=== PATIENT | male | born 1965 | race Hispanic/Latino ===

== ENCOUNTER 2016-11-01 12:59 | Inpatient (IN) | payer OTHER ==
[2016-11-01 14:46] LABS: BASO % 0.4 % (0.0-2.0); EOS % 0.7 % (0.0-4.0); HEMATOCRIT 27.7 % (35.0-51.0); LYMPH # 0.4 K/uL (1.0-4.3); LYMPH % 11.2 % (20.0-40.0); MEAN CORPUSCULAR HEMOGLOBIN 35.7 pg (27.0-31.0); MEAN CORPUSCULAR HGB CONC 34.5 g/dL (33.0-37.0); MEAN PLATELET VOLUME 6.5 fL (7.2-11.7); MONO # 0.2 K/uL (0.0-0.8); MONO % 5.2 % (0.0-10.0); NRBC % 0.1 % (0.0-2.0); RED CELL DISTRIBUTION WIDTH 14.4 % (11.5-14.5); WHITE BLOOD COUNT 3.3 K/uL (4.8-10.8)
[2016-11-01 14:47] LABS: MEAN CELL VOLUME 103.6 fL (80.0-94.0)
[2016-11-01 14:55] LABS: RBC URINE < 1 /hpf (0-3); URINE BILIRUBIN NEGATIVE (NEGATIVE); URINE BLOOD NEGATIVE (NEGATIVE); URINE COLOR Straw (YELLOW); URINE GLUCOSE (UA) 1+ mg/dL (Normal); URINE KETONE NEGATIVE (NEGATIVE); URINE LEUKOCYTE ESTERASE NEG Leu/uL (Negative); URINE UROBILINOGEN NORMAL mg/dL (0.2-1.0); WBC URINE < 1 /hpf (0-5)
[2016-11-01 14:56] LABS: URINE PROTEIN 1+ mg/dL (NEGATIVE)
[2016-11-01 14:57] LABS: CHLORIDE 93 mmol/L (98-107)
[2016-11-01 14:58] LABS: SODIUM 130 mmol/L (132-148)
[2016-11-01 15:00] LABS: AST/SGOT 74 U/L (17-59); BILIRUBIN,TOTAL 0.8 mg/dL (0.2-1.3); GFR AFRICAN-AMERICAN 12
[2016-11-01 15:01] LABS: ALB/GLOB RATIO 1.3 (1.0-2.1); ALKALINE PHOSPHATASE 93 U/L (38-126); ALT/SGPT 93 U/L (21-72); BLOOD UREA NITROGEN 61 mg/dL (9-20); CALCIUM 8.9 mg/dl (8.6-10.4); CARBON DIOXIDE 18 mmol/L (22-30); GLUCOSE,RANDOM 77 mg/dL (75-110); TOTAL PROTEIN 7.3 g/dL (6.3-8.3)
[2016-11-01] MEDS ORDERED: (Novolin R) Insulin Human Regular 100 units/ml vial IV ONE (15:23)
[2016-11-01] MEDS ORDERED: Calcium Gluconate 4.65 MEQ in Dextrose 5% In Water 100 ML IV ONE (15:23)
--- NOTE | 2016-11-01 15:23 | RAD ---
PROCEDURE: CHEST RADIOGRAPH, 1 VIEW HISTORY: Shortness of breath COMPARISON: 04/11/2016. FINDINGS: The right dialysis catheter terminates in the right atrium. LUNGS: There is mild pulmonary venous congestion. There is linear scarring in the left lower lobe. No focal consolidation. There is an azygous lobe fissure. PLEURA: Suspect small pleural effusion. No pneumothorax. CARDIOVASCULAR: There is moderate cardiomegaly. Atherosclerotic aortic arch calcifications are present. OSSEOUS STRUCTURES: No significant abnormalities. VISUALIZED UPPER ABDOMEN: Normal. OTHER FINDINGS: None. IMPRESSION: Mild pulmonary venous congestion and suspect small pleural effusions. No focal consolidation.
[2016-11-01 16:21] LABS: ALCOHOL SERUM < 10 mg/dl (0-10)
--- NOTE | 2016-11-01 16:29 | C.PDOC ---
History Of Present Illness 51 year old male presents was brought to the emergency department by seeking dialysis. As per patient's , patient missed dialysis for the last week because he is moving back with his after living with his mother for three years. Patient has a history of cocaine, heroin, and alcohol and is currently still using those substances. Patient's denies any physical complaints at this time. Time Seen by Provider: 11/01/16 13:43 Chief Complaint (Nursing): GI Problem History Per: Family () History/Exam Limitations: no limitations Associated Symptoms: denies: Fever, Chills, Chest Pain Recent travel outside of the [place]: No Past Medical History Reviewed: Historical Data, Nursing Documentation, Vital Signs Vital Signs: Last Vital Signs Temp 97.8 F 11/01/16 20:34 Pulse 84 11/01/16 20:34 Resp 18 11/01/16 20:34 BP 177/98 H 11/01/16 20:34 Pulse Ox 96 11/01/16 20:34 - Medical History PMH: HTN, Pneumonia, End Stage Renal Disease, Chronic Kidney Disease - [facility] Procedures DETOXIFICATION SERVICES FOR SUBSTANCE ABUSE TREATMENT (05/24/15) EXCISION OF DESCENDING COLON, ENDO, DIAGN (05/24/15) EXCISION OF STOMACH, ENDO, DIAGN (05/24/15) PERFORMANCE OF URINARY FILTRATION, SINGLE (04/07/16) Family History: States: Unknown Family Hx - Social History Hx Tobacco Use: Yes Hx Alcohol Use: Yes Hx Substance Use: No - Immunization History Hx Tetanus Toxoid Vaccination: No Hx Influenza Vaccination: No Hx Pneumococcal Vaccination: No Review Of Systems Constitutional: Negative for: Fever, Chills Cardiovascular: Negative for: Chest Pain, Palpitations Respiratory: Negative for: Cough, Shortness of Breath Gastrointestinal: Negative for: Nausea, Vomiting, Abdominal Pain, Diarrhea Physical Exam - Physical Exam Appears: Non-toxic, No Acute Distress, Other (patient is mildly intoxicated, is speaking on his behalf at bedside ) Skin: Warm, Dry Head: Atraumatic Eye(s): right: Other (post-surgical right eye) Oral Mucosa: Moist Neck: Supple Chest: Other (HD catheter in right anterior chest ) Cardiovascular: Rhythm Regular Respiratory: Normal Breath Sounds, No Rhonchi, No Wheezing Gastrointestinal/Abdominal: Soft, No Tenderness, No Distention, No Guarding, No Rebound Neurological/Psych: Oriented x3, Normal Speech, Normal Cognition, Normal Cranial Nerves, Normal Motor, Normal Sensation ED Course And Treatment - Laboratory Results Result Diagrams: 11/01/16 14:39 11/01/16 14:39 Lab Interpretation: Abnormal (+ hyperkalemia, tox + opiates/alcohol/cocaine) ECG: Interpreted By Me ECG Rhythm: Sinus Rhythm, Nonspecific Changes (+ peaked T^'s) ECG Interpretation: Abnormal Rate From EC O2 Sat by Pulse Oximetry: 99 (room air ) Pulse Ox Interpretation: Normal Reevaluation Time: 16:30 Reassessment Condition: Improved - Physician Consult Information Outcome Of Conversation: 1400, 1530: d/w Dr. Brandon Ly- Nephrology and Medicine Delinquency Counselor- ok to HD Medical Decision Making Medical Decision Making: polysubstance abuser, alcoholic, HD pt T/H/Sat missed HD x 1 week, now with minimal fluid overeload but + Hyperkalemia and peaked T^'s on EKG, referred for urgent HD with Medicine/Renal Delinquency Counselor, who may be his new local HD prescriber as pt formerly receiving HD in [place] Disposition Doctor Will See Patient In The: Hospital Counseled Patient/Family Regarding: Studies Performed, Diagnosis - Disposition Disposition: HOSPITALIZED Disposition Time: 16:33 Condition: GOOD - Clinical Impression Clinical Impression: Renal failure, acute on chronic, Polysubstance (including opioids) dependence with physiol dependence, Alcohol abuse - Scribe Statement The provider has reviewed the documentation as recorded by the Scribe Opal Savage All medical record entries made by the Scribe were at my direction and personally dictated by me. I have reviewed the chart and agree that the record accurately reflects my personal performance of the history, physical exam, medical decision making, and the department course for this patient. I have also personally directed, reviewed, and agree with the discharge instructions and disposition.
--- NOTE | 2016-11-01 17:13 | CP.PCM.HP ---
History of Present Illness - History of Present Illness History of Present Illness: 51 years old EtOH abuser and multiple drugs abuser male patient with past medical history of hypertension, pneumonia, CKD, end-stage renal disease on hemodialysis presented to the emergency department with his seeking dialysis. states that patient missed dialysis last week but denies any other physical complaints. No fever, nausea, vomiting No chest pain, abdominal pain, back pain No shortness of breath, palpitation, loss of consciousness Present on Admission - Present on Admission Any Indicators Present on Admission: No Past Patient History - Infectious Disease Hx of Infectious Diseases: None - Past Medical History & Family History Past Medical History?: Yes - Past Social History Smoking Status: Heavy Smoker > 10 Cigarettes Daily - CARDIAC Hx Hypertension: Yes - PULMONARY Hx Pneumonia: Yes - NEUROLOGICAL Hx Neurological Disorder: Yes Other/Comment: 'BRAIN INJURY ' - RENAL Hx Chronic Kidney Disease: Yes - ENDOCRINE/METABOLIC Hx Endocrine Disorders: Yes Hx Diabetes Mellitus Type 2: Yes - HEMATOLOGICAL/ONCOLOGICAL Hx Blood Disorders: Yes Hx Cancer: Yes (EYE CANCER) Hx Hepatitis C: Yes Other/Comment: Liver Tx - MUSCULOSKELETAL/RHEUMATOLOGICAL Hx Musculoskeletal Disorders: Yes Hx Falls: Yes - GASTROINTESTINAL Hx Gastrointestinal Disorders: Yes Hx Liver Failure: Yes - PSYCHIATRIC Hx Substance Use: No - SURGICAL HISTORY Hx Surgeries: Yes Hx Eye Surgery: Yes (LEFT EYE) Hx Liver Transplant: Yes Hx Vascular Access Device: Yes (LEFT UPPER ARM FISTULA) 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 - ANESTHESIA Hx Anesthesia: Yes Hx Anesthesia Reactions: No Meds Allergies/Adverse Reactions: Allergies Allergy/AdvReac Type Severity Reaction Status Date / Time No Known Allergies Allergy Verified 11/04/16 20:20 Physical Exam - Constitutional Appears: Well - Head Exam Head Exam: ATRAUMATIC, NORMAL INSPECTION, NORMOCEPHALIC - Eye Exam Eye Exam: EOMI, Normal appearance, PERRL Pupil Exam: NORMAL ACCOMODATION, PERRL - ENT Exam ENT Exam: Mucous Membranes Moist, Normal Exam - Neck Exam Neck exam: Positive for: Normal Inspection - Respiratory Exam Respiratory Exam: Decreased Breath Sounds - Cardiovascular Exam Cardiovascular Exam: REGULAR RHYTHM - GI/Abdominal Exam GI & Abdominal Exam: Diminished Bowel Sounds - Rectal Exam Rectal Exam: Deferred Results - Vital Signs Recent Vital Signs: Last Vital Signs Temp 98.0 F 11/01/16 16:13 Pulse 75 11/01/16 16:13 Resp 16 11/01/16 16:13 BP 176/113 H 11/01/16 16:13 Pulse Ox 99 11/01/16 16:34 - Labs Result Diagrams: 11/03/16 13:55 11/03/16 13:55 Assessment & Plan (1) AV fistula Status: Acute (2) Alcohol withdrawal seizure with complication Status: Acute (3) Drug abuse Status: Acute (4) Hepatitis C Status: Acute (5) Seizure Status: Acute (6) Status epilepticus Status: Acute (7) Alcohol abuse Status: Chronic (8) ESRD (end stage renal disease) on dialysis Status: Chronic (9) Liver transplant recipient Status: Chronic (10) Alcohol abuse Status: Acute (11) Alcohol abuse following liver transplant Status: Acute (12) Alcohol intoxication Status: Acute (13) Anemia Status: Acute (14) CHF (congestive heart failure) Status: Acute (15) CKD (chronic kidney disease) stage 5, GFR less than 15 ml/min Status: Acute (16) Encephalopathy Status: Acute (17) Gastritis Status: Acute (18) Hypotension Status: Acute (19) Hypotension Status: Acute (20) Leukopenia Status: Acute (21) Liver transplant disorder Status: Acute (22) Pancytopenia, acquired Status: Acute (23) Polysubstance (including opioids) dependence with physiol dependence Status: Acute (24) Renal failure, acute on chronic Status: Acute (25) Vomiting Status: Acute (26) ESRD (end stage renal disease) Status: Chronic - Assessment and Plan (Free Text) Plan: Labs and meds noted Continue home meds Catapres Norvasc Librium Hepatitis panel Renal diet Hemodialysis Monitor vitals Monitor electrolytes
[2016-11-02] MEDS: Sucralfate 1 gm/10 ml Oral Susp UD PO SCH ×2 (07:58→16:17)
[2016-11-02] MEDS: Pantoprazole 40 mg EC Tab PO SCH (09:34)
[2016-11-02] MEDS: Metoprolol Succinate 25 mg XL Tab PO SCH (09:35)
[2016-11-02] MEDS: NIFEdipine 90 mg ER Tab PO SCH (09:35)
[2016-11-02] MEDS: metOLazone 2.5 MG TAB PO SCH (09:36)
[2016-11-02] MEDS: Enoxaparin 40 mg Syringe SC SCH (09:36)
--- NOTE | 2016-11-02 12:28 | CP.PCM.PN ---
Subjective - Date & Time of Evaluation Date of Evaluation: 11/02/16 Time of Evaluation: 11:00 - Subjective Subjective: clinically same Objective - Vital Signs/Intake and Output Vital Signs (last 24 hours): Temp Pulse Resp BP Pulse Ox 98.0 F 64 18 143/87 96 11/02/16 07:25 11/02/16 07:25 11/02/16 07:25 11/02/16 09:35 11/02/16 07:25 - Medications Medications: Current Medications Amlodipine Besylate (Norvasc) 10 mg PO DAILY [facility] Last Admin: 11/02/16 09:34 Dose: 10 mg Chlordiazepoxide (Librium) 25 mg PO Q8 PRN PRN Reason: Anxiety Last Admin: 11/02/16 10:51 Dose: 25 mg Docusate Sodium (Colace) 100 mg PO DAILY [facility] Last Admin: 11/02/16 09:34 Dose: 100 mg Enoxaparin Sodium (Lovenox) 40 mg SC DAILY [facility] Last Admin: 11/02/16 09:36 Dose: 40 mg Ferrous Sulfate (Feosol) 325 mg PO DAILY [facility] Last Admin: 11/02/16 09:34 Dose: 325 mg Folic Acid (Folic Acid) 1 mg PO DAILY [facility] Last Admin: 11/02/16 09:35 Dose: 1 mg Furosemide (Lasix) 80 mg PO DAILY [facility] Last Admin: 11/02/16 09:35 Dose: 80 mg Metolazone (Zaroxolyn) 2.5 mg PO DAILY [facility] Last Admin: 11/02/16 09:36 Dose: 2.5 mg Metoprolol Succinate (Toprol Xl) 25 mg PO DAILY [facility] Last Admin: 11/02/16 09:35 Dose: 25 mg Nifedipine (Procardia Xl) 90 mg PO DAILY [facility] Last Admin: 11/02/16 09:35 Dose: 90 mg Pantoprazole Sodium (Protonix Ec Tab) 40 mg PO DAILY [facility] Last Admin: 11/02/16 09:34 Dose: 40 mg Pneumococcal Polyvalent Vaccine (Pneumovax 23 Vaccine) 0.5 ml IM .ONCE ONE Stop: 11/04/16 10:01 Sucralfate (Carafate Oral Susp) 1 gm PO ACBD [facility] Last Admin: 11/02/16 07:58 Dose: 1 gm Thiamine HCl (Vitamin B1 Tab) 100 mg PO DAILY [facility] Last Admin: 11/02/16 09:35 Dose: 100 mg - Labs Labs: PT 10.7 SECONDS (9.7-12.2) 11/01/16 14:39 INR 1.0 11/01/16 14:39 APTT 34 SECONDS (21-34) 11/01/16 14:39 - Constitutional Appears: Well - Head Exam Head Exam: ATRAUMATIC, NORMAL INSPECTION, NORMOCEPHALIC - Eye Exam Eye Exam: EOMI, Normal appearance, PERRL Pupil Exam: NORMAL ACCOMODATION, PERRL - ENT Exam ENT Exam: Mucous Membranes Moist, Normal Exam - Neck Exam Neck Exam: Full ROM, Normal Inspection. absent: Lymphadenopathy - Respiratory Exam Respiratory Exam: Decreased Breath Sounds - Cardiovascular Exam Cardiovascular Exam: REGULAR RHYTHM, +S1, +S2 - GI/Abdominal Exam GI & Abdominal Exam: Soft, Diminished Bowel Sounds - Rectal Exam Rectal Exam: Deferred Assessment and Plan (1) AV fistula Status: Acute (2) Alcohol withdrawal seizure with complication Status: Acute (3) Drug abuse Status: Acute (4) Hepatitis C Status: Acute (5) Seizure Status: Acute (6) Status epilepticus Status: Acute (7) Alcohol abuse Status: Chronic (8) ESRD (end stage renal disease) on dialysis Status: Chronic (9) Liver transplant recipient Status: Chronic (10) Alcohol abuse Status: Acute (11) Alcohol abuse following liver transplant Status: Acute (12) Alcohol intoxication Status: Acute (13) Anemia Status: Acute (14) CHF (congestive heart failure) Status: Acute (15) CKD (chronic kidney disease) stage 5, GFR less than 15 ml/min Status: Acute (16) Encephalopathy Status: Acute (17) Gastritis Status: Acute (18) Hypotension Status: Acute (19) Hypotension Status: Acute (20) Leukopenia Status: Acute (21) Liver transplant disorder Status: Acute (22) Pancytopenia, acquired Status: Acute (23) Polysubstance (including opioids) dependence with physiol dependence Status: Acute (24) Renal failure, acute on chronic Status: Acute (25) Vomiting Status: Acute (26) ESRD (end stage renal disease) Status: Chronic - Assessment and Plan (Free Text) Plan: Patient clinically better No acute event overnight Catapres Norvasc Librium Renal diet Hemodialysis Monitor vitals Monitor electrolytes Labs next a.m.
[2016-11-03] MEDS: Sucralfate 1 gm/10 ml Oral Susp UD PO SCH ×2 (07:50→16:49)
[2016-11-03] MEDS: metOLazone 2.5 MG TAB PO SCH (09:29)
[2016-11-03] MEDS: NIFEdipine 90 mg ER Tab PO SCH (09:29)
[2016-11-03] MEDS: Metoprolol Succinate 25 mg XL Tab PO SCH (09:30)
[2016-11-03] MEDS: Pantoprazole 40 mg EC Tab PO SCH (09:30)
[2016-11-03] MEDS: Enoxaparin 40 mg Syringe SC SCH (09:30)
[2016-11-03 14:11] LABS: BASO % 0.2 % (0.0-2.0); EOS # 0.1 K/uL (0.0-0.7); HEMATOCRIT 32.2 % (35.0-51.0); LYMPH # 0.9 K/uL (1.0-4.3); LYMPH % 23.8 % (20.0-40.0); MEAN CELL VOLUME 102.6 fL (80.0-94.0); MEAN CORPUSCULAR HEMOGLOBIN 35.8 pg (27.0-31.0); MEAN CORPUSCULAR HGB CONC 34.9 g/dL (33.0-37.0); MEAN PLATELET VOLUME 7.6 fL (7.2-11.7); MONO # 0.4 K/uL (0.0-0.8); MONO % 11.5 % (0.0-10.0); NRBC % 0.1 % (0.0-2.0); RED CELL DISTRIBUTION WIDTH 13.6 % (11.5-14.5); WHITE BLOOD COUNT 3.7 K/uL (4.8-10.8)
[2016-11-03 14:34] LABS: POTASSIUM 5.1 mmol/L (3.6-5.2)
[2016-11-03 14:36] LABS: BILIRUBIN,TOTAL 0.8 mg/dL (0.2-1.3)
[2016-11-03 14:37] LABS: ALB/GLOB RATIO 1.1 (1.0-2.1); TOTAL PROTEIN 7.6 g/dL (6.3-8.3)
--- NOTE | 2016-11-03 18:15 | CP.PCM.PN ---
Subjective - Date & Time of Evaluation Date of Evaluation: 11/03/16 Time of Evaluation: 10:00 - Subjective Subjective: clinically same Objective - Vital Signs/Intake and Output Vital Signs (last 24 hours): Temp Pulse Resp BP Pulse Ox 98.2 F 82 20 116/83 97 11/03/16 15:42 11/03/16 15:42 11/03/16 15:42 11/03/16 15:42 11/03/16 15:42 Intake and Output: 11/03/16 11/03/16 06:59 18:59 Intake Total 240 1080 Output Total 800 Balance -560 1080 - Medications Medications: Current Medications Amlodipine Besylate (Norvasc) 10 mg PO DAILY [facility] Last Admin: 11/03/16 09:30 Dose: 10 mg Chlordiazepoxide (Librium) 25 mg PO Q8 PRN PRN Reason: Anxiety Last Admin: 11/02/16 10:51 Dose: 25 mg Docusate Sodium (Colace) 100 mg PO DAILY [facility] Last Admin: 11/03/16 09:29 Dose: 100 mg Enoxaparin Sodium (Lovenox) 30 mg SC DAILY [facility] Ferrous Sulfate (Feosol) 325 mg PO DAILY [facility] Last Admin: 11/03/16 09:29 Dose: 325 mg Folic Acid (Folic Acid) 1 mg PO DAILY [facility] Last Admin: 11/03/16 09:29 Dose: 1 mg Furosemide (Lasix) 80 mg PO DAILY [facility] Last Admin: 11/03/16 09:30 Dose: 80 mg Metolazone (Zaroxolyn) 2.5 mg PO DAILY [facility] Last Admin: 11/03/16 09:29 Dose: 2.5 mg Metoprolol Succinate (Toprol Xl) 25 mg PO DAILY [facility] Last Admin: 11/03/16 09:30 Dose: 25 mg Nicotine (Nicoderm Cq) 1 patch TD DAILY [facility] Last Admin: 11/03/16 09:30 Dose: 1 patch Nifedipine (Procardia Xl) 90 mg PO DAILY [facility] Last Admin: 11/03/16 09:29 Dose: 90 mg Pantoprazole Sodium (Protonix Ec Tab) 40 mg PO DAILY [facility] Last Admin: 11/03/16 09:30 Dose: 40 mg Pneumococcal Polyvalent Vaccine (Pneumovax 23 Vaccine) 0.5 ml IM .ONCE ONE Stop: 11/04/16 10:01 Sucralfate (Carafate Oral Susp) 1 gm PO ACBD [facility] Last Admin: 11/03/16 16:49 Dose: 1 gm Thiamine HCl (Vitamin B1 Tab) 100 mg PO DAILY [facility] Last Admin: 11/03/16 09:30 Dose: 100 mg Tramadol HCl (Ultram) 50 mg PO Q8 PRN PRN Reason: Pain, severe (8-10) Last Admin: 11/03/16 12:16 Dose: 50 mg - Labs Labs: 11/03/16 13:55 11/03/16 13:55 PT 10.7 SECONDS (9.7-12.2) 11/01/16 14:39 INR 1.0 11/01/16 14:39 APTT 34 SECONDS (21-34) 11/01/16 14:39 - Constitutional Appears: Well - Head Exam Head Exam: ATRAUMATIC, NORMAL INSPECTION, NORMOCEPHALIC - Eye Exam Eye Exam: EOMI, Normal appearance, PERRL Pupil Exam: NORMAL ACCOMODATION, PERRL - ENT Exam ENT Exam: Mucous Membranes Moist, Normal Exam - Neck Exam Neck Exam: Full ROM, Normal Inspection. absent: Lymphadenopathy - Respiratory Exam Respiratory Exam: Decreased Breath Sounds - Cardiovascular Exam Cardiovascular Exam: REGULAR RHYTHM, +S1, +S2 - GI/Abdominal Exam GI & Abdominal Exam: Soft, Diminished Bowel Sounds - Rectal Exam Rectal Exam: Deferred Assessment and Plan (1) AV fistula Status: Acute (2) Alcohol withdrawal seizure with complication Status: Acute (3) Drug abuse Status: Acute (4) Hepatitis C Status: Acute (5) Seizure Status: Acute (6) Status epilepticus Status: Acute (7) Alcohol abuse Status: Chronic (8) ESRD (end stage renal disease) on dialysis Status: Chronic (9) Liver transplant recipient Status: Chronic (10) Alcohol abuse Status: Acute (11) Alcohol abuse following liver transplant Status: Acute (12) Alcohol intoxication Status: Acute (13) Anemia Status: Acute (14) CHF (congestive heart failure) Status: Acute (15) CKD (chronic kidney disease) stage 5, GFR less than 15 ml/min Status: Acute (16) Encephalopathy Status: Acute (17) Gastritis Status: Acute (18) Hypotension Status: Acute (19) Hypotension Status: Acute (20) Leukopenia Status: Acute (21) Liver transplant disorder Status: Acute (22) Pancytopenia, acquired Status: Acute (23) Polysubstance (including opioids) dependence with physiol dependence Status: Acute (24) Renal failure, acute on chronic Status: Acute (25) Vomiting Status: Acute (26) ESRD (end stage renal disease) Status: Chronic - Assessment and Plan (Free Text) Plan: Patient clinically better No acute events Catapres Norvasc Librium Renal diet Monitor vitals Monitor electrolytes DVT prophylaxis Labs next a.m.
[2016-11-04] MEDS: Sucralfate 1 gm/10 ml Oral Susp UD PO SCH ×2 (08:21→16:55)
[2016-11-04] MEDS ORDERED: Pneumococcal 23-Valent Vaccine IM ONE (10:00)
[2016-11-04] MEDS: NIFEdipine 90 mg ER Tab PO SCH ×2 (10:44→13:39)
[2016-11-04] MEDS: metOLazone 2.5 MG TAB PO SCH ×2 (10:44→13:37)
[2016-11-04] MEDS: Enoxaparin 30 mg Syringe SC SCH ×2 (10:44→13:38)
[2016-11-04] MEDS: Metoprolol Succinate 25 mg XL Tab PO SCH ×2 (10:44→13:36)
[2016-11-04] MEDS: Pantoprazole 40 mg EC Tab PO SCH ×2 (10:44→13:37)
[2016-11-04 14:01] VITALS: RESP 20
--- NOTE | 2016-11-04 16:52 | CP.PCM.PN ---
Subjective - Date & Time of Evaluation Date of Evaluation: 11/04/16 Time of Evaluation: 09:00 - Subjective Subjective: clinically same Objective - Vital Signs/Intake and Output Vital Signs (last 24 hours): Temp Pulse Resp BP Pulse Ox 97.5 F L 91 H 20 118/84 99 11/04/16 13:59 11/04/16 13:59 11/04/16 13:59 11/04/16 13:59 11/04/16 13:59 - Medications Medications: Current Medications Amlodipine Besylate (Norvasc) 10 mg PO DAILY [facility] Last Admin: 11/04/16 13:43 Dose: 10 mg Chlordiazepoxide (Librium) 25 mg PO Q8 PRN PRN Reason: Anxiety Last Admin: 11/02/16 10:51 Dose: 25 mg Docusate Sodium (Colace) 100 mg PO DAILY [facility] Last Admin: 11/04/16 13:36 Dose: 100 mg Enoxaparin Sodium (Lovenox) 30 mg SC DAILY [facility] Last Admin: 11/04/16 13:38 Dose: 30 mg Ferrous Sulfate (Feosol) 325 mg PO DAILY [facility] Last Admin: 11/04/16 13:36 Dose: 325 mg Folic Acid (Folic Acid) 1 mg PO DAILY [facility] Last Admin: 11/04/16 13:37 Dose: 1 mg Furosemide (Lasix) 80 mg PO DAILY [facility] Last Admin: 11/04/16 13:38 Dose: 80 mg Metolazone (Zaroxolyn) 2.5 mg PO DAILY [facility] Last Admin: 11/04/16 13:37 Dose: 2.5 mg Metoprolol Succinate (Toprol Xl) 25 mg PO DAILY [facility] Last Admin: 11/04/16 13:36 Dose: 25 mg Nicotine (Nicoderm Cq) 1 patch TD DAILY [facility] Last Admin: 11/04/16 13:50 Dose: 1 patch Nifedipine (Procardia Xl) 90 mg PO DAILY [facility] Last Admin: 11/04/16 13:39 Dose: 90 mg Pantoprazole Sodium (Protonix Ec Tab) 40 mg PO DAILY [facility] Last Admin: 11/04/16 13:37 Dose: 40 mg Sucralfate (Carafate Oral Susp) 1 gm PO ACBD [facility] Last Admin: 11/04/16 08:21 Dose: 1 gm Thiamine HCl (Vitamin B1 Tab) 100 mg PO DAILY [facility] Last Admin: 11/04/16 13:36 Dose: 100 mg Tramadol HCl (Ultram) 50 mg PO Q8 PRN PRN Reason: Pain, severe (8-10) Last Admin: 11/04/16 08:24 Dose: 50 mg - Labs Labs: 11/03/16 13:55 11/03/16 13:55 PT 10.7 SECONDS (9.7-12.2) 11/01/16 14:39 INR 1.0 11/01/16 14:39 APTT 34 SECONDS (21-34) 11/01/16 14:39 - Constitutional Appears: Well - Head Exam Head Exam: ATRAUMATIC, NORMAL INSPECTION, NORMOCEPHALIC - Eye Exam Eye Exam: EOMI, Normal appearance, PERRL Pupil Exam: NORMAL ACCOMODATION, PERRL - ENT Exam ENT Exam: Mucous Membranes Moist, Normal Exam - Neck Exam Neck Exam: Full ROM, Normal Inspection. absent: Lymphadenopathy - Respiratory Exam Respiratory Exam: Decreased Breath Sounds - Cardiovascular Exam Cardiovascular Exam: REGULAR RHYTHM, +S1, +S2 - GI/Abdominal Exam GI & Abdominal Exam: Soft, Diminished Bowel Sounds - Rectal Exam Rectal Exam: Deferred Assessment and Plan (1) AV fistula Status: Acute (2) Alcohol withdrawal seizure with complication Status: Acute (3) Drug abuse Status: Acute (4) Hepatitis C Status: Acute (5) Seizure Status: Acute (6) Status epilepticus Status: Acute (7) Alcohol abuse Status: Chronic (8) ESRD (end stage renal disease) on dialysis Status: Chronic (9) Liver transplant recipient Status: Chronic (10) Alcohol abuse Status: Acute (11) Alcohol abuse following liver transplant Status: Acute (12) Alcohol intoxication Status: Acute (13) Anemia Status: Acute (14) CHF (congestive heart failure) Status: Acute (15) CKD (chronic kidney disease) stage 5, GFR less than 15 ml/min Status: Acute (16) Encephalopathy Status: Acute (17) Gastritis Status: Acute (18) Hypotension Status: Acute (19) Hypotension Status: Acute (20) Leukopenia Status: Acute (21) Liver transplant disorder Status: Acute (22) Pancytopenia, acquired Status: Acute (23) Polysubstance (including opioids) dependence with physiol dependence Status: Acute (24) Renal failure, acute on chronic Status: Acute (25) Vomiting Status: Acute (26) ESRD (end stage renal disease) Status: Chronic - Assessment and Plan (Free Text) Plan: Patient for the dialysis chair placement is in process will call also Dr. Llamas for AV fistula continue same no new symptoms continue current medications
[2016-11-04 17:03] VITALS: BP 115/80; PULSE 71; TEMP 98.3; O2SAT 98
--- NOTE | 2016-11-05 21:54 | CARD ---
APPROVED REPORT EKG Measurement Heart [id number] [place] [id number] [id number] <Conclusion> Normal sinus rhythm Normal ECG
== END 2016-11-04 18:00 | disposition left against medical advice (07) | DRG 682 ==
LOC: C.ER 12:59 → C.9E 15:22 → C.5T 17:17 → C.3T 11-04 11:09
PROVIDERS: ADMIT Internal Medicine Nephrology; ATTEND Internal Medicine Nephrology
PROC: 5A1D60Z (ICD-10-PCS; principal; 2016-11-01)
DX: I12.0 Hypertensive chronic kidney disease with stage 5 chronic kidney disease or end stage renal disease (principal); N18.6 End stage renal disease; E11.22 Type 2 diabetes mellitus with diabetic chronic kidney disease; Z94.4 Liver transplant status; F11.20 Opioid dependence, uncomplicated; E87.70 Fluid overload, unspecified; E87.5 Hyperkalemia; F10.10 Alcohol abuse, uncomplicated; B18.2 Chronic viral hepatitis C; F17.210 Nicotine dependence, cigarettes, uncomplicated; Z91.15 Patient's noncompliance with renal dialysis; Z99.2 Dependence on renal dialysis; Z85.840 Personal history of malignant neoplasm of eye; Z87.01 Personal history of pneumonia (recurrent)

== ENCOUNTER 2016-11-04 19:58 | Inpatient (IN) | payer OTHER ==
[2016-11-04 20:26] LABS: BASO % 0.5 % (0.0-2.0); EOS # 0.1 K/uL (0.0-0.7); EOS % 1.9 % (0.0-4.0); HEMATOCRIT 31.3 % (35.0-51.0); LYMPH # 1.8 K/uL (1.0-4.3); LYMPH % 31.2 % (20.0-40.0); MEAN CELL VOLUME 102.2 fL (80.0-94.0); MEAN CORPUSCULAR HEMOGLOBIN 36.1 pg (27.0-31.0); MEAN CORPUSCULAR HGB CONC 35.3 g/dL (33.0-37.0); MONO # 0.7 K/uL (0.0-0.8); MONO % 12.9 % (0.0-10.0); RED CELL DISTRIBUTION WIDTH 13.4 % (11.5-14.5); WHITE BLOOD COUNT 5.7 K/uL (4.8-10.8)
[2016-11-04] MEDS ORDERED: Naloxone 0.4 mg/ml Inj (Adult) ONE (20:27)
[2016-11-04] MEDS ORDERED: Sodium Chloride 0.9% 500 ML IV ONE (20:29)
[2016-11-04 20:31] LABS: VENOUS BLOOD GAS BASE EXCESS -3.8 mmol/L (0.0-2.0); VENOUS BLOOD GAS PCO2 39 mmHg (40-60); VENOUS BLOOD PH 7.35 (7.32-7.43)
--- NOTE | 2016-11-04 20:34 | C.PDOC ---
History Of Present Illness 51 year old male with a Hx of substance abuse brought to the ER after being found on the street unconscious with a bottle of vodka. Patient recently signed out of the hospital AMA after missing dialysis for a week. Patient is lethargic and unresponsive at this time. Chief Complaint (Nursing): Medical Clearance History Per: Patient History/Exam Limitations: no limitations Onset/Duration Of Symptoms: Days Current Symptoms Are (Timing): Still Present Recent travel outside of the [place]: No Past Medical History Reviewed: Historical Data, Nursing Documentation, Vital Signs Vital Signs: Last Vital Signs Temp 98.1 F 11/04/16 20:02 Pulse 74 11/04/16 21:06 Resp 96 H 11/04/16 21:06 BP 116/77 11/04/16 21:06 Pulse Ox 98 11/04/16 23:56 - Medical History PMH: HTN, Pneumonia, End Stage Renal Disease, Chronic Kidney Disease - [facility] DETOXIFICATION SERVICES FOR SUBSTANCE ABUSE TREATMENT (05/24/15) EXCISION OF DESCENDING COLON, ENDO, DIAGN (05/24/15) EXCISION OF STOMACH, ENDO, DIAGN (05/24/15) PERFORMANCE OF URINARY FILTRATION, SINGLE (04/07/16) Family History: States: Unknown Family Hx - Social History Hx Tobacco Use: Yes Hx Alcohol Use: Yes Hx Substance Use: No - Immunization History Hx Tetanus Toxoid Vaccination: No Hx Influenza Vaccination: No Hx Pneumococcal Vaccination: No Review Of Systems Review Of Systems: ROS cannot be obtained secondary to pt's inabilty to answer questions. Physical Exam - Physical Exam Appears: Non-toxic, Other (Lethargic, Unresponsive) Skin: Normal Color, Warm, Dry Head: Atraumatic, Normacephalic Oral Mucosa: Dry Neck: Normal, Supple Cardiovascular: Rhythm Regular, No Murmur Respiratory: Normal Breath Sounds, No Rales, No Rhonchi, No Wheezing Extremity: Normal ROM (x4) Neurological/Psych: Other (No focal deficits) ED Course And Treatment - Laboratory Results Result Diagrams: 11/04/16 20:22 11/04/16 20:22 O2 Sat by Pulse Oximetry: 98 (Room air) Pulse Ox Interpretation: Normal - CT Scan/US CT Head Other Rad Studies (CT/US): Read By Radiologist, Radiology Report Reviewed CT/US Interpretation: EXAM: CT Head Without Intravenous Contrast. CLINICAL HISTORY: 51 years old, male; Signs and symptoms; Altered mental status/memory loss; Confusion or. disorientation; Additional info: Stroke alert. TECHNIQUE: Axial computed tomography images of the head/brain without intravenous contrast. This CT exam. was performed using one or more of the following dose reduction techniques: automated exposure. control, adjustment of the mA and/or kV according to patient size, and/or use of iterative. reconstruction technique. EXAM DATE/TIME: Exam ordered 11/04/2016 8:25 PM. COMPARISON: No relevant prior studies available. FINDINGS: Brain: A 1.4 cm low-density area is noted in the anterior limb of the right internal capsule extending. into the davey radiata. Abnormal low density is noted in the periventricular white matter extending. into the davey radiata and centrum semiovale bilaterally. Abnormal low density is noted in the left. temporal lobe extending superiorly to the external capsule A punctate calcification is noted within a. sulcus high over the right parietal convexity. It is a nonspecific finding. No hemorrhage. No edema. Ventricles: Unremarkable. No ventriculomegaly. Bones/ joints: Unremarkable. No acute fracture. Soft tissues: Unremarkable. Sinuses: Minimal mucosal thickening is noted within the ethmoid air cells bilaterally. Mastoid air cells: Minimal mucosal thickening is noted in the mastoid air cells bilaterally. Nasopharynx: There is leftward deviation of the nasal septum. IMPRESSION: 1. No acute findings. 2. Chronic left temporal lobe infarct. 3. 1.3 cm low-density focus in the anterior limb of the right internal capsule. The appearance suggests. subacute/chronic subcortical infarct. 4. Chronic microvascular ischemic change within the deep white matter structures. 5. Mild mastoiditis. Minimal mucosal thickening in the ethmoid air cells. Progress Note: CT head, EKG, Blood work, and Urinalysis. IV fluids administered. Disposition Discussed With : An Ly Doctor Will See Patient In The: Hospital Counseled Patient/Family Regarding: Diagnosis - Disposition Disposition: HOSPITALIZED Disposition Time: 23:23 Condition: STABLE Forms: [facility] (Dutch) - POA Present On Arrival: None - Clinical Impression Clinical Impression: ESRD (end stage renal disease), Drug abuse, Alcohol abuse, Alcohol intoxication , Hypotension - Scribe Statement The provider has reviewed the documentation as recorded by the Scribe Nirmal Hardwick All medical record entries made by the Scribe were at my direction and personally dictated by me. I have reviewed the chart and agree that the record accurately reflects my personal performance of the history, physical exam, medical decision making, and the department course for this patient. I have also personally directed, reviewed, and agree with the discharge instructions and disposition.
[2016-11-04 20:35] LABS: POTASSIUM 4.3 mmol/L (3.6-5.2)
[2016-11-04 20:37] LABS: ALB/GLOB RATIO 1.2 (1.0-2.1); BILIRUBIN,TOTAL 0.6 mg/dL (0.2-1.3); TOTAL PROTEIN 7.4 g/dL (6.3-8.3)
[2016-11-04 20:38] LABS: CALCIUM 8.7 mg/dl (8.6-10.4)
[2016-11-04] MEDS ORDERED: Naloxone 0.4 mg/ml Inj (Adult) IVP ONE (20:45)
[2016-11-04 20:49] LABS: ALCOHOL SERUM 283 mg/dl (0-10); CHOLESTEROL 141 mg/dL (0-199)
--- NOTE | 2016-11-04 20:52 | CT ---
EXAM: CT Head Without Intravenous Contrast CLINICAL HISTORY: 51 years old, male; Signs and symptoms; Altered mental status/memory loss; Confusion or disorientation; Additional info: Stroke alert TECHNIQUE: Axial computed tomography images of the head/brain without intravenous contrast. This CT exam was performed using one or more of the following dose reduction techniques: automated exposure control, adjustment of the mA and/or kV according to patient size, and/or use of iterative reconstruction technique. EXAM DATE/TIME: Exam ordered 11/04/2016 8:25 PM COMPARISON: No relevant prior studies available. FINDINGS: Brain: A 1.4 cm low-density area is noted in the anterior limb of the right internal capsule extending into the davey radiata. Abnormal low density is noted in the periventricular white matter extending into the davey radiata and centrum semiovale bilaterally. Abnormal low density is noted in the left temporal lobe extending superiorly to the external capsule A punctate calcification is noted within a sulcus high over the right parietal convexity. It is a nonspecific finding. No hemorrhage. No edema. Ventricles: Unremarkable. No ventriculomegaly. Bones/joints: Unremarkable. No acute fracture. Soft tissues: Unremarkable. Sinuses: Minimal mucosal thickening is noted within the ethmoid air cells bilaterally Mastoid air cells: Minimal mucosal thickening is noted in the mastoid air cells bilaterally. Nasopharynx: There is leftward deviation of the nasal septum. IMPRESSION: 1. No acute findings. 2. Chronic left temporal lobe infarct 3. 1.3 cm low-density focus in the anterior limb of the right internal capsule. The appearance suggests subacute/chronic subcortical infarct. 4. Chronic microvascular ischemic change within the deep white matter structures. 5. Mild mastoiditis. Minimal mucosal thickening in the ethmoid air cells.
[2016-11-04] MEDS ORDERED: DOPamine 400mg/250ml D5W 400 MG/250 ML BAG IV ONE (20:59)
[2016-11-04] MEDS ORDERED: DOPamine 400mg/250ml D5W 400 MG/250 ML BAG IV PRN (21:02)
[2016-11-04] MEDS ORDERED: Sodium Chloride 0.9% 1,000 ML IV ONE ×3 (21:23→23:29)
[2016-11-04 22:01] LABS: RBC URINE < 1 /hpf (0-3); URINE BACTERIA RARE (<OCC); URINE BILIRUBIN NEGATIVE (NEGATIVE); URINE BLOOD NEGATIVE (NEGATIVE); URINE COLOR Straw (YELLOW); URINE GLUCOSE (UA) NORMAL (Normal); URINE KETONE NEGATIVE (NEGATIVE); URINE LEUKOCYTE ESTERASE NEG Leu/uL (Negative); URINE PROTEIN 1+ mg/dL (NEGATIVE); URINE UROBILINOGEN NORMAL mg/dL (0.2-1.0); WBC URINE 1 /hpf (0-5)
[2016-11-04] MEDS ORDERED: Sodium Chloride 0.9% 2,000 ML ONE (22:08)
--- NOTE | 2016-11-04 22:28 | CP.PCM.CON ---
History of Present Illness - History of Present Illness History of Present Illness: CCM 51 yo male with hx ESRD on HD /HTN /HCV /ETOH & Substance Abuse signed out AMA today after tx for hyperkalemia and missed dialysis. Today pt BIBEMS after found unresponsive in street with bottle of vodka. In ED pt with low BP has now received 2 liters NS and is not on pressors. Had some response to narcan as per ED staff. Pt now giving some garbled verbal responses. Denied pain or sob. Not giving hx. ROS- as noted All- NKDA Social-+tob/+etoh/ +drugs Meds- reviewed FH- Unknown PE T-98.1 P-75 R-16 BP-107/77 awake,lethargic some responses,follows commands occ. Pupils reactive Neck- no jvd Lungs- bilat bs Heart-rr aBd- bernign eXt- nontender Neuro- moves all ext,? RUE weaker than left Labs ,EKG ,[id number] A&P ETOH intoxication Substance Abuse Encephalopathy s/p Hypotension ESRD HCV r/o Stroke(subacute to chronic on CT) Hx HTN Hx Eye Ca Hx Brain injury cont IV fluid f/u lactate /labs Neuro checks/Neuro eval consider MRI maintain optimal lytes check U tox 1:1 observation DVT prophylaxis may admit to Telemetry Re-consult prn Past Patient History - Infectious Disease Hx of Infectious Diseases: None - Past Medical History & Family History Past Medical History?: Yes - Past Social History Smoking Status: Heavy Smoker > 10 Cigarettes Daily - CARDIAC Hx Hypertension: Yes - PULMONARY Hx Pneumonia: Yes - NEUROLOGICAL Hx Neurological Disorder: Yes Other/Comment: 'BRAIN INJURY ' - RENAL Hx Chronic Kidney Disease: Yes - ENDOCRINE/METABOLIC Hx Endocrine Disorders: Yes Hx Diabetes Mellitus Type 2: Yes - HEMATOLOGICAL/ONCOLOGICAL Hx Blood Disorders: Yes Hx Cancer: Yes (EYE CANCER) Hx Hepatitis C: Yes Other/Comment: Liver transplant - MUSCULOSKELETAL/RHEUMATOLOGICAL Hx Musculoskeletal Disorders: Yes Hx Falls: Yes - GASTROINTESTINAL Hx Gastrointestinal Disorders: Yes Hx Liver Failure: Yes - PSYCHIATRIC Hx Substance Use: No - SURGICAL HISTORY Hx Surgeries: Yes Hx Eye Surgery: Yes (LEFT EYE) Hx Liver Transplant: Yes Hx Vascular Access Device: Yes (LEFT UPPER ARM FISTULA) 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 - ANESTHESIA Hx Anesthesia: Yes Hx Anesthesia Reactions: No Meds Allergies/Adverse Reactions: Allergies Allergy/AdvReac Type Severity Reaction Status Date / Time No Known Allergies Allergy Verified 11/04/16 20:20 - Medications Medications: Current Medications Sodium Chloride (Sodium Chloride 0.9%) 1,000 mls @ 1,000 mls/hr IV .Q1H ONE Stop: 11/04/16 22:22 Last Admin: 11/04/16 21:00 Dose: 1,000 mls/hr Sodium Chloride (Sodium Chloride 0.9%) 1,000 mls @ 1,000 mls/hr IV .Q1H ONE Stop: 11/04/16 22:29 Last Admin: 11/04/16 22:04 Dose: 1,000 mls/hr Results - Vital Signs Recent Vital Signs: Last Vital Signs Temp 98.1 F 11/04/16 20:02 Pulse 74 11/04/16 21:06 Resp 96 H 11/04/16 21:06 BP 116/77 11/04/16 21:06 Pulse Ox 10 L 11/04/16 21:06 - Labs Result Diagrams: 11/04/16 20:22 11/04/16 20:22 Labs: Laboratory Results - last 24 hr 11/04/16 11/04/16 11/04/16 20:22 20:22 20:22 WBC 5.7 D RBC 3.06 L Hgb 11.0 L Hct 31.3 L MCV 102.2 H MCH 36.1 H MCHC 35.3 RDW 13.4 Plt Count 140 MPV 7.0 L Neut % (Auto) 53.5 Lymph % (Auto) 31.2 [place] % (Auto) 12.9 H Eos % (Auto) 1.9 Baso % (Auto) 0.5 Neut # 3.1 Lymph # 1.8 [place] # 0.7 Eos # 0.1 Baso # 0.0 PT INR APTT pO2 VBG pH VBG pCO2 VBG HCO3 VBG Total CO2 VBG O2 Sat (Calc) VBG Base Excess VBG Potassium Glucose Lactate Sodium 138 Potassium 4.3 Chloride 96 L Carbon Dioxide 18 L Anion Gap 28 H BUN 40 H Creatinine 4.7 H Est GFR ( Amer) 16 Est GFR (Non-Af Amer) 13 POC Glucose (mg/dL) 74 Random Glucose 77 Hemoglobin A1c Calcium 8.7 Total Bilirubin 0.6 AST 127 H D ALT 136 H D Alkaline Phosphatase 90 Total Protein 7.4 Albumin 4.1 Globulin 3.3 Albumin/Globulin Ratio 1.2 Triglycerides Cholesterol LDL Cholesterol Direct HDL Cholesterol Venous Blood Potassium Urine Methadone Screen Ur Barbiturates Screen Ur Phencyclidine Scrn Ur Amphetamines Screen U Benzodiazepines Scrn U Cannabinoids Screen Alcohol, Quantitative 11/04/16 11/04/16 11/04/16 20:25 20:27 20:28 WBC RBC Hgb Hct MCV MCH MCHC RDW Plt Count MPV Neut % (Auto) Lymph % (Auto) [place] % (Auto) Eos % (Auto) Baso % (Auto) Neut # Lymph # [place] # Eos # Baso # PT 11.5 INR 1.0 APTT 35 H pO2 50 VBG pH 7.35 VBG pCO2 39 L VBG HCO3 21.6 VBG Total CO2 22.7 VBG O2 Sat (Calc) 87.8 H VBG Base Excess -3.8 L VBG Potassium 5.6 H Glucose 77 Lactate 2.8 H Sodium 134.0 Potassium Chloride 106.0 Carbon Dioxide Anion Gap BUN Creatinine Est GFR ( Amer) Est GFR (Non-Af Amer) POC Glucose (mg/dL) Random Glucose Hemoglobin A1c Calcium Total Bilirubin AST ALT Alkaline Phosphatase Total Protein Albumin Globulin Albumin/Globulin Ratio Triglycerides 153 H D Cholesterol 141 LDL Cholesterol Direct 36 HDL Cholesterol 79 H Venous Blood Potassium 5.6 H Urine Methadone Screen Ur Barbiturates Screen Ur Phencyclidine Scrn Ur Amphetamines Screen U Benzodiazepines Scrn U Cannabinoids Screen Alcohol, Quantitative 283 H 11/04/16 11/04/16 20:28 21:50 WBC RBC Hgb Hct MCV MCH MCHC RDW Plt Count MPV Neut % (Auto) Lymph % (Auto) [place] % (Auto) Eos % (Auto) Baso % (Auto) Neut # Lymph # [place] # Eos # Baso # PT INR APTT pO2 VBG pH VBG pCO2 VBG HCO3 VBG Total CO2 VBG O2 Sat (Calc) VBG Base Excess VBG Potassium Glucose Lactate Sodium Potassium Chloride Carbon Dioxide Anion Gap BUN Creatinine Est GFR ( Amer) Est GFR (Non-Af Amer) POC Glucose (mg/dL) Random Glucose Hemoglobin A1c 4.0 L Calcium Total Bilirubin AST ALT Alkaline Phosphatase Total Protein Albumin Globulin Albumin/Globulin Ratio Triglycerides Cholesterol LDL Cholesterol Direct HDL Cholesterol Venous Blood Potassium Urine Methadone Screen Negative Ur Barbiturates Screen Negative Ur Phencyclidine Scrn Negative Ur Amphetamines Screen Negative U Benzodiazepines Scrn Negative U Cannabinoids Screen Negative Alcohol, Quantitative Assessment & Plan (1) Alcohol intoxication Status: Acute (2) Polysubstance (including opioids) dependence with physiol dependence Status: Acute (3) Encephalopathy Status: Acute (4) ESRD (end stage renal disease) Status: Chronic (5) Hypotension Status: Acute
[2016-11-05 00:30] LABS: VENOUS BLOOD GAS BASE EXCESS -6.6 mmol/L (0.0-2.0); VENOUS BLOOD GAS PCO2 49 mmHg (40-60); VENOUS BLOOD PH 7.24 (7.32-7.43)
[2016-11-05 06:31] LABS: BASO % 0.3 % (0.0-2.0); EOS # 0.1 K/uL (0.0-0.7); EOS % 3.2 % (0.0-4.0); HEMATOCRIT 26.9 % (35.0-51.0); LYMPH % 38.8 % (20.0-40.0); MEAN CORPUSCULAR HEMOGLOBIN 35.1 pg (27.0-31.0); MEAN CORPUSCULAR HGB CONC 33.5 g/dL (33.0-37.0); MEAN PLATELET VOLUME 8.5 fL (7.2-11.7); MONO # 0.3 K/uL (0.0-0.8); MONO % 11.4 % (0.0-10.0); NRBC % 0.5 % (0.0-2.0); RED CELL DISTRIBUTION WIDTH 13.9 % (11.5-14.5); WHITE BLOOD COUNT 2.7 K/uL (4.8-10.8)
[2016-11-05 07:01] LABS: POTASSIUM 4.4 mmol/L (3.6-5.2)
[2016-11-05 07:04] LABS: TOTAL PROTEIN 5.7 g/dL (6.3-8.3)
[2016-11-05 07:05] LABS: CALCIUM 6.9 mg/dl (8.6-10.4); MAGNESIUM 1.7 mg/dL (1.6-2.3); PHOSPHOROUS 3.1 mg/dL (2.5-4.5)
[2016-11-05 07:13] VITALS: O2SAT 100
[2016-11-05] MEDS: Pantoprazole 40 mg EC Tab PO SCH (09:31)
--- NOTE | 2016-11-05 10:21 | RAD ---
HISTORY: admission COMPARISON: 11/01/2016. FINDINGS: The right-sided dialysis catheter terminates in the right atrium. LUNGS: There is linear atelectasis or scarring in the left lower lobe. The lungs are well inflated. No focal consolidation. The PLEURA: No significant pleural effusion identified, no pneumothorax apparent. CARDIOVASCULAR: There is persistent moderate cardiomegaly. Atherosclerotic aortic arch calcifications are present. OSSEOUS STRUCTURES: No significant abnormalities. VISUALIZED UPPER ABDOMEN: Normal. OTHER FINDINGS: None. IMPRESSION: No active pulmonary disease.
[2016-11-05] MEDS: NIFEdipine 90 mg ER Tab PO SCH (12:19)
--- NOTE | 2016-11-05 12:32 | CARD ---
APPROVED REPORT EKG Measurement Heart [id number] MD 166P35 [id number] <Conclusion> Normal sinus rhythm Possible Left atrial enlargement Left ventricular hypertrophy with repolarization abnormality Abnormal ECG
[2016-11-05] MEDS: Sucralfate 1 gm/10 ml Oral Susp UD PO SCH (15:34)
--- NOTE | 2016-11-05 17:30 | CP.PCM.HP ---
Past Patient History - Infectious Disease Hx of Infectious Diseases: None - Past Medical History & Family History Past Medical History?: Yes - Past Social History Smoking Status: Heavy Smoker > 10 Cigarettes Daily - CARDIAC Hx Hypertension: Yes - PULMONARY Hx Pneumonia: Yes - NEUROLOGICAL Hx Neurological Disorder: Yes Other/Comment: 'BRAIN INJURY ' - HEENT Hx HEENT Problems: No - RENAL Hx Chronic Kidney Disease: Yes Hx Dialysis: Yes Type of Dialysis Access: Right chest permacath - ENDOCRINE/METABOLIC Hx Diabetes Mellitus Type 2: Yes - HEMATOLOGICAL/ONCOLOGICAL Hx Blood Disorders: Yes Hx Cancer: Yes (EYE CANCER) Hx Hepatitis C: Yes Other/Comment: Liver transplant. 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 - ANESTHESIA Hx Anesthesia: Yes Hx Anesthesia Reactions: No Meds Allergies/Adverse Reactions: Allergies Allergy/AdvReac Type Severity Reaction Status Date / Time No Known Allergies Allergy Verified 11/04/16 20:20 Physical Exam - Constitutional Appears: Well - Head Exam Head Exam: ATRAUMATIC, NORMAL INSPECTION, NORMOCEPHALIC - Eye Exam Eye Exam: EOMI, Normal appearance, PERRL Pupil Exam: NORMAL ACCOMODATION, PERRL - ENT Exam ENT Exam: Mucous Membranes Moist, Normal Exam - Neck Exam Neck exam: Positive for: Normal Inspection - Respiratory Exam Respiratory Exam: Decreased Breath Sounds - Cardiovascular Exam Cardiovascular Exam: REGULAR RHYTHM, +S1, +S2 - GI/Abdominal Exam GI & Abdominal Exam: Diminished Bowel Sounds, Soft - Rectal Exam Rectal Exam: Deferred Results - Vital Signs Recent Vital Signs: Last Vital Signs Temp 97.6 F 11/05/16 14:00 Pulse 66 11/05/16 12:42 Resp 20 11/05/16 12:42 BP 143/90 11/05/16 12:42 Pulse Ox 100 11/05/16 12:42 - Labs Result Diagrams: 11/05/16 06:23 11/05/16 06:49 Labs: Laboratory Results - last 24 hr 11/05/16 11/05/16 06:23 06:49 WBC 2.7 L D RBC 2.56 L Hgb 9.0 L D Hct 26.9 L MCV 105.0 H D MCH 35.1 H MCHC 33.5 RDW 13.9 Plt Count 98 L D MPV 8.5 Neut % (Auto) 46.3 L Lymph % (Auto) 38.8 [place] % (Auto) 11.4 H Eos % (Auto) 3.2 Baso % (Auto) 0.3 Neut # 1.2 L Lymph # 1.0 [place] # 0.3 Eos # 0.1 Baso # 0.0 Sodium 138 Potassium 4.4 Chloride 109 H Carbon Dioxide 17 L Anion Gap 16 BUN 38 H Creatinine 3.8 H Est GFR ( Amer) 20 Est GFR (Non-Af Amer) 17 Random Glucose 64 L Calcium 6.9 L Phosphorus 3.1 Magnesium 1.7 Total Bilirubin 1.0 AST 132 H ALT 106 H D Alkaline Phosphatase 43 Total Protein 5.7 L Albumin 2.8 L D Globulin 2.9 Albumin/Globulin Ratio 1.0 Assessment & Plan - Assessment and Plan (Free Text) Plan: Is patient who signed out yesterday left the patient for the hemodialysis tomorrow patient is not compliant with the treatment Patient wants to sign out made aware Continue as ordered Patient for hemodialysis tomorrow
[2016-11-06] MEDS ORDERED: Metoprolol Succinate 25 mg XL Tab PO SCH (10:00)
[2016-11-06] MEDS: NIFEdipine 90 mg ER Tab PO SCH (10:00)
[2016-11-06] MEDS: Sucralfate 1 gm/10 ml Oral Susp UD PO SCH ×2 (10:15→17:05)
[2016-11-06] MEDS: Pantoprazole 40 mg EC Tab PO SCH (10:15)
[2016-11-06 13:45] VITALS: BP 135/92; PULSE 71; RESP 18
--- NOTE | 2016-11-06 14:42 | CP.PCM.CON ---
Past Patient History - Infectious Disease Hx of Infectious Diseases: None - Past Medical History & Family History Past Medical History?: Yes - Past Social History Smoking Status: Heavy Smoker > 10 Cigarettes Daily - CARDIAC Hx Hypertension: Yes - PULMONARY Hx Pneumonia: Yes - NEUROLOGICAL Hx Neurological Disorder: Yes Other/Comment: 'BRAIN INJURY ' - HEENT Hx HEENT Problems: No - RENAL Hx Chronic Kidney Disease: Yes Hx Dialysis: Yes Type of Dialysis Access: Right chest permacath - ENDOCRINE/METABOLIC Hx Diabetes Mellitus Type 2: Yes - HEMATOLOGICAL/ONCOLOGICAL Hx Blood Disorders: Yes Hx Cancer: Yes (EYE CANCER) Hx Hepatitis C: Yes Other/Comment: Liver transplant. 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 - ANESTHESIA Hx Anesthesia: Yes Hx Anesthesia Reactions: No Meds Allergies/Adverse Reactions: Allergies Allergy/AdvReac Type Severity Reaction Status Date / Time No Known Allergies Allergy Verified 11/04/16 20:20 - Medications Medications: Current Medications Alprazolam (Xanax) 0.5 mg PO BID PRN PRN Reason: Anxiety Last Admin: 11/06/16 11:19 Dose: 0.5 mg Ferrous Sulfate (Feosol) 325 mg PO DAILY [facility] Last Admin: 11/06/16 10:15 Dose: 325 mg Folic Acid (Folic Acid) 1 mg PO DAILY [facility] Last Admin: 11/06/16 10:15 Dose: 1 mg Furosemide (Lasix) 80 mg PO DAILY [facility] Last Admin: 11/06/16 10:15 Dose: 80 mg Ibuprofen (Motrin Tab) 400 mg PO Q8H PRN PRN Reason: Pain, moderate (4-7) Metoprolol Succinate (Toprol Xl) 25 mg PO DAILY [facility] Nifedipine (Procardia Xl) 90 mg PO DAILY [facility] Last Admin: 11/05/16 12:19 Dose: 90 mg Pantoprazole Sodium (Protonix Ec Tab) 40 mg PO DAILY [facility] Last Admin: 11/06/16 10:15 Dose: 40 mg Sucralfate (Carafate Oral Susp) 1 gm PO ACBD [facility] Last Admin: 11/06/16 10:15 Dose: 1 gm Thiamine HCl (Vitamin B1 Tab) 100 mg PO DAILY [facility] Last Admin: 11/06/16 10:15 Dose: 100 mg Results - Vital Signs Recent Vital Signs: Last Vital Signs Temp 98.4 F 11/06/16 12:30 Pulse 75 11/06/16 12:30 Resp 18 11/06/16 12:30 BP 121/86 11/06/16 12:30 Pulse Ox 100 11/05/16 12:42 - Labs Result Diagrams: 11/05/16 06:23 11/05/16 06:49 Labs: Laboratory Results - last 24 hr 11/06/16 11/06/16 11/06/16 10:39 10:39 10:39 Hepatitis A IgM Ab Negative Hep Bs Antigen Negative Hep B Core IgM Ab Negative Negative Hepatitis C Antibody Reactive H HIV 1&2 Antibody Screen Negative
--- NOTE | 2016-11-06 15:40 | CP.PCM.PN ---
Subjective - Date & Time of Evaluation Date of Evaluation: 11/06/16 Time of Evaluation: 14:00 - Subjective Subjective: clinically same Objective - Vital Signs/Intake and Output Vital Signs (last 24 hours): Temp Pulse Resp BP Pulse Ox 98.4 F 75 18 121/86 100 11/06/16 12:30 11/06/16 12:30 11/06/16 12:30 11/06/16 12:30 11/05/16 12:42 Intake and Output: 11/06/16 11/06/16 06:59 18:59 Intake Total 0 340 Output Total 550 650 Balance -550 -310 - Medications Medications: Current Medications Alprazolam (Xanax) 0.5 mg PO BID PRN PRN Reason: Anxiety Last Admin: 11/06/16 11:19 Dose: 0.5 mg Ferrous Sulfate (Feosol) 325 mg PO DAILY [facility] Last Admin: 11/06/16 10:15 Dose: 325 mg Folic Acid (Folic Acid) 1 mg PO DAILY [facility] Last Admin: 11/06/16 10:15 Dose: 1 mg Furosemide (Lasix) 80 mg PO DAILY [facility] Last Admin: 11/06/16 10:15 Dose: 80 mg Ibuprofen (Motrin Tab) 400 mg PO Q8H PRN PRN Reason: Pain, moderate (4-7) Metoprolol Succinate (Toprol Xl) 25 mg PO DAILY [facility] Nifedipine (Procardia Xl) 90 mg PO DAILY [facility] Last Admin: 11/05/16 12:19 Dose: 90 mg Pantoprazole Sodium (Protonix Ec Tab) 40 mg PO DAILY [facility] Last Admin: 11/06/16 10:15 Dose: 40 mg Sucralfate (Carafate Oral Susp) 1 gm PO ACBD ON [facility] OF [facility] Last Admin: 11/06/16 10:15 Dose: 1 gm Thiamine HCl (Vitamin B1 Tab) 100 mg PO DAILY [facility] Last Admin: 11/06/16 10:15 Dose: 100 mg - Labs Labs: 11/05/16 06:23 11/05/16 06:49 PT 11.5 SECONDS (9.7-12.2) 11/04/16 20:27 INR 1.0 11/04/16 20:27 APTT 35 SECONDS (21-34) H 11/04/16 20:27 - Constitutional Appears: Well - Head Exam Head Exam: ATRAUMATIC, NORMAL INSPECTION, NORMOCEPHALIC - Eye Exam Eye Exam: EOMI, Normal appearance, PERRL Pupil Exam: NORMAL ACCOMODATION, PERRL - ENT Exam ENT Exam: Mucous Membranes Moist, Normal Exam - Neck Exam Neck Exam: Full ROM, Normal Inspection. absent: Lymphadenopathy - Respiratory Exam Respiratory Exam: Decreased Breath Sounds - Cardiovascular Exam Cardiovascular Exam: REGULAR RHYTHM, +S1, +S2 - GI/Abdominal Exam GI & Abdominal Exam: Soft, Diminished Bowel Sounds - Rectal Exam Rectal Exam: Deferred
[2016-11-06 16:12] VITALS: TEMP 98.7
--- NOTE | 2016-11-06 16:21 | VASCLAB ---
PROCEDURE: Upper Extremity Venous Duplex Exam HISTORY: Pre op av access PRIORS: None. TECHNIQUE: Bilateral upper extremity, internal jugular, subclavian, axillary, brachial, ulnar, radial, basilic and upper cephalic veins were evaluated. Flow was assessed with color Doppler, compressibility, assessment of phasic flow and augmentation response. Report prepared by ALAYNA Nina FINDINGS: RIGHT: 1. Internal Jugular Vein: Compressibility - Fully compressible: Thrombus - None : Flow - Phasic 2. Axillary Vein: Compressibility - Fully compressible: Thrombus - None 3. Brachial Vein: Compressibility - Fully compressible: Thrombus - None 4. Ulnar Vein:Compressibility - Fully compressible: Thrombus - None 5. Radial Vein:Compressibility - Fully compressible: Thrombus - None 6. Cephalic Vein: Compressibility - Fully compressible: thrombus - None 6.1. Upper Arm: Proximal Diameter: 0.26cm. Mid Diameter: 0.23cm. Distal Diameter: 0.18cm. 6.2. Forearm: Proximal Diameter: 0.16cm. Mid Diameter:0.20cm. Distal Diameter: 0.10cm 7. Basilic Vein:Compressibility - Fully compressible: thrombus - None 7.1. Upper Arm:Proximal Diameter: 0.62cm. Mid Diameter: 0.85cm. Distal Diameter: 0.49cm. 7.2. Forearm: Proximal Diameter: 0.23cm. Mid Diameter:0.21cm. Distal Diameter: 0.25cm. LEFT: 1. Internal Jugular Vein: Compressibility - Fully compressible: Thrombus - None : Flow - Phasic 2. Subclavian Vein:Compressibility - Fully compressible: Thrombus - None : Flow - Phasic 3. Axillary Vein: Compressibility - Fully compressible: Thrombus - None 4. Brachial Vein: Compressibility - Fully compressible: Thrombus - None 5. Ulnar Vein:Compressibility - Fully compressible: Thrombus - None 6. Radial Vein:Compressibility - Fully compressible: Thrombus - None 7. Cephalic Vein: Compressibility - Fully compressible: thrombus - None 7.1. Upper Arm: Proximal Diameter: 0.22cm. Mid Diameter: 0.27cm. Distal Diameter: 0.19cm. 7.2. Forearm: Proximal Diameter: 0.15cm. Mid Diameter:0.15cm. Distal Diameter: 0.19cm 8. Basilic Vein:Compressibility - Fully compressible: thrombus - None 8.1. Upper Arm:Proximal Diameter: 0.73 cm. Mid Diameter: 0.63cm. Distal Diameter: 0.32cm. 8.2. Forearm: Proximal Diameter: 0.29cm. Mid Diameter:0.25cm. Distal Diameter: 0.22cm. OTHER FINDINGS: No evidence of venous thrombosis in bilateral upper extremities. IMPRESSION: Right: Diameter measurements of the right cephalic vein is measured between 0.10 cm and 0.26 cm and basilic vein is measured between 0.21 cm and 0.62 cm. Left: Diameter measurements of the left cephalic vein is measured between 0.15 cm and 0.27 cm and basilic vein is measured between 0.22cm and 0.73cm.
--- NOTE | 2016-11-06 17:00 | CP.PCM.PN ---
Subjective - Date & Time of Evaluation Date of Evaluation: 11/06/16 Time of Evaluation: 17:00 - Subjective Subjective: see a/p Objective - Vital Signs/Intake and Output Vital Signs (last 24 hours): Temp Pulse Resp BP Pulse Ox 98.7 F 75 18 121/86 100 11/06/16 16:00 11/06/16 12:30 11/06/16 12:30 11/06/16 12:30 11/05/16 12:42 Intake and Output: 11/06/16 11/06/16 06:59 18:59 Intake Total 0 340 Output Total 550 650 Balance -550 -310 - Medications Medications: Current Medications Alprazolam (Xanax) 0.5 mg PO BID PRN PRN Reason: Anxiety Last Admin: 11/06/16 11:19 Dose: 0.5 mg Ferrous Sulfate (Feosol) 325 mg PO DAILY [facility] Last Admin: 11/06/16 10:15 Dose: 325 mg Folic Acid (Folic Acid) 1 mg PO DAILY [facility] Last Admin: 11/06/16 10:15 Dose: 1 mg Furosemide (Lasix) 80 mg PO DAILY [facility] Last Admin: 11/06/16 10:15 Dose: 80 mg Ibuprofen (Motrin Tab) 400 mg PO Q8H PRN PRN Reason: Pain, moderate (4-7) Metoprolol Succinate (Toprol Xl) 25 mg PO DAILY [facility] Nifedipine (Procardia Xl) 90 mg PO DAILY [facility] Last Admin: 11/05/16 12:19 Dose: 90 mg Pantoprazole Sodium (Protonix Ec Tab) 40 mg PO DAILY [facility] Last Admin: 11/06/16 10:15 Dose: 40 mg Sucralfate (Carafate Oral Susp) 1 gm PO ACBD [facility] Last Admin: 11/06/16 10:15 Dose: 1 gm Thiamine HCl (Vitamin B1 Tab) 100 mg PO DAILY [facility] Last Admin: 11/06/16 10:15 Dose: 100 mg - Labs Labs: 11/05/16 06:23 11/05/16 06:49 PT 11.5 SECONDS (9.7-12.2) 11/04/16 20:27 INR 1.0 11/04/16 20:27 APTT 35 SECONDS (21-34) H 11/04/16 20:27 Assessment and Plan - Assessment and Plan (Free Text) Plan: The patient declines staying in the hospital and wishes to leave the hospital from the ICU. This action is against my medical advice. This decision was made with informed refusal. The patient was told that admission to the hospital is necessary. Explanation of the reasons why were discussed. The risks of leaving were explained to the patient and include, but are not limited to, worsening of known or currently unknown conditions, permanent disability and from undiagnosed or untreated conditions. The patient has the capacity to make this informed decision and understands my explanation of the current medical problem and risks of leaving. The patient voluntarily accepts these risks and signed an AMA form documenting our conversation. The patient was given the opportunity to ask questions and reconsider. He states that he believes there is nothing wrong with him and that he is Ok to leave. Case discussed with Dr. Ly. Informed and agrees.
--- NOTE | 2016-11-07 10:41 | CON ---
DATE: 11/06/2016 REQUESTED BY: Elisabet Ly MD HISTORY OF PRESENT ILLNESS: The patient is a 51-year-old man whom I have seen in the intensive care unit because of his need for permanent dialysis access. PAST MEDICAL HISTORY: Significant for liver transplant in 1999 and dialysis over a year, subsequently dialyzed with a catheter in the right jugular vein. He had previously also had an AV shunt on the left upper arm, which thrombosed, and he said has not been able to be used quite some time, he has a catheter for a while, but none of the specifics are very clear . PAST SURGICAL HISTORY: History of eye surgery, the abdominal intervention, etc. PHYSICAL EXAMINATION: GENERAL: Appropriate . He has an indwelling catheter on the right side. He has a thrombosed shunt in his left upper arm. EXTREMITIES: He has easily palpable pulses at the wrist veins. IMPRESSION AND PLAN: The patient has chronic renal failure and he needs permanent dialysis access. . No variety of options are open to him with regards to the patient's permanent access. No date has been set as of yet. Domo Cardenas Jr., MD
== END 2016-11-06 17:27 | disposition left against medical advice (07) | DRG 682 ==
LOC: C.ER 19:58 → C.9I 11-05 00:34
PROVIDERS: ADMIT Internal Medicine Nephrology; ATTEND Internal Medicine Nephrology
DX: N18.6 End stage renal disease (principal); G93.40 Encephalopathy, unspecified; I95.9 Hypotension, unspecified; I12.0 Hypertensive chronic kidney disease with stage 5 chronic kidney disease or end stage renal disease; E11.22 Type 2 diabetes mellitus with diabetic chronic kidney disease; Z94.4 Liver transplant status; F11.20 Opioid dependence, uncomplicated; F10.120 Alcohol abuse with intoxication, uncomplicated; E87.5 Hyperkalemia; Z99.2 Dependence on renal dialysis; F17.210 Nicotine dependence, cigarettes, uncomplicated; B19.20 Unspecified viral hepatitis C without hepatic coma; Z91.15 Patient's noncompliance with renal dialysis; Y90.8 Blood alcohol level of 240 mg/100 ml or more; Z85.840 Personal history of malignant neoplasm of eye; H70.90 Unspecified mastoiditis, unspecified ear

== ENCOUNTER 2016-11-24 16:44 | Emergency (ER) | payer OTHER ==
[2016-11-24 17:06] VITALS: BP 155/112; PULSE 90; RESP 18; TEMP 97.9; O2SAT 98
== END 2016-11-24 17:03 | disposition left against medical advice (07) ==
LOC: C.ER 16:44
DX: Z48.00 Encounter for change or removal of nonsurgical wound dressing (principal); Z02.9 Encounter for administrative examinations, unspecified

== ENCOUNTER → 2016-11-24 19:32 | Emergency (ER) | payer OTHER | END | disposition left against medical advice (07) | LOC: C.ER 19:32 | DX: R11.10 Vomiting, unspecified (principal); Z02.9 Encounter for administrative examinations, unspecified ==

== ENCOUNTER 2016-11-26 07:24 | Inpatient (IN) | payer OTHER ==
[2016-11-26] MEDS ORDERED: Fosphenytoin 1,000 MG in Sodium Chloride 0.9% 50 ML IV STA (07:35)
[2016-11-26 07:44] LABS: BASO % 0.2 % (0.0-2.0); EOS % 0.1 % (0.0-4.0); MONO # 1.1 K/uL (0.0-0.8); RED CELL DISTRIBUTION WIDTH 12.7 % (11.5-14.5)
--- NOTE | 2016-11-26 07:44 | C.PDOC ---
History Of Present Illness 51 Y/O MALE, PMHX OF DIALYSIS (T,TH,SAT) MISSED LAST DIALYSIS, HTN, ETOH/ SUBSTANCE ABUSE, & SEIZURES, BROUGHT TO ED VIA EMS FOR MULTIPLE SEIZURES LAST NIGHT. PER MEDICS, WITNESSED MULTIPLE SEIZURES AT HOME LAST NIGHT, PT FELL OFF THE BED ONTO THE FLOOR. 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 PRIOR RECORDS REVIEWED: PT ADMITTED ON 11/04/16 FOR HYPERKALEMIA AND MISSED DIALYSIS, LEFT AMA. HISTORY OF HEP C, CIRRHOSIS, & LIVER TRANSPLANT July,. ECHO IN April, SHOWS EF OF 65 Chief Complaint (Nursing): Seizure History Per: EMS History/Exam Limitations: clinical condition Recent Seizure Activity Began: Just Before Arrival Number Of Seizures: Multiple Length Of Seizures (Duration): Unknown Quality Of Seizure: Generalized Post-ictal Period: Yes Recent travel outside of the [place]: No Past Medical History Reviewed: Historical Data, Nursing Documentation, Vital Signs Vital Signs: Last Vital Signs Temp 99.8 F H 11/26/16 07:41 Pulse 112 H 11/26/16 08:38 Resp 23 11/26/16 08:38 BP 175/129 H 11/26/16 08:38 Pulse Ox 92 L 11/26/16 08:38 - Medical History PMH: HTN, Pneumonia, End Stage Renal Disease, Chronic Kidney Disease - [facility] Procedures DETOXIFICATION SERVICES FOR SUBSTANCE ABUSE TREATMENT (05/24/15) EXCISION OF DESCENDING COLON, ENDO, DIAGN (05/24/15) EXCISION OF STOMACH, ENDO, DIAGN (05/24/15) PERFORMANCE OF URINARY FILTRATION, MULTIPLE (11/01/16) PERFORMANCE OF URINARY FILTRATION, SINGLE (04/07/16) Family History: States: Unknown Family Hx - Social History Hx Tobacco Use: Yes Hx Alcohol Use: Yes Hx Substance Use: Yes - Immunization History Hx Tetanus Toxoid Vaccination: No Hx Influenza Vaccination: No Hx Pneumococcal Vaccination: No Review Of Systems Review Of Systems: ROS cannot be obtained secondary to pt's inabilty to answer questions. Physical Exam - Physical Exam Appears: Other (POST-ICTAL) Skin: Warm, Dry Head: Atraumatic Chest: Symmetrical, Other (+R CHEST PORT) Cardiovascular: Rhythm Regular Respiratory: No Rales, No Rhonchi, No Wheezing, Other (TACHYPNEIC, LUNGS CLEAR) Gastrointestinal/Abdominal: Soft, No Tenderness Extremity: No Deformity, No Swelling, Other (SEE NEURO) Extremity: Bilateral: Normal Color And Temperature Neurological/Psych: Other (HEMIPARESIS R U/L EXT, NORMAL LEFT EXTREMITY MOVEMENT ) ED Course And Treatment - Laboratory Results Result Diagrams: 11/26/16 07:41 11/26/16 07:41 ECG: Interpreted By Me Interpretation Of ECG: limited due to severe motion artifact, questionable sinus tach, some depressions in v4, v5, v6, lead II Rate From EC O2 Sat by Pulse Oximetry: 92 Critical Care Time - Critical Care Note Total Time (in mins): 120 Documented critical care: time excludes all time spent performing seperately billable procedures. Progress - Re-Evaluation Re-evaluation Note: 11/26/16 07:27 SEIZURE RESOLVED, APPEARS POST-ICTAL, FINGERSTICK OF 146 07:29 32 YAKUT NASAL TRUMPET PLACED IN R NARE W/O DIFFICULTY. 07:32 L UPPER/LOWER EXTREMITY MOVEMENT W/O DIFFICULTY, HEMIPARESIS R SIDED 07:44 IMPROVED SPONT MOVEMENT RUE/RLE. PERSIST POSTICTAL, RESP EXAM UNCH PT PREV RECENT ADMISSIONS X [address] ROMAN 11/26/16 08:27 POST ICTAL VSS D/W DR DARLING C/F DR Kary ROMAN AWARE OF ER FINDINGS WILL ADMIT PENDING ICU EVAL 11/26/16 08:32 D/W DR MILNER WILL EVAL IN ER 11/26/16 08:37 PERSIST POSTICTAL BUT IMPROVED FROM PRIOR. VSS 11/26/16 08:58 ACCEPTS FOR ICU - Data Reviewed Data Reviewed: Lab, Diagnostic imaging, EKG, Old records - Critical Care Citical Care: Excluding Proc Time Critical Care Time: 120 minutes Disposition Counseled Patient/Family Regarding: Studies Performed, Diagnosis - Disposition Disposition: HOSPITALIZED Disposition Time: 08:29 Condition: CRITICAL Forms: [facility] (Nepalese) - POA Present On Arrival: Poor Glycemic Control - Clinical Impression Clinical Impression: ESRD (end stage renal disease) on dialysis, Status epilepticus, Alcohol withdrawal seizure with complication, Hepatitis C, Liver transplant recipient, Drug abuse, Alcohol abuse Decision To Admit - Pt Status Changed To: Hospital Disposition Of: Inpatient - Admit Certification Admit to Inpatient:: After my assessment, the patient will require hospitalization for at least two midnights. This is because of the severity of symptoms shown, intensity of services needed, and/or the medical risk in this patient being treated as an outpatient. - InPatient: Physician Admission Certification: I certify that this patient requires 2 or more midnights of care for the following reason:: SEE NOTE - . Bed Request Type: ICU Admitting Physician: Maribel Darling Patient Diagnosis: ESRD (end stage renal disease) on dialysis, Status epilepticus, Alcohol withdrawal seizure with complication, Hepatitis C, Liver transplant recipient, Drug abuse, Alcohol abuse
[2016-11-26 07:50] LABS: HEMATOCRIT 32.9 % (35.0-51.0); LYMPH # 1.8 K/uL (1.0-4.3); LYMPH % 10.7 % (20.0-40.0); MEAN CORPUSCULAR HEMOGLOBIN 34.5 pg (27.0-31.0); MEAN CORPUSCULAR HGB CONC 34.6 g/dL (33.0-37.0); MEAN PLATELET VOLUME 6.9 fL (7.2-11.7); MONO % 6.7 % (0.0-10.0)
[2016-11-26 07:54] LABS: CHLORIDE 91 mmol/L (98-107); POTASSIUM 3.9 mmol/L (3.6-5.2); SODIUM 136 mmol/L (132-148)
[2016-11-26 07:56] LABS: GFR AFRICAN-AMERICAN 12
[2016-11-26 07:57] LABS: ALB/GLOB RATIO 1.2 (1.0-2.1); ALKALINE PHOSPHATASE 90 U/L (38-126); ALT/SGPT 95 U/L (21-72); AST/SGOT 83 U/L (17-59); BILIRUBIN,TOTAL 1.1 mg/dL (0.2-1.3); BLOOD UREA NITROGEN 39 mg/dL (9-20); CALCIUM 9.8 mg/dl (8.6-10.4); CARBON DIOXIDE 15 mmol/L (22-30); GLUCOSE,RANDOM 139 mg/dL (75-110); TOTAL PROTEIN 8.1 g/dL (6.3-8.3)
[2016-11-26 07:58] LABS: ALCOHOL SERUM < 10 mg/dl (0-10)
[2016-11-26 07:59] LABS: MEAN CELL VOLUME 99.6 fL (80.0-94.0); WHITE BLOOD COUNT 16.8 K/uL (4.8-10.8)
[2016-11-26 08:13] LABS: RBC URINE 1 /hpf (0-3); URINE BILIRUBIN NEGATIVE (NEGATIVE); URINE BLOOD NEGATIVE (NEGATIVE); URINE COLOR Yellow (YELLOW); URINE GLUCOSE (UA) 1+ mg/dL (Normal); URINE KETONE TRACE mg/dL (NEGATIVE); URINE LEUKOCYTE ESTERASE NEG Leu/uL (Negative); URINE PROTEIN 3+ mg/dL (NEGATIVE); URINE UROBILINOGEN NORMAL mg/dL (0.2-1.0); WBC URINE 1 /hpf (0-5)
[2016-11-26 08:16] LABS: DRAW SITE LF
[2016-11-26] MEDS: Folic Acid 1 MG, Thiamine 100 MG, Multivitamin (MVI) 10 ML in Dextrose 5% In Water 1,00... IV SCH ×2 (08:18→18:25)
--- NOTE | 2016-11-26 10:02 | RAD ---
HISTORY: seizure COMPARISON: Chest radiograph 11/04/2016 FINDINGS: LUNGS: No infiltrate or pleural effusion identified this time. Trace linear atelectasis seen at the left base versus for fibrosis. A total right central venous dialysis catheter is unchanged in position. PLEURA: No significant pleural effusion identified, no pneumothorax apparent. CARDIOVASCULAR: Prominent cardiac silhouette remains and is stable. No pulmonary vascular derangement identified. OSSEOUS STRUCTURES: No significant abnormalities. VISUALIZED UPPER ABDOMEN: Normal. OTHER FINDINGS: None. IMPRESSION: Stable likely cardiomegaly. No pulmonary vascular derangement or infiltrate identified this time. Central venous dialysis catheter unchanged in appearance.
[2016-11-26] MEDS: Dexmedetomidine Hydrochloride 200 MCG in Sodium Chloride 0.9% 48 ML IV PRN ×4 (11:40→23:25)
--- NOTE | 2016-11-26 14:25 | CP.PCM.HP ---
Past Patient History - Infectious Disease Hx of Infectious Diseases: None - Past Medical History & Family History Past Medical History?: Yes - Past Social History Smoking Status: Heavy Smoker > 10 Cigarettes Daily - CARDIAC Hx Hypertension: Yes - PULMONARY Hx Pneumonia: Yes - NEUROLOGICAL Hx Neurological Disorder: Yes Hx Seizures: Yes Other/Comment: 'BRAIN INJURY ' - HEENT Hx HEENT Problems: No - RENAL Hx Chronic Kidney Disease: Yes - ENDOCRINE/METABOLIC Hx Diabetes Mellitus Type 2: Yes - HEMATOLOGICAL/ONCOLOGICAL Hx Blood Disorders: Yes Hx Cancer: Yes (EYE CANCER) Hx Hepatitis C: Yes Other/Comment: Liver transplant. 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 - ANESTHESIA Hx Anesthesia: Yes Hx Anesthesia Reactions: No Meds Allergies/Adverse Reactions: Allergies Allergy/AdvReac Type Severity Reaction Status Date / Time No Known Allergies Allergy Verified 11/04/16 20:20 Results - Vital Signs Recent Vital Signs: Last Vital Signs Temp 99.8 F H 11/26/16 07:41 Pulse 112 H 11/26/16 09:28 Resp 22 11/26/16 09:28 BP 174/120 H 11/26/16 09:28 Pulse Ox 100 11/26/16 09:28 - Labs Result Diagrams: 11/26/16 07:41 11/26/16 07:41 Labs: Laboratory Results - last 24 hr 11/26/16 10:42 Troponin I 0.1850 H*
--- NOTE | 2016-11-26 14:43 | CT ---
PROCEDURE: CT HEAD WITHOUT CONTRAST. HISTORY: r/o stroke COMPARISON: Head CT without contrast 11/04/2016 TECHNIQUE: Axial computed tomography images were obtained through the head/brain without intravenous contrast. Radiation dose: Total exam DLP = 2548 mGy-cm. This CT exam was performed using one or more of the following dose reduction techniques: Automated exposure control, adjustment of the mA and/or kV according to patient size, and/or use of iterative reconstruction technique. FINDINGS: HEMORRHAGE: No intracranial hemorrhage. BRAIN: In the interval, there is now all apparent cytotoxic edema at the posterior left parieto-occipital lobe without associated hemorrhage suggestive of an acute or subacute lobar infarction. Local mass effect effaces the sulci in this distribution VENTRICLES: . No midline shift is appreciate nail. Note, imaging is compromised by motion artifacts this patient despite performed multiple series attended to overcome this problem. Chronic infarct at the left temporal lobe extending into the left external capsule is identified with the brainstem and posterior fossa contents appearing nonfocal on an acute or subacute basis. Chronic lacune infarcts at the bilateral basal ganglia are identified. Diffuse cerebral atrophy chronic microangiopathy are again appreciated. No interval hydrocephalus or suspicious extra-axial fluid collection. CALVARIUM: Unremarkable. PARANASAL SINUSES: Unremarkable as visualized. No significant inflammatory changes. MASTOID AIR CELLS: Unremarkable as visualized. No inflammatory changes. OTHER FINDINGS: None. IMPRESSION: Interval acute to subacute infarct is suspected at the posterior left parieto-occipital distribution without intracranial hemorrhage. Limited local mass effect is identified. Bilateral chronic lacunar infarcts are noted at the basal ganglia as discussed above as well as age related neuro degenerative changes.
--- NOTE | 2016-11-26 15:28 | CP.PCM.CON ---
History of Present Illness - History of Present Illness History of Present Illness: 51 Y/O MALE, PMHX OF DIALYSIS (T,TH,SAT) MISSED LAST DIALYSIS, HTN, ETOH/ SUBSTANCE ABUSE, & SEIZURES, BROUGHT TO ED VIA EMS FOR MULTIPLE SEIZURES LAST NIGHT. PER MEDICS, WITNESSED MULTIPLE SEIZURES AT HOME LAST NIGHT, PT FELL OFF THE BED ONTO THE FLOOR. 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 NOW POST ICTAL IN ICU. LAST SEIZURE 4 HOURS AGO. MOVING ALL EXTREMITIES, OPENS EYES. NO FAMILY AT BEDSIDE. HD UNIT REPORTS DRAINAGE LAST WEEK FROM THROMBOSED KRISTY. CULTURES NEGATIVE. PT RECEIVING VANCOMYCIN AND GENTAMYCIN. Review of Systems - Review of Systems Systems not reviewed;Unavailable: Altered Mental Status Past Patient History - Infectious Disease Hx of Infectious Diseases: None - Past Medical History & Family History Past Medical History?: Yes - Past Social History Smoking Status: Heavy Smoker > 10 Cigarettes Daily - CARDIAC Hx Hypertension: Yes - PULMONARY Hx Pneumonia: Yes - NEUROLOGICAL Hx Neurological Disorder: Yes Hx Seizures: Yes Other/Comment: 'BRAIN INJURY ' - HEENT Hx HEENT Problems: No - RENAL Hx Chronic Kidney Disease: Yes - ENDOCRINE/METABOLIC Hx Diabetes Mellitus Type 2: Yes - HEMATOLOGICAL/ONCOLOGICAL Hx Blood Disorders: Yes Hx Cancer: Yes (EYE CANCER) Hx Hepatitis C: Yes Other/Comment: Liver transplant. 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 - ANESTHESIA Hx Anesthesia: Yes Hx Anesthesia Reactions: No Meds Allergies/Adverse Reactions: Allergies Allergy/AdvReac Type Severity Reaction Status Date / Time No Known Allergies Allergy Verified 11/04/16 20:20 - Medications Medications: Current Medications Famotidine (Pepcid) 20 mg IVP DAILY [facility] Last Admin: 11/26/16 11:53 Dose: 20 mg Folic Acid 1 mg/ Thiamine HCl 100 mg/ Multivitamins/Vitamin C 10 ml/ Dextrose 1 ,011.2 mls @ 100 mls/hr IV .Q10H7M [facility] Last Admin: 11/26/16 08:18 Dose: 100 mls/hr Dexmedetomidine HCl 200 mcg/ (Sodium Chloride) 50 mls @ 4.08 mls/hr IV TITR PRN ; Protocol; 0.2 MCG/KG/HR PRN Reason: Agitation Last Admin: 11/26/16 11:40 Dose: 0.2 mcg/kg/hr, 4.08 mls/hr Levetiracetam 500 mg/ Dextrose 105 mls @ 420 mls/hr IVPB Q12H [facility] Lorazepam (Ativan) 1 mg IVP Q2H PRN PRN Reason: Agitation Last Admin: 11/26/16 10:53 Dose: 1 mg Physical Exam - Constitutional Appears: Agitated, Confused - Head Exam Head Exam: ATRAUMATIC - Eye Exam Eye Exam: EOMI - ENT Exam ENT Exam: Mucous Membranes Moist - Neck Exam Neck exam: Positive for: Full Rom. Negative for: Lymphadenopathy - Respiratory Exam Respiratory Exam: NORMAL BREATHING PATTERN. absent: Accessory Muscle Use - Cardiovascular Exam Cardiovascular Exam: REGULAR RHYTHM. absent: Rubs - GI/Abdominal Exam GI & Abdominal Exam: Distended, Soft. absent: Tenderness - Extremities Exam Extremities exam: Negative for: pedal edema - Neurological Exam Additional comments: Not alert or oriented Results - Vital Signs Recent Vital Signs: Last Vital Signs Temp 99.9 F H 11/26/16 12:00 Pulse 112 H 11/26/16 09:28 Resp 22 11/26/16 09:28 BP 174/120 H 11/26/16 09:28 Pulse Ox 100 11/26/16 09:28 - Labs Result Diagrams: 11/26/16 07:41 11/26/16 07:41 Labs: Laboratory Results - last 24 hr 11/26/16 10:42 Troponin I 0.1850 H* Assessment & Plan - Assessment and Plan (Free Text) Assessment: esrd liver transplant alcohol abuse alcohol related seizure ?drainage from kristy, reportedly no growth from dialysis center will order us of access Hd today image access empiric ab benzodiazepam as needed
--- NOTE | 2016-11-26 18:05 | CP.PCM.CON ---
<Mary Parekh. - Last Filed: 11/26/16 18:36> History of Present Illness - History of Present Illness History of Present Illness: Patient is a 51 year old male with medical history of alcohol abuse, HTN, ESRD w /dialysis, cirrhosis with liver transplant, infectious endocarditis (x2), presents to the ED for seizures. History was obtained by , Paco. woke up to sound of fall and found patient on the floor. Patient had a total of 6 witnessed seizures at home. EMS brought patient to ED. Patient is taking Keppra at home for seizures that he had during hospitalization approximately 5-6 months ago. Patient's last alcohol consumption was on Thursday. As per the , the patient "drinks until he passes out". Patient has AV fistula that is "clogged and infected". Patient was given two antibiotics. Patient has not had dialysis since Thursday. As per , approximately 6 months ago, patient was hospitalized for 5 months for infective endocarditis & cranial emboli. Patient was comatose and intubated for 3-4 months, followed by tracheostomy. Review of systems not obtained as patient is unresponsive. 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 Allergies: NKDA Medications: see EMR Review of Systems - Review of Systems Systems not reviewed;Unavailable: Altered Mental Status Past Patient History - Infectious Disease Hx of Infectious Diseases: None - Past Medical History & Family History Past Medical History?: Yes - Past Social History Smoking Status: Heavy Smoker > 10 Cigarettes Daily - CARDIAC Hx Hypertension: Yes - PULMONARY Hx Pneumonia: Yes - NEUROLOGICAL Hx Neurological Disorder: Yes Hx Seizures: Yes Other/Comment: 'BRAIN INJURY ' - HEENT Hx HEENT Problems: No - RENAL Hx Chronic Kidney Disease: Yes - ENDOCRINE/METABOLIC Hx Diabetes Mellitus Type 2: Yes - HEMATOLOGICAL/ONCOLOGICAL Hx Blood Disorders: Yes Hx Cancer: Yes (EYE CANCER) Hx Hepatitis C: Yes Other/Comment: Liver transplant. 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 - ANESTHESIA Hx Anesthesia: Yes Hx Anesthesia Reactions: No Meds Allergies/Adverse Reactions: Allergies Allergy/AdvReac Type Severity Reaction Status Date / Time No Known Allergies Allergy Verified 11/04/16 20:20 - Medications Medications: Current Medications Aspirin (Aspirin Chewable) 81 mg PO DAILY [facility] Famotidine (Pepcid) 20 mg IVP DAILY [facility] Last Admin: 11/26/16 11:53 Dose: 20 mg Folic Acid 1 mg/ Thiamine HCl 100 mg/ Multivitamins/Vitamin C 10 ml/ Dextrose 1 ,011.2 mls @ 100 mls/hr IV .Q10H7M [facility] Last Admin: 11/26/16 08:18 Dose: 100 mls/hr Dexmedetomidine HCl 200 mcg/ (Sodium Chloride) 50 mls @ 4.08 mls/hr IV TITR PRN ; Protocol; 0.2 MCG/KG/HR PRN Reason: Agitation Last Admin: 11/26/16 11:40 Dose: 0.2 mcg/kg/hr, 4.08 mls/hr Levetiracetam 500 mg/ Dextrose 105 mls @ 420 mls/hr IVPB Q12H [facility] Lorazepam (Ativan) 2 mg IVP Q2H PRN PRN Reason: Agitation Physical Exam - Head Exam Head Exam: ATRAUMATIC, NORMAL INSPECTION - Eye Exam Eye Exam: EOMI - ENT Exam ENT Exam: Mucous Membranes Moist - Respiratory Exam Respiratory Exam: Clear to Auscultation Bilateral. absent: Rales, Rhonchi, Wheezes - Cardiovascular Exam Cardiovascular Exam: Tachycardia, +S1, +S2 - GI/Abdominal Exam GI & Abdominal Exam: Normal Bowel Sounds, Soft. absent: Distended, Firm - Extremities Exam Extremities exam: Positive for: normal inspection, pedal pulses present. Negative for: pedal edema - Skin Skin Exam: Dry, Intact, Normal Color, Warm Additional comments: Left Av fistula- infected, drainage, erythema Results - Vital Signs Recent Vital Signs: Last Vital Signs Temp 100.1 F H 11/26/16 16:00 Pulse 96 H 11/26/16 17:20 Resp 27 H 11/26/16 17:20 BP 141/100 H 11/26/16 16:43 Pulse Ox 100 11/26/16 17:20 - Labs Result Diagrams: 11/26/16 07:41 11/26/16 07:41 Labs: Laboratory Results - last 24 hr 11/26/16 10:42 Troponin I 0.1850 H* Assessment & Plan (1) Seizure Assessment and Plan: Neuro: - Seizures, possibly secondary to alcohol withdrawal - Hx of Embolic IE - Neurology consulted- Dr. Pérez, help appreciated - Head CT: acute to subacute infarct suspected at posterior left parieto- occipital distribution w/o hemorrhage; limited local mass effect; B/L chronic lacunar infarct noted at basal ganglia; age-related degenerative changes. - Repeat Head CT: f/u - EEG: f/u - Continue Keppra Pulm: no acute issues - swallow eval CV: Hx of IE - Cardiology consulted- Dr. Reeder, help appreciated - Elevated troponin: 0.1850, CKMB 3.70 - Tropnin: f/u - Echo: f/u - Carotid duplex: f/u - Continue asa Endo: no acute issues GI: - Hx of cirrhosis and liver transplant - Alcohol abuse - Elevated LFTs, secondary to alcohol abuse Renal: ESRD, Dialysis (TTHS), Infected AV fistula (left) - Dialysis scheduled for today - Nephrology consulted- Dr. Araujo, help appreciated - US of AV ID: - Hx of IE (x2) - Leukocytosis, 16.8 - Possble Infected OLI - Arterial doppler: f/u - Blood Cx: f/u Alcohol Withdrawal: - Monitor for signs of withdrawal - Ativan and precedex for agitation - Alcohol quant <10 - Toxicology screen: acetaminophen <10, Phenytoin <3.0 Prophylaxis: - DVT: Heparin 5,000 Q8, SCDs - GI: pepcid Status: Acute <Marcus Newton - Last Filed: 11/26/16 19:06> Meds - Medications Medications: Current Medications Aspirin (Aspirin Chewable) 81 mg PO DAILY [facility] Last Admin: 11/26/16 18:46 Dose: Not Given Famotidine (Pepcid) 20 mg IVP DAILY [facility] Last Admin: 11/26/16 11:53 Dose: 20 mg Heparin Sodium (Porcine) (Heparin) 5,000 units SC Q8 [facility] Folic Acid 1 mg/ Thiamine HCl 100 mg/ Multivitamins/Vitamin C 10 ml/ Dextrose 1 ,011.2 mls @ 100 mls/hr IV .Q10H7M [facility] Last Admin: 11/26/16 18:25 Dose: Not Given Dexmedetomidine HCl 200 mcg/ (Sodium Chloride) 50 mls @ 4.08 mls/hr IV TITR PRN ; Protocol; 0.2 MCG/KG/HR PRN Reason: Agitation Last Titration: 11/26/16 18:00 Dose: 0.5 mcg/kg/hr, 10.2 mls/hr Levetiracetam 500 mg/ Dextrose 105 mls @ 420 mls/hr IVPB Q12H [facility] Lorazepam (Ativan) 2 mg IVP Q2H PRN PRN Reason: Agitation Results - Vital Signs Recent Vital Signs: Last Vital Signs Temp 100.1 F H 11/26/16 16:00 Pulse 96 H 11/26/16 17:20 Resp 27 H 11/26/16 17:20 BP 141/100 H 11/26/16 16:43 Pulse Ox 100 11/26/16 17:20 - Labs Result Diagrams: 11/26/16 07:41 11/26/16 07:41 Labs: Laboratory Results - last 24 hr 11/26/16 10:42 Troponin I 0.1850 H* Attending/Attestation - Attestation I have personally seen and examined this patient.: Yes I have fully participated in the care of the patient.: Yes I have reviewed all pertinent clinical information: Yes Notes (Text): 11/26/16 19:01 Patient seen and examined. 51-year-old male with cirrhosis of liver status post liver transplant, history of alcohol abuse, endocarditis admitted with witnessed seizures. CT of the head consistent with acute infarct. Patient started on Precedex drip for agitation. Neurology evaluation Started on aspirin Cardiology consult [facility] protocol for delirium tremens Patient started on heparin drip for A. fib
[2016-11-26] MEDS ORDERED: Heparin25000 units/250ml 1/2NS 25,000 UNITS/250 ML BAG IV PRN (19:04)
[2016-11-27] MEDS ORDERED: Heparin25000 units/250ml 1/2NS 25,000 UNITS/250 ML BAG IV PRN ×2 (03:45→07:15)
[2016-11-27] MEDS: Folic Acid 1 MG, Thiamine 100 MG, Multivitamin (MVI) 10 ML in Dextrose 5% In Water 1,00... IV SCH ×2 (04:00→10:06)
[2016-11-27] MEDS: Dexmedetomidine Hydrochloride 200 MCG in Sodium Chloride 0.9% 48 ML IV PRN ×4 (05:45→21:29)
[2016-11-27 06:34] LABS: BASO % 0.3 % (0.0-2.0); EOS % 0.4 % (0.0-4.0); HEMATOCRIT 29.8 % (35.0-51.0); LYMPH # 1.2 K/uL (1.0-4.3); LYMPH % 23.5 % (20.0-40.0); MEAN CELL VOLUME 98.9 fL (80.0-94.0); MEAN CORPUSCULAR HEMOGLOBIN 34.6 pg (27.0-31.0); MEAN PLATELET VOLUME 8.6 fL (7.2-11.7); MONO # 0.4 K/uL (0.0-0.8); MONO % 8.6 % (0.0-10.0); RED CELL DISTRIBUTION WIDTH 12.7 % (11.5-14.5); WHITE BLOOD COUNT 5.2 K/uL (4.8-10.8)
[2016-11-27 06:54] LABS: POTASSIUM 3.2 mmol/L (3.6-5.2)
[2016-11-27 06:55] LABS: ALB/GLOB RATIO 1.2 (1.0-2.1); BILIRUBIN,TOTAL 0.7 mg/dL (0.2-1.3); CALCIUM 8.9 mg/dl (8.6-10.4); MAGNESIUM 2.2 mg/dL (1.6-2.3); PHOSPHOROUS 4.1 mg/dL (2.5-4.5); TOTAL PROTEIN 6.8 g/dL (6.3-8.3)
[2016-11-27 07:11] LABS: TROPONIN I 0.312 ng/mL (0.00-0.120)
--- NOTE | 2016-11-27 09:14 | CP.PCM.CON ---
<MATTKAITLIN - Last Filed: 11/27/16 16:46> History of Present Illness - History of Present Illness History of Present Illness: Kaitlin Banerjee, PGY1, Consult Note for Dr. Reeder: CC: seizures 51M with PMH HTN, afib, infective endocarditis, EtOH abuse, ESRD with dialysis ( TThS), cirrhosis with liver transplant, BIBA for witnessed seizures at home. History obtained from charts (), pt currently on precedex drip. woke up to sound of fall and found pt on the floor, witnessed 6 total seizures at home. Pt previously hospitalized 6 months ago for infective endocarditis and cranial emboli, where pt was comatose and intubated x 3-4 months, followed by tracheostomy, which has now healed (pt breathing normally, no home O2). Pt wsa put on home Keppra for seizure prophylaxis at the time. Recently, pt also had an infected L AV fistula, for which he was given two antibiotics outpatient, pt missed 1 hemodilaysis session on Thursday. In ED, pt had low grade fever 100.1F, HR 144 afib with RVR, BP 17/129, leukocytosis 16.8, BUN/Cr 39/5.9, trop 0.185-> 0.3120, CKMB 3.7, elevated LFTs, received ativan 2 mg ivp x2, heparin 4000 unitsx1, [id number], and 1 dose of IV Vanco. CT Head showed acute to subacute infarct at posterior L parieto-occipital distribution without ICH, and b/l chornic lacunar infracts, CXR showed stable cardiomegaly. Echo 04/2016 showed EF 65% and dilated left atrium. Cardiology consulted for management of afib with RVR and for history of infective endocarditis. 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 Allergies: NKDA Medications: see EMR Review of Systems - Review of Systems Systems not reviewed;Unavailable: Altered Mental Status Past Patient History - Infectious Disease Hx of Infectious Diseases: None - Past Medical History & Family History Past Medical History?: Yes - Past Social History Smoking Status: Heavy Smoker > 10 Cigarettes Daily - CARDIAC Hx Hypertension: Yes - PULMONARY Hx Pneumonia: Yes - NEUROLOGICAL Hx Neurological Disorder: Yes Hx Seizures: Yes Other/Comment: 'BRAIN INJURY ' - HEENT Hx HEENT Problems: No - RENAL Hx Chronic Kidney Disease: Yes - ENDOCRINE/METABOLIC Hx Diabetes Mellitus Type 2: Yes - HEMATOLOGICAL/ONCOLOGICAL Hx Blood Disorders: Yes Hx Cancer: Yes (EYE CANCER) Hx Hepatitis C: Yes Other/Comment: Liver transplant. 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 - ANESTHESIA Hx Anesthesia: Yes Hx Anesthesia Reactions: No Meds Allergies/Adverse Reactions: Allergies Allergy/AdvReac Type Severity Reaction Status Date / Time No Known Allergies Allergy Verified 11/04/16 20:20 - Medications Medications: Current Medications Aspirin (Aspirin Chewable) 81 mg PO DAILY [facility] Last Admin: 11/26/16 20:30 Dose: 81 mg Famotidine (Pepcid) 20 mg IVP DAILY [facility] Last Admin: 11/26/16 11:53 Dose: 20 mg Heparin Sodium (Porcine) (Heparin) 5,000 units SC Q8 [facility] Dexmedetomidine HCl 200 mcg/ (Sodium Chloride) 50 mls @ 4.08 mls/hr IV TITR PRN ; Protocol; 0.2 MCG/KG/HR PRN Reason: Agitation Last Admin: 11/27/16 05:45 Dose: 0.3 mcg/kg/hr, 6.12 mls/hr Levetiracetam 500 mg/ Dextrose 105 mls @ 420 mls/hr IVPB Q12H [facility] Last Admin: 11/27/16 05:00 Dose: 420 mls/hr Folic Acid 1 mg/ Thiamine HCl 100 mg/ Multivitamins/Vitamin C 10 ml/ Dextrose 1 ,011.2 mls @ 100 mls/hr IV DAILY [facility] Lorazepam (Ativan) 2 mg IVP Q2H PRN PRN Reason: Agitation Last Admin: 11/27/16 02:15 Dose: 2 mg Physical Exam - Constitutional Appears: No Acute Distress - Head Exam Head Exam: ATRAUMATIC, NORMOCEPHALIC - Eye Exam Eye Exam: PERRL - ENT Exam ENT Exam: Mucous Membranes Moist - Respiratory Exam Respiratory Exam: Decreased Breath Sounds - Cardiovascular Exam Cardiovascular Exam: Irregular Rhythm - GI/Abdominal Exam GI & Abdominal Exam: Normal Bowel Sounds, Soft. absent: Tenderness - Extremities Exam Extremities exam: Negative for: calf tenderness, pedal edema - Neurological Exam Neurological exam: Alert, Altered Additional comments: awake, responds inappropriately to questions, not oriented to person, place and time. - Skin Skin Exam: Dry, Warm Results - Vital Signs Recent Vital Signs: Last Vital Signs Temp 98 F 11/27/16 04:00 Pulse 77 11/27/16 07:00 Resp 25 H 11/27/16 07:00 BP 150/103 H 11/27/16 07:00 Pulse Ox 100 11/27/16 07:00 - Labs Result Diagrams: 11/27/16 06:27 11/27/16 06:27 Labs: Laboratory Results - last 24 hr 11/26/16 11/27/16 11/27/16 10:42 01:58 06:27 WBC 5.2 D RBC 3.01 L Hgb 10.4 L Hct 29.8 L MCV 98.9 H MCH 34.6 H MCHC 35.0 RDW 12.7 Plt Count 100 L D MPV 8.6 Neut % (Auto) 67.2 Lymph % (Auto) 23.5 Rush % (Auto) 8.6 Eos % (Auto) 0.4 Baso % (Auto) 0.3 Neut # 3.5 Lymph # 1.2 Rush # 0.4 Eos # 0.0 Baso # 0.0 APTT 30 Sodium Potassium Chloride Carbon Dioxide Anion Gap BUN Creatinine Est GFR ( Amer) Est GFR (Non-Af Amer) Random Glucose Calcium Phosphorus Magnesium Total Bilirubin AST ALT Alkaline Phosphatase Total Creatine Kinase CK-MB (Mass) Troponin I 0.1850 H* Total Protein Albumin Globulin Albumin/Globulin Ratio 11/27/16 06:27 WBC RBC Hgb Hct MCV MCH MCHC RDW Plt Count MPV Neut % (Auto) Lymph % (Auto) Rush % (Auto) Eos % (Auto) Baso % (Auto) Neut # Lymph # Rush # Eos # Baso # APTT Sodium 134 Potassium 3.2 L Chloride 94 L Carbon Dioxide 26 Anion Gap 17 BUN 22 H Creatinine 3.6 H Est GFR ( Amer) 22 Est GFR (Non-Af Amer) 18 Random Glucose 108 Calcium 8.9 Phosphorus 4.1 Magnesium 2.2 Total Bilirubin 0.7 AST 44 ALT 69 Alkaline Phosphatase 69 Total Creatine Kinase 82 CK-MB (Mass) 2.21 Troponin I 0.3120 H* Total Protein 6.8 Albumin 3.7 Globulin 3.1 Albumin/Globulin Ratio 1.2 Assessment & Plan - Assessment and Plan (Free Text) Assessment: 51M with PMH HTN, infective endocarditis, EtOH abuse, ESRD with dialysis (TThS) , cirrhosis with liver transplant, admitted for seizures 2/2 likely sepsis vs EtOH withdrawal. Pt also found to be in afib with RVR, and trops 0.185->0.3120, ck mb 3.7. Cardiology consulted for further management. Scheduled for MARISELA tomorrow with Dr. Reeder at 11 AM, please keep NPO past midnight, nursing staff: please arrange with anesthesia (per Dr. Reeder). Plan: Afib with RVR: - Pt has a history of afib, on Metoprolol 25 mg PO daily for rate control, no anticoagulation listed in home meds. Will ask once she is here. - In ED, EKG shows HR 133, afib with RVR, LVH, prolonged QTc 580 ms. - UDS positive for cocaine and opiates. - trop elevated 0.185->0.3120, CKMB 3.7 - In ICU, pt switching to NSR, currently HR 70-80, afib. Likely paroxysmal afib. - Pt given heparin 5000 U IVx1, 4000 Ux1, in ED. started on heparin drip yesterday, but discontinued due to increased risk of brain bleed in this patient (per Dr. Pérez). Pt currently on heparin 5000 Units SQ q 8h for dvt ppx. - Will start on rate control Metoprolol 25 mg PO BID, hold for hR<60 and SBP< 100. Will hold anticoagulation due to risk for hemorrhagic conversion of CVA. Hx of Infective Endocarditis: - Treated 6 months ago for IE and cranial emboli, hosp for 5 months, comatose and intubated x5 months, with a tracheostomy. - Pt an IV drug user - Will repeat 2d echo and MARISELA. MARISELA scheduled for tomorrow 11 AM. Nursing staff: please let anesthesia know. Please keep NPO past midnight (except Meds). Hx of HTN: - BP 150/103. - At home, on amlodipine 10 mg PO daily, nifedipine 60 mg PO daily and metoprolol 25 mg PO daily and Lasix 80 mg PO daily. - Will start Metoprolol 25 mg PO BID, Hold for SBP <100 and HR <60. Seizures likely 2/2 alcohol withdrawal vs sepsis? - Pt was on home Keppra for seizure ppx as pt had cranial emboli hx. Unsure if pt compliant with med. - Pt had 6 witnessed seizures at home, + generalized witnessed seizure in ED - Received Phosphenytoin and ativan 2 mg IVx2 in ED - received banana bag. - Currently on Keppra 500 mg IV q 12h. - Neuro on board - Dr Pérez. Will f/u EEG. - Infected left AV fistula, leukocytosis on admission, lactate 3.5, removed the cath this AM. cont to monitor, f/u blood and cath tip cultures and ID recs ESRD: - BUN/Cr 39/5.9 on admission. Received HD yesterday. improved Cr. Cont to monitor. Will discuss with attending, Dr. Reeder. Kaitlin Banerjee, PGY1 - Date & Time Date: 11/27/16 Time: 10:20 <Jose Reeder - Last Filed: 11/27/16 23:17> Meds - Medications Medications: Current Medications Aspirin (Aspirin Chewable) 81 mg PO DAILY [facility] Last Admin: 11/27/16 10:05 Dose: 81 mg Famotidine (Pepcid) 20 mg IVP DAILY [facility] Last Admin: 11/27/16 10:06 Dose: 20 mg Heparin Sodium (Porcine) (Heparin) 5,000 units SC Q8 [facility] Last Admin: 11/27/16 21:33 Dose: 5,000 units Dexmedetomidine HCl 200 mcg/ (Sodium Chloride) 50 mls @ 4.08 mls/hr IV TITR PRN ; Protocol; 0.2 MCG/KG/HR PRN Reason: Agitation Last Admin: 08/24/17 21:29 Dose: 0.29 mcg/kg/hr, 6.1 mls/hr Folic Acid 1 mg/ Thiamine HCl 100 mg/ Multivitamins/Vitamin C 10 ml/ Dextrose 1 ,011.2 mls @ 100 mls/hr IV DAILY [facility] Last Admin: 11/27/16 10:06 Dose: 100 mls/hr Vancomycin HCl 1 gm/ Sodium (Chloride) 250 mls @ 166.7 mls/hr IVPB MWF [facility] Levetiracetam 750 mg/ Dextrose 107.5 mls @ 420 mls/hr IVPB Q12H [facility] Lorazepam (Ativan) 2 mg IVP Q2H PRN PRN Reason: Agitation Last Admin: 11/27/16 15:19 Dose: 2 mg Lorazepam (Ativan) 2 mg PO Q6H [facility] Last Admin: 11/27/16 18:01 Dose: 2 mg Metoprolol Tartrate (Lopressor) 25 mg PO BID [facility] Last Admin: 11/27/16 17:58 Dose: 25 mg Pneumococcal Polyvalent Vaccine (Pneumovax 23 Vaccine) 0.5 ml IM .ONCE ONE Stop: 11/28/16 10:01 Results - Vital Signs Recent Vital Signs: Last Vital Signs Temp 98.3 F 11/27/16 20:00 Pulse 82 11/27/16 22:25 Resp 44 H 11/27/16 22:25 BP 158/98 H 11/27/16 22:25 Pulse Ox 97 11/27/16 22:25 - Labs Result Diagrams: 11/27/16 06:27 11/27/16 06:27 Labs: Laboratory Results - last 24 hr 11/27/16 11/27/16 11/27/16 01:58 06:27 06:27 WBC 5.2 D RBC 3.01 L Hgb 10.4 L Hct 29.8 L MCV 98.9 H MCH 34.6 H MCHC 35.0 RDW 12.7 Plt Count 100 L D MPV 8.6 Neut % (Auto) 67.2 Lymph % (Auto) 23.5 Rush % (Auto) 8.6 Eos % (Auto) 0.4 Baso % (Auto) 0.3 Neut # 3.5 Lymph # 1.2 Rush # 0.4 Eos # 0.0 Baso # 0.0 APTT 30 Sodium 134 Potassium 3.2 L Chloride 94 L Carbon Dioxide 26 Anion Gap 17 BUN 22 H Creatinine 3.6 H Est GFR ( Amer) 22 Est GFR (Non-Af Amer) 18 Random Glucose 108 Calcium 8.9 Phosphorus 4.1 Magnesium 2.2 Total Bilirubin 0.7 AST 44 ALT 69 Alkaline Phosphatase 69 Total Creatine Kinase 82 CK-MB (Mass) 2.21 Troponin I 0.3120 H* Total Protein 6.8 Albumin 3.7 Globulin 3.1 Albumin/Globulin Ratio 1.2 Assessment & Plan - Assessment and Plan (Free Text) Plan: Patient seen and evaluated with the medical equipment repair technician Agree with the plan
--- NOTE | 2016-11-27 11:21 | CP.PCM.PN ---
Subjective - Date & Time of Evaluation Date of Evaluation: 11/27/16 Time of Evaluation: 11:18 - Subjective Subjective: seen and examined pt lethargic, not follwoing commands ct head noted, acute/subacute infarct a fib hd yesterday Objective - Vital Signs/Intake and Output Vital Signs (last 24 hours): Temp Pulse Resp BP Pulse Ox 98 F 77 25 H 150/103 H 100 11/27/16 04:00 11/27/16 07:00 11/27/16 07:00 11/27/16 07:00 11/27/16 07:00 Intake and Output: 11/27/16 11/27/16 06:59 18:59 Intake Total 754.1 22.4 Output Total 300 60 Balance 454.1 -37.6 - Medications Medications: Current Medications Aspirin (Aspirin Chewable) 81 mg PO DAILY [facility] Last Admin: 11/27/16 10:05 Dose: 81 mg Famotidine (Pepcid) 20 mg IVP DAILY [facility] Last Admin: 11/27/16 10:06 Dose: 20 mg Heparin Sodium (Porcine) (Heparin) 5,000 units SC Q8 [facility] Dexmedetomidine HCl 200 mcg/ (Sodium Chloride) 50 mls @ 4.08 mls/hr IV TITR PRN ; Protocol; 0.2 MCG/KG/HR PRN Reason: Agitation Last Admin: 11/27/16 05:45 Dose: 0.3 mcg/kg/hr, 6.12 mls/hr Levetiracetam 500 mg/ Dextrose 105 mls @ 420 mls/hr IVPB Q12H [facility] Last Admin: 11/27/16 05:00 Dose: 420 mls/hr Folic Acid 1 mg/ Thiamine HCl 100 mg/ Multivitamins/Vitamin C 10 ml/ Dextrose 1 ,011.2 mls @ 100 mls/hr IV DAILY [facility] Last Admin: 11/27/16 10:06 Dose: 100 mls/hr Lorazepam (Ativan) 2 mg IVP Q2H PRN PRN Reason: Agitation Last Admin: 11/27/16 10:06 Dose: 2 mg - Labs Labs: 11/27/16 06:27 11/27/16 06:27 PT 11.4 SECONDS (9.7-12.2) 11/26/16 07:41 INR 1.0 11/26/16 07:41 APTT 30 SECONDS (21-34) 11/27/16 01:58 - Constitutional Appears: No Acute Distress, Older Than Stated Age, Confused, Cachectic, Chronically Ill - Head Exam Head Exam: NORMAL INSPECTION - Eye Exam Eye Exam: Normal appearance - ENT Exam ENT Exam: Mucous Membranes Dry - Neck Exam Neck Exam: Normal Inspection - Respiratory Exam Respiratory Exam: Decreased Breath Sounds, NORMAL BREATHING PATTERN - Cardiovascular Exam Cardiovascular Exam: Irregular Rhythm - GI/Abdominal Exam GI & Abdominal Exam: Soft, Normal Bowel Sounds - Extremities Exam Extremities Exam: Normal Inspection Assessment and Plan (1) Alcohol abuse Status: Acute (2) Alcohol withdrawal seizure with complication Status: Acute (3) Hepatitis C Status: Acute (4) Status epilepticus Status: Acute (5) ESRD (end stage renal disease) on dialysis Status: Chronic (6) Liver transplant recipient Status: Chronic - Assessment and Plan (Free Text) Assessment: esrd liver transplant alcohol abuse alcohol related seizure ?drainage from [facility], reportedly no growth from dialysis center a fib Hd mwf follow up vascular kristy study when stable antibiotics supportive care consider neuro eval
--- NOTE | 2016-11-27 13:06 | CARD ---
APPROVED REPORT EKG Measurement Heart [id number] <Conclusion> baseline artifact.probably sinus tach. Minimal voltage criteria for LVH, may be normal variant ST & T wave abnormality, consider inferolateral ischemia Abnormal ECG please repeat
--- NOTE | 2016-11-27 17:47 | CP.PCM.CON ---
History of Present Illness - History of Present Illness History of Present Illness: 51 year old male with medical history of alcohol abuse, HTN, ESRD w/dialysis, cirrhosis with liver transplant, infectious endocarditis (x2), presents to the ED for seizures. ID consulted for IV antibiotic management with hx of infected left arm AV fistula Patient had a total of 6 witnessed seizures at home. EMS brought patient to ED. Patient is taking Keppra at home for seizures that he had during hospitalization approximately 5-6 months ago. Patient's last alcohol consumption was on Thursday. As per the , the patient "drinks until he passes out". Patient has AV fistula that is "clogged and infected". Patient was given two antibiotics. Patient has not had dialysis since Thursday. As per , approximately 6 months ago, patient was hospitalized for 5 months for infective endocarditis & cranial emboli. Patient was comatose and intubated for 3-4 months , followed by tracheostomy. Review of systems not obtained as patient is unresponsive. 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 Allergies: NKDA Medications: see EMR Review of Systems - Review of Systems Systems not reviewed;Unavailable: Altered Mental Status - Constitutional Constitutional: As Per HPI - EENT Eyes: absent: As Per HPI, Blind Spots, Blurred Vision, Change in Vision, Decreased Night Vision, Diplopia, Discharge, Dry Eye, Exophthalmos, Floaters, Irritation, Itchy Eyes, Loss of Peripheral Vision, Pain, Photophobia, Requires Corrective Lenses, Sees Flashes, Spots in Vision, Tunnel Vision, Other Visual Disturbances, Loss of Vision, Other Ears: absent: As Per HPI, Decreased Hearing, Ear Discharge, Ear Pain, Tinnitus, Abnormal Hearing, Disequilibrium, Dizziness, Other Nose/Mouth/Throat: absent: As Per HPI, Epistaxis, Nasal Congestion, Nasal Discharge, Nasal Obstruction, Nasal Trauma, Nose Pain, Post Nasal Drip, Sinus Pain, Sinus Pressure, Bleeding Gums, Change in Voice, Dental Pain, Dry Mouth, Dysphagia, Halitosis, Hoarsness, Lip Swelling, Mouth Lesions, Mouth Pain, Odynophagia, Sore Throat, Throat Swelling, Tongue Swelling, Facial Pain, Neck Pain, Neck Mass, Other - Cardiovascular Cardiovascular: As Per HPI - Respiratory Respiratory: As Per HPI - Gastrointestinal Gastrointestinal: As Per HPI - Genitourinary Genitourinary: absent: As Per HPI, Change in Urinary Stream, Difficulty Urinating, Dysuria, Flank Pain, Hematuria, Pyuria, Nocturia, Urinary Incontinence, Urinary Frequency, Urinary Hesitance, Urinary Urgency, Voiding Freq/Small Amts, Freq UTI, Hx Renal/Bladder Calculi, Hx /Renal Surgery, Bladder Distension, Other - Musculoskeletal Musculoskeletal: absent: As Per HPI, Abnormal Gait, Arthralgias, Atrophy, Back Pain, Deformity, Joint Swelling, Limited Range of Motion, Loss of Height, Muscle Cramps, Muscle Weakness, Myalgias, Neck Pain, Numbness, Radiating Pain into Limb, Stiffness, Tingling, Other - Integumentary Integumentary: As Per HPI - Neurological Neurological: As Per HPI - Psychiatric Psychiatric: absent: As Per HPI, Abnormal Sleep Pattern, Anhedonia, Anxiety, Auditory Hallucinations, Behavioral Changes, Change in Appetite, Change in Libido, Confusion, Depression, Difficulty Concentrating, Hallucinations, Homicidal Ideation, Hopelessness, Irritability, Memory Loss, Mood Swings, Panic Attacks, Paranoia, Suicidal Ideation, Visual Hallucinations, Tactile Hallucinations, Other - Endocrine Endocrine: absent: As Per HPI, Change in Body Appearance, Change in Libido, Cold Intolorance, Deepening of Voice, Excessive Sweating, Fatigue, Flushing, Heat Intolorance, Increase in Ring/Shoe/Hat Size, Palpitations, Polydipsia, Polyphagia, Polyuria, Other - Hematologic/Lymphatic Hematologic: absent: As Per HPI, Easy Bleeding, Easy Bruising, Lymphadenopathy, Other Past Patient History - Infectious Disease Hx of Infectious Diseases: None - Past Medical History & Family History Past Medical History?: Yes - Past Social History Smoking Status: Heavy Smoker > 10 Cigarettes Daily - CARDIAC Hx Hypertension: Yes - PULMONARY Hx Pneumonia: Yes - NEUROLOGICAL Hx Neurological Disorder: Yes Hx Seizures: Yes Other/Comment: 'BRAIN INJURY ' - HEENT Hx HEENT Problems: No - RENAL Hx Chronic Kidney Disease: Yes - ENDOCRINE/METABOLIC Hx Diabetes Mellitus Type 2: Yes - HEMATOLOGICAL/ONCOLOGICAL Hx Blood Disorders: Yes Hx Cancer: Yes (EYE CANCER) Hx Hepatitis C: Yes Other/Comment: Liver transplant. 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 - ANESTHESIA Hx Anesthesia: Yes Hx Anesthesia Reactions: No Meds Allergies/Adverse Reactions: Allergies Allergy/AdvReac Type Severity Reaction Status Date / Time No Known Allergies Allergy Verified 11/04/16 20:20 - Medications Medications: Current Medications Aspirin (Aspirin Chewable) 81 mg PO DAILY [facility] Last Admin: 11/27/16 10:05 Dose: 81 mg Famotidine (Pepcid) 20 mg IVP DAILY [facility] Last Admin: 11/27/16 10:06 Dose: 20 mg Heparin Sodium (Porcine) (Heparin) 5,000 units SC Q8 [facility] Last Admin: 11/27/16 15:39 Dose: 5,000 units Dexmedetomidine HCl 200 mcg/ (Sodium Chloride) 50 mls @ 4.08 mls/hr IV TITR PRN ; Protocol; 0.2 MCG/KG/HR PRN Reason: Agitation Last Admin: 11/27/16 16:54 Dose: 1 mcg/kg/hr, 20.41 mls/hr Levetiracetam 500 mg/ Dextrose 105 mls @ 420 mls/hr IVPB Q12H [facility] Last Admin: 11/27/16 05:00 Dose: 420 mls/hr Folic Acid 1 mg/ Thiamine HCl 100 mg/ Multivitamins/Vitamin C 10 ml/ Dextrose 1 ,011.2 mls @ 100 mls/hr IV DAILY [facility] Last Admin: 11/27/16 10:06 Dose: 100 mls/hr Lorazepam (Ativan) 2 mg IVP Q2H PRN PRN Reason: Agitation Last Admin: 11/27/16 15:19 Dose: 2 mg Lorazepam (Ativan) 2 mg PO Q6H [facility] Last Admin: 11/27/16 13:27 Dose: Not Given Metoprolol Tartrate (Lopressor) 25 mg PO BID [facility] Pneumococcal Polyvalent Vaccine (Pneumovax 23 Vaccine) 0.5 ml IM .ONCE ONE Stop: 11/28/16 10:01 Physical Exam - Constitutional Appears: No Acute Distress, Confused, Cachectic, Chronically Ill - Head Exam Head Exam: ATRAUMATIC, NORMAL INSPECTION, NORMOCEPHALIC - Eye Exam Eye Exam: absent: Scleral icterus Additional comments: left eye prosthesis - ENT Exam ENT Exam: Mucous Membranes Dry, Normal External Ear Exam - Neck Exam Neck exam: Negative for: Lymphadenopathy - Respiratory Exam Respiratory Exam: Decreased Breath Sounds, Rhonchi - Cardiovascular Exam Cardiovascular Exam: Tachycardia, REGULAR RHYTHM, +S1, +S2 - GI/Abdominal Exam GI & Abdominal Exam: Distended, Soft. absent: Tenderness - Rectal Exam Rectal Exam: Deferred - Exam Exam: NORMAL INSPECTION - Extremities Exam Extremities exam: Positive for: pedal pulses present. Negative for: calf tenderness, pedal edema, tenderness - Back Exam Back exam: absent: CVA tenderness (L), CVA tenderness (R) - Neurological Exam Neurological exam: Altered Additional comments: weakness bilat upper/ lower - Psychiatric Exam Psychiatric exam: Depressed - Skin Skin Exam: Dry Additional comments: left arm av fistula with open wound no pus Results - Vital Signs Recent Vital Signs: Last Vital Signs Temp 98.1 F 11/27/16 12:00 Pulse 80 11/27/16 16:01 Resp 21 11/27/16 16:01 BP 149/113 H 11/27/16 16:01 Pulse Ox 83 L 11/27/16 16:01 - Labs Result Diagrams: 11/27/16 06:27 11/27/16 06:27 Labs: Laboratory Results - last 24 hr 11/27/16 11/27/16 11/27/16 01:58 06:27 06:27 WBC 5.2 D RBC 3.01 L Hgb 10.4 L Hct 29.8 L MCV 98.9 H MCH 34.6 H MCHC 35.0 RDW 12.7 Plt Count 100 L D MPV 8.6 Neut % (Auto) 67.2 Lymph % (Auto) 23.5 [place] % (Auto) 8.6 Eos % (Auto) 0.4 Baso % (Auto) 0.3 Neut # 3.5 Lymph # 1.2 [place] # 0.4 Eos # 0.0 Baso # 0.0 APTT 30 Sodium 134 Potassium 3.2 L Chloride 94 L Carbon Dioxide 26 Anion Gap 17 BUN 22 H Creatinine 3.6 H Est GFR ( Amer) 22 Est GFR (Non-Af Amer) 18 Random Glucose 108 Calcium 8.9 Phosphorus 4.1 Magnesium 2.2 Total Bilirubin 0.7 AST 44 ALT 69 Alkaline Phosphatase 69 Total Creatine Kinase 82 CK-MB (Mass) 2.21 Troponin I 0.3120 H* Total Protein 6.8 Albumin 3.7 Globulin 3.1 Albumin/Globulin Ratio 1.2 Assessment & Plan (1) Alcohol abuse Status: Chronic (2) Alcohol withdrawal seizure with complication Status: Acute (3) Drug abuse Status: Acute (4) Hepatitis C Status: Acute (5) Seizure Status: Acute (6) Status epilepticus Status: Acute (7) ESRD (end stage renal disease) on dialysis Status: Chronic (8) Liver transplant recipient Status: Chronic (9) Encephalopathy Status: Acute (10) Hypotension Status: Acute (11) Liver transplant disorder Status: Acute (12) Polysubstance (including opioids) dependence with physiol dependence Status: Acute (13) Renal failure, acute on chronic Status: Acute (14) ESRD (end stage renal disease) Status: Chronic - Assessment and Plan (Free Text) Assessment: cont empiric iv antibiotics await cultures surgical eval left av graft
--- NOTE | 2016-11-27 17:53 | CT ---
PROCEDURE: CT HEAD WITHOUT CONTRAST. HISTORY: FOLLOW UP COMPARISON: 11/26/2016 and 11/04/2016 TECHNIQUE: Axial computed tomography images were obtained through the head/brain without intravenous contrast. Radiation dose: Total exam DLP = 1466 mGy-cm. This CT exam was performed using one or more of the following dose reduction techniques: Automated exposure control, adjustment of the mA and/or kV according to patient size, and/or use of iterative reconstruction technique. FINDINGS: HEMORRHAGE: No intracranial hemorrhage. BRAIN: No mass effect or edema. Chronic infarcts are seen in the basal ganglia and periventricular white matter. Microvascular ischemic changes are seen. There is an area of hypodensity in the left occipital and parietal white matter which is slightly larger and better defined than it was on yesterday's study. This is suspicious for an acute infarct. There is some sparing of the cortex in this area. The finding could also be secondary to an underlying metastatic lesion with vasogenic edema. A follow-up MRI of the brain with and without contrast would be helpful for further evaluation VENTRICLES: Unremarkable. No hydrocephalus. CALVARIUM: Unremarkable. PARANASAL SINUSES: Unremarkable as visualized. No significant inflammatory changes. MASTOID AIR CELLS: Unremarkable as visualized. No inflammatory changes. OTHER FINDINGS: None. IMPRESSION: There is an area of hypodensity in the left occipital and parietal white matter which is slightly larger and better defined than it was on yesterday's study. This is suspicious for an acute infarct. There is some sparing of the cortex in this area. The finding could also be secondary to an underlying metastatic lesion with vasogenic edema. A follow-up MRI of the brain with and without contrast would be helpful for further evaluation
--- NOTE | 2016-11-27 18:51 | CP.CCUPN ---
<Mary Parekh - Last Filed: 11/27/16 18:48> CCU Subjective - Physician Review Subjective (Free Text): Patient was seen and examined at bedside in the morning. Patient was not alert, sedated, and unresponsive. Unable to obtain review of systems. 11/27/16 18:48 CCU Objective - Vital Signs / Intake & Output Vital Signs (Last 4 hours): Vital Signs Temp Pulse Resp BP Pulse Ox 11/27/16 18:01 85 26 H 116/90 97 11/27/16 18:00 83 28 H 96 11/27/16 17:58 127/73 11/27/16 17:02 80 29 H 127/73 99 11/27/16 17:00 86 32 H 100 11/27/16 16:01 80 21 149/113 H 83 L 11/27/16 16:00 97.4 F L 82 37 H 83 L 11/27/16 15:00 80 26 H 161/117 H 99 Intake and Output (Last 8hrs): Intake & Output 11/27/16 11/27/16 11/27/16 06:59 14:59 22:59 Intake Total 265.0 609.0 482.2 Output Total 200 330 420 Balance 65.0 279.0 62.2 Weight 179 lb Intake: IV 120 50 50 Intake, IV Amount 145.0 559.0 432.2 Right Antecubital 71.4 48.8 32.2 Right Antecubital Y-site 73.6 510.2 400 Oral 0 0 Tube Feeding 0 Output: Urine 200 330 420 Condom 200 330 420 Stool 0 0 Urine/Stool Mix 0 Emesis 0 0 - Physical Exam Head: Positive for: Normocephalic Pupils: Positive for: Sluggish Extroacular Muscles: Negative for: EOMI Mouth: Positive for: Moist Mucous Membranes Respiratory/Chest: Positive for: Decreased Breath Sounds. Negative for: Wheezes , Rales, Rhonchi, Tachypneic Cardiovascular: Positive for: Normal S1, S2, Irregular Rhythm, Tachycardic Abdomen: Positive for: Normal Bowel Sounds. Negative for: Distention, Guarding Upper Extremity: Positive for: Other (Left AV fistula). Negative for: Edema, Swelling Lower Extremity: Negative for: Edema, Swelling Neurological: Negative for: Speech Normal Skin: Positive for: Warm, Dry, Normal Color Psychiatric: Negative for: Alert, Oriented x 3, Normal Insight, Normal Concentration - Medications Active Medications: Active Medications Generic Name Dose Route Start Last Admin Trade Name Freq PRN Reason Stop Dose Admin Aspirin 81 mg 11/26/16 19:45 11/27/16 10:05 Aspirin Chewable PO 81 mg DAILY [facility] Administration Famotidine 20 mg 11/26/16 10:00 11/27/16 10:06 Pepcid IVP 20 mg DAILY [facility] Administration Heparin Sodium (Porcine) 5,000 units 11/27/16 14:00 11/27/16 15:39 Heparin SC 5,000 units Q8 [facility] Administration Dexmedetomidine HCl 200 mcg/ 50 mls @ 4.08 mls/hr 11/26/16 10:00 11/27/16 16: 54 Sodium Chloride IV 1 mcg/kg/hr TITR PRN 20.41 mls/hr Agitation Administration Protocol 0.2 MCG/KG/HR Levetiracetam 500 mg/ Dextrose 105 mls @ 420 mls/hr 11/26/16 18:00 11/27/16 17:58 IVPB 420 mls/hr Q12H [facility] Administration Folic Acid 1 mg/ Thiamine HCl 1,011.2 mls @ 100 mls/hr 11/27/16 10:00 10:06 100 mg/ Multivitamins/Vitamin IV 100 mls/hr C 10 ml/ Dextrose DAILY [facility] Administration Vancomycin HCl 1 gm/ Sodium 250 mls @ 166.7 mls/hr 11/28/16 09:00 Chloride IVPB MWF [facility] Lorazepam 2 mg 11/26/16 15:47 11/27/16 15:19 Ativan IVP 2 mg Q2H PRN Administration Agitation Lorazepam 2 mg 11/27/16 12:15 11/27/16 18:01 Ativan PO 2 mg Q6H [facility]A Administration Metoprolol Tartrate 25 mg 11/27/16 18:00 11/27/16 17:58 Lopressor PO 25 mg BID BEA Administration Pneumococcal Polyvalent Vaccine 0.5 ml 11/28/16 10:00 Pneumovax 23 Vaccine IM 11/28/16 10:01 .ONCE ONE - Patient Studies Lab Studies: Microbiology Studies 11/27/16 08:27 Gram Stain - Final Arm - Left 11/26/16 10:18 MRSA Culture (Admit) - Final Nose MRSA NOT DETECTED Lab Studies 11/27/16 11/27/16 11/27/16 Range/Units 06:27 06:27 01:58 WBC 5.2 D (4.8-10.8) K/uL RBC 3.01 L (4.40-5.90) Mil/uL Hgb 10.4 L (12.0-18.0) g/dL Hct 29.8 L (35.0-51.0) % MCV 98.9 H (80.0-94.0) fL MCH 34.6 H (27.0-31.0) pg MCHC 35.0 (33.0-37.0) g/dL RDW 12.7 (11.5-14.5) % Plt Count 100 L D (130-400) K/uL MPV 8.6 (7.2-11.7) fL Neut % (Auto) 67.2 (50.0-75.0) % Lymph % (Auto) 23.5 (20.0-40.0) % [place] % (Auto) 8.6 (0.0-10.0) % Eos % (Auto) 0.4 (0.0-4.0) % Baso % (Auto) 0.3 (0.0-2.0) % Neut # 3.5 (1.8-7.0) K/uL Lymph # 1.2 (1.0-4.3) K/uL [place] # 0.4 (0.0-0.8) K/uL Eos # 0.0 (0.0-0.7) K/uL Baso # 0.0 (0.0-0.2) K/uL APTT 30 (21-34) SECONDS Sodium 134 (132-148) mmol/L Potassium 3.2 L (3.6-5.2) mmol/L Chloride 94 L (98-107) mmol/L Carbon Dioxide 26 (22-30) mmol/L Anion Gap 17 (10-20) BUN 22 H (9-20) mg/dL Creatinine 3.6 H (0.8-1.5) MG/DL Est GFR ( Amer) 22 Est GFR (Non-Af Amer) 18 Random Glucose 108 (75-110) mg/dL Calcium 8.9 (8.6-10.4) mg/dl Phosphorus 4.1 (2.5-4.5) mg/dL Magnesium 2.2 (1.6-2.3) mg/dL Total Bilirubin 0.7 (0.2-1.3) mg/dL AST 44 (17-59) U/L ALT 69 (21-72) U/L Alkaline Phosphatase 69 (38-126) U/L Total Creatine Kinase 82 (55-170) U/L CK-MB (Mass) 2.21 (0.0-3.38) ng/mL Troponin I 0.3120 H* (0.00-0.120) ng/mL Total Protein 6.8 (6.3-8.3) g/dL Albumin 3.7 (3.5-5.0) g/dL Globulin 3.1 (2.2-3.9) gm/dL Albumin/Globulin Ratio 1.2 (1.0-2.1) Laboratory Results - last 24 hr 11/27/16 11/27/16 11/27/16 01:58 06:27 06:27 WBC 5.2 D RBC 3.01 L Hgb 10.4 L Hct 29.8 L MCV 98.9 H MCH 34.6 H MCHC 35.0 RDW 12.7 Plt Count 100 L D MPV 8.6 Neut % (Auto) 67.2 Lymph % (Auto) 23.5 [place] % (Auto) 8.6 Eos % (Auto) 0.4 Baso % (Auto) 0.3 Neut # 3.5 Lymph # 1.2 [place] # 0.4 Eos # 0.0 Baso # 0.0 APTT 30 Sodium 134 Potassium 3.2 L Chloride 94 L Carbon Dioxide 26 Anion Gap 17 BUN 22 H Creatinine 3.6 H Est GFR ( Amer) 22 Est GFR (Non-Af Amer) 18 Random Glucose 108 Calcium 8.9 Phosphorus 4.1 Magnesium 2.2 Total Bilirubin 0.7 AST 44 ALT 69 Alkaline Phosphatase 69 Total Creatine Kinase 82 CK-MB (Mass) 2.21 Troponin I 0.3120 H* Total Protein 6.8 Albumin 3.7 Globulin 3.1 Albumin/Globulin Ratio 1.2 Fingerstick Blood Sugar Results: 146 Review of Systems - Review of Systems Systems not reviewed;Unavailable: Intubated Critical Care Progress Note - Nutrition Nutrition: Nutrition Category Date Time Status NPO Diet [DIET] Diets 11/27/16 Dinner Active Assessment/Plan (1) Seizure Assessment and plan: Neuro: - Seizures, possibly secondary to alcohol withdrawal - Continue Keppra for epilepsy - Tapering down precedex and continue ativan. - Hx of Embolic IE - Neurology consulted- Dr. Pérez, help appreciated - Head CT: acute to subacute infarct suspected at posterior left parieto- occipital distribution w/o hemorrhage; limited local mass effect; B/L chronic lacunar infarct noted at basal ganglia; age-related degenerative changes. - Repeat Head CT: area of hypodensity in left occipital and parietal white matter which is slightly larger and better defined than previous study, suspicious for acute infarct; could also be secondary to underlying metastatic lesions with vasogenic edema. - EEG: f/u Pulm: no acute issues - swallow eval CV: Hx of IE - Cardiology consulted- Dr. Reeder, help appreciated - Elevated troponin: 0.1850, CKMB 3.70 - Tropnin: 0.3120 - Echo: f/u - Carotid duplex: mild disease b/l - Continue asa - Paroxysmal Afib - As per cardiologly - was started on rate control Metoprolol 25 mg PO BID, hold for HR<60 and SBP<100. Endo: no acute issues GI: - Hx of cirrhosis and liver transplant - Alcohol abuse - Elevated LFTs, secondary to alcohol abuse Renal: ESRD, Dialysis (TTHS), Infected AV fistula (left) - Dialysis scheduled for today - Nephrology consulted- Dr. Araujo, help appreciated - Cx of AV fistula: f/u ID: - Hx of IE (x2) - Leukocytosis, 16.8, lactate 3.5 - [place] Infected OLI - Wound cx of OLI: f/u - Arterial doppler: no abnormal findings - Blood Cx: no growth x24hrs Alcohol Withdrawal: - [place] protocol for DT - Monitor for signs of withdrawal - Ativan and precedex for agitation - Alcohol quant <10 - Toxicology screen: acetaminophen <10, Phenytoin <3.0 Prophylaxis: - DVT: Heparin 5,000 Q8, SCDs - GI: pepcid Current Visit: Yes Status: Acute <Shun Tenorio P - Last Filed: 11/28/16 01:27> CCU Objective - Vital Signs / Intake & Output Vital Signs (Last 4 hours): Vital Signs Temp Pulse Resp BP Pulse Ox 11/28/16 00:00 98.2 F 11/27/16 22:25 82 44 H 158/98 H 97 Intake and Output (Last 8hrs): Intake & Output 11/27/16 11/27/16 11/28/16 14:59 22:59 06:59 Intake Total 609.0 956.6 130.2 Output Total 330 420 Balance 279.0 536.6 130.2 Weight 179 lb Intake: IV 50 100 20 Intake, IV Amount 559.0 856.6 10.2 Right Antecubital 48.8 56.6 10.2 Right Antecubital Y-site 510.2 700 Right Forearm 100 Oral 0 0 0 Tube Feeding 0 Other 100 Output: Urine 330 420 Condom 330 420 Stool 0 0 Urine/Stool Mix 0 Emesis 0 0 - Medications Active Medications: Active Medications Generic Name Dose Route Start Last Admin Trade Name Freq PRN Reason Stop Dose Admin Aspirin 81 mg 11/26/16 19:45 11/27/16 10:05 Aspirin Chewable PO 81 mg DAILY [facility]A Administration Famotidine 20 mg 11/26/16 10:00 11/27/16 10:06 Pepcid IVP 20 mg DAILY [facility]A Administration Heparin Sodium (Porcine) 5,000 units 11/27/16 14:00 11/27/16 21:33 Heparin SC 5,000 units Q8 [facility]A Administration Dexmedetomidine HCl 200 mcg/ 50 mls @ 4.08 mls/hr 11/26/16 10:00 11/28/16 00: 14 Sodium Chloride IV 0.2 mcg/kg/hr TITR PRN 4.08 mls/hr Agitation Titration Protocol 0.2 MCG/KG/HR Folic Acid 1 mg/ Thiamine HCl 1,011.2 mls @ 100 mls/hr 11/27/16 10:00 10:06 100 mg/ Multivitamins/Vitamin IV 100 mls/hr C 10 ml/ Dextrose DAILY [facility]A Administration Vancomycin HCl 1 gm/ Sodium 250 mls @ 166.7 mls/hr 11/28/16 09:00 Chloride IVPB MWF [facility] Levetiracetam 750 mg/ Dextrose 107.5 mls @ 420 mls/hr 11/28/16 10:00 IVPB Q12H [facility] Lorazepam 2 mg 11/26/16 15:47 11/28/16 00:35 Ativan IVP 2 mg Q2H PRN Administration Agitation Lorazepam 2 mg 11/27/16 12:15 11/27/16 23:44 Ativan PO 2 mg Q6H BEA Administration Metoprolol Tartrate 25 mg 11/27/16 18:00 11/27/16 17:58 Lopressor PO 25 mg BID BEA Administration Pneumococcal Polyvalent Vaccine 0.5 ml 11/28/16 10:00 Pneumovax 23 Vaccine IM 11/28/16 10:01 .ONCE ONE - Patient Studies Lab Studies: Microbiology Studies 11/27/16 08:27 Gram Stain - Final Arm - Left 11/26/16 10:18 MRSA Culture (Admit) - Final Nose MRSA NOT DETECTED Lab Studies 11/27/16 11/27/16 11/27/16 Range/Units 06:27 06:27 01:58 WBC 5.2 D (4.8-10.8) K/uL RBC 3.01 L (4.40-5.90) Mil/uL Hgb 10.4 L (12.0-18.0) g/dL Hct 29.8 L (35.0-51.0) % MCV 98.9 H (80.0-94.0) fL MCH 34.6 H (27.0-31.0) pg MCHC 35.0 (33.0-37.0) g/dL RDW 12.7 (11.5-14.5) % Plt Count 100 L D (130-400) K/uL MPV 8.6 (7.2-11.7) fL Neut % (Auto) 67.2 (50.0-75.0) % Lymph % (Auto) 23.5 (20.0-40.0) % [place] % (Auto) 8.6 (0.0-10.0) % Eos % (Auto) 0.4 (0.0-4.0) % Baso % (Auto) 0.3 (0.0-2.0) % Neut # 3.5 (1.8-7.0) K/uL Lymph # 1.2 (1.0-4.3) K/uL [place] # 0.4 (0.0-0.8) K/uL Eos # 0.0 (0.0-0.7) K/uL Baso # 0.0 (0.0-0.2) K/uL APTT 30 (21-34) SECONDS Sodium 134 (132-148) mmol/L Potassium 3.2 L (3.6-5.2) mmol/L Chloride 94 L (98-107) mmol/L Carbon Dioxide 26 (22-30) mmol/L Anion Gap 17 (10-20) BUN 22 H (9-20) mg/dL Creatinine 3.6 H (0.8-1.5) MG/DL Est GFR ( Amer) 22 Est GFR (Non-Af Amer) 18 Random Glucose 108 (75-110) mg/dL Calcium 8.9 (8.6-10.4) mg/dl Phosphorus 4.1 (2.5-4.5) mg/dL Magnesium 2.2 (1.6-2.3) mg/dL Total Bilirubin 0.7 (0.2-1.3) mg/dL AST 44 (17-59) U/L ALT 69 (21-72) U/L Alkaline Phosphatase 69 (38-126) U/L Total Creatine Kinase 82 (55-170) U/L CK-MB (Mass) 2.21 (0.0-3.38) ng/mL Troponin I 0.3120 H* (0.00-0.120) ng/mL Total Protein 6.8 (6.3-8.3) g/dL Albumin 3.7 (3.5-5.0) g/dL Globulin 3.1 (2.2-3.9) gm/dL Albumin/Globulin Ratio 1.2 (1.0-2.1) Laboratory Results - last 24 hr 11/27/16 11/27/16 11/27/16 01:58 06:27 06:27 WBC 5.2 D RBC 3.01 L Hgb 10.4 L Hct 29.8 L MCV 98.9 H MCH 34.6 H MCHC 35.0 RDW 12.7 Plt Count 100 L D MPV 8.6 Neut % (Auto) 67.2 Lymph % (Auto) 23.5 [place] % (Auto) 8.6 Eos % (Auto) 0.4 Baso % (Auto) 0.3 Neut # 3.5 Lymph # 1.2 [place] # 0.4 Eos # 0.0 Baso # 0.0 APTT 30 Sodium 134 Potassium 3.2 L Chloride 94 L Carbon Dioxide 26 Anion Gap 17 BUN 22 H Creatinine 3.6 H Est GFR ( Amer) 22 Est GFR (Non-Af Amer) 18 Random Glucose 108 Calcium 8.9 Phosphorus 4.1 Magnesium 2.2 Total Bilirubin 0.7 AST 44 ALT 69 Alkaline Phosphatase 69 Total Creatine Kinase 82 CK-MB (Mass) 2.21 Troponin I 0.3120 H* Total Protein 6.8 Albumin 3.7 Globulin 3.1 Albumin/Globulin Ratio 1.2 Critical Care Progress Note - Nutrition Nutrition: Nutrition Category Date Time Status NPO Diet [DIET] Diets 11/27/16 Dinner Active Attending/Attestation - Attestation I have personally seen and examined this patient.: Yes I have fully participated in the care of the patient.: Yes I have reviewed all pertinent clinical information: Yes Notes (Text): 11/28/16 01:25 Stable course during the day, will gradually try to wean off from precedex and transit to prn and schedule bzd. H/o seizure with presentation with seizure found to have ischemic area subacute likely embolic with h/o afib, endocarditis hence started on heparin. ESRD on HD, liver transplant, but continues to drink.
--- NOTE | 2016-11-27 19:35 | CP.PCM.PN ---
Subjective - Date & Time of Evaluation Date of Evaluation: 11/27/16 Time of Evaluation: 19:35 Objective - Vital Signs/Intake and Output Vital Signs (last 24 hours): Temp Pulse Resp BP Pulse Ox 97.4 F L 85 26 H 116/90 97 11/27/16 16:00 11/27/16 18:01 11/27/16 18:01 11/27/16 18:01 11/27/16 18:01 Intake and Output: 11/27/16 11/28/16 18:59 06:59 Intake Total 1091.2 Output Total 750 Balance 341.2 - Medications Medications: Current Medications Aspirin (Aspirin Chewable) 81 mg PO DAILY [facility] Last Admin: 11/27/16 10:05 Dose: 81 mg Famotidine (Pepcid) 20 mg IVP DAILY [facility] Last Admin: 11/27/16 10:06 Dose: 20 mg Heparin Sodium (Porcine) (Heparin) 5,000 units SC Q8 [facility] Last Admin: 11/27/16 15:39 Dose: 5,000 units Dexmedetomidine HCl 200 mcg/ (Sodium Chloride) 50 mls @ 4.08 mls/hr IV TITR PRN ; Protocol; 0.2 MCG/KG/HR PRN Reason: Agitation Last Admin: 11/27/16 16:54 Dose: 1 mcg/kg/hr, 20.41 mls/hr Levetiracetam 500 mg/ Dextrose 105 mls @ 420 mls/hr IVPB Q12H [facility] Last Admin: 11/27/16 17:58 Dose: 420 mls/hr Folic Acid 1 mg/ Thiamine HCl 100 mg/ Multivitamins/Vitamin C 10 ml/ Dextrose 1 ,011.2 mls @ 100 mls/hr IV DAILY [facility] Last Admin: 11/27/16 10:06 Dose: 100 mls/hr Vancomycin HCl 1 gm/ Sodium (Chloride) 250 mls @ 166.7 mls/hr IVPB MWF [facility] Lorazepam (Ativan) 2 mg IVP Q2H PRN PRN Reason: Agitation Last Admin: 11/27/16 15:19 Dose: 2 mg Lorazepam (Ativan) 2 mg PO Q6H [facility] Last Admin: 11/27/16 18:01 Dose: 2 mg Metoprolol Tartrate (Lopressor) 25 mg PO BID [facility] Last Admin: 11/27/16 17:58 Dose: 25 mg Pneumococcal Polyvalent Vaccine (Pneumovax 23 Vaccine) 0.5 ml IM .ONCE ONE Stop: 11/28/16 10:01 - Labs Labs: 11/27/16 06:27 11/27/16 06:27 PT 11.4 SECONDS (9.7-12.2) 11/26/16 07:41 INR 1.0 11/26/16 07:41 APTT 30 SECONDS (21-34) 11/27/16 01:58
[2016-11-27] MEDS ORDERED: levETIRAcetam 500 MG in Sodium Chloride 0.9% 100 ML IVPB STA (20:56)
--- NOTE | 2016-11-27 20:59 | CON ---
DATE: 11/27/2016 ATTENDING PHYSICIAN: Maribel Melara MD LOCATION: The patient is in room ICU, bed 15. REASON FOR THE CONSULTATION: Recurrent seizures. CHIEF COMPLAINT: The patient was brought in to [facility] with a history of witnessed recurrent seizures overnight as per his . From a neurological point of view, I was called in to evaluate him for further management. HISTORY OF PRESENT ILLNESS: The patient is a 51-year-old right-handed, end-stage renal diseased dialysis patient who gets the dialysis on Thursday, , Thursday, missing one dialysis, presenting with multiple episode of recurrent seizures which was witnessed by his overnight. The patient was obtunded at the time he was brought into the emergency room. History of seizures in the past, has been on medication. 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 Previous workup here, echocardiogram with ejection fraction of 65 in 04/2016. PERSONAL HISTORY: History of smoking as well as alcohol use, history of substance abuse as well. REVIEW OF SYSTEMS: A 12-point system being reviewed. From neuro, recurrent seizures and change in mental status with right hemiparesis. MEDICATIONS: Aspirin, lorazepam, dexmedetomidine, folic acid supplement, vitamin supplement, levetiracetam, heparin infusion. PHYSICAL EXAMINATION: VITAL SIGNS: Blood pressure 148/102, mean arterial pressure of 124, respiratory rate 24, pulse rate 80 and irregular. NECK: Supple. No carotid bruits. HEART: Sounds irregular with systolic murmur heard. EXTREMITIES: Right leg externally rotated. NEUROLOGIC: The patient is not arousable verbally on calling his name. On noxious stimuli, appropriate response is noted on his left than his right side and partially eyes opened. Left lateral gaze preponderance is seen, no nystagmus. Pupils reactive to light. Rolling conjugate gaze noted. Mouth is dry. Gag, could not able to evaluate because of the above presentation. MOTOR EXAMINATION: Spontaneous movement noted on the left side. Right side minimal movement noted, arm more than his legs. DEEP TENDON REFLEXES: Right side hyperreflexing, left side absent. Both knees are absent. Both ankles are absent. Plantars are upgoing on right side and left side as well. SENSORY EXAMINATION: Respond to pain, left side more than his right side. COORDINATION: Deferred at this time. LABORATORY DATA: CT of the head reviewed by me showed atrophy with periventricular ischemic changes in bilateral basal ganglia as well as a new wedge-shaped hypodense process noted in left parietooccipital region consistent with possible large vessel embolic stroke process. No shift noted. No mass effect. EKG shows irregularly irregular. Blood workup: WBC of 5.2, hemoglobin 10.4, hematocrit 29.8, platelet 100. Sodium 134, potassium 3.2, chloride 94, bicarbonate 26, BUN 22, creatinine 3.6, GFR 18, troponin 0.3120. Urine shows 3 plus protein, 1 plus glucose. Toxicology shows urine opiates, acetaminophen less than 10, phenytoin less than 3. Cocaine positive. CONCLUSION: About reviewing the history and neurological examination, the patient is an end-stage renal disease patient with significant history of substance abuse including alcohol and smoking, presenting with recurrent seizures with right hemiparesis with left lateral gaze preponderance consistent with left cerebral dysfunction, considering case abnormal EKG consistent with cardioembolic process. Cardiac arrhythmias probably secondary to his underlying substance abuse. 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 Uncontrolled hypertension, end-stage renal disease, polysubstance abuse. RECOMMENDATIONS: 1. Repeat CT of the head to be done today to assess the stroke process. 2. Cardiology consultation, probably he needs a transesophageal echocardiogram because he had a previous echocardiogram done in April which showed ejection fraction of more than 65. 3. Do not bring down the blood pressure, keep the mean artery pressure around 100. 4. The patient is not a candidate for anticoagulation from neurological point of view due to the large vessel embolic stroke due to potentially becoming hemorrhagic stroke process. 5. Speech and swallow evaluation and aspiration precaution. Continue IV hydration. The patient should be on multivitamins when he is medically stable. The patient should have detox program. 6. The patient should have electroencephalogram now and in the meantime, I would like to continue Brenda. 7. The patient will be followed closely with you. Pravin Pérez MD
[2016-11-28] MEDS ORDERED: Nitroglycerin 2% Ointment Foilpak UD TOP ONE (04:35)
[2016-11-28 06:16] LABS: BASO % 0.3 % (0.0-2.0); EOS % 0.6 % (0.0-4.0); HEMATOCRIT 28.5 % (35.0-51.0); LYMPH # 0.8 K/uL (1.0-4.3); LYMPH % 11.9 % (20.0-40.0); MEAN CELL VOLUME 97.9 fL (80.0-94.0); MEAN CORPUSCULAR HEMOGLOBIN 34.3 pg (27.0-31.0); MEAN PLATELET VOLUME 8.8 fL (7.2-11.7); MONO # 0.5 K/uL (0.0-0.8); MONO % 7.2 % (0.0-10.0); NRBC % 0.1 % (0.0-2.0); RED CELL DISTRIBUTION WIDTH 12.8 % (11.5-14.5)
[2016-11-28 06:31] LABS: POTASSIUM 3.3 mmol/L (3.6-5.2)
[2016-11-28 06:33] LABS: ALB/GLOB RATIO 1.1 (1.0-2.1); BILIRUBIN,TOTAL 0.9 mg/dL (0.2-1.3); PHOSPHOROUS 3.3 mg/dL (2.5-4.5)
[2016-11-28 06:34] LABS: CALCIUM 8.7 mg/dl (8.6-10.4)
[2016-11-28] MEDS ORDERED: Lidocaine 4% (Laryng-O-Jet) Kit MM ONE (08:43)
--- NOTE | 2016-11-28 09:09 | CP.PCM.PN ---
Subjective - Date & Time of Evaluation Date of Evaluation: 11/28/16 Time of Evaluation: 09:07 - Subjective Subjective: seen and examined pt getting MARISELA ct head noted, acute/subacute infarct a fib ros could not be obtained Objective - Vital Signs/Intake and Output Vital Signs (last 24 hours): Temp Pulse Resp BP Pulse Ox 98.6 F 107 H 21 143/110 H 94 L 11/28/16 04:00 11/28/16 07:01 11/28/16 07:01 11/28/16 07:01 11/28/16 07:01 Intake and Output: 11/28/16 11/28/16 06:59 18:59 Intake Total 759.2 6.1 Output Total 500 Balance 259.2 6.1 - Medications Medications: Current Medications Aspirin (Aspirin Chewable) 81 mg PO DAILY [facility] Last Admin: 11/27/16 10:05 Dose: 81 mg Famotidine (Pepcid) 20 mg IVP DAILY [facility] Last Admin: 11/27/16 10:06 Dose: 20 mg Heparin Sodium (Porcine) (Heparin) 5,000 units SC Q8 [facility] Last Admin: 11/28/16 06:00 Dose: 5,000 units Dexmedetomidine HCl 200 mcg/ (Sodium Chloride) 50 mls @ 4.08 mls/hr IV TITR PRN ; Protocol; 0.2 MCG/KG/HR PRN Reason: Agitation Last Titration: 11/28/16 05:00 Dose: 0.3 mcg/kg/hr, 6.12 mls/hr Folic Acid 1 mg/ Thiamine HCl 100 mg/ Multivitamins/Vitamin C 10 ml/ Dextrose 1 ,011.2 mls @ 100 mls/hr IV DAILY [facility] Last Admin: 11/27/16 10:06 Dose: 100 mls/hr Vancomycin HCl 1 gm/ Sodium (Chloride) 250 mls @ 166.7 mls/hr IVPB MWF [facility] Levetiracetam 750 mg/ Dextrose 107.5 mls @ 420 mls/hr IVPB Q12H [facility] Lorazepam (Ativan) 2 mg IVP Q2H PRN PRN Reason: Agitation Last Admin: 11/28/16 00:35 Dose: 2 mg Lorazepam (Ativan) 2 mg PO Q6H [facility] Last Admin: 11/28/16 06:00 Dose: 2 mg Metoprolol Tartrate (Lopressor) 25 mg PO BID [facility] Last Admin: 11/27/16 17:58 Dose: 25 mg Pneumococcal Polyvalent Vaccine (Pneumovax 23 Vaccine) 0.5 ml IM .ONCE ONE Stop: 11/28/16 10:01 - Labs Labs: 11/28/16 06:08 11/28/16 06:10 PT 11.4 SECONDS (9.7-12.2) 11/26/16 07:41 INR 1.0 11/26/16 07:41 APTT 30 SECONDS (21-34) 11/27/16 01:58 - Constitutional Appears: No Acute Distress, Older Than Stated Age, Cachectic, Chronically Ill - Head Exam Head Exam: NORMAL INSPECTION - Eye Exam Eye Exam: Normal appearance - ENT Exam ENT Exam: Mucous Membranes Dry - Neck Exam Neck Exam: Normal Inspection - Respiratory Exam Respiratory Exam: Decreased Breath Sounds, NORMAL BREATHING PATTERN - Cardiovascular Exam Cardiovascular Exam: Irregular Rhythm - GI/Abdominal Exam GI & Abdominal Exam: Soft, Normal Bowel Sounds - Extremities Exam Extremities Exam: Normal Inspection Assessment and Plan (1) Alcohol abuse Status: Chronic (2) Alcohol withdrawal seizure with complication Status: Acute (3) Hepatitis C Status: Acute (4) Status epilepticus Status: Acute (5) ESRD (end stage renal disease) on dialysis Status: Chronic (6) Liver transplant recipient Status: Chronic - Assessment and Plan (Free Text) Assessment: hd today, 4K bath etoh withdrawl management bp acceptable vesta w/ hd Immunosuppression ?. Please review home meds follow up duplex av fistula - r/o infection
[2016-11-28] MEDS ORDERED: Midazolam 2 MG/2 ML VIAL ONE (09:26)
[2016-11-28] MEDS ORDERED: Propofol 10 mg/ml Inj (20 ML) ONE (09:26)
[2016-11-28] MEDS ORDERED: ePHEDrine 50 mg/ml Inj ONE (09:27)
[2016-11-28] MEDS ORDERED: Succinylcholine Chloride 20 mg/ml Syr (5 ml) IV ONE (09:27)
[2016-11-28] MEDS ORDERED: Phenylephrine 10 mg/ml Inj ONE (09:27)
[2016-11-28] MEDS ORDERED: Etomidate 20 mg/10ml Inj IV ONE (09:28)
[2016-11-28] MEDS ORDERED: Esmolol 100 mg/10ml Inj IV ONE (09:39)
[2016-11-28] MEDS ORDERED: Pneumococcal 23-Valent Vaccine IM ONE (10:00)
[2016-11-28] MEDS: Dexmedetomidine Hydrochloride 200 MCG in Sodium Chloride 0.9% 48 ML IV PRN ×5 (10:29→21:00)
[2016-11-28] MEDS ORDERED: Metoprolol 1 mg/ml Inj IVP SCH (11:30)
[2016-11-28] MEDS: Folic Acid 1 MG, Thiamine 100 MG, Multivitamin (MVI) 10 ML in Dextrose 5% In Water 1,00... IV SCH (11:54)
[2016-11-28] MEDS: Metoprolol 1 mg/ml Inj IVP SCH ×2 (12:42→18:33)
--- NOTE | 2016-11-28 13:11 | PN ---
DATE OF EVALUATION: 11/28/2016 TIME OF EVALUATION: 07:10 a.m. NEUROLOGICAL PROBLEM: Polysubstance use, status post possible status epilepticus, dominant hemispheric left parietooccipital infarct. PHYSICAL EXAMINATION: VITAL SIGNS: Blood pressure 173/113 with mean arterial pressure of 133, respiratory rate 28, pulse rate 101 irregular. Temperature afebrile. GENERAL: The patient is more awake, alert. He knows he is in the hospital. He wants his mittens to be taken off. Since yesterday afternoon he became coherent and moving all 4 extremities. Examination is unchanged to compare with my previous exam. WORKUP: The repeat CT of the brain confirmed hyperdense ischemic process over his left parietooccipital region without any mass effect. EEG shows paroxysmal polyspike and wave activities with burst suppression noted consistent with the epileptiform seizures (nonconvulsive seizures). Cardiology input is appreciated and he is scheduled to have transesophageal echocardiogram this afternoon. The patient also scheduled to have MRI of the brain to further radiological evidence of his stroke process. His Keppra level was increased to 750 twice a day with bolus of 500, Keppra was given last night. Continue the present management and antibiotics are given as per ID. Pravin Pérez MD
--- NOTE | 2016-11-28 13:34 | CARD ---
APPROVED REPORT EXAM: Two-dimensional and M-mode echocardiogram with Doppler and color Doppler. Other Information Quality : Technically DifficultRhythm : NSR INDICATION Congenital Heart Disease ESRD/ Hepatitis C/ ETOH withdrawal 2D DIMENSIONS IVSd1.8 (0.7-1.1cm)LVDd4.5 (3.9-5.9cm) PWd1.6 (0.7-1.1cm)LVDs3.4 (2.5-4.0cm) FS (%) 24.4 %LVEF (%)55.0 (>50%) M-Mode DIMENSIONS Left Atrium (MM)4.30 (2.5-4.0cm)Aortic Root3.99 (2.2-3.7cm) Aortic Cusp Exc.3.04 (1.5-2.0cm) Mitral Valve MV E Mubkbnsu15.6cm/sMV A Rjsklgcd25.3cm/sE/A ratio0.6 TDI E/Lateral E'0.0E/Medial E'0.0 Tricuspid Valve TR Peak Paiebmbz263kw/sTR Peak Gr.26mmHg LEFT VENTRICLE The left ventricle is normal size. There is moderate concentric left ventricular hypertrophy. The left ventricular function is normal. The left ventricular ejection fraction is within the normal range. There is normal LV segmental wall motion. Tissue Doppler imaging reveals mild left ventricular diastolic dysfunction. No left ventricle thrombus noted on this study. There is no ventricular septal defect visualized. There is no left ventricular aneurysm. There is no mass noted in the left ventricle. RIGHT VENTRICLE The right ventricle is normal size. There is normal right ventricular wall thickness. The right ventricular systolic function is normal. ATRIA The left atrium is mildly dilated. The right atrium size is normal. The interatrial septum is intact with no evidence for an atrial septal defect. AORTIC VALVE The aortic valve is normal in structure. No aortic regurgitation is present. There is no aortic valvular stenosis. There is no aortic valvular vegetation. MITRAL VALVE Mitral annular calcification is mild to moderate. There is no mitral valve stenosis. Mitral regurgitation is trace. TRICUSPID VALVE The tricuspid valve is normal in structure. There is no tricuspid valve regurgitation noted. PULMONIC VALVE The pulmonary valve is normal in structure. There is mild pulmonic valvular regurgitation. GREAT VESSELS The aortic root is normal in size. The ascending aorta is normal in size. The pulmonary artery is normal. The IVC is normal in size and collapses >50% with inspiration. PERICARDIAL EFFUSION There is no pericardial effusion. <Conclusion> There is moderate concentric left ventricular hypertrophy. Tissue Doppler imaging reveals mild left ventricular diastolic dysfunction. The left atrium is mildly dilated. There is mild pulmonic valvular regurgitation.
--- NOTE | 2016-11-28 14:43 | CP.PCM.PN ---
Subjective - Date & Time of Evaluation Date of Evaluation: 11/28/16 Time of Evaluation: 14:43 Objective - Vital Signs/Intake and Output Vital Signs (last 24 hours): Temp Pulse Resp BP Pulse Ox 98.6 F 89 32 H 98/60 L 100 11/28/16 04:00 11/28/16 14:00 11/28/16 09:50 11/28/16 13:46 11/28/16 13:00 Intake and Output: 11/28/16 11/28/16 06:59 18:59 Intake Total 765.2 647.6 Output Total 500 570 Balance 265.2 77.6 - Medications Medications: Current Medications Aspirin (Aspirin Chewable) 81 mg PO DAILY [facility] Famotidine (Pepcid) 20 mg IVP DAILY [facility] Last Admin: 11/28/16 11:59 Dose: 20 mg Heparin Sodium (Porcine) (Heparin) 5,000 units SC Q8 [facility] Last Admin: 11/28/16 14:34 Dose: 5,000 units Dexmedetomidine HCl 200 mcg/ (Sodium Chloride) 50 mls @ 4.08 mls/hr IV TITR PRN ; Protocol; 0.2 MCG/KG/HR PRN Reason: Agitation Last Admin: 11/28/16 14:40 Dose: 1 mcg/kg/hr, 20.41 mls/hr Folic Acid 1 mg/ Thiamine HCl 100 mg/ Multivitamins/Vitamin C 10 ml/ Dextrose 1 ,011.2 mls @ 100 mls/hr IV DAILY [facility] Last Admin: 11/28/16 11:54 Dose: 100 mls/hr Vancomycin HCl 1 gm/ Sodium (Chloride) 250 mls @ 166.7 mls/hr IVPB MWF [facility] Last Admin: 11/28/16 11:55 Dose: 166.7 mls/hr Levetiracetam 750 mg/ Dextrose 107.5 mls @ 420 mls/hr IVPB Q12H [facility] Last Admin: 11/28/16 11:58 Dose: 420 mls/hr Potassium Chloride (Potassium Chloride 10 Meq/100 Ml) 10 meq in 100 mls @ 100 mls/hr IVPB Q2H [facility] Stop: 11/28/16 14:59 Last Admin: 11/28/16 14:30 Dose: 100 mls/hr Lorazepam (Ativan) 2 mg IVP Q2H PRN PRN Reason: Agitation Last Admin: 11/28/16 12:13 Dose: 2 mg Metoprolol Tartrate (Lopressor) 2.5 mg IVP Q6H [facility] Last Admin: 11/28/16 12:42 Dose: 2.5 mg - Labs Labs: 11/28/16 06:08 11/28/16 06:10 PT 11.4 SECONDS (9.7-12.2) 11/26/16 07:41 INR 1.0 11/26/16 07:41 APTT 30 SECONDS (21-34) 11/27/16 01:58
--- NOTE | 2016-11-28 15:47 | CP.CCUPN ---
<Michael Colmenares - Last Filed: 11/28/16 16:26> CCU Subjective - Physician Review Events Since Last Encounter (Free Text): CCM chart reviewed. pt examined. discussed with housestaff Lethargic when seen in AM post MARISELA sedation Perrl Neck- no jvd Lungs- bilat bs Heart-irreg irreg ABd- benign eXt- nontender Labs, x-rays reviewed A&P Seizures DT's r/o CVA Hx IE A-fib Increased Trop Cirrhosis ESRD Hx Liver Transplant Substance abuse Hep C cont meds and Ab Optimize lytes neuro checks Cardiology following Ativan prn /precedex prn f/u labs 11/28/16 16:26 CCU Objective - Vital Signs / Intake & Output Vital Signs (Last 4 hours): Vital Signs Pulse BP Pulse Ox 11/28/16 14:00 89 11/28/16 13:46 91 H 98/60 L 11/28/16 13:35 97 H 119/75 11/28/16 13:00 95 H 100 11/28/16 12:35 101 H 136/106 H 95 Intake and Output (Last 8hrs): Intake & Output 11/28/16 11/28/16 11/28/16 06:59 14:59 22:59 Intake Total 290.8 647.6 Output Total 500 570 Balance -209.2 77.6 Weight 179 lb Intake: IV 50 150 Intake, IV Amount 40.8 497.6 Right Antecubital 40.8 97.6 Right Antecubital Y-site 400 Oral 0 0 Other 200 Output: Urine 500 570 Condom 500 570 Stool 0 Emesis 0 - Medications Active Medications: Active Medications Generic Name Dose Route Start Last Admin Trade Name Freq PRN Reason Stop Dose Admin Aspirin 81 mg 11/29/16 10:00 Aspirin Chewable PO DAILY [facility] Famotidine 20 mg 11/26/16 10:00 11/28/16 11:59 Pepcid IVP 20 mg DAILY [facility] Administration Heparin Sodium (Porcine) 5,000 units 11/27/16 14:00 11/28/16 14:34 Heparin SC 5,000 units Q8 [facility] Administration Dexmedetomidine HCl 200 mcg/ 50 mls @ 4.08 mls/hr 11/26/16 10:00 11/28/16 14: 40 Sodium Chloride IV 1 mcg/kg/hr TITR PRN 20.41 mls/hr Agitation Administration Protocol 0.2 MCG/KG/HR Folic Acid 1 mg/ Thiamine HCl 1,011.2 mls @ 100 mls/hr 11/27/16 10:00 11:54 100 mg/ Multivitamins/Vitamin IV 100 mls/hr C 10 ml/ Dextrose DAILY [facility] Administration Vancomycin HCl 1 gm/ Sodium 250 mls @ 166.7 mls/hr 11/28/16 09:00 11/28/16 11 :55 Chloride IVPB 166.7 mls/hr MWF [facility] Administration Levetiracetam 750 mg/ Dextrose 107.5 mls @ 420 mls/hr 11/28/16 10:00 11:58 IVPB 420 mls/hr Q12H [facility] Administration Lorazepam 2 mg 11/26/16 15:47 11/28/16 12:13 Ativan IVP 2 mg Q2H PRN Administration Agitation Metoprolol Tartrate 2.5 mg 11/28/16 12:02 11/28/16 12:42 Lopressor IVP 2.5 mg Q6H [facility] Administration - Patient Studies Lab Studies: Microbiology Studies 11/27/16 08:27 Gram Stain - Final Arm - Left Wound Culture - Preliminary Gram Positive Cocci Lab Studies 11/28/16 11/28/16 11/28/16 Range/Units 13:19 06:10 06:08 WBC 7.0 (4.8-10.8) K/uL RBC 2.91 L (4.40-5.90) Mil/uL Hgb 10.0 L (12.0-18.0) g/dL Hct 28.5 L (35.0-51.0) % MCV 97.9 H (80.0-94.0) fL MCH 34.3 H (27.0-31.0) pg MCHC 35.0 (33.0-37.0) g/dL RDW 12.8 (11.5-14.5) % Plt Count 101 L (130-400) K/uL MPV 8.8 (7.2-11.7) fL Neut % (Auto) 80.0 H (50.0-75.0) % Lymph % (Auto) 11.9 L (20.0-40.0) % [place] % (Auto) 7.2 (0.0-10.0) % Eos % (Auto) 0.6 (0.0-4.0) % Baso % (Auto) 0.3 (0.0-2.0) % Neut # 5.6 (1.8-7.0) K/uL Lymph # 0.8 L (1.0-4.3) K/uL [place] # 0.5 (0.0-0.8) K/uL Eos # 0.0 (0.0-0.7) K/uL Baso # 0.0 (0.0-0.2) K/uL Differential Comment Sodium 130 L (132-148) mmol/L Potassium 3.3 L (3.6-5.2) mmol/L Chloride 95 L (98-107) mmol/L Carbon Dioxide 22 (22-30) mmol/L Anion Gap 17 (10-20) BUN 27 H (9-20) mg/dL Creatinine 4.3 H (0.8-1.5) MG/DL Est GFR ( Amer) 18 Est GFR (Non-Af Amer) 15 Random Glucose 97 (75-110) mg/dL Calcium 8.7 (8.6-10.4) mg/dl Phosphorus 3.3 (2.5-4.5) mg/dL Magnesium 2.0 (1.6-2.3) mg/dL Total Bilirubin 0.9 (0.2-1.3) mg/dL AST 38 (17-59) U/L ALT 63 (21-72) U/L Alkaline Phosphatase 66 (38-126) U/L Total Protein 7.0 (6.3-8.3) g/dL Albumin 3.6 (3.5-5.0) g/dL Globulin 3.3 (2.2-3.9) gm/dL Albumin/Globulin Ratio 1.1 (1.0-2.1) Vancomycin Trough 10.2 H (5.0-10.0) ug/mL Laboratory Results - last 24 hr 11/28/16 11/28/16 11/28/16 06:08 06:10 13:19 WBC 7.0 RBC 2.91 L Hgb 10.0 L Hct 28.5 L MCV 97.9 H MCH 34.3 H MCHC 35.0 RDW 12.8 Plt Count 101 L MPV 8.8 Neut % (Auto) 80.0 H Lymph % (Auto) 11.9 L [place] % (Auto) 7.2 Eos % (Auto) 0.6 Baso % (Auto) 0.3 Neut # 5.6 Lymph # 0.8 L [place] # 0.5 Eos # 0.0 Baso # 0.0 Differential Comment Sodium 130 L Potassium 3.3 L Chloride 95 L Carbon Dioxide 22 Anion Gap 17 BUN 27 H Creatinine 4.3 H Est GFR ( Amer) 18 Est GFR (Non-Af Amer) 15 Random Glucose 97 Calcium 8.7 Phosphorus 3.3 Magnesium 2.0 Total Bilirubin 0.9 AST 38 ALT 63 Alkaline Phosphatase 66 Total Protein 7.0 Albumin 3.6 Globulin 3.3 Albumin/Globulin Ratio 1.1 Vancomycin Trough 10.2 H Critical Care Progress Note - Nutrition Nutrition: Nutrition Category Date Time Status NPO Diet [DIET] Diets 11/27/16 Dinner Active <Mary Parekh - Last Filed: 11/28/16 17:06> CCU Subjective - Physician Review Subjective (Free Text): Patient was seen and examined at bedside in the morning. Patient was not alert, sedated, and unresponsive to questions and review of systems. 11/28/16 15:46 CCU Objective - Vital Signs / Intake & Output Vital Signs (Last 4 hours): Vital Signs Pulse BP Pulse Ox 11/28/16 14:00 89 11/28/16 13:46 91 H 98/60 L 11/28/16 13:35 97 H 119/75 11/28/16 13:00 95 H 100 11/28/16 12:35 101 H 136/106 H 95 11/28/16 12:00 102 H 96 Intake and Output (Last 8hrs): Intake & Output 11/28/16 11/28/16 11/28/16 06:59 14:59 22:59 Intake Total 290.8 647.6 Output Total 500 570 Balance -209.2 77.6 Weight 179 lb Intake: IV 50 150 Intake, IV Amount 40.8 497.6 Right Antecubital 40.8 97.6 Right Antecubital Y-site 400 Oral 0 0 Other 200 Output: Urine 500 570 Condom 500 570 Stool 0 Emesis 0 - Physical Exam Head: Positive for: Normocephalic Pupils: Positive for: Sluggish Extroacular Muscles: Negative for: EOMI Mouth: Positive for: Moist Mucous Membranes Respiratory/Chest: Positive for: Decreased Breath Sounds. Negative for: Wheezes , Rales, Rhonchi, Tachypneic Cardiovascular: Positive for: Normal S1, S2, Irregular Rhythm, Tachycardic Abdomen: Positive for: Normal Bowel Sounds. Negative for: Distention, Guarding Upper Extremity: Positive for: Other (Left AV fistula). Negative for: Edema, Swelling Lower Extremity: Negative for: Edema, Swelling Neurological: Negative for: Speech Normal Skin: Positive for: Warm, Dry, Normal Color Psychiatric: Negative for: Alert, Oriented x 3, Normal Insight, Normal Concentration - Medications Active Medications: Active Medications Generic Name Dose Route Start Last Admin Trade Name Freq PRN Reason Stop Dose Admin Aspirin 81 mg 11/29/16 10:00 Aspirin Chewable PO DAILY [facility] Famotidine 20 mg 11/26/16 10:00 11/28/16 11:59 Pepcid IVP 20 mg DAILY [facility] Administration Heparin Sodium (Porcine) 5,000 units 11/27/16 14:00 11/28/16 14:34 Heparin SC 5,000 units Q8 [facility] Administration Dexmedetomidine HCl 200 mcg/ 50 mls @ 4.08 mls/hr 11/26/16 10:00 11/28/16 14: 40 Sodium Chloride IV 1 mcg/kg/hr TITR PRN 20.41 mls/hr Agitation Administration Protocol 0.2 MCG/KG/HR Folic Acid 1 mg/ Thiamine HCl 1,011.2 mls @ 100 mls/hr 11/27/16 10:00 11:54 100 mg/ Multivitamins/Vitamin IV 100 mls/hr C 10 ml/ Dextrose DAILY [facility] Administration Vancomycin HCl 1 gm/ Sodium 250 mls @ 166.7 mls/hr 11/28/16 09:00 11/28/16 11 :55 Chloride IVPB 166.7 mls/hr MWF [facility] Administration Levetiracetam 750 mg/ Dextrose 107.5 mls @ 420 mls/hr 11/28/16 10:00 11:58 IVPB 420 mls/hr Q12H [facility] Administration Lorazepam 2 mg 11/26/16 15:47 11/28/16 12:13 Ativan IVP 2 mg Q2H PRN Administration Agitation Metoprolol Tartrate 2.5 mg 11/28/16 12:02 11/28/16 12:42 Lopressor IVP 2.5 mg Q6H [facility] Administration - Patient Studies Lab Studies: Microbiology Studies 11/27/16 08:27 Gram Stain - Final Arm - Left Wound Culture - Preliminary Gram Positive Cocci Lab Studies 11/28/16 11/28/16 11/28/16 Range/Units 13:19 06:10 06:08 WBC 7.0 (4.8-10.8) K/uL RBC 2.91 L (4.40-5.90) Mil/uL Hgb 10.0 L (12.0-18.0) g/dL Hct 28.5 L (35.0-51.0) % MCV 97.9 H (80.0-94.0) fL MCH 34.3 H (27.0-31.0) pg MCHC 35.0 (33.0-37.0) g/dL RDW 12.8 (11.5-14.5) % Plt Count 101 L (130-400) K/uL MPV 8.8 (7.2-11.7) fL Neut % (Auto) 80.0 H (50.0-75.0) % Lymph % (Auto) 11.9 L (20.0-40.0) % [place] % (Auto) 7.2 (0.0-10.0) % Eos % (Auto) 0.6 (0.0-4.0) % Baso % (Auto) 0.3 (0.0-2.0) % Neut # 5.6 (1.8-7.0) K/uL Lymph # 0.8 L (1.0-4.3) K/uL [place] # 0.5 (0.0-0.8) K/uL Eos # 0.0 (0.0-0.7) K/uL Baso # 0.0 (0.0-0.2) K/uL Differential Comment Sodium 130 L (132-148) mmol/L Potassium 3.3 L (3.6-5.2) mmol/L Chloride 95 L (98-107) mmol/L Carbon Dioxide 22 (22-30) mmol/L Anion Gap 17 (10-20) BUN 27 H (9-20) mg/dL Creatinine 4.3 H (0.8-1.5) MG/DL Est GFR ( Amer) 18 Est GFR (Non-Af Amer) 15 Random Glucose 97 (75-110) mg/dL Calcium 8.7 (8.6-10.4) mg/dl Phosphorus 3.3 (2.5-4.5) mg/dL Magnesium 2.0 (1.6-2.3) mg/dL Total Bilirubin 0.9 (0.2-1.3) mg/dL AST 38 (17-59) U/L ALT 63 (21-72) U/L Alkaline Phosphatase 66 (38-126) U/L Total Protein 7.0 (6.3-8.3) g/dL Albumin 3.6 (3.5-5.0) g/dL Globulin 3.3 (2.2-3.9) gm/dL Albumin/Globulin Ratio 1.1 (1.0-2.1) Vancomycin Trough 10.2 H (5.0-10.0) ug/mL Laboratory Results - last 24 hr 11/28/16 11/28/16 11/28/16 06:08 06:10 13:19 WBC 7.0 RBC 2.91 L Hgb 10.0 L Hct 28.5 L MCV 97.9 H MCH 34.3 H MCHC 35.0 RDW 12.8 Plt Count 101 L MPV 8.8 Neut % (Auto) 80.0 H Lymph % (Auto) 11.9 L [place] % (Auto) 7.2 Eos % (Auto) 0.6 Baso % (Auto) 0.3 Neut # 5.6 Lymph # 0.8 L [place] # 0.5 Eos # 0.0 Baso # 0.0 Differential Comment Sodium 130 L Potassium 3.3 L Chloride 95 L Carbon Dioxide 22 Anion Gap 17 BUN 27 H Creatinine 4.3 H Est GFR ( Amer) 18 Est GFR (Non-Af Amer) 15 Random Glucose 97 Calcium 8.7 Phosphorus 3.3 Magnesium 2.0 Total Bilirubin 0.9 AST 38 ALT 63 Alkaline Phosphatase 66 Total Protein 7.0 Albumin 3.6 Globulin 3.3 Albumin/Globulin Ratio 1.1 Vancomycin Trough 10.2 H Fingerstick Blood Sugar Results: 146 Review of Systems - Review of Systems Systems not reviewed;Unavailable: Altered Mental Status Critical Care Progress Note - Nutrition Nutrition: Nutrition Category Date Time Status NPO Diet [DIET] Diets 11/27/16 Dinner Active Assessment/Plan (1) Seizure Assessment and plan: Neuro: - Seizures, possibly secondary to alcohol withdrawal - Continue Keppra for epilepsy - Tapering down precedex and continue ativan. - Hx of Embolic IE - Neurology consulted- Dr. Pérez, help appreciated - Head CT: acute to subacute infarct suspected at posterior left parieto- occipital distribution w/o hemorrhage; limited local mass effect; B/L chronic lacunar infarct noted at basal ganglia; age-related degenerative changes. - Repeat Head CT: area of hypodensity in left occipital and parietal white matter which is slightly larger and better defined than previous study, suspicious for acute infarct; could also be secondary to underlying metastatic lesions with vasogenic edema. - EEG: f/u Pulm: no acute issues - swallow eval CV: Hx of IE - Cardiology consulted- Dr. Reeder, help appreciated - Elevated troponin: 0.1850, CKMB 3.70 - Tropnin: 0.3120 - Echo: f/u - Carotid duplex: mild disease b/l - Continue asa - Paroxysmal Afib - As per cardiologly - was started on rate control Metoprolol, hold for HR<60 and SBP<100. Endo: no acute issues GI: - Hx of cirrhosis and liver transplant - Alcohol abuse - Elevated LFTs, secondary to alcohol abuse Renal: ESRD, Dialysis (TTHS), Infected AV fistula (left) - Dialysis scheduled for today - Nephrology consulted- Dr. Araujo, help appreciated - Cx of AV fistula: - Hypokalemia: gave KCl ID: - Hx of IE (x2) - Leukocytosis, 16.8, lactate 3.5 - [place] Infected OLI - Wound cx of OLI: gram + cocci - Arterial doppler: no abnormal findings - Blood Cx: no growth x24hrs Alcohol Withdrawal: - [place] protocol for DT - Monitor for signs of withdrawal - Ativan and precedex for agitation - Alcohol quant <10 - Toxicology screen: acetaminophen <10, Phenytoin <3.0 Prophylaxis: - DVT: Heparin 5,000 Q8, SCDs - GI: pepcid Current Visit: Yes Status: Acute
[2016-11-28] MEDS ORDERED: HYDROmorphone 0.5 mg/0.5 ml ISec ONE (17:01)
--- NOTE | 2016-11-28 17:44 | EEG ---
DATE: This is a 16-channel electroencephalogram of lethargic adult. This study was performed at the bedside. The resting electroencephalogram consists of diffuse low-amplitude 2-3 Hz delta activities seen in bilateral cortical leads. There is intermittent low amplitude 30-40 microvolt theta activity also noted. Some movement artifact contaminated with the background rhythm. There is periodic, polyphasic, high-amplitude sharp wave activities noted over the biparietal region. This followed with the burst suppression activities noted. This is followed with polyspike and wave activities noted. This all raise the possibility of epileptiform focus. Since the patient started to have any witnessed physical activities, this is probably secondary to subclinical seizer. Please correlate the findings with the neurological and radiological studies. Pravin Pérez MD
--- NOTE | 2016-11-28 18:11 | CP.PCM.PN ---
Subjective - Date & Time of Evaluation Date of Evaluation: 11/28/16 Time of Evaluation: 08:00 - Subjective Subjective: confused s/p HD- tolerated well Objective - Vital Signs/Intake and Output Vital Signs (last 24 hours): Temp Pulse Resp BP Pulse Ox 97.9 F 75 20 84/59 L 100 11/28/16 17:04 11/28/16 17:04 11/28/16 17:04 11/28/16 17:04 11/28/16 17:00 Intake and Output: 11/28/16 11/28/16 06:59 18:59 Intake Total 765.2 647.6 Output Total 500 570 Balance 265.2 77.6 - Medications Medications: Current Medications Aspirin (Aspirin Chewable) 81 mg PO DAILY [facility] Famotidine (Pepcid) 20 mg IVP DAILY [facility] Last Admin: 11/28/16 11:59 Dose: 20 mg Heparin Sodium (Porcine) (Heparin) 5,000 units SC Q8 [facility] Last Admin: 11/28/16 14:34 Dose: 5,000 units Dexmedetomidine HCl 200 mcg/ (Sodium Chloride) 50 mls @ 4.08 mls/hr IV TITR PRN ; Protocol; 0.2 MCG/KG/HR PRN Reason: Agitation Last Admin: 11/28/16 14:40 Dose: 1 mcg/kg/hr, 20.41 mls/hr Folic Acid 1 mg/ Thiamine HCl 100 mg/ Multivitamins/Vitamin C 10 ml/ Dextrose 1 ,011.2 mls @ 100 mls/hr IV DAILY [facility] Last Admin: 11/28/16 11:54 Dose: 100 mls/hr Vancomycin HCl 1 gm/ Sodium (Chloride) 250 mls @ 166.7 mls/hr IVPB MWF [facility] Last Admin: 11/28/16 11:55 Dose: 166.7 mls/hr Levetiracetam 750 mg/ Dextrose 107.5 mls @ 420 mls/hr IVPB Q12H [facility] Last Admin: 11/28/16 11:58 Dose: 420 mls/hr Lorazepam (Ativan) 2 mg IVP Q2H PRN PRN Reason: Agitation Last Admin: 11/28/16 12:13 Dose: 2 mg Metoprolol Tartrate (Lopressor) 2.5 mg IVP Q6H [facility] Last Admin: 11/28/16 12:42 Dose: 2.5 mg - Labs Labs: 11/28/16 06:08 11/28/16 06:10 PT 11.4 SECONDS (9.7-12.2) 11/26/16 07:41 INR 1.0 11/26/16 07:41 APTT 30 SECONDS (21-34) 11/27/16 01:58 - Constitutional Appears: Cachectic, Chronically Ill - Head Exam Head Exam: NORMOCEPHALIC - Eye Exam Eye Exam: PERRL - ENT Exam ENT Exam: Mucous Membranes Dry - Respiratory Exam Respiratory Exam: Decreased Breath Sounds, Rhonchi - Cardiovascular Exam Cardiovascular Exam: REGULAR RHYTHM - GI/Abdominal Exam GI & Abdominal Exam: Distended, Soft - Rectal Exam Rectal Exam: Deferred - Exam Exam: NORMAL INSPECTION - Extremities Exam Extremities Exam: absent: Pedal Edema - Back Exam Back Exam: absent: CVA tenderness (L), CVA tenderness (R) - Neurological Exam Neurological Exam: Altered Assessment and Plan (1) Alcohol abuse Status: Chronic (2) Alcohol withdrawal seizure with complication Status: Acute (3) Drug abuse Status: Acute (4) Hepatitis C Status: Acute (5) Seizure Status: Acute (6) Status epilepticus Status: Acute (7) ESRD (end stage renal disease) on dialysis Status: Chronic (8) Liver transplant recipient Status: Chronic (9) Encephalopathy Status: Acute (10) Hypotension Status: Acute (11) Liver transplant disorder Status: Acute (12) Polysubstance (including opioids) dependence with physiol dependence Status: Acute (13) Renal failure, acute on chronic Status: Acute (14) ESRD (end stage renal disease) Status: Chronic - Assessment and Plan (Free Text) Assessment: Seizures DT's r/o CVA Hx IE A-fib Increased Trop Cirrhosis ESRD Hx Liver Transplant Substance abuse Hep C cont iv antibiotics possible av fistula removal when stable
[2016-11-29] MEDS: Dexmedetomidine Hydrochloride 200 MCG in Sodium Chloride 0.9% 48 ML IV PRN ×4 (01:00→14:19)
[2016-11-29] MEDS: Metoprolol 1 mg/ml Inj IVP SCH ×5 (02:00→23:10)
[2016-11-29 06:26] LABS: BASO % 0.3 % (0.0-2.0); EOS % 1.1 % (0.0-4.0); HEMATOCRIT 24.1 % (35.0-51.0); LYMPH # 0.5 K/uL (1.0-4.3); LYMPH % 17.4 % (20.0-40.0); MEAN CELL VOLUME 99.6 fL (80.0-94.0); MEAN CORPUSCULAR HEMOGLOBIN 34.2 pg (27.0-31.0); MEAN CORPUSCULAR HGB CONC 34.3 g/dL (33.0-37.0); MEAN PLATELET VOLUME 8.7 fL (7.2-11.7); MONO # 0.2 K/uL (0.0-0.8); MONO % 7.8 % (0.0-10.0); NRBC % 0.1 % (0.0-2.0); WHITE BLOOD COUNT 2.9 K/uL (4.8-10.8)
[2016-11-29 06:42] LABS: POTASSIUM 3.5 mmol/L (3.6-5.2)
[2016-11-29 06:44] LABS: BILIRUBIN,TOTAL 0.8 mg/dL (0.2-1.3); TOTAL PROTEIN 6.2 g/dL (6.3-8.3)
[2016-11-29 06:45] LABS: CALCIUM 8.4 mg/dl (8.6-10.4); MAGNESIUM 1.9 mg/dL (1.6-2.3); PHOSPHOROUS 2.8 mg/dL (2.5-4.5)
--- NOTE | 2016-11-29 09:21 | CP.PCM.PN ---
Subjective - Date & Time of Evaluation Date of Evaluation: 11/29/16 Time of Evaluation: 09:20 - Subjective Subjective: comfortable in bed states sob ROS no chills cough productive of yellow sputum no chest pain No abd vpain,nausea vomiting diarrhea Objective - Vital Signs/Intake and Output Vital Signs (last 24 hours): Temp Pulse Resp BP Pulse Ox 98.1 F 82 32 H 121/91 H 98 11/29/16 08:00 11/29/16 07:49 11/29/16 07:49 11/29/16 07:49 11/29/16 07:49 Intake and Output: 11/29/16 11/29/16 06:59 18:59 Intake Total 793.4 28.6 Output Total 400 0 Balance 393.4 28.6 - Medications Medications: Current Medications Aspirin (Aspirin Chewable) 81 mg PO DAILY [facility] Famotidine (Pepcid) 20 mg IVP DAILY [facility] Last Admin: 11/28/16 11:59 Dose: 20 mg Heparin Sodium (Porcine) (Heparin) 5,000 units SC Q8 [facility] Last Admin: 11/29/16 07:00 Dose: 5,000 units Dexmedetomidine HCl 200 mcg/ (Sodium Chloride) 50 mls @ 4.08 mls/hr IV TITR PRN ; Protocol; 0.2 MCG/KG/HR PRN Reason: Agitation Last Admin: 11/29/16 05:31 Dose: 0.7 mcg/kg/hr, 14.28 mls/hr Folic Acid 1 mg/ Thiamine HCl 100 mg/ Multivitamins/Vitamin C 10 ml/ Dextrose 1 ,011.2 mls @ 100 mls/hr IV DAILY [facility] Last Admin: 11/28/16 11:54 Dose: 100 mls/hr Vancomycin HCl 1 gm/ Sodium (Chloride) 250 mls @ 166.7 mls/hr IVPB MWF [facility] Last Admin: 11/28/16 11:55 Dose: 166.7 mls/hr Levetiracetam 750 mg/ Dextrose 107.5 mls @ 420 mls/hr IVPB Q12H [facility] Last Admin: 11/28/16 22:40 Dose: 420 mls/hr Lorazepam (Ativan) 2 mg IVP Q2H PRN PRN Reason: Agitation Last Admin: 11/28/16 23:26 Dose: 2 mg Metoprolol Tartrate (Lopressor) 2.5 mg IVP Q6H [facility] Last Admin: 11/29/16 05:33 Dose: 2.5 mg - Labs Labs: 11/29/16 06:20 11/29/16 06:20 PT 11.4 SECONDS (9.7-12.2) 11/26/16 07:41 INR 1.0 11/26/16 07:41 APTT 30 SECONDS (21-34) 11/27/16 01:58 - Constitutional Appears: No Acute Distress - Neck Exam Additional comments: no jvd at 60-70 degrees - Respiratory Exam Respiratory Exam: Clear to Ausculation Bilateral - Cardiovascular Exam Cardiovascular Exam: Irregular Rhythm - GI/Abdominal Exam GI & Abdominal Exam: Soft. absent: Distended, Tenderness - Extremities Exam Extremities Exam: absent: Calf Tenderness, Pedal Edema - Psychiatric Exam Psychiatric exam: Flat Affect Assessment and Plan (1) Seizure Status: Acute (2) ESRD (end stage renal disease) on dialysis Status: Chronic (3) Liver transplant recipient Status: Chronic - Assessment and Plan (Free Text) Plan: continue supportive care next dialysis 12/01
--- NOTE | 2016-11-29 10:21 | PN ---
DATE: 11/29/2016 NEUROLOGICAL PROBLEM: Status post seizures with polysubstance abuse. PHYSICAL EXAMINATION: VITAL SIGNS: Blood pressure 131/99 with mean arterial pressure of 111, respiratory rate 18, temperature afebrile with pulse rate 94. NEUROLOGIC: The patient is awake and alert. He does know where he is. Speech is somewhat better than yesterday. He follows one to two step command, mild right and left confusion; however, his mentation is not improved. Still he does not know where he is as well as he does not know the year. Because of nonconvulsive seizures, the patient's Keppra dose has been increased. The patient is clinically stable at present. MARISELA is being done, was reported as vegetation. 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 A prophylactic antibiotic is given and followed us by infectious disease. The patient is neurologically stable. Continue to present management as he has been getting. Pravin Pérez MD
[2016-11-29] MEDS: Folic Acid 1 MG, Thiamine 100 MG, Multivitamin (MVI) 10 ML in Dextrose 5% In Water 1,00... IV SCH (10:57)
[2016-11-29] MEDS ORDERED: Dexmedetomidine Hydrochloride 400 MCG in Sodium Chloride 0.9% 96 ML IV PRN (16:30)
--- NOTE | 2016-11-29 18:13 | CP.CCUPN ---
CCU Subjective - Physician Review Events Since Last Encounter (Free Text): 11/29/16 18:13 Patient is a 50-year-old male with a history of hypertension, alcoholic abuse, end-stage renal disease on dialysis, liver cirrhosis, transplant, infective endocarditis admitted with the seizures. Patient also had infected AV fistula. Patient in the past multiple times intubated, and also had a multiple hospitalization. Currently patient is on DTs watch. Patient is also receiving Precedex Awake and responding. He wanted to go home now. On examination: Vital signs stable. Chest good air entry regular heart sound nontender abdomen extremities edema negative Labs reviewed in Assessment and recommendation: 50-year-old male with multiple medical problems including liver transplant admitted with the alcoholic abuse, and the alcoholism, and a DTs. Currently doing okay. We'll discontinue Precedex. We'll continue the benzodiazepine. When necessary will follow the patient CCU Objective - Vital Signs / Intake & Output Vital Signs (Last 4 hours): Vital Signs Temp Pulse Resp BP Pulse Ox 11/29/16 16:07 81 30 H 148/106 H 98 11/29/16 16:01 76 12 11/29/16 16:00 98.3 F 11/29/16 15:00 69 21 98 Intake and Output (Last 8hrs): Intake & Output 11/29/16 11/29/16 11/29/16 06:59 14:59 22:59 Intake Total 314.4 214.4 140 Output Total 200 200 Balance 114.4 14.4 140 Weight 1800 lb Intake: IV 100 100 10 Intake, IV Amount 214.4 114.4 130 Right Antecubital 114.4 114.4 Right Antecubital Y-site 100 Right Upper arm 30 right upper arm y port 100 Output: Urine 200 200 Condom 200 200 Other: # Bowel Movements 1 - Physical Exam Head: Positive for: Normocephalic Pupils: Positive for: Sluggish Extroacular Muscles: Negative for: EOMI Mouth: Positive for: Moist Mucous Membranes Respiratory/Chest: Positive for: Decreased Breath Sounds. Negative for: Wheezes , Rales, Rhonchi, Tachypneic Cardiovascular: Positive for: Normal S1, S2, Irregular Rhythm, Tachycardic Abdomen: Positive for: Normal Bowel Sounds. Negative for: Distention, Guarding Upper Extremity: Positive for: Other (Left AV fistula). Negative for: Edema, Swelling Lower Extremity: Negative for: Edema, Swelling Neurological: Negative for: Speech Normal Skin: Positive for: Warm, Dry, Normal Color Psychiatric: Negative for: Alert, Oriented x 3, Normal Insight, Normal Concentration - Medications Active Medications: Active Medications Generic Name Dose Route Start Last Admin Trade Name Freq PRN Reason Stop Dose Admin Aspirin 81 mg 11/29/16 10:00 11/29/16 11:02 Aspirin Chewable PO 81 mg DAILY BEA Administration Chlordiazepoxide 5 mg 11/29/16 22:00 Librium PO 12/01/16 22:01 Q8 BEA Famotidine 20 mg 11/26/16 10:00 11/29/16 10:58 Pepcid IVP 20 mg DAILY BEA Administration Heparin Sodium (Porcine) 5,000 units 11/29/16 22:00 Heparin SC Q12 BEA Folic Acid 1 mg/ Thiamine HCl 1,011.2 mls @ 100 mls/hr 11/27/16 10:00 10:57 100 mg/ Multivitamins/Vitamin IV 100 mls/hr C 10 ml/ Dextrose DAILY BEA Administration Vancomycin HCl 1 gm/ Sodium 250 mls @ 166.7 mls/hr 11/28/16 09:00 11/28/16 11 :55 Chloride IVPB 166.7 mls/hr MWF BEA Administration Levetiracetam 750 mg/ Dextrose 107.5 mls @ 420 mls/hr 11/28/16 10:00 10:58 IVPB 420 mls/hr Q12H BEA Administration Lorazepam 2 mg 11/29/16 18:11 Ativan IVP Q4 PRN Anxiety Metoprolol Tartrate 2.5 mg 11/28/16 12:02 11/29/16 17:46 Lopressor IVP 2.5 mg Q6H BEA Administration - Patient Studies Lab Studies: Microbiology Studies 11/27/16 08:27 Gram Stain - Final Arm - Left Wound Culture - Final Staphylococcus Aureus Lab Studies 11/29/16 11/29/16 Range/Units 06:20 06:20 WBC 2.9 L D (4.8-10.8) K/uL RBC 2.42 L (4.40-5.90) Mil/uL Hgb 8.3 L (12.0-18.0) g/dL Hct 24.1 L (35.0-51.0) % MCV 99.6 H (80.0-94.0) fL MCH 34.2 H (27.0-31.0) pg MCHC 34.3 (33.0-37.0) g/dL RDW 13.0 (11.5-14.5) % Plt Count 71 L D (130-400) K/uL MPV 8.7 (7.2-11.7) fL Neut % (Auto) 73.4 (50.0-75.0) % Lymph % (Auto) 17.4 L (20.0-40.0) % Edgar % (Auto) 7.8 (0.0-10.0) % Eos % (Auto) 1.1 (0.0-4.0) % Baso % (Auto) 0.3 (0.0-2.0) % Neut # 2.1 (1.8-7.0) K/uL Lymph # 0.5 L (1.0-4.3) K/uL Edgar # 0.2 (0.0-0.8) K/uL Eos # 0.0 (0.0-0.7) K/uL Baso # 0.0 (0.0-0.2) K/uL Sodium 134 (132-148) mmol/L Potassium 3.5 L (3.6-5.2) mmol/L Chloride 100 (98-107) mmol/L Carbon Dioxide 24 (22-30) mmol/L Anion Gap 13 (10-20) BUN 17 (9-20) mg/dL Creatinine 3.4 H (0.8-1.5) MG/DL Est GFR ( Amer) 23 Est GFR (Non-Af Amer) 19 Random Glucose 91 (75-110) mg/dL Calcium 8.4 L (8.6-10.4) mg/dl Phosphorus 2.8 (2.5-4.5) mg/dL Magnesium 1.9 (1.6-2.3) mg/dL Total Bilirubin 0.8 (0.2-1.3) mg/dL AST 31 (17-59) U/L ALT 52 (21-72) U/L Alkaline Phosphatase 59 (38-126) U/L Total Protein 6.2 L (6.3-8.3) g/dL Albumin 3.1 L (3.5-5.0) g/dL Globulin 3.0 (2.2-3.9) gm/dL Albumin/Globulin Ratio 1.0 (1.0-2.1) Laboratory Results - last 24 hr 11/29/16 11/29/16 06:20 06:20 WBC 2.9 L D RBC 2.42 L Hgb 8.3 L Hct 24.1 L MCV 99.6 H MCH 34.2 H MCHC 34.3 RDW 13.0 Plt Count 71 L D MPV 8.7 Neut % (Auto) 73.4 Lymph % (Auto) 17.4 L Edgar % (Auto) 7.8 Eos % (Auto) 1.1 Baso % (Auto) 0.3 Neut # 2.1 Lymph # 0.5 L Edgar # 0.2 Eos # 0.0 Baso # 0.0 Sodium 134 Potassium 3.5 L Chloride 100 Carbon Dioxide 24 Anion Gap 13 BUN 17 Creatinine 3.4 H Est GFR ( Amer) 23 Est GFR (Non-Af Amer) 19 Random Glucose 91 Calcium 8.4 L Phosphorus 2.8 Magnesium 1.9 Total Bilirubin 0.8 AST 31 ALT 52 Alkaline Phosphatase 59 Total Protein 6.2 L Albumin 3.1 L Globulin 3.0 Albumin/Globulin Ratio 1.0 Fingerstick Blood Sugar Results: 146 Critical Care Progress Note - Nutrition Nutrition: Nutrition Category Date Time Status Pureed [Dysphagia/Modified Consistency Diet] [DIET] Diets 11/29/16 Dinner Active
--- NOTE | 2016-11-29 19:29 | CARD ---
APPROVED REPORT EXAM: Transesophageal echocardiogram with color flow Doppler. INDICATION Infection : Rule out subacute bacterial endocarditis Mitral Valve E/A ratio0.0 TDI E/Lateral E'0.0E/Medial E'0.0 Reason For Test : Rule out endocarditis. PROCEDURE After obtaining informed consent, patient underwent transesophageal echo in the ICU. Type of Sedation : Conscious Sedation Sedation was achieved with intravenously. The MARISELA was performed complications. Throughout the procedure, the blood pressure, pulse oximetry, cardiac rhythm, and rate were monitored. The patient tolerated the procedure without adverse effects. Recovery from conscious sedation was uneventful and vital signs were stable. LEFT VENTRICLE The left ventricular function is normal. The left ventricular ejection fraction is within the normal range. No left ventricle thrombus noted on this study. There is no ventricular septal defect visualized. RIGHT VENTRICLE The right ventricular systolic function is normal. ATRIA The left atrium size is normal. The right atrium size is normal. The interatrial septum is intact with no evidence for an atrial septal defect. AORTIC VALVE The aortic valve is normal in structure. No aortic regurgitation is present. There is no aortic valvular stenosis. There is no aortic valvular vegetation. MITRAL VALVE Mitral annular calcification noted. There is calcific mass attached to Posterior mitral leaflet (Size 1mm x 0.9mm) Difficult to defferentiate between annular Calcification or Helaed vegetation or Active vegetation Recommend clinical correlation There is no mitral valve stenosis. Mitral regurgitation is trace to mild. TRICUSPID VALVE The tricuspid valve is normal in structure. There is mild tricuspid regurgitation. There is no tricuspid valve prolapse or vegetation. There is no tricuspid valve stenosis. PULMONIC VALVE The pulmonary valve is normal in structure. There is no pulmonic valvular regurgitation. There is no pulmonic valvular stenosis. GREAT VESSELS The aortic root is normal in size. <Conclusion> The left ventricular function is normal. The left ventricular ejection fraction is within the normal range. The right ventricular systolic function is normal. Mitral annular calcification noted. There is calcific mass attached to Posterior mitral leaflet (Size 1mm x 0.9mm) Difficult to defferentiate between annular Calcification or Helaed vegetation or Active vegetation Recommend clinical correlation
--- NOTE | 2016-11-29 20:04 | CP.PCM.HP ---
Past Patient History - Infectious Disease Hx of Infectious Diseases: None - Past Medical History & Family History Past Medical History?: Yes - Past Social History Smoking Status: Heavy Smoker > 10 Cigarettes Daily - CARDIAC Hx Hypertension: Yes - PULMONARY Hx Pneumonia: Yes - NEUROLOGICAL Hx Neurological Disorder: Yes Hx Seizures: Yes Other/Comment: 'BRAIN INJURY ' - HEENT Hx HEENT Problems: No - RENAL Hx Chronic Kidney Disease: Yes - ENDOCRINE/METABOLIC Hx Diabetes Mellitus Type 2: Yes - HEMATOLOGICAL/ONCOLOGICAL Hx Blood Disorders: Yes Hx Cancer: Yes (EYE CANCER) Hx Hepatitis C: Yes Other/Comment: Liver transplant. 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 - ANESTHESIA Hx Anesthesia: Yes Hx Anesthesia Reactions: No Meds Allergies/Adverse Reactions: Allergies Allergy/AdvReac Type Severity Reaction Status Date / Time No Known Allergies Allergy Verified 11/04/16 20:20 Results - Vital Signs Recent Vital Signs: Last Vital Signs Temp 98.3 F 11/29/16 16:00 Pulse 87 11/29/16 19:00 Resp 32 H 11/29/16 19:00 BP 127/86 11/29/16 17:48 Pulse Ox 99 11/29/16 19:00 - Labs Result Diagrams: 11/29/16 06:20 11/29/16 06:20 Labs: Laboratory Results - last 24 hr 11/29/16 11/29/16 06:20 06:20 WBC 2.9 L D RBC 2.42 L Hgb 8.3 L Hct 24.1 L MCV 99.6 H MCH 34.2 H MCHC 34.3 RDW 13.0 Plt Count 71 L D MPV 8.7 Neut % (Auto) 73.4 Lymph % (Auto) 17.4 L [place] % (Auto) 7.8 Eos % (Auto) 1.1 Baso % (Auto) 0.3 Neut # 2.1 Lymph # 0.5 L [place] # 0.2 Eos # 0.0 Baso # 0.0 Sodium 134 Potassium 3.5 L Chloride 100 Carbon Dioxide 24 Anion Gap 13 BUN 17 Creatinine 3.4 H Est GFR ( Amer) 23 Est GFR (Non-Af Amer) 19 Random Glucose 91 Calcium 8.4 L Phosphorus 2.8 Magnesium 1.9 Total Bilirubin 0.8 AST 31 ALT 52 Alkaline Phosphatase 59 Total Protein 6.2 L Albumin 3.1 L Globulin 3.0 Albumin/Globulin Ratio 1.0
--- NOTE | 2016-11-29 21:20 | CP.PCM.PN ---
Subjective - Date & Time of Evaluation Date of Evaluation: 11/29/16 Time of Evaluation: 07:20 - Subjective Subjective: Patient seen and evaluated Awake. Not orientd Not in distress Physical Exam - Constitutional Appears: No Acute Distress - Head Exam Head Exam: ATRAUMATIC, NORMOCEPHALIC - Eye Exam Eye Exam: PERRL - ENT Exam ENT Exam: Mucous Membranes Moist - Respiratory Exam Respiratory Exam: Decreased Breath Sounds - Cardiovascular Exam Cardiovascular Exam: Irregular Rhythm - GI/Abdominal Exam GI & Abdominal Exam: Normal Bowel Sounds, Soft. absent: Tenderness - Extremities Exam Extremities exam: Negative for: calf tenderness, pedal edema - Neurological Exam Neurological exam: Alert, Altered Additional comments: awake, responds inappropriately to questions, not oriented to person, place and time. - Skin Skin Exam: Dry, Warm Objective - Vital Signs/Intake and Output Vital Signs (last 24 hours): Temp Pulse Resp BP Pulse Ox 98.7 F 82 31 H 127/86 98 11/29/16 20:00 11/29/16 21:00 11/29/16 21:00 11/29/16 17:48 11/29/16 21:00 Intake and Output: 11/29/16 11/30/16 18:59 06:59 Intake Total 594.4 600 Output Total 500 Balance 94.4 600 - Medications Medications: Current Medications Aspirin (Aspirin Chewable) 81 mg PO DAILY [facility] Last Admin: 11/29/16 11:02 Dose: 81 mg Chlordiazepoxide (Librium) 5 mg PO Q8 [facility] Stop: 12/01/16 22:01 Famotidine (Pepcid) 20 mg IVP DAILY [facility] Last Admin: 11/29/16 10:58 Dose: 20 mg Heparin Sodium (Porcine) (Heparin) 5,000 units SC Q12 [facility] Folic Acid 1 mg/ Thiamine HCl 100 mg/ Multivitamins/Vitamin C 10 ml/ Dextrose 1 ,011.2 mls @ 100 mls/hr IV DAILY [facility] Last Admin: 11/29/16 10:57 Dose: 100 mls/hr Vancomycin HCl 1 gm/ Sodium (Chloride) 250 mls @ 166.7 mls/hr IVPB MWF [facility] Last Admin: 11/28/16 11:55 Dose: 166.7 mls/hr Levetiracetam 750 mg/ Dextrose 107.5 mls @ 420 mls/hr IVPB Q12H [facility] Last Admin: 11/29/16 10:58 Dose: 420 mls/hr Lorazepam (Ativan) 2 mg IVP Q4 PRN PRN Reason: Anxiety Last Admin: 11/29/16 18:35 Dose: 2 mg Metoprolol Tartrate (Lopressor) 2.5 mg IVP Q6H [facility] Last Admin: 11/29/16 17:46 Dose: 2.5 mg - Labs Labs: 11/29/16 06:20 11/29/16 06:20 PT 11.4 SECONDS (9.7-12.2) 11/26/16 07:41 INR 1.0 11/26/16 07:41 APTT 30 SECONDS (21-34) 11/27/16 01:58 Assessment and Plan - Assessment and Plan (Free Text) Assessment: Patient s/p MARISELA Normal LV function Small Mass in Posterior Mitral leaflet (Mitral calcification Vs. Healed vegetation Vs. active endocarditis difficult to defferentiate) Clinical correlation recommended Assessment: 51M with PMH HTN, H/O of infective endocarditis, EtOH abuse, ESRD with dialysis (TThS), cirrhosis with liver transplant, admitted for seizures 2/2 likely sepsis vs EtOH withdrawal. Pt also found to be in afib with RVR, and trops 0.185 ->0.3120, ck mb 3.7 Plan: Afib with RVR: - Pt has a history of afib, on Metoprolol 25 mg PO daily for rate control, no anticoagulation listed in home meds. Will ask once she is here. - In ED, EKG shows HR 133, afib with RVR, LVH, prolonged QTc 580 ms. - UDS positive for cocaine and opiates. - trop elevated 0.185->0.3120, CKMB 3.7 - In ICU, pt switching to NSR, currently HR 70-80, afib. Likely paroxysmal afib. - Pt given heparin 5000 U IVx1, 4000 Ux1, in ED. started on heparin drip yesterday, but discontinued due to increased risk of brain bleed in this patient (per Dr. Pérez). Pt currently on heparin 5000 Units SQ q 8h for dvt ppx. - Will start on rate control Metoprolol 25 mg PO BID, hold for hR<60 and SBP< 100. Will hold anticoagulation due to risk for hemorrhagic conversion of CVA. Hx of HTN: - BP 150/103. - At home, on amlodipine 10 mg PO daily, nifedipine 60 mg PO daily and metoprolol 25 mg PO daily and Lasix 80 mg PO daily. - Will start Metoprolol 25 mg PO BID, Hold for SBP <100 and HR <60. Seizures likely 2/2 alcohol withdrawal vs sepsis? - Pt was on home Keppra for seizure ppx as pt had cranial emboli hx. Unsure if pt compliant with med. - Pt had 6 witnessed seizures at home, + generalized witnessed seizure in ED - Received Phosphenytoin and ativan 2 mg IVx2 in ED - received banana bag. - Currently on Keppra 500 mg IV q 12h. - Neuro on board - Dr Pérez. Will f/u EEG. - Infected left AV fistula, leukocytosis on admission, lactate 3.5, removed the cath this AM. cont to monitor, f/u blood and cath tip cultures and ID recs ESRD: - BUN/Cr 39/5.9 on admission. Received HD yesterday. improved Cr. Cont to monitor.
[2016-11-30] MEDS ORDERED: Labetalol 25mg/5ml Syringe IVP STA (02:11)
[2016-11-30] MEDS: Metoprolol 1 mg/ml Inj IVP SCH ×2 (05:53→11:18)
[2016-11-30 06:35] LABS: BASO % 0.3 % (0.0-2.0); EOS # 0.1 K/uL (0.0-0.7); EOS % 1.6 % (0.0-4.0); HEMATOCRIT 26.3 % (35.0-51.0); LYMPH % 23.8 % (20.0-40.0); MEAN CELL VOLUME 99.2 fL (80.0-94.0); MEAN CORPUSCULAR HEMOGLOBIN 34.5 pg (27.0-31.0); MEAN CORPUSCULAR HGB CONC 34.8 g/dL (33.0-37.0); MEAN PLATELET VOLUME 8.6 fL (7.2-11.7); MONO # 0.3 K/uL (0.0-0.8); MONO % 7.9 % (0.0-10.0); NRBC % 0.1 % (0.0-2.0); RED CELL DISTRIBUTION WIDTH 12.8 % (11.5-14.5); WHITE BLOOD COUNT 4.3 K/uL (4.8-10.8)
[2016-11-30 06:44] LABS: POTASSIUM 3.6 mmol/L (3.6-5.2)
[2016-11-30 06:46] LABS: ALB/GLOB RATIO 0.9 (1.0-2.1); BILIRUBIN,TOTAL 0.7 mg/dL (0.2-1.3); PHOSPHOROUS 2.8 mg/dL (2.5-4.5); TOTAL PROTEIN 6.7 g/dL (6.3-8.3)
[2016-11-30 06:47] LABS: CALCIUM 8.9 mg/dl (8.6-10.4); MAGNESIUM 1.9 mg/dL (1.6-2.3)
[2016-11-30] MEDS ORDERED: Potassium Chloride 20 mEq/15 ml LIQ UD PO ONE ×3 (08:36→12:19)
[2016-11-30] MEDS: Folic Acid 1 MG, Thiamine 100 MG, Multivitamin (MVI) 10 ML in Dextrose 5% In Water 1,00... IV SCH (10:45)
--- NOTE | 2016-11-30 15:02 | CP.PCM.PN ---
Subjective - Date & Time of Evaluation Date of Evaluation: 11/30/16 Time of Evaluation: 15:02 Objective - Vital Signs/Intake and Output Vital Signs (last 24 hours): Temp Pulse Resp BP Pulse Ox 97.8 F 88 20 141/98 H 100 11/30/16 13:13 11/30/16 13:13 11/30/16 13:13 11/30/16 13:13 11/30/16 13:13 Intake and Output: 11/30/16 11/30/16 06:59 18:59 Intake Total 820 880 Output Total 750 Balance 820 130 - Medications Medications: Current Medications Aspirin (Aspirin Chewable) 81 mg PO DAILY [facility] Last Admin: 11/30/16 10:47 Dose: 81 mg Chlordiazepoxide (Librium) 10 mg PO Q8 [facility] Stop: 12/01/16 22:01 Last Admin: 11/30/16 13:36 Dose: 10 mg Famotidine (Pepcid) 20 mg IVP DAILY [facility] Last Admin: 11/30/16 10:44 Dose: 20 mg Heparin Sodium (Porcine) (Heparin) 5,000 units SC Q12 [facility] Last Admin: 11/30/16 10:44 Dose: 5,000 units Folic Acid 1 mg/ Thiamine HCl 100 mg/ Multivitamins/Vitamin C 10 ml/ Dextrose 1 ,011.2 mls @ 100 mls/hr IV DAILY [facility] [place] Last Admin: 11/30/16 10:45 Dose: 100 mls/hr Vancomycin HCl 1 gm/ Sodium (Chloride) 250 mls @ 166.7 mls/hr IVPB MWF [facility] [place] Last Admin: 11/28/16 11:55 Dose: 166.7 mls/hr Levetiracetam 750 mg/ Dextrose 107.5 mls @ 420 mls/hr IVPB Q12H [facility] [place] Last Admin: 11/30/16 10:43 Dose: 420 mls/hr Lorazepam (Ativan) 2 mg IVP Q4 PRN PRN Reason: Anxiety Last Admin: 11/30/16 10:44 Dose: 2 mg Metoprolol Tartrate (Lopressor) 2.5 mg IVP Q6H [facility] [place] Last Admin: 11/30/16 11:18 Dose: 2.5 mg - Labs Labs: 11/30/16 06:24 11/30/16 06:19 PT 11.4 SECONDS (9.7-12.2) 11/26/16 07:41 INR 1.0 11/26/16 07:41 APTT 30 SECONDS (21-34) 11/27/16 01:58
--- NOTE | 2016-11-30 16:15 | CP.PCM.PN ---
Subjective - Date & Time of Evaluation Date of Evaluation: 11/30/16 Time of Evaluation: 12:20 - Subjective Subjective: clinically same Objective - Vital Signs/Intake and Output Vital Signs (last 24 hours): Temp Pulse Resp BP Pulse Ox 98.6 F 89 20 141/98 H 96 11/30/16 15:05 11/30/16 15:05 11/30/16 15:05 11/30/16 13:13 11/30/16 15:05 Intake and Output: 11/30/16 11/30/16 06:59 18:59 Intake Total 820 1030 Output Total 1100 Balance 820 -70 - Medications Medications: Current Medications Aspirin (Aspirin Chewable) 81 mg PO DAILY [facility] Last Admin: 11/30/16 10:47 Dose: 81 mg Chlordiazepoxide (Librium) 10 mg PO Q8 [facility] Stop: 12/01/16 22:01 Last Admin: 11/30/16 13:36 Dose: 10 mg Famotidine (Pepcid) 20 mg IVP DAILY [facility] Last Admin: 11/30/16 10:44 Dose: 20 mg Heparin Sodium (Porcine) (Heparin) 5,000 units SC Q12 [facility] Last Admin: 11/30/16 10:44 Dose: 5,000 units Folic Acid 1 mg/ Thiamine HCl 100 mg/ Multivitamins/Vitamin C 10 ml/ Dextrose 1 ,011.2 mls @ 100 mls/hr IV DAILY [facility] [place] Last Admin: 11/30/16 10:45 Dose: 100 mls/hr Vancomycin HCl 1 gm/ Sodium (Chloride) 250 mls @ 166.7 mls/hr IVPB MWF [facility] Last Admin: 11/28/16 11:55 Dose: 166.7 mls/hr Levetiracetam 750 mg/ Dextrose 107.5 mls @ 420 mls/hr IVPB Q12H [facility] Last Admin: 11/30/16 10:43 Dose: 420 mls/hr Lorazepam (Ativan) 2 mg IVP Q4 PRN PRN Reason: Anxiety Last Admin: 11/30/16 16:08 Dose: 2 mg Metoprolol Tartrate (Lopressor) 2.5 mg IVP Q6H [facility] Last Admin: 11/30/16 11:18 Dose: 2.5 mg - Labs Labs: 11/30/16 06:24 11/30/16 06:19 PT 11.4 SECONDS (9.7-12.2) 11/26/16 07:41 INR 1.0 11/26/16 07:41 APTT 30 SECONDS (21-34) 11/27/16 01:58 - Constitutional Appears: Well - Head Exam Head Exam: ATRAUMATIC, NORMAL INSPECTION, NORMOCEPHALIC - Eye Exam Eye Exam: EOMI, Normal appearance, PERRL Pupil Exam: NORMAL ACCOMODATION, PERRL - ENT Exam ENT Exam: Mucous Membranes Moist, Normal Exam - Neck Exam Neck Exam: Full ROM, Normal Inspection. absent: Lymphadenopathy - Respiratory Exam Respiratory Exam: Decreased Breath Sounds - Cardiovascular Exam Cardiovascular Exam: REGULAR RHYTHM, +S1, +S2. absent: Murmur - GI/Abdominal Exam GI & Abdominal Exam: Diminished Bowel Sounds - Rectal Exam Rectal Exam: Deferred Assessment and Plan (1) Alcohol withdrawal seizure with complication Status: Acute (2) Drug abuse Status: Acute (3) Hepatitis C Status: Acute (4) Seizure Status: Acute (5) Status epilepticus Status: Acute (6) Alcohol abuse Status: Chronic (7) ESRD (end stage renal disease) on dialysis Status: Chronic (8) Liver transplant recipient Status: Chronic (9) Alcohol abuse Status: Acute (10) Alcohol abuse following liver transplant Status: Acute (11) Alcohol intoxication Status: Acute (12) Anemia Status: Acute (13) CHF (congestive heart failure) Status: Acute (14) CKD (chronic kidney disease) stage 5, GFR less than 15 ml/min Status: Acute (15) Encephalopathy Status: Acute (16) Gastritis Status: Acute (17) Hypotension Status: Acute (18) Hypotension Status: Acute (19) Leukopenia Status: Acute (20) Liver transplant disorder Status: Acute (21) Pancytopenia, acquired Status: Acute (22) Polysubstance (including opioids) dependence with physiol dependence Status: Acute (23) Renal failure, acute on chronic Status: Acute (24) Vomiting Status: Acute (25) ESRD (end stage renal disease) Status: Chronic
--- NOTE | 2016-11-30 16:48 | CP.PCM.PN ---
Subjective - Date & Time of Evaluation Date of Evaluation: 11/30/16 Time of Evaluation: 09:00 - Subjective Subjective: more alert confused nad Objective - Vital Signs/Intake and Output Vital Signs (last 24 hours): Temp Pulse Resp BP Pulse Ox 98.6 F 89 20 141/98 H 96 11/30/16 15:05 11/30/16 15:05 11/30/16 15:05 11/30/16 13:13 11/30/16 15:05 Intake and Output: 11/30/16 11/30/16 06:59 18:59 Intake Total 820 1030 Output Total 1100 Balance 820 -70 - Medications Medications: Current Medications Aspirin (Aspirin Chewable) 81 mg PO DAILY [facility] Last Admin: 11/30/16 10:47 Dose: 81 mg Chlordiazepoxide (Librium) 10 mg PO Q8 [facility] Stop: 12/01/16 22:01 Last Admin: 11/30/16 13:36 Dose: 10 mg Famotidine (Pepcid) 20 mg IVP DAILY [facility] Last Admin: 11/30/16 10:44 Dose: 20 mg Heparin Sodium (Porcine) (Heparin) 5,000 units SC Q12 [facility] Last Admin: 11/30/16 10:44 Dose: 5,000 units Folic Acid 1 mg/ Thiamine HCl 100 mg/ Multivitamins/Vitamin C 10 ml/ Dextrose 1 ,011.2 mls @ 100 mls/hr IV DAILY [facility] Last Admin: 11/30/16 10:45 Dose: 100 mls/hr Vancomycin HCl 1 gm/ Sodium (Chloride) 250 mls @ 166.7 mls/hr IVPB MWF [facility] Last Admin: 11/28/16 11:55 Dose: 166.7 mls/hr Levetiracetam 750 mg/ Dextrose 107.5 mls @ 420 mls/hr IVPB Q12H [facility] Last Admin: 11/30/16 10:43 Dose: 420 mls/hr Lorazepam (Ativan) 2 mg IVP Q4 PRN PRN Reason: Anxiety Last Admin: 11/30/16 16:08 Dose: 2 mg Metoprolol Tartrate (Lopressor) 2.5 mg IVP Q6H [facility] Last Admin: 11/30/16 11:18 Dose: 2.5 mg - Labs Labs: 11/30/16 06:24 11/30/16 06:19 PT 11.4 SECONDS (9.7-12.2) 11/26/16 07:41 INR 1.0 11/26/16 07:41 APTT 30 SECONDS (21-34) 11/27/16 01:58 - Constitutional Appears: Cachectic, Chronically Ill - Head Exam Head Exam: NORMOCEPHALIC - Eye Exam Eye Exam: PERRL - ENT Exam ENT Exam: Mucous Membranes Dry - Neck Exam Neck Exam: absent: Lymphadenopathy - Respiratory Exam Respiratory Exam: Decreased Breath Sounds, Rhonchi - Cardiovascular Exam Cardiovascular Exam: REGULAR RHYTHM - GI/Abdominal Exam GI & Abdominal Exam: Distended, Soft - Rectal Exam Rectal Exam: Deferred - Exam Exam: NORMAL INSPECTION - Extremities Exam Extremities Exam: Full ROM - Back Exam Back Exam: absent: CVA tenderness (L), CVA tenderness (R), paraspinal tenderness - Neurological Exam Neurological Exam: Alert, Awake, Oriented x3 Assessment and Plan (1) Alcohol abuse Status: Chronic (2) Alcohol withdrawal seizure with complication Status: Acute (3) Drug abuse Status: Acute (4) Hepatitis C Status: Acute (5) Seizure Status: Acute (6) Status epilepticus Status: Acute (7) ESRD (end stage renal disease) on dialysis Status: Chronic (8) Liver transplant recipient Status: Chronic (9) Encephalopathy Status: Acute (10) Hypotension Status: Acute (11) Liver transplant disorder Status: Acute (12) Polysubstance (including opioids) dependence with physiol dependence Status: Acute (13) Renal failure, acute on chronic Status: Acute (14) ESRD (end stage renal disease) Status: Chronic - Assessment and Plan (Free Text) Assessment: cont rx for sepsis ? endocarditis infected left arm fistula 6 weeks
--- NOTE | 2016-11-30 20:42 | CP.PCM.PN ---
Subjective - Date & Time of Evaluation Date of Evaluation: 11/30/16 Time of Evaluation: 09:20 - Subjective Subjective: Paatient seen and evaluated Comfortable Denies chest pain and dyspnea Objective - Vital Signs/Intake and Output Vital Signs (last 24 hours): Temp Pulse Resp BP Pulse Ox 98.6 F 98 H 20 153/97 H 96 11/30/16 15:05 11/30/16 18:00 11/30/16 18:00 11/30/16 18:00 11/30/16 15:05 Intake and Output: 11/30/16 12/01/16 18:59 06:59 Intake Total 1030 Output Total 1100 Balance -70 - Medications Medications: Current Medications Aspirin (Aspirin Chewable) 81 mg PO DAILY [facility] Last Admin: 11/30/16 10:47 Dose: 81 mg Chlordiazepoxide (Librium) 10 mg PO Q8 [facility] Stop: 12/01/16 22:01 Last Admin: 11/30/16 13:36 Dose: 10 mg Famotidine (Pepcid) 20 mg IVP DAILY [facility] Last Admin: 11/30/16 10:44 Dose: 20 mg Heparin Sodium (Porcine) (Heparin) 5,000 units SC Q12 [facility] Last Admin: 11/30/16 10:44 Dose: 5,000 units Folic Acid 1 mg/ Thiamine HCl 100 mg/ Multivitamins/Vitamin C 10 ml/ Dextrose 1 ,011.2 mls @ 100 mls/hr IV DAILY [facility] Last Admin: 11/30/16 10:45 Dose: 100 mls/hr Vancomycin HCl 1 gm/ Sodium (Chloride) 250 mls @ 166.7 mls/hr [facility] Last Admin: 11/28/16 11:55 Dose: 166.7 mls/hr Levetiracetam 750 mg/ Dextrose 107.5 mls @ 420 mls/hr IVPB Q12H [facility] Last Admin: 11/30/16 10:43 Dose: 420 mls/hr Cefazolin Sodium/Dextrose (Ancef Iv 2 Gm Duplex) 2 gm in 100 mls @ 100 mls/hr [facility] Lorazepam (Ativan) 2 mg IVP Q4 PRN PRN Reason: Anxiety Last Admin: 11/30/16 16:08 Dose: 2 mg Metoprolol Tartrate (Lopressor) 12.5 mg PO Q12H [facility] - Labs Labs: 08/27/17 06:24 11/30/16 06:19 PT 11.4 SECONDS (9.7-12.2) 11/26/16 07:41 INR 1.0 11/26/16 07:41 APTT 30 SECONDS (21-34) 11/27/16 01:58 - Head Exam Head Exam: ATRAUMATIC, NORMAL INSPECTION - Eye Exam Eye Exam: EOMI, PERRL Pupil Exam: NORMAL ACCOMODATION - ENT Exam ENT Exam: Mucous Membranes Moist - Neck Exam Neck Exam: Full ROM, Normal Inspection - Respiratory Exam Respiratory Exam: Clear to Ausculation Bilateral, NORMAL BREATHING PATTERN - Cardiovascular Exam Cardiovascular Exam: Irregular Rhythm, +S1, +S2 - Neurological Exam Neurological Exam: Alert, Awake - Psychiatric Exam Psychiatric exam: Normal Mood - Skin Skin Exam: Warm Assessment and Plan - Assessment and Plan (Free Text) Assessment: Patient s/p MARISELA Normal LV function Small Mass in Posterior Mitral leaflet (Mitral calcification Vs. Healed vegetation Vs. active endocarditis difficult to defferentiate) Clinical correlation recommended Assessment: 51M with PMH HTN, H/O of infective endocarditis, EtOH abuse, ESRD with dialysis (TTh[facility]), cirrhosis with liver transplant Plan: Afib with RVR: - Pt has a history of afib, on Metoprolol 25 mg PO daily for rate control, no anticoagulation listed in home meds. Will ask once she is here. - In ED, EKG shows HR 133, afib with RVR, LVH, prolonged QTc 580 ms. - UDS positive for cocaine and opiates. - trop elevated 0.185->0.3120, CKMB 3.7 - In ICU, pt switching to NSR, currently HR 70-80, afib. Likely paroxysmal afib. - Pt given heparin 5000 U IVx1, 4000 Ux1, in ED. started on heparin drip yesterday, but discontinued due to increased risk of brain bleed in this patient (per Dr. Pérez). Pt currently on heparin 5000 Units SQ q 8h for dvt ppx. - Will start on rate control Metoprolol 25 mg PO BID, hold for hR<60 and SBP< 100. Will hold anticoagulation due to risk for hemorrhagic conversion of CVA. Hx of HTN: - BP 150/103. - At home, on amlodipine 10 mg PO daily, nifedipine 60 mg PO daily and metoprolol 25 mg PO daily and Lasix 80 mg PO daily. - Will start Metoprolol 25 mg PO BID, Hold for SBP <100 and HR <60. Seizures likely 2/2 alcohol withdrawal vs sepsis? - Pt was on home Keppra for seizure ppx as pt had cranial emboli hx. Unsure if pt compliant with med. - Pt had 6 witnessed seizures at home, + generalized witnessed seizure in ED - Received Phosphenytoin and ativan 2 mg IVx2 in ED - received banana bag. - Currently on Keppra 500 mg IV q 12h. - Neuro on board - Dr Pérez. Will f/u EEG. - Infected left AV fistula, leukocytosis on admission, lactate 3.5, removed the cath this AM. cont to monitor, f/u blood and cath tip cultures and ID recs ESRD: - BUN/Cr 39/5.9 on admission. Received HD yesterday. improved Cr. Cont to monitor.
--- NOTE | 2016-12-01 09:44 | VASCLAB ---
PROCEDURE: Left Upper Extremity Venous Duplex Exam HISTORY: History of infected kristy, assess for fluid collection PRIORS: None. TECHNIQUE: Left upper extremity, internal jugular, subclavian, axillary, brachial, ulnar, radial, basilic and upper cephalic veins were evaluated. Flow was assessed with color Doppler, compressibility, assessment of phasic flow and augmentation response. Report prepared by KYLIE Leonard, RVT FINDINGS: LEFT: 1. Internal Jugular: 1.1. Compressibility - Fully compressible: Thrombus - None : Flow - Phasic: Augmentation -Normal: Reflux - None. 2. Subclavian: 2.1. Compressibility - Fully compressible: Thrombus - None : Flow - Phasic: Augmentation -Normal: Reflux - None. 3. Axillary: 3.1. Compressibility - Fully compressible: Thrombus - None : Flow - Phasic: Augmentation -Normal: Reflux - None. 4. Brachial: 4.1. Compressibility - Fully compressible: Thrombus - None: Flow - Phasic: Augmentation -Normal: Reflux - None. 5. Ulnar: 5.1. Compressibility - Fully compressible: Thrombus - None: Flow - Phasic: Augmentation -Normal: Reflux - None. 6. Radial: 6.1. Compressibility - Fully compressible: Thrombus - None: Flow - Phasic: Augmentation - Normal: Reflux - None. 7. Cephalic: 7.1. Compressibility - : Thrombus - : Flow - : Augmentation -: Reflux - . 8. Basilic: 8.1. Compressibility - Fully compressible: Thrombus - None: Flow - Phasic: Augmentation -Normal: Reflux - None. OTHER FINDINGS: Left: Non functional fistula shunt noted on left upper arm. IMPRESSION: Left: No evidence of vein thrombosis of the left upper extremity with excellent venous flow. Normal valve function noted of the left side. Normal venous flow noted in the right internal jugular and right subclavian veins.
--- NOTE | 2016-12-01 09:44 | VASCLAB ---
PROCEDURE: HISTORY: Altered mental status COMPARISON: None available. TECHNIQUE: Grayscale and duplex Doppler evaluation of the cervical carotid and vertebral arteries were performed. The common carotid, carotid bifurcations and cervical Internal Carotid Artery (ICA) and proximal External Carotid Artery (ECA) were evaluated. The vertebral arteries were evaluated for gross patency and flow direction. Report prepared by Nirmal Taylor, BS, RVT FINDINGS: RIGHT CAROTID ARTERIES: 1. Common Carotid Artery: No significant focal plaque formation of the right common carotid artery. Maximum Peak Systolic velocity: 53 cm/sec: End-diastolic velocity 15 cm/sec. 2. Carotid Bifurcation: plaque formation. Maximum Peak Systolic velocity: 35 cm/sec: End-diastolic velocity 9 cm/sec. 3. Internal Carotid Artery: Plaque description: 3.1. Proximal Segment: Peak systolic velocity 37 cm/sec: End-diastolic velocity 15 cm/sec - % stenosis 0-15% 3.2. Middle Segment: Peak systolic velocity 55 cm/sec: End-diastolic velocity 23 cm/sec - % stenosis 0-15% 3.3. Distal Segment: Peak systolic velocity 55 cm/sec: End-diastolic velocity 21 cm/sec - % stenosis 0-15% 4. External Carotid Artery: No significant focal plaque formation. Peak systolic velocity 67 cm/sec 5. ICA/CCA Ratio: 1.0 LEFT CAROTID ARTERIES: 1. Common Carotid Artery: No significant focal plaque formation of the left common carotid artery. Maximum Peak Systolic velocity: 53 cm/sec: End-diastolic velocity 13 cm/sec. 2. Carotid Bifurcation: plaque formation. Maximum Peak Systolic velocity: 30 cm/sec: End-diastolic velocity 10 cm/sec. 3. Internal Carotid Artery: Plaque description: 3.1. Proximal Segment: Peak systolic velocity 41 cm/sec: End-diastolic velocity 18 cm/sec - % stenosis 0-15% 3.2. Middle Segment: Peak systolic velocity 43 cm/sec: End-diastolic velocity 18 cm/sec - % stenosis 0-15% 3.3. Distal Segment: Peak systolic velocity 36 cm/sec: End-diastolic velocity 14 cm/sec - % stenosis 0-15% 4. External Carotid Artery: No significant focal plaque formation. Peak systolic velocity 57 cm/sec 5. ICA/CCA Ratio: 0.8 VERTEBRAL ARTERIES: 1. Right Vertebral Artery: The right vertebral artery flow direction is antegrade. 2. Left Vertebral Artery: The left vertebral artery flow direction is antegrade. OTHER FINDINGS: 1. Right Brachial Blood pressure: mmHg. 2. Left Brachial Blood pressure: mmHg. IMPRESSION: RIGHT: Duplex scan does not suggest hemodynamically significant stenosis of the right extracranial carotid arteries. LEFT: Duplex scan does not suggest hemodynamically significant stenosis of the left extracranial carotid arteries.
[2016-12-01 10:47] LABS: POTASSIUM 3.6 mmol/L (3.6-5.2)
[2016-12-01 10:50] LABS: CALCIUM 8.7 mg/dl (8.6-10.4)
--- NOTE | 2016-12-01 11:23 | CP.PCM.PN ---
Subjective - Date & Time of Evaluation Date of Evaluation: 12/01/16 Time of Evaluation: 11:19 - Subjective Subjective: Seen at dialysis to UF 1700ml arousable- confused HTN remains elevated dialysis via cath not problematic Objective - Vital Signs/Intake and Output Vital Signs (last 24 hours): Temp Pulse Resp BP Pulse Ox 97.8 F 103 H 18 146/105 H 96 12/01/16 07:00 12/01/16 10:55 12/01/16 07:00 12/01/16 10:55 12/01/16 07:00 Intake and Output: 12/01/16 12/01/16 06:59 18:59 Intake Total 1740 Output Total 1250 Balance 490 - Medications Medications: Current Medications Amlodipine Besylate (Norvasc) 5 mg PO DAILY [facility] Aspirin (Aspirin Chewable) 81 mg PO DAILY [facility] Last Admin: 11/30/16 10:47 Dose: 81 mg Chlordiazepoxide (Librium) 10 mg PO Q8 [facility] Stop: 12/01/16 22:01 Last Admin: 12/01/16 05:44 Dose: 10 mg Famotidine (Pepcid) 20 mg IVP DAILY [facility] Last Admin: 11/30/16 10:44 Dose: 20 mg Heparin Sodium (Porcine) (Heparin) 5,000 units SC Q12 [facility] Last Admin: 11/30/16 22:21 Dose: 5,000 units Folic Acid 1 mg/ Thiamine HCl 100 mg/ Multivitamins/Vitamin C 10 ml/ Dextrose 1 ,011.2 mls @ 100 mls/hr IV DAILY [facility] Last Admin: 11/30/16 10:45 Dose: 100 mls/hr Vancomycin HCl 1 gm/ Sodium (Chloride) 250 mls @ 166.7 mls/hr IVPB MWF [facility] Last Admin: 12/01/16 10:41 Dose: 166.7 mls/hr Cefazolin Sodium/Dextrose (Ancef Iv 2 Gm Duplex) 2 gm in 100 mls @ 100 mls/hr IVPB MWF [facility] Levetiracetam (Keppra) 750 mg PO Q12 [facility] Lorazepam (Ativan) 2 mg IVP Q4 PRN PRN Reason: Anxiety Last Admin: 12/01/16 07:54 Dose: 2 mg Metoprolol Tartrate (Lopressor) 12.5 mg PO Q12H [facility] Last Admin: 11/30/16 22:24 Dose: 12.5 mg - Labs Labs: 11/30/16 06:24 12/01/16 10:09 PT 11.4 SECONDS (9.7-12.2) 11/26/16 07:41 INR 1.0 11/26/16 07:41 APTT 30 SECONDS (21-34) 11/27/16 01:58 - Constitutional Appears: Confused, Chronically Ill - Head Exam Head Exam: ATRAUMATIC, NORMAL INSPECTION - Eye Exam Eye Exam: EOMI, Normal appearance - Neck Exam Neck Exam: Normal Inspection. absent: Tenderness - Respiratory Exam Respiratory Exam: Clear to Ausculation Bilateral, NORMAL BREATHING PATTERN - Cardiovascular Exam Cardiovascular Exam: REGULAR RHYTHM, +S1 - GI/Abdominal Exam GI & Abdominal Exam: Soft. absent: Tenderness - Extremities Exam Extremities Exam: Normal Inspection. absent: Tenderness - Neurological Exam Neurological Exam: Altered, Motor Sensory Deficit - Skin Skin Exam: Dry, Warm Assessment and Plan (1) Alcohol withdrawal seizure with complication Status: Acute (2) Hepatitis C Status: Acute (3) Status epilepticus Status: Acute (4) Alcohol abuse Status: Chronic (5) ESRD (end stage renal disease) on dialysis Status: Chronic (6) Liver transplant recipient Status: Chronic - Assessment and Plan (Free Text) Plan: Dialysis MWF with moderate UF Add BP meds Would recommend av access evaluation Monltor mental status- will need rehab
[2016-12-01] MEDS: ceFAZolin IV 2 gm in Dextrose 2 GM/100 ML BAG IVPB SCH (12:13)
[2016-12-01] MEDS: levETIRAcetam 100 mg/ml (5ml) Oral Syringe PO SCH ×2 (13:41→22:33)
[2016-12-01] MEDS: Folic Acid 1 MG, Thiamine 100 MG, Multivitamin (MVI) 10 ML in Dextrose 5% In Water 1,00... IV SCH (13:45)
--- NOTE | 2016-12-01 14:21 | CP.PCM.PN ---
Subjective - Date & Time of Evaluation Date of Evaluation: 12/01/16 Time of Evaluation: 14:21 Objective - Vital Signs/Intake and Output Vital Signs (last 24 hours): Temp Pulse Resp BP Pulse Ox 98.2 F 100 H 20 126/85 98 12/01/16 13:38 12/01/16 14:08 12/01/16 13:38 12/01/16 14:08 12/01/16 13:38 Intake and Output: 12/01/16 12/01/16 06:59 18:59 Intake Total 1740 Output Total 1250 Balance 490 - Medications Medications: Current Medications Amlodipine Besylate (Norvasc) 5 mg PO DAILY [facility] Aspirin (Aspirin Chewable) 81 mg PO DAILY [facility] Last Admin: 12/01/16 13:40 Dose: 81 mg Chlordiazepoxide (Librium) 10 mg PO Q8 [facility] Stop: 12/01/16 22:01 Last Admin: 12/01/16 05:44 Dose: 10 mg Famotidine (Pepcid) 20 mg IVP DAILY [facility] Last Admin: 12/01/16 13:40 Dose: 20 mg Heparin Sodium (Porcine) (Heparin) 5,000 units SC Q12 [facility] Last Admin: 12/01/16 11:00 Dose: Not Given Folic Acid 1 mg/ Thiamine HCl 100 mg/ Multivitamins/Vitamin C 10 ml/ Dextrose 1 ,011.2 mls @ 100 mls/hr IV DAILY [facility] Last Admin: 12/01/16 13:45 Dose: 100 mls/hr Vancomycin HCl 1 gm/ Sodium (Chloride) 250 mls @ 166.7 mls/hr IVPB [facility] Last Admin: 12/01/16 10:41 Dose: 166.7 mls/hr Cefazolin Sodium/Dextrose (Ancef Iv 2 Gm Duplex) 2 gm in 100 mls @ 100 mls/hr IVPB [facility] Last Admin: 12/01/16 12:13 Dose: 100 mls/hr Levetiracetam (Keppra) 750 mg PO Q12 [facility] Last Admin: 12/01/16 13:41 Dose: 750 mg Lorazepam (Ativan) 2 mg IVP Q4 PRN PRN Reason: Anxiety Last Admin: 12/01/16 14:09 Dose: 2 mg Metoprolol Tartrate (Lopressor) 12.5 mg PO Q12H [facility] Last Admin: 12/01/16 12:40 Dose: 12.5 mg - Labs Labs: 11/30/16 06:24 12/01/16 10:09 PT 11.4 SECONDS (9.7-12.2) 11/26/16 07:41 INR 1.0 11/26/16 07:41 APTT 30 SECONDS (21-34) 11/27/16 01:58
[2016-12-01 14:57] LABS: HEPATITIS C VIRAL RNA QUAL Detected
--- NOTE | 2016-12-01 17:48 | MRI ---
PROCEDURE: MRI BRAIN WITHOUT CONTRAST HISTORY: Left MCA territory infarct. COMPARISON: None. TECHNIQUE: Multiplanar, multisequence MR images of the brain were obtained without intravenous contrast enhancement. FINDINGS: HEMORRHAGE: Current study reveals large elliptical shaped area of hemosiderin deposition along the medial aspect left temporal lobe extending superiorly into the left basal ganglia more so along the lateral margin consistent with old basal ganglia hemorrhage possibly related to a hypertensive hemorrhage however clinical correlation recommended there are multiple. In addition, there are the numerous hemosiderin deposits scattered throughout both cerebral and cerebellar hemispheres as well as both basal ganglia ; the largest of these located in the right posterior superior parietal cortical and subcortical white matter near the vertex measuring 6.4 cm. Clinical correlation recommended. DWI: No no evidence of acute infarct seen on diffusion weighted imaging. BRAIN PARENCHYMA: Chronic ischemic changes involving the left delivery rib that temporal and left occipital lobes. . In addition, moderate diffuse/ confluent chronic white matter ischemic changes seen extending peripherally into the deep and subcortical white matter both cerebral hemispheres. Multiple more discrete chronic appearing lacunar type infarcts scattered about the deep and subcortical white matter as well as basal ganglia and brainstem. Moderate significant generalized volume loss. VENTRICLES: No obstructive hydrocephalus CRANIUM: Calvarium appears grossly unremarkable. . ORBITS: The orbits and contents grossly unremarkable. PARANASAL SINUSES/MASTOIDS: The paranasal sinuses are clear. There appears to be partial opacification both inferior mastoid air complexes. VASCULAR SYSTEM: Visualized major vascular flow voids at skull base are patent. . OTHER FINDINGS: None. IMPRESSION: There is evidence of large somewhat area of hemosiderin deposition involving the left medial temporal lobe extending superiorly into the left basal ganglia. Multiple (too numerous to count) rounded hemosiderin deposits are seen scattered about both cerebral and cerebellar hemispheres as well as both basal nuclei consistent with sequela of old micro hemorrhages. Clinical correlation recommended. Old infarct left temporal occipital watershed zone moderate diffuse/ confluent white matter basal nuclei and brainstem ischemic changes.
--- NOTE | 2016-12-01 18:57 | CP.PCM.PN ---
Subjective - Date & Time of Evaluation Date of Evaluation: 12/01/16 Time of Evaluation: 11:40 - Subjective Subjective: clinically same Objective - Vital Signs/Intake and Output Vital Signs (last 24 hours): Temp Pulse Resp BP Pulse Ox 97.7 F 93 H 18 153/90 H 99 12/01/16 15:25 12/01/16 15:25 12/01/16 15:25 12/01/16 15:25 12/01/16 15:25 Intake and Output: 12/01/16 12/01/16 06:59 18:59 Intake Total 1740 400 Output Total 1250 Balance 490 400 - Medications Medications: Current Medications Amlodipine Besylate (Norvasc) 5 mg PO DAILY [facility] Aspirin (Aspirin Chewable) 81 mg PO DAILY [facility] Last Admin: 12/01/16 13:40 Dose: 81 mg Chlordiazepoxide (Librium) 10 mg PO Q8 [facility] Stop: 12/01/16 22:01 Last Admin: 12/01/16 15:27 Dose: 10 mg Famotidine (Pepcid) 20 mg IVP DAILY [facility] Last Admin: 12/01/16 13:40 Dose: 20 mg Heparin Sodium (Porcine) (Heparin) 5,000 units SC Q12 [facility] Last Admin: 12/01/16 11:00 Dose: Not Given Folic Acid 1 mg/ Thiamine HCl 100 mg/ Multivitamins/Vitamin C 10 ml/ Dextrose 1 ,011.2 mls @ 100 mls/hr IV DAILY [facility] Last Admin: 12/01/16 13:45 Dose: 100 mls/hr Vancomycin HCl 1 gm/ Sodium (Chloride) 250 mls @ 166.7 mls/hr IVPB [facility] Last Admin: 12/01/16 10:41 Dose: 166.7 mls/hr Cefazolin Sodium/Dextrose (Ancef Iv 2 Gm Duplex) 2 gm in 100 mls @ 100 mls/hr IVPB [facility] Last Admin: 12/01/16 12:13 Dose: 100 mls/hr Levetiracetam (Keppra) 750 mg PO Q12 [facility] Last Admin: 12/01/16 13:41 Dose: 750 mg Lorazepam (Ativan) 2 mg IVP Q4 PRN PRN Reason: Anxiety Last Admin: 12/01/16 14:09 Dose: 2 mg Metoprolol Tartrate (Lopressor) 12.5 mg PO Q12H [facility] Last Admin: 12/01/16 12:40 Dose: 12.5 mg - Labs Labs: 11/30/16 06:24 12/01/16 10:09 PT 11.4 SECONDS (9.7-12.2) 11/26/16 07:41 INR 1.0 11/26/16 07:41 APTT 30 SECONDS (21-34) 11/27/16 01:58 - Constitutional Appears: Well - Head Exam Head Exam: ATRAUMATIC, NORMAL INSPECTION, NORMOCEPHALIC - Eye Exam Eye Exam: EOMI, Normal appearance, PERRL Pupil Exam: NORMAL ACCOMODATION, PERRL - ENT Exam ENT Exam: Mucous Membranes Moist, Normal Exam - Neck Exam Neck Exam: Full ROM, Normal Inspection - Respiratory Exam Respiratory Exam: Decreased Breath Sounds - Cardiovascular Exam Cardiovascular Exam: REGULAR RHYTHM, +S1, +S2 - GI/Abdominal Exam GI & Abdominal Exam: Soft, Diminished Bowel Sounds - Rectal Exam Rectal Exam: Deferred Assessment and Plan (1) Alcohol withdrawal seizure with complication Status: Acute (2) Drug abuse Status: Acute (3) Hepatitis C Status: Acute (4) Seizure Status: Acute (5) Status epilepticus Status: Acute (6) Alcohol abuse Status: Chronic (7) ESRD (end stage renal disease) on dialysis Status: Chronic (8) Liver transplant recipient Status: Chronic (9) Alcohol abuse Status: Acute (10) Alcohol abuse following liver transplant Status: Acute (11) Alcohol intoxication Status: Acute (12) Anemia Status: Acute (13) CHF (congestive heart failure) Status: Acute (14) CKD (chronic kidney disease) stage 5, GFR less than 15 ml/min Status: Acute (15) Encephalopathy Status: Acute (16) Gastritis Status: Acute (17) Hypotension Status: Acute (18) Hypotension Status: Acute (19) Leukopenia Status: Acute (20) Liver transplant disorder Status: Acute (21) Pancytopenia, acquired Status: Acute (22) Polysubstance (including opioids) dependence with physiol dependence Status: Acute (23) Renal failure, acute on chronic Status: Acute (24) Vomiting Status: Acute (25) ESRD (end stage renal disease) Status: Chronic
--- NOTE | 2016-12-01 22:54 | PN ---
DATE: 12/01/2016 NEUROLOGICAL PROBLEM: Polysubstance use, presenting with seizures, respiratory failure, subacute bacterial endocarditis with vegetation. The patient is more awake, alert, still mentation is not normal for his age. No clinical seizures have been observed or witnessed. The patient moves all 4 extremities. Continue Keppra in oral form. 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 The patient will be followed closely with you. Pravin Pérez MD
--- NOTE | 2016-12-02 09:38 | CT ---
PROCEDURE: CT HEAD WITHOUT CONTRAST. HISTORY: rule out new bleed COMPARISON: Comparison is made to the previous study dated 11/27/2016 TECHNIQUE: Axial computed tomography images were obtained through the head/brain without intravenous contrast. Radiation dose: Total exam DLP = 1104.57 mGy-cm. This CT exam was performed using one or more of the following dose reduction techniques: Automated exposure control, adjustment of the mA and/or kV according to patient size, and/or use of iterative reconstruction technique. FINDINGS: HEMORRHAGE: No intracranial hemorrhage. BRAIN: Re- demonstration of focal area of hypodensity at the left posterior parietal occipital region which has not significantly changed since the previous exam. Mild atrophy and [id number] chronic microvascular white matter ischemic disease are again seen. Again seen is focal hypodensity at the right lentiform nucleus suggestive of old lacunar infarction. Again seen is linear/tubular shaped hypodensity at the medial aspect of the left temporal lobe extending to left basal ganglia suggestive of old infarct or hemorrhagic infarction. VENTRICLES: Unremarkable. No hydrocephalus. CALVARIUM: Unremarkable. PARANASAL SINUSES: Unremarkable as visualized. No significant inflammatory changes. MASTOID AIR CELLS: Unremarkable as visualized. No inflammatory changes. OTHER FINDINGS: None. IMPRESSION: No evidence of acute intracranial hemorrhage. No significant interval change when compared to the previous CT and MRI. Re- demonstration of hypodensity at the left parietal occipital lobe. Re- demonstration of foci of hypodensity at the right lentiform nucleus and left temporal lobe and basal ganglia. Atrophy and chronic microvascular white matter ischemic disease.
[2016-12-02] MEDS: Folic Acid 1 MG, Thiamine 100 MG, Multivitamin (MVI) 10 ML in Dextrose 5% In Water 1,00... IV SCH (10:40)
[2016-12-02] MEDS: levETIRAcetam 100 mg/ml (5ml) Oral Syringe PO SCH ×2 (10:41→21:35)
--- NOTE | 2016-12-02 12:13 | CP.PCM.PN ---
Subjective - Date & Time of Evaluation Date of Evaluation: 12/02/16 Time of Evaluation: 12:12 - Subjective Subjective: seen and examined eating lunch denies any nausea vomiting diarrhea hd yesterday. rt chest permcath LUE avf w/ scab, erythema Objective - Vital Signs/Intake and Output Vital Signs (last 24 hours): Temp Pulse Resp BP Pulse Ox 97.9 F 85 18 137/88 98 12/02/16 08:19 12/02/16 10:40 12/02/16 08:19 12/02/16 10:40 12/02/16 08:19 Intake and Output: 12/02/16 12/02/16 06:59 18:59 Intake Total 200 Output Total 700 Balance -500 - Medications Medications: Current Medications Amlodipine Besylate (Norvasc) 5 mg PO DAILY [facility] Last Admin: 12/02/16 10:41 Dose: 5 mg Aspirin (Aspirin Chewable) 81 mg PO DAILY [facility] Last Admin: 12/02/16 10:41 Dose: 81 mg Famotidine (Pepcid) 20 mg IVP DAILY [facility] Last Admin: 12/02/16 10:41 Dose: 20 mg Heparin Sodium (Porcine) (Heparin) 5,000 units SC Q12 [facility] Last Admin: 12/02/16 10:41 Dose: 5,000 units Vancomycin HCl 1 gm/ Sodium (Chloride) 250 mls @ 166.7 mls/hr [facility] Last Admin: 12/01/16 10:41 Dose: 166.7 mls/hr Cefazolin Sodium/Dextrose (Ancef Iv 2 Gm Duplex) 2 gm in 100 mls @ 100 mls/hr [place]PB [facility] [place] Last Admin: 12/01/16 12:13 Dose: 100 mls/hr Levetiracetam (Keppra) 750 mg PO Q12 [facility] Last Admin: 12/02/16 10:41 Dose: 750 mg Lorazepam (Ativan) 2 mg IVP Q4 PRN PRN Reason: Anxiety Last Admin: 12/02/16 10:39 Dose: 2 mg Metoprolol Tartrate (Lopressor) 12.5 mg PO Q12H [facility] Last Admin: 12/02/16 10:41 Dose: 12.5 mg Prednisone (Prednisone Tab) 20 mg PO DAILY [facility] Thiamine HCl (Vitamin B1 Tab) 100 mg PO DAILY [facility] - Labs Labs: 11/30/16 06:24 12/01/16 10:09 PT 11.4 SECONDS (9.7-12.2) 11/26/16 07:41 INR 1.0 11/26/16 07:41 APTT 30 SECONDS (21-34) 11/27/16 01:58 - Constitutional Appears: Non-toxic, No Acute Distress, Older Than Stated Age, Cachectic, Chronically Ill - Head Exam Head Exam: NORMAL INSPECTION - Eye Exam Eye Exam: Normal appearance Pupil Exam: PERRL - ENT Exam ENT Exam: Mucous Membranes Moist, Normal Exam - Neck Exam Neck Exam: Normal Inspection - Respiratory Exam Respiratory Exam: Decreased Breath Sounds, NORMAL BREATHING PATTERN - Cardiovascular Exam Cardiovascular Exam: REGULAR RHYTHM, RRR - GI/Abdominal Exam GI & Abdominal Exam: Distended, Soft - Extremities Exam Extremities Exam: Normal Inspection Additional comments: rt chest permcath Assessment and Plan (1) Alcohol abuse Status: Chronic (2) Alcohol withdrawal seizure with complication Status: Acute (3) Hepatitis C Status: Acute (4) Status epilepticus Status: Acute (5) ESRD (end stage renal disease) on dialysis Status: Chronic (6) Liver transplant recipient Status: Chronic - Assessment and Plan (Free Text) Assessment: bp acceptable maintain hd [facility]
--- NOTE | 2016-12-02 13:09 | PN ---
NEUROLOGICAL PROBLEM: Polysubstance abuse with recurrent seizures. The patient had subacute bacterial endocarditis with vegetation. PHYSICAL EXAMINATION: VITAL SIGNS: Blood pressure 142/83, respiratory rate 18, temperature 98.3, pulse rate 92 regular. NEUROLOGIC: The patient is arousable on calling his name. Speech is one word answer. He follows one step command. Rest of the examination is unchanged. DIAGNOSTIC DATA: The patient's MRI has been reviewed; showed old hemorrhagic changes in the left temporoparietal region as well as deep basal ganglia region of microbleed. RECOMMENDATION: The patient scheduled to have CT of the head without contrast, which to be done today. To make sure it is not active bleeding. If it is, the patient should be discontinued heparin as well as aspirin that I will decide after reviewing the CAT scan. Continue Keppra 750 mg twice a day. The patient definitely needs social service evaluation for detoxification. Pravin Pérez MD MTDD
--- NOTE | 2016-12-02 15:29 | CP.PCM.CON ---
History of Present Illness - History of Present Illness History of Present Illness: Patient is a 51 year old male with past medical history of ESRD w/dialysis, alcohol abuse, HTN, cirrhosis, liver transplant, infectious endocarditis (x2), is consulted for an occluded and infected left AV fistula. Patient is currently dialyzed via permacath. Patient was initially admitted for seizures. Patient currently has no complaints. Patient denies chest pain, abdominal pain, leg pain , fevers, headaches, n/v/d. PMHx: alcohol abuse, HTN, ESRD w/dialysis, cirrhosis with liver transplant, infectious endocarditis (x2), hepatitis C SurgHx: liver transplant 2010; tracheostomy; eye surgery to remove tumor SocHx: 1/2 ppd for 20+ years; heavy etoh use; former IV drug user-heroin. Allergies: NKDA Medications: see EMR Review of Systems - Constitutional Constitutional: absent: Fever - EENT Ears: absent: Dizziness - Cardiovascular Cardiovascular: absent: Chest Pain, Dyspnea - Respiratory Respiratory: absent: Dyspnea - Gastrointestinal Gastrointestinal: absent: Abdominal Pain, Constipation, Diarrhea, Nausea, Vomiting - Neurological Neurological: absent: Dizziness, Headaches Past Patient History - Infectious Disease Hx of Infectious Diseases: None - Past Medical History & Family History Past Medical History?: Yes - Past Social History Smoking Status: Heavy Smoker > 10 Cigarettes Daily - CARDIAC Hx Hypertension: Yes - PULMONARY Hx Pneumonia: Yes - NEUROLOGICAL Hx Neurological Disorder: Yes Hx Seizures: Yes Other/Comment: 'BRAIN INJURY ' - HEENT Hx HEENT Problems: No - RENAL Hx Chronic Kidney Disease: Yes - ENDOCRINE/METABOLIC Hx Diabetes Mellitus Type 2: Yes - HEMATOLOGICAL/ONCOLOGICAL Hx Blood Disorders: Yes Hx Cancer: Yes (EYE CANCER) Hx Hepatitis C: Yes Other/Comment: Liver transplant. 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 - ANESTHESIA Hx Anesthesia: Yes Hx Anesthesia Reactions: No Meds Allergies/Adverse Reactions: Allergies Allergy/AdvReac Type Severity Reaction Status Date / Time No Known Allergies Allergy Verified 11/04/16 20:20 - Medications Medications: Current Medications Amlodipine Besylate (Norvasc) 5 mg PO DAILY [facility] Last Admin: 12/02/16 10:41 Dose: 5 mg Aspirin (Aspirin Chewable) 81 mg PO DAILY [facility] Last Admin: 12/02/16 10:41 Dose: 81 mg Famotidine (Pepcid) 20 mg IVP DAILY [facility] Last Admin: 12/02/16 10:41 Dose: 20 mg Heparin Sodium (Porcine) (Heparin) 5,000 units SC Q12 [facility] Last Admin: 12/02/16 10:41 Dose: 5,000 units Vancomycin HCl 1 gm/ Sodium (Chloride) 250 mls @ 166.7 mls/hr IVPB MWF [facility] Last Admin: 12/01/16 10:41 Dose: 166.7 mls/hr Cefazolin Sodium/Dextrose (Ancef Iv 2 Gm Duplex) 2 gm in 100 mls @ 100 [facility]ls[facility] Last Admin: 12/01/16 12:13 Dose: 100 mls/hr Levetiracetam (Keppra) 750 mg PO Q12 [facility] Last Admin: 12/02/16 10:41 Dose: 750 mg Lorazepam (Ativan) 2 mg IVP Q4 PRN PRN Reason: Anxiety Last Admin: 12/02/16 10:39 Dose: 2 mg Metoprolol Tartrate (Lopressor) 12.5 mg PO Q12H [facility] Last Admin: 12/02/16 10:41 Dose: 12.5 mg Prednisone (Prednisone Tab) 20 mg PO DAILY [facility] Last Admin: 12/02/16 12:43 Dose: 20 mg Thiamine HCl (Vitamin B1 Tab) 100 mg PO DAILY [facility] Last Admin: 12/02/16 12:43 Dose: 100 mg Physical Exam - Head Exam Head Exam: ATRAUMATIC, NORMAL INSPECTION - Eye Exam Eye Exam: EOMI - ENT Exam ENT Exam: Mucous Membranes Moist - Respiratory Exam Respiratory Exam: Clear to Auscultation Bilateral, NORMAL BREATHING PATTERN. absent: Rales, Rhonchi, Wheezes - Cardiovascular Exam Cardiovascular Exam: REGULAR RHYTHM, +S1, +S2. absent: Bradycardia, Tachycardia - GI/Abdominal Exam GI & Abdominal Exam: Normal Bowel Sounds, Soft. absent: Distended, Firm, Guarding - Extremities Exam Extremities exam: Positive for: normal inspection. Negative for: calf tenderness, pedal edema, tenderness - Neurological Exam Neurological exam: Alert, Oriented x3 - Psychiatric Exam Psychiatric exam: Normal Affect, Normal Mood - Skin Skin Exam: Dry, Intact, Normal Color, Warm Additional comments: Left AV fistula- dry, no erythema, no discharge. Results - Vital Signs Recent Vital Signs: Last Vital Signs Temp 97.9 F 12/02/16 08:19 Pulse 85 12/02/16 10:40 Resp 18 12/02/16 08:19 BP 137/88 12/02/16 10:40 Pulse Ox 98 12/02/16 08:19 - Labs Result Diagrams: 11/30/16 06:24 12/01/16 10:09 Assessment & Plan (1) AV fistula Status: Acute - Assessment and Plan (Free Text) Assessment: 51 year old male with history of alcohol abuse, HTN, ESRD w/dialysis, cirrhosis with liver transplant, infectious endocarditis (x2), occluded infected left AV fistula, is consulted for an AV fistula. - Tentatively plan for AV fistula - F/U vascular studies - Continue medical management as per hospitalist
--- NOTE | 2016-12-02 15:35 | CP.PCM.PN ---
Subjective - Date & Time of Evaluation Date of Evaluation: 12/02/16 Time of Evaluation: 15:35 Objective - Vital Signs/Intake and Output Vital Signs (last 24 hours): Temp Pulse Resp BP Pulse Ox 97.9 F 85 18 137/88 98 12/02/16 08:19 12/02/16 10:40 12/02/16 08:19 12/02/16 10:40 12/02/16 08:19 Intake and Output: 12/02/16 12/02/16 06:59 18:59 Intake Total 200 600 Output Total 700 1 Balance -500 599 - Medications Medications: Current Medications Amlodipine Besylate (Norvasc) 5 mg PO DAILY [facility] Last Admin: 12/02/16 10:41 Dose: 5 mg Aspirin (Aspirin Chewable) 81 mg PO DAILY [facility] Last Admin: 12/02/16 10:41 Dose: 81 mg Famotidine (Pepcid) 20 mg IVP DAILY [facility] Last Admin: 12/02/16 10:41 Dose: 20 mg Heparin Sodium (Porcine) (Heparin) 5,000 units SC Q12 [facility] Last Admin: 12/02/16 10:41 Dose: 5,000 units Vancomycin HCl 1 gm/ Sodium (Chloride) 250 mls @ 166.7 mls/hr IVPB MWF [facility] Last Admin: 12/01/16 10:41 Dose: 166.7 mls/hr Cefazolin Sodium/Dextrose (Ancef Iv 2 Gm Duplex) 2 gm in 100 mls @ 100 mls/hr IVPB F [facility] Last Admin: 12/01/16 12:13 Dose: 100 mls/hr Levetiracetam (Keppra) 750 mg PO Q12 [facility] Last Admin: 12/02/16 10:41 Dose: 750 mg Lorazepam (Ativan) 2 mg IVP Q4 PRN PRN Reason: Anxiety Last Admin: 12/02/16 10:39 Dose: 2 mg Metoprolol Tartrate (Lopressor) 12.5 mg PO Q12H [facility] Last Admin: 12/02/16 10:41 Dose: 12.5 mg Prednisone (Prednisone Tab) 20 mg PO DAILY [facility] Last Admin: 12/02/16 12:43 Dose: 20 mg Thiamine HCl (Vitamin B1 Tab) 100 mg PO DAILY [facility] Last Admin: 12/02/16 12:43 Dose: 100 mg - Labs Labs: 11/30/16 06:24 12/01/16 10:09 PT 11.4 SECONDS (9.7-12.2) 11/26/16 07:41 INR 1.0 11/26/16 07:41 APTT 30 SECONDS (21-34) 11/27/16 01:58
--- NOTE | 2016-12-02 16:06 | CP.PCM.PN ---
Subjective - Date & Time of Evaluation Date of Evaluation: 12/02/16 Time of Evaluation: 11:40 - Subjective Subjective: clinically same Objective - Vital Signs/Intake and Output Vital Signs (last 24 hours): Temp Pulse Resp BP Pulse Ox 97.9 F 85 18 137/88 98 12/02/16 08:19 12/02/16 10:40 12/02/16 08:19 12/02/16 10:40 12/02/16 08:19 Intake and Output: 12/02/16 12/02/16 06:59 18:59 Intake Total 200 600 Output Total 700 1 Balance -500 599 - Medications Medications: Current Medications Amlodipine Besylate (Norvasc) 5 mg PO DAILY [facility] Last Admin: 12/02/16 10:41 Dose: 5 mg Aspirin (Aspirin Chewable) 81 mg PO DAILY [facility] Last Admin: 12/02/16 10:41 Dose: 81 mg Famotidine (Pepcid) 20 mg IVP DAILY [facility] Last Admin: 12/02/16 10:41 Dose: 20 mg Heparin Sodium (Porcine) (Heparin) 5,000 units SC Q12 [facility] Last Admin: 12/02/16 10:41 Dose: 5,000 units Vancomycin HCl 1 gm/ Sodium (Chloride) 250 mls @ 166.7 mls/hr [place]PB [facility] [place] Last Admin: 12/01/16 10:41 Dose: 166.7 mls/hr Cefazolin Sodium/Dextrose (Ancef Iv 2 Gm Duplex) 2 gm in 100 mls @ 100 mls/hr IVPB F [facility] Last Admin: 12/01/16 12:13 Dose: 100 mls/hr Levetiracetam (Keppra) 750 mg PO Q12 [facility] Last Admin: 12/02/16 10:41 Dose: 750 mg Lorazepam (Ativan) 2 mg IVP Q4 PRN PRN Reason: Anxiety Last Admin: 12/02/16 10:39 Dose: 2 mg Metoprolol Tartrate (Lopressor) 12.5 mg PO Q12H [facility] Last Admin: 12/02/16 10:41 Dose: 12.5 mg Prednisone (Prednisone Tab) 20 mg PO DAILY [facility] Last Admin: 12/02/16 12:43 Dose: 20 mg Thiamine HCl (Vitamin B1 Tab) 100 mg PO DAILY [facility] Last Admin: 12/02/16 12:43 Dose: 100 mg - Labs Labs: 08/27/17 06:24 12/01/16 10:09 PT 11.4 SECONDS (9.7-12.2) 11/26/16 07:41 INR 1.0 11/26/16 07:41 APTT 30 SECONDS (21-34) 11/27/16 01:58 - Constitutional Appears: Well - Head Exam Head Exam: ATRAUMATIC, NORMAL INSPECTION, NORMOCEPHALIC - Eye Exam Eye Exam: EOMI, Normal appearance, PERRL Pupil Exam: NORMAL ACCOMODATION, PERRL - ENT Exam ENT Exam: Mucous Membranes Moist, Normal Exam - Neck Exam Neck Exam: Full ROM, Normal Inspection. absent: Lymphadenopathy - Respiratory Exam Respiratory Exam: Decreased Breath Sounds - Cardiovascular Exam Cardiovascular Exam: REGULAR RHYTHM, +S1, +S2 - GI/Abdominal Exam GI & Abdominal Exam: Soft, Diminished Bowel Sounds - Rectal Exam Rectal Exam: Deferred Assessment and Plan (1) Alcohol withdrawal seizure with complication Status: Acute (2) Drug abuse Status: Acute (3) Hepatitis C Status: Acute (4) Seizure Status: Acute (5) Status epilepticus Status: Acute (6) Alcohol abuse Status: Chronic (7) ESRD (end stage renal disease) on dialysis Status: Chronic (8) Liver transplant recipient Status: Chronic (9) Alcohol abuse Status: Acute (10) Alcohol abuse following liver transplant Status: Acute (11) Alcohol intoxication Status: Acute (12) Anemia Status: Acute (13) CHF (congestive heart failure) Status: Acute (14) CKD (chronic kidney disease) stage 5, GFR less than 15 ml/min Status: Acute (15) Encephalopathy Status: Acute (16) Gastritis Status: Acute (17) Hypotension Status: Acute (18) Hypotension Status: Acute (19) Leukopenia Status: Acute (20) Liver transplant disorder Status: Acute (21) Pancytopenia, acquired Status: Acute (22) Polysubstance (including opioids) dependence with physiol dependence Status: Acute (23) Renal failure, acute on chronic Status: Acute (24) Vomiting Status: Acute (25) ESRD (end stage renal disease) Status: Chronic
--- NOTE | 2016-12-02 22:33 | CP.PCM.PN ---
Subjective - Date & Time of Evaluation Date of Evaluation: 12/01/16 Time of Evaluation: 07:30 - Subjective Subjective: Patient seen and evaluated Comfortable Deneis chest pain and dyspnea Objective - Vital Signs/Intake and Output Vital Signs (last 24 hours): Temp Pulse Resp BP Pulse Ox 98.5 F 76 20 160/100 H 98 12/02/16 16:00 12/02/16 16:00 12/02/16 16:00 12/02/16 16:00 12/02/16 16:00 Intake and Output: 12/02/16 12/03/16 18:59 06:59 Intake Total 600 Output Total 1 Balance 599 - Medications Medications: Current Medications Amlodipine Besylate (Norvasc) 5 mg PO DAILY [facility] Last Admin: 12/02/16 10:41 Dose: 5 mg Aspirin (Aspirin Chewable) 81 mg PO DAILY [facility] Last Admin: 12/02/16 10:41 Dose: 81 mg Famotidine (Pepcid) 20 mg IVP DAILY [facility] Last Admin: 12/02/16 10:41 Dose: 20 mg Heparin Sodium (Porcine) (Heparin) 5,000 units SC Q12 [facility] Last Admin: 12/02/16 21:35 Dose: 5,000 units Vancomycin HCl 1 gm/ Sodium (Chloride) 250 mls @ 166.7 mls[place] [facility] [place] Admin: 12/01/16 10:41 Dose: 166.7 mls/hr Cefazolin Sodium/Dextrose (Ancef Iv 2 Gm Duplex) 2 gm in 100 mls @ 100 mls[place]hr [place] [facility] [place] Admin: 12/01/16 12:13 Dose: 100 mls/hr Levetiracetam (Keppra) 750 mg PO Q12 [facility] Last Admin: 12/02/16 21:35 Dose: 750 mg Lorazepam (Ativan) 2 mg IVP Q4 PRN PRN Reason: Anxiety Last Admin: 12/02/16 21:53 Dose: 2 mg Metoprolol Tartrate (Lopressor) 12.5 mg PO Q12H [facility] Last Admin: 12/02/16 21:34 Dose: 12.5 mg Prednisone (Prednisone Tab) 20 mg PO DAILY [facility] Last Admin: 12/02/16 12:43 Dose: 20 mg Thiamine HCl (Vitamin B1 Tab) 100 mg PO DAILY [facility] Last Admin: 12/02/16 12:43 Dose: 100 mg - Labs Labs: 11/30/16 06:24 12/01/16 10:09 PT 11.4 SECONDS (9.7-12.2) 11/26/16 07:41 INR 1.0 11/26/16 07:41 APTT 30 SECONDS (21-34) 11/27/16 01:58 - Head Exam Head Exam: ATRAUMATIC, NORMAL INSPECTION - Eye Exam Eye Exam: EOMI, PERRL Pupil Exam: NORMAL ACCOMODATION - ENT Exam ENT Exam: Mucous Membranes Moist, Normal Exam - Neck Exam Neck Exam: Full ROM, Normal Inspection - Respiratory Exam Respiratory Exam: Clear to Ausculation Bilateral, NORMAL BREATHING PATTERN - Cardiovascular Exam Cardiovascular Exam: Irregular Rhythm, +S1, +S2 - GI/Abdominal Exam GI & Abdominal Exam: Soft, Normal Bowel Sounds - Neurological Exam Neurological Exam: Alert, Oriented x3 - Psychiatric Exam Psychiatric exam: Normal Mood - Skin Skin Exam: Warm Assessment and Plan - Assessment and Plan (Free Text) Assessment: 1. Endocarditis Abx as per ID 2. A Fib: Not on Anticoagulation due to risk of cerebral bleed 3. CRF on HD 4. S/P Liver transplant 5. Psych history 6. H/O of endocarditis
--- NOTE | 2016-12-02 22:34 | CP.PCM.PN ---
Subjective - Date & Time of Evaluation Date of Evaluation: 12/02/16 Time of Evaluation: 09:35 - Subjective Subjective: Patient seen and evaluated No cardiac symptoms Objective - Vital Signs/Intake and Output Vital Signs (last 24 hours): Temp Pulse Resp BP Pulse Ox 98.5 F 76 20 160/100 H 98 12/02/16 16:00 12/02/16 16:00 12/02/16 16:00 12/02/16 16:00 12/02/16 16:00 Intake and Output: 12/02/16 12/03/16 18:59 06:59 Intake Total 600 Output Total 1 Balance 599 - Medications Medications: Current Medications Amlodipine Besylate (Norvasc) 5 mg PO DAILY [facility] Last Admin: 12/02/16 10:41 Dose: 5 mg Aspirin (Aspirin Chewable) 81 mg PO DAILY [facility] Last Admin: 12/02/16 10:41 Dose: 81 mg Famotidine (Pepcid) 20 mg IVP DAILY [facility] Last Admin: 12/02/16 10:41 Dose: 20 mg Heparin Sodium (Porcine) (Heparin) 5,000 units SC Q12 [facility] Last Admin: 12/02/16 21:35 Dose: 5,000 units Vancomycin HCl 1 gm/ Sodium (Chloride) 250 mls @ 166.7 mls/hr [place] [facility] [place] Last Admin: 12/01/16 10:41 Dose: 166.7 mls/hr Cefazolin Sodium/Dextrose (Ancef Iv 2 Gm Duplex) 2 gm in 100 mls @ 100 mls/hr IVPB [facility] Last Admin: 12/01/16 12:13 Dose: 100 mls/hr Levetiracetam (Keppra) 750 mg PO Q12 [facility] Last Admin: 12/02/16 21:35 Dose: 750 mg Lorazepam (Ativan) 2 mg IVP Q4 PRN PRN Reason: Anxiety Last Admin: 12/02/16 21:53 Dose: 2 mg Metoprolol Tartrate (Lopressor) 12.5 mg PO Q12H [facility] Last Admin: 12/02/16 21:34 Dose: 12.5 mg Prednisone (Prednisone Tab) 20 mg PO DAILY [facility] Last Admin: 12/02/16 12:43 Dose: 20 mg Thiamine HCl (Vitamin B1 Tab) 100 mg PO DAILY [facility] Last Admin: 12/02/16 12:43 Dose: 100 mg - Labs Labs: 11/30/16 06:24 12/01/16 10:09 PT 11.4 SECONDS (9.7-12.2) 11/26/16 07:41 INR 1.0 11/26/16 07:41 APTT 30 SECONDS (21-34) 11/27/16 01:58 - Head Exam Head Exam: ATRAUMATIC, NORMAL INSPECTION - Eye Exam Eye Exam: EOMI, PERRL Pupil Exam: NORMAL ACCOMODATION - ENT Exam ENT Exam: Mucous Membranes Moist - Neck Exam Neck Exam: Full ROM, Normal Inspection - Respiratory Exam Respiratory Exam: Clear to Ausculation Bilateral, NORMAL BREATHING PATTERN - Cardiovascular Exam Cardiovascular Exam: Irregular Rhythm, +S1, +S2 - GI/Abdominal Exam GI & Abdominal Exam: Soft, Normal Bowel Sounds - Extremities Exam Extremities Exam: Full ROM, Normal Capillary Refill - Back Exam Back Exam: NORMAL INSPECTION - Neurological Exam Neurological Exam: Alert, CN II-XII Intact, Oriented x3 - Skin Skin Exam: Warm Assessment and Plan - Assessment and Plan (Free Text) Assessment: 1. Endocarditis Abx as per ID 2. A Fib: Not on Anticoagulation due to risk of cerebral bleed 3. CRF on HD 4. S/P Liver transplant 5. Psych history 6. H/O of endocarditis 7. H/O CVA
--- NOTE | 2016-12-03 13:15 | CP.PCM.PN ---
Subjective - Date & Time of Evaluation Date of Evaluation: 12/03/16 Time of Evaluation: 13:14 Objective - Vital Signs/Intake and Output Vital Signs (last 24 hours): Temp Pulse Resp BP Pulse Ox 98 F 89 16 157/99 H 100 12/03/16 12:50 12/03/16 12:50 12/03/16 12:50 12/03/16 12:50 12/03/16 12:50 Intake and Output: 12/03/16 12/03/16 06:59 18:59 Intake Total 240 Balance 240 - Medications Medications: Current Medications Amlodipine Besylate (Norvasc) 5 mg PO DAILY [facility] Last Admin: 12/02/16 10:41 Dose: 5 mg Aspirin (Aspirin Chewable) 81 mg PO DAILY [facility] Last Admin: 12/02/16 10:41 Dose: 81 mg Famotidine (Pepcid) 20 mg IVP DAILY [facility] Last Admin: 12/02/16 10:41 Dose: 20 mg Heparin Sodium (Porcine) (Heparin) 5,000 units SC Q12 [facility] Last Admin: 12/02/16 21:35 Dose: 5,000 units Vancomycin HCl 1 gm/ Sodium (Chloride) 250 mls @ 166.7 mls/hr [place] [facility] [place] Last Admin: 12/01/16 10:41 Dose: 166.7 mls/hr Cefazolin Sodium/Dextrose (Ancef Iv 2 Gm Duplex) 2 gm in 100 mls @ 100 mls/hr [place] [facility] [place] Last Admin: 12/01/16 12:13 Dose: 100 mls/hr Levetiracetam (Keppra) 750 mg PO Q12 [facility] Last Admin: 12/02/16 21:35 Dose: 750 mg Lorazepam (Ativan) 2 mg IVP Q4 PRN PRN Reason: Anxiety Last Admin: 12/02/16 21:53 Dose: 2 mg Metoprolol Tartrate (Lopressor) 12.5 mg PO Q12H [facility] Last Admin: 12/02/16 21:34 Dose: 12.5 mg Prednisone (Prednisone Tab) 20 mg PO DAILY [facility] Last Admin: 12/02/16 12:43 Dose: 20 mg Thiamine HCl (Vitamin B1 Tab) 100 mg PO DAILY [facility] Last Admin: 12/02/16 12:43 Dose: 100 mg - Labs Labs: 11/30/16 06:24 12/01/16 10:09 PT 11.4 SECONDS (9.7-12.2) 11/26/16 07:41 INR 1.0 11/26/16 07:41 APTT 30 SECONDS (21-34) 11/27/16 01:58
[2016-12-03] MEDS: ceFAZolin IV 2 gm in Dextrose 2 GM/100 ML BAG IVPB SCH (13:22)
[2016-12-03] MEDS: levETIRAcetam 100 mg/ml (5ml) Oral Syringe PO SCH ×2 (13:31→21:43)
--- NOTE | 2016-12-03 14:25 | CP.PCM.PN ---
Subjective - Date & Time of Evaluation Date of Evaluation: 12/03/16 Time of Evaluation: 07:35 - Subjective Subjective: Patient seen and examined. No complaints over night. Aware he will need AV fistula. Objective - Vital Signs/Intake and Output Vital Signs (last 24 hours): Temp Pulse Resp BP Pulse Ox 98 F 91 H 18 134/95 H 99 12/03/16 13:15 12/03/16 13:15 12/03/16 13:15 12/03/16 13:15 12/03/16 13:15 Intake and Output: 12/03/16 12/03/16 06:59 18:59 Intake Total 240 Balance 240 - Medications Medications: Current Medications Amlodipine Besylate (Norvasc) 5 mg PO DAILY [facility] Last Admin: 12/03/16 13:34 Dose: 5 mg Aspirin (Aspirin Chewable) 81 mg PO DAILY [facility] Last Admin: 12/03/16 13:34 Dose: 81 mg Famotidine (Pepcid) 20 mg IVP DAILY [facility] Last Admin: 12/03/16 13:22 Dose: 20 mg Heparin Sodium (Porcine) (Heparin) 5,000 units SC Q12 [facility] Last Admin: 12/03/16 13:35 Dose: 5,000 units Vancomycin HCl 1 gm/ Sodium (Chloride) 250 mls @ 166.7 mls/hr IVPB [facility] [place] Last Admin: 12/01/16 10:41 Dose: 166.7 mls/hr Cefazolin Sodium/Dextrose (Ancef Iv 2 Gm Duplex) 2 gm in 100 mls @ 100 mls/hr IVPB [facility] [place] Last Admin: 12/03/16 13:22 Dose: 100 mls/hr Levetiracetam (Keppra) 750 mg PO Q12 [facility] Last Admin: 12/03/16 13:31 Dose: 750 mg Lorazepam (Ativan) 2 mg IVP Q4 PRN PRN Reason: Anxiety Last Admin: 12/02/16 21:53 Dose: 2 mg Metoprolol Tartrate (Lopressor) 12.5 mg PO Q12H [facility] Last Admin: 12/03/16 13:34 Dose: 12.5 mg Prednisone (Prednisone Tab) 20 mg PO DAILY [facility] Last Admin: 12/03/16 13:34 Dose: 20 mg Thiamine HCl (Vitamin B1 Tab) 100 mg PO DAILY [facility] Last Admin: 12/03/16 13:34 Dose: 100 mg - Labs Labs: 11/30/16 06:24 12/01/16 10:09 PT 11.4 SECONDS (9.7-12.2) 11/26/16 07:41 INR 1.0 11/26/16 07:41 APTT 30 SECONDS (21-34) 11/27/16 01:58 Assessment and Plan - Assessment and Plan (Free Text) Assessment: 51 year old male with history of alcohol abuse, HTN, ESRD w/dialysis, cirrhosis with liver transplant, infectious endocarditis (x2), occluded infected left AV fistula, is consulted for an AV fistula. - Plan for AV fistula - F/U vein mapping - Will make further recommendations once reviewed -Medical management per primary team -Further recs per Dr. Ronald Bermudez PGY-2
--- NOTE | 2016-12-03 14:42 | CP.PCM.PN ---
Subjective - Date & Time of Evaluation Date of Evaluation: 12/03/16 Time of Evaluation: 14:30 - Subjective Subjective: tolerated HD 1.7 kg uf no acute events or complaitns uncooperative with ROS poor insight about condition Objective - Vital Signs/Intake and Output Vital Signs (last 24 hours): Temp Pulse Resp BP Pulse Ox 98 F 91 H 18 134/95 H 99 12/03/16 13:15 12/03/16 13:15 12/03/16 13:15 12/03/16 13:15 12/03/16 13:15 Intake and Output: 12/03/16 12/03/16 06:59 18:59 Intake Total 240 Balance 240 - Medications Medications: Current Medications Amlodipine Besylate (Norvasc) 5 mg PO DAILY [facility] Last Admin: 12/03/16 13:34 Dose: 5 mg Aspirin (Aspirin Chewable) 81 mg PO DAILY [facility] Last Admin: 12/03/16 13:34 Dose: 81 mg Famotidine (Pepcid) 20 mg IVP DAILY [facility] Last Admin: 12/03/16 13:22 Dose: 20 mg Heparin Sodium (Porcine) (Heparin) 5,000 units SC Q12 [facility] Last Admin: 12/03/16 13:35 Dose: 5,000 units Vancomycin HCl 1 gm/ Sodium (Chloride) 250 mls @ 166.7 mls/hr IVPB [facility] [place] Last Admin: 12/01/16 10:41 Dose: 166.7 mls/hr Cefazolin Sodium/Dextrose (Ancef Iv 2 Gm Duplex) 2 gm in 100 mls @ 100 mls/hr IVPB [facility] [place] Last Admin: 12/03/16 13:22 Dose: 100 mls/hr Levetiracetam (Keppra) 750 mg PO Q12 [facility] Last Admin: 12/03/16 13:31 Dose: 750 mg Lorazepam (Ativan) 2 mg IVP Q4 PRN PRN Reason: Anxiety Last Admin: 12/02/16 21:53 Dose: 2 mg Metoprolol Tartrate (Lopressor) 12.5 mg PO Q12H [facility] Last Admin: 12/03/16 13:34 Dose: 12.5 mg Prednisone (Prednisone Tab) 20 mg PO DAILY [facility] Last Admin: 12/03/16 13:34 Dose: 20 mg Thiamine HCl (Vitamin B1 Tab) 100 mg PO DAILY [facility] Last Admin: 12/03/16 13:34 Dose: 100 mg - Labs Labs: 11/30/16 06:24 12/01/16 10:09 PT 11.4 SECONDS (9.7-12.2) 11/26/16 07:41 INR 1.0 11/26/16 07:41 APTT 30 SECONDS (21-34) 11/27/16 01:58 - Constitutional Appears: No Acute Distress, Chronically Ill - Head Exam Head Exam: ATRAUMATIC - ENT Exam ENT Exam: Mucous Membranes Moist - Neck Exam Neck Exam: Full ROM. absent: Lymphadenopathy - Respiratory Exam Respiratory Exam: Accessory Muscle Use, Clear to Ausculation Bilateral - Cardiovascular Exam Cardiovascular Exam: REGULAR RHYTHM. absent: Rubs - GI/Abdominal Exam GI & Abdominal Exam: Normal Bowel Sounds. absent: Tenderness - Neurological Exam Neurological Exam: Alert, Oriented x3 - Skin Skin Exam: Pallor Assessment and Plan - Assessment and Plan (Free Text) Assessment: esrd liver transplant seizures due to ETOH abuse thrombosed kristy suggest revision of access before discharge
--- NOTE | 2016-12-03 17:51 | CP.PCM.PN ---
Subjective - Date & Time of Evaluation Date of Evaluation: 12/03/16 Time of Evaluation: 08:00 - Subjective Subjective: rx in progress' more alert cont rx 6 weeks Objective - Vital Signs/Intake and Output Vital Signs (last 24 hours): Temp Pulse Resp BP Pulse Ox 97.8 F 84 20 148/89 99 12/03/16 15:26 12/03/16 15:26 12/03/16 15:26 12/03/16 15:26 12/03/16 15:26 Intake and Output: 12/03/16 12/03/16 06:59 18:59 Intake Total 240 450 Balance 240 450 - Medications Medications: Current Medications Amlodipine Besylate (Norvasc) 5 mg PO DAILY [facility] Last Admin: 12/03/16 13:34 Dose: 5 mg Aspirin (Aspirin Chewable) 81 mg PO DAILY [facility] Last Admin: 12/03/16 13:34 Dose: 81 mg Famotidine (Pepcid) 20 mg IVP DAILY [facility] Last Admin: 12/03/16 13:22 Dose: 20 mg Heparin Sodium (Porcine) (Heparin) 5,000 units SC Q12 [facility] Last Admin: 12/03/16 13:35 Dose: 5,000 units Vancomycin HCl 1 gm/ Sodium (Chloride) 250 mls @ 166.7 mls/hr [place] [facility] [place] Admin: 12/03/16 14:47 Dose: 166.7 mls/hr Cefazolin Sodium/Dextrose (Ancef Iv 2 Gm Duplex) 2 gm in 100 mls @ 100 mls/hr IVPB F [facility] Last Admin: 12/03/16 13:22 Dose: 100 mls/hr Levetiracetam (Keppra) 750 mg PO Q12 [facility] Last Admin: 12/03/16 13:31 Dose: 750 mg Lorazepam (Ativan) 2 mg IVP Q4 PRN PRN Reason: Anxiety Last Admin: 12/03/16 15:32 Dose: 2 mg Metoprolol Tartrate (Lopressor) 12.5 mg PO Q12H [facility] Last Admin: 12/03/16 13:34 Dose: 12.5 mg Prednisone (Prednisone Tab) 20 mg PO DAILY [facility] Last Admin: 12/03/16 13:34 Dose: 20 mg Thiamine HCl (Vitamin B1 Tab) 100 mg PO DAILY [facility] Last Admin: 12/03/16 13:34 Dose: 100 mg - Labs Labs: 11/30/16 06:24 12/01/16 10:09 PT 11.4 SECONDS (9.7-12.2) 11/26/16 07:41 INR 1.0 11/26/16 07:41 APTT 30 SECONDS (21-34) 11/27/16 01:58 - Constitutional Appears: Non-toxic, Cachectic - Eye Exam Eye Exam: absent: Scleral icterus - ENT Exam ENT Exam: Mucous Membranes Dry - Neck Exam Neck Exam: absent: Lymphadenopathy - Respiratory Exam Respiratory Exam: Decreased Breath Sounds - Cardiovascular Exam Cardiovascular Exam: REGULAR RHYTHM - GI/Abdominal Exam GI & Abdominal Exam: Distended - Rectal Exam Rectal Exam: Deferred - Exam Exam: NORMAL INSPECTION Assessment and Plan (1) Alcohol abuse Status: Chronic (2) Alcohol withdrawal seizure with complication Status: Acute (3) Drug abuse Status: Acute (4) Hepatitis C Status: Acute (5) Seizure Status: Acute (6) Status epilepticus Status: Acute (7) ESRD (end stage renal disease) on dialysis Status: Chronic (8) Liver transplant recipient Status: Chronic (9) Encephalopathy Status: Acute (10) Hypotension Status: Acute (11) Liver transplant disorder Status: Acute (12) Polysubstance (including opioids) dependence with physiol dependence Status: Acute (13) Renal failure, acute on chronic Status: Acute (14) ESRD (end stage renal disease) Status: Chronic
--- NOTE | 2016-12-03 18:16 | CP.PCM.PN ---
Subjective - Date & Time of Evaluation Date of Evaluation: 12/03/16 Time of Evaluation: 11:00 - Subjective Subjective: clinically same Objective - Vital Signs/Intake and Output Vital Signs (last 24 hours): Temp Pulse Resp BP Pulse Ox 97.8 F 84 20 148/89 99 12/03/16 15:26 12/03/16 15:26 12/03/16 15:26 12/03/16 15:26 12/03/16 15:26 Intake and Output: 12/03/16 12/03/16 06:59 18:59 Intake Total 240 450 Balance 240 450 - Medications Medications: Current Medications Amlodipine Besylate (Norvasc) 5 mg PO DAILY [facility] Last Admin: 12/03/16 13:34 Dose: 5 mg Aspirin (Aspirin Chewable) 81 mg PO DAILY [facility] Last Admin: 12/03/16 13:34 Dose: 81 mg Famotidine (Pepcid) 20 mg IVP DAILY [facility] Last Admin: 12/03/16 13:22 Dose: 20 mg Heparin Sodium (Porcine) (Heparin) 5,000 units SC Q12 [facility] Last Admin: 12/03/16 13:35 Dose: 5,000 units Vancomycin HCl 1 gm/ Sodium (Chloride) 250 mls @ 166.7 mls/hr IVPB MWF [facility] Last Admin: 12/03/16 14:47 Dose: 166.7 mls/hr Cefazolin Sodium/Dextrose (Ancef Iv 2 Gm Duplex) 2 gm in 100 mls @ 100 mls/hr IVPB F [facility] Last Admin: 12/03/16 13:22 Dose: 100 mls/hr Levetiracetam (Keppra) 750 mg PO Q12 [facility] Last Admin: 12/03/16 13:31 Dose: 750 mg Lorazepam (Ativan) 2 mg IVP Q4 PRN PRN Reason: Anxiety Last Admin: 12/03/16 15:32 Dose: 2 mg Metoprolol Tartrate (Lopressor) 12.5 mg PO Q12H [facility] Last Admin: 12/03/16 13:34 Dose: 12.5 mg Prednisone (Prednisone Tab) 20 mg PO DAILY [facility] Last Admin: 12/03/16 13:34 Dose: 20 mg Thiamine HCl (Vitamin B1 Tab) 100 mg PO DAILY [facility] Last Admin: 12/03/16 13:34 Dose: 100 mg - Labs Labs: 11/30/16 06:24 12/01/16 10:09 PT 11.4 SECONDS (9.7-12.2) 11/26/16 07:41 INR 1.0 11/26/16 07:41 APTT 30 SECONDS (21-34) 11/27/16 01:58 - Constitutional Appears: Well - Head Exam Head Exam: ATRAUMATIC, NORMAL INSPECTION, NORMOCEPHALIC - Eye Exam Eye Exam: EOMI, Normal appearance, PERRL Pupil Exam: NORMAL ACCOMODATION, PERRL - ENT Exam ENT Exam: Mucous Membranes Moist, Normal Exam - Neck Exam Neck Exam: Full ROM, Normal Inspection. absent: Lymphadenopathy - Respiratory Exam Respiratory Exam: Decreased Breath Sounds - Cardiovascular Exam Cardiovascular Exam: REGULAR RHYTHM, +S1, +S2 - GI/Abdominal Exam GI & Abdominal Exam: Soft, Diminished Bowel Sounds - Rectal Exam Rectal Exam: Deferred Assessment and Plan (1) Alcohol withdrawal seizure with complication Status: Acute (2) Drug abuse Status: Acute (3) Hepatitis C Status: Acute (4) Seizure Status: Acute (5) Status epilepticus Status: Acute (6) Alcohol abuse Status: Chronic (7) ESRD (end stage renal disease) on dialysis Status: Chronic (8) Liver transplant recipient Status: Chronic (9) Alcohol abuse Status: Acute (10) Alcohol abuse following liver transplant Status: Acute (11) Alcohol intoxication Status: Acute (12) Anemia Status: Acute (13) CHF (congestive heart failure) Status: Acute (14) CKD (chronic kidney disease) stage 5, GFR less than 15 ml/min Status: Acute (15) Encephalopathy Status: Acute (16) Gastritis Status: Acute (17) Hypotension Status: Acute (18) Hypotension Status: Acute (19) Leukopenia Status: Acute (20) Liver transplant disorder Status: Acute (21) Pancytopenia, acquired Status: Acute (22) Polysubstance (including opioids) dependence with physiol dependence Status: Acute (23) Renal failure, acute on chronic Status: Acute (24) Vomiting Status: Acute (25) ESRD (end stage renal disease) Status: Chronic
--- NOTE | 2016-12-03 20:40 | PN ---
DATE OF EVALUATION: 12/03/2016 NEUROLOGICAL PROBLEM: Polysubstance abuse with seizure disorder and new ischemic process. PHYSICAL EXAMINATION: VITAL SIGNS: Blood pressure 143/95, mean arterial pressure of 111, respiratory rate 16, temperature 98.1, pulse rate 76. DIAGNOSTIC DATA: The patient has had a CT of the head yesterday to rule out any acute bleeding process to compare with her MRI findings. No acute process of bleeding. The patient will continue the current management. Examination is unchanged to compare with the previous examination. When medically stable, the patient can be discharged and should be having detox programme that has to be scheduled as an outpatient. Pravin Pérez MD
--- NOTE | 2016-12-03 23:29 | CP.PCM.PN ---
Subjective - Date & Time of Evaluation Date of Evaluation: 12/03/16 Time of Evaluation: 16:25 - Subjective Subjective: Patient seen and evaluated No cardiac symptoms Objective - Vital Signs/Intake and Output Vital Signs (last 24 hours): Temp Pulse Resp BP Pulse Ox 97.8 F 84 20 148/89 99 12/03/16 15:26 12/03/16 15:26 12/03/16 15:26 12/03/16 15:26 12/03/16 15:26 Intake and Output: 12/03/16 12/04/16 18:59 06:59 Intake Total 450 Balance 450 - Medications Medications: Current Medications Amlodipine Besylate (Norvasc) 5 mg PO DAILY [facility] Last Admin: 12/03/16 13:34 Dose: 5 mg Aspirin (Aspirin Chewable) 81 mg PO DAILY [facility] Last Admin: 12/03/16 13:34 Dose: 81 mg Famotidine (Pepcid) 20 mg IVP DAILY [facility] Last Admin: 12/03/16 13:22 Dose: 20 mg Heparin Sodium (Porcine) (Heparin) 5,000 units SC Q12 [facility] Last Admin: 12/03/16 21:38 Dose: 5,000 units Vancomycin HCl 1 gm/ Sodium (Chloride) 250 mls @ 166.7 mls/hr IVPB MWF [facility] Last Admin: 12/03/16 14:47 Dose: 166.7 mls/hr Cefazolin Sodium/Dextrose (Ancef Iv 2 Gm Duplex) 2 gm in 100 mls @ 100 mls/hr IVPB MWF [facility] Last Admin: 12/03/16 13:22 Dose: 100 mls/hr Levetiracetam (Keppra) 750 mg PO Q12 [facility] Last Admin: 12/03/16 21:43 Dose: 750 mg Lorazepam (Ativan) 2 mg IVP Q4 PRN PRN Reason: Anxiety Last Admin: 12/03/16 15:32 Dose: 2 mg Metoprolol Tartrate (Lopressor) 12.5 mg PO Q12H [facility] Last Admin: 12/03/16 21:39 Dose: 12.5 mg Prednisone (Prednisone Tab) 20 mg PO DAILY [facility] Last Admin: 12/03/16 13:34 Dose: 20 mg Thiamine HCl (Vitamin B1 Tab) 100 mg PO DAILY [facility] Last Admin: 12/03/16 13:34 Dose: 100 mg - Labs Labs: 11/30/16 06:24 12/01/16 10:09 PT 11.4 SECONDS (9.7-12.2) 11/26/16 07:41 INR 1.0 11/26/16 07:41 APTT 30 SECONDS (21-34) 11/27/16 01:58 - Head Exam Head Exam: ATRAUMATIC, NORMAL INSPECTION - Eye Exam Eye Exam: EOMI, PERRL Pupil Exam: NORMAL ACCOMODATION - ENT Exam ENT Exam: Mucous Membranes Moist, Normal Exam - Neck Exam Neck Exam: Full ROM, Normal Inspection - Respiratory Exam Respiratory Exam: Clear to Ausculation Bilateral, NORMAL BREATHING PATTERN - Cardiovascular Exam Cardiovascular Exam: Irregular Rhythm, +S1, +S2 - GI/Abdominal Exam GI & Abdominal Exam: Normal Bowel Sounds - Extremities Exam Extremities Exam: Full ROM, Normal Capillary Refill - Neurological Exam Neurological Exam: Alert, Awake, Oriented x3 - Skin Skin Exam: Warm Assessment and Plan - Assessment and Plan (Free Text) Assessment: 1. Endocarditis Abx as per ID 2. A Fib: Not on Anticoagulation due to risk of cerebral bleed 3. CRF on HD 4. S/P Liver transplant 5. Psych history 6. H/O of endocarditis
--- NOTE | 2016-12-04 09:59 | CP.PCM.PN ---
Subjective - Date & Time of Evaluation Date of Evaluation: 12/04/16 Time of Evaluation: 09:56 - Subjective Subjective: stable dialysis 12/03 confused and uncooperative Anemia worse- check iron stores Objective - Vital Signs/Intake and Output Vital Signs (last 24 hours): Temp Pulse Resp BP Pulse Ox 98.6 F 97 H 18 137/95 H 100 12/04/16 08:05 12/04/16 08:05 12/04/16 08:05 12/04/16 08:05 12/04/16 08:05 Intake and Output: 12/04/16 12/04/16 06:59 18:59 Intake Total 240 Balance 240 - Medications Medications: Current Medications Amlodipine Besylate (Norvasc) 5 mg PO DAILY [facility] Last Admin: 12/03/16 13:34 Dose: 5 mg Aspirin (Aspirin Chewable) 81 mg PO DAILY [facility] Last Admin: 12/03/16 13:34 Dose: 81 mg Famotidine (Pepcid) 20 mg IVP DAILY [facility] Last Admin: 12/03/16 13:22 Dose: 20 mg Heparin Sodium (Porcine) (Heparin) 5,000 units SC Q12 [facility] Last Admin: 12/03/16 21:38 Dose: 5,000 units Vancomycin HCl 1 gm/ Sodium (Chloride) 250 mls @ 166.7 mls/hr [place] [facility] [place] Last Admin: 12/03/16 14:47 Dose: 166.7 mls/hr Cefazolin Sodium/Dextrose (Ancef Iv 2 Gm Duplex) 2 gm in 100 mls @ 100 mls/hr [place] [facility] [place] Last Admin: 12/03/16 13:22 Dose: 100 mls/hr Levetiracetam (Keppra) 750 mg PO Q12 [facility] Last Admin: 12/03/16 21:43 Dose: 750 mg Lorazepam (Ativan) 2 mg IVP Q4 PRN PRN Reason: Anxiety Last Admin: 12/03/16 15:32 Dose: 2 mg Metoprolol Tartrate (Lopressor) 12.5 mg PO Q12H [facility] Last Admin: 12/03/16 21:39 Dose: 12.5 mg Prednisone (Prednisone Tab) 20 mg PO DAILY [facility] Last Admin: 12/03/16 13:34 Dose: 20 mg Thiamine HCl (Vitamin B1 Tab) 100 mg PO DAILY [facility] Last Admin: 12/03/16 13:34 Dose: 100 mg - Labs Labs: 11/30/16 06:24 12/01/16 10:09 PT 11.4 SECONDS (9.7-12.2) 11/26/16 07:41 INR 1.0 11/26/16 07:41 APTT 30 SECONDS (21-34) 11/27/16 01:58 - Constitutional Appears: No Acute Distress, Chronically Ill - Head Exam Head Exam: ATRAUMATIC, NORMAL INSPECTION - Eye Exam Eye Exam: EOMI, Normal appearance - Neck Exam Neck Exam: Normal Inspection. absent: Tenderness - Respiratory Exam Respiratory Exam: Clear to Ausculation Bilateral, NORMAL BREATHING PATTERN - Cardiovascular Exam Cardiovascular Exam: REGULAR RHYTHM, +S1 - GI/Abdominal Exam GI & Abdominal Exam: Soft. absent: Tenderness - Extremities Exam Extremities Exam: Normal Inspection. absent: Tenderness - Neurological Exam Neurological Exam: Awake, CN II-XII Intact - Skin Skin Exam: Dry, Warm Assessment and Plan (1) Alcohol withdrawal seizure with complication Status: Acute (2) Hepatitis C Status: Acute (3) Status epilepticus Status: Acute (4) Alcohol abuse Status: Chronic (5) ESRD (end stage renal disease) on dialysis Status: Chronic (6) Liver transplant recipient Status: Chronic - Assessment and Plan (Free Text) Plan: Dialysis MWF recheck iron stores/ add ESAs IV ABs as per ID monitor BP
[2016-12-04] MEDS: levETIRAcetam 100 mg/ml (5ml) Oral Syringe PO SCH (10:28)
--- NOTE | 2016-12-04 11:19 | CP.PCM.PN ---
Subjective - Date & Time of Evaluation Date of Evaluation: 12/04/16 Time of Evaluation: 11:17 - Subjective Subjective: SURGERY NOTE FOR DR. HERNANDEZ 51M seen and examined at bedside. ROSE. Objective - Vital Signs/Intake and Output Vital Signs (last 24 hours): Temp Pulse Resp BP Pulse Ox 98.6 F 93 H 18 129/89 100 12/04/16 08:05 12/04/16 10:25 12/04/16 08:05 12/04/16 10:25 12/04/16 08:05 Intake and Output: 12/04/16 12/04/16 06:59 18:59 Intake Total 240 Balance 240 - Medications Medications: Current Medications Amlodipine Besylate (Norvasc) 10 mg PO DAILY [facility] Last Admin: 12/04/16 10:28 Dose: 10 mg Aspirin (Aspirin Chewable) 81 mg PO DAILY [facility] Last Admin: 12/04/16 10:27 Dose: 81 mg Epoetin Denis (Procrit) 10,000 [place] [facility] [place] Famotidine (Pepcid) 20 mg IVP DAILY [facility] Last Admin: 12/04/16 10:28 Dose: 20 mg Heparin Sodium (Porcine) (Heparin) 5,000 units SC Q12 [facility] Last Admin: 12/04/16 10:28 Dose: 5,000 units Vancomycin HCl 1 gm/ Sodium (Chloride) 250 mls @ 166.7 mls/hr [place] [facility] [place] Last Admin: 12/03/16 14:47 Dose: 166.7 mls/hr Cefazolin Sodium/Dextrose (Ancef Iv 2 Gm Duplex) 2 gm in 100 mls @ 100 mls/hr [place] [facility] [place] Last Admin: 12/03/16 13:22 Dose: 100 mls/hr Levetiracetam (Keppra) 750 mg PO Q12 [facility] Last Admin: 12/04/16 10:28 Dose: 750 mg Lorazepam (Ativan) 2 mg IVP Q4 PRN PRN Reason: Anxiety Last Admin: 12/03/16 15:32 Dose: 2 mg Metoprolol Tartrate (Lopressor) 12.5 mg PO Q12H [facility] Last Admin: 12/04/16 10:28 Dose: 12.5 mg Prednisone (Prednisone Tab) 20 mg PO DAILY [facility] Last Admin: 12/04/16 10:28 Dose: 20 mg Thiamine HCl (Vitamin B1 Tab) 100 mg PO DAILY [facility] Last Admin: 12/04/16 10:28 Dose: 100 mg - Labs Labs: 11/30/16 06:24 12/01/16 10:09 PT 11.4 SECONDS (9.7-12.2) 11/26/16 07:41 INR 1.0 11/26/16 07:41 APTT 30 SECONDS (21-34) 11/27/16 01:58 - Constitutional Appears: Non-toxic, No Acute Distress - Respiratory Exam Respiratory Exam: Clear to Ausculation Bilateral, NORMAL BREATHING PATTERN - Cardiovascular Exam Cardiovascular Exam: REGULAR RHYTHM, +S1, +S2 - Extremities Exam Additional comments: right IJ permacath in place Assessment and Plan - Assessment and Plan (Free Text) Assessment: 51M with CKD. needs AVF Plan: - Vein mapping results - will need AVF Further recs discuss with Dr. Ronald Boone, PGY2
[2016-12-04 11:51] LABS: BASO % 0.5 % (0.0-2.0); EOS # 0.1 K/uL (0.0-0.7); EOS % 2.7 % (0.0-4.0); LYMPH # 0.9 K/uL (1.0-4.3); LYMPH % 34.6 % (20.0-40.0); MEAN CORPUSCULAR HEMOGLOBIN 33.8 pg (27.0-31.0); MEAN CORPUSCULAR HGB CONC 34.5 g/dL (33.0-37.0); MEAN PLATELET VOLUME 7.8 fL (7.2-11.7); MONO # 0.3 K/uL (0.0-0.8); MONO % 11.5 % (0.0-10.0); NRBC % 0.1 % (0.0-2.0); RED CELL DISTRIBUTION WIDTH 12.9 % (11.5-14.5); WHITE BLOOD COUNT 2.7 K/uL (4.8-10.8)
[2016-12-04 12:14] LABS: ALB/GLOB RATIO 1.1 (1.0-2.1); BILIRUBIN,TOTAL 0.5 mg/dL (0.2-1.3); TOTAL PROTEIN 6.3 g/dL (6.3-8.3)
[2016-12-04 12:15] LABS: CALCIUM 8.9 mg/dl (8.6-10.4)
--- NOTE | 2016-12-04 17:03 | CP.PCM.PN ---
Subjective - Date & Time of Evaluation Date of Evaluation: 12/04/16 Time of Evaluation: 17:00 - Subjective Subjective: Service for Dr. Brandon Ly Pt seen and examined at bedside. No acute distress. No events overnight. Sx following for fistula repair. Pt is threatening to leave [facility]. No complaints. No fevers, chills, vomiting, diarrhea, cp, sob. No more seizures. Objective - Vital Signs/Intake and Output Vital Signs (last 24 hours): Temp Pulse Resp BP Pulse Ox 98.5 F 83 18 126/86 100 12/04/16 15:09 12/04/16 15:09 12/04/16 15:09 12/04/16 15:09 12/04/16 15:09 Intake and Output: 12/04/16 12/04/16 06:59 18:59 Intake Total 240 400 Balance 240 400 - Medications Medications: Current Medications Amlodipine Besylate (Norvasc) 10 mg PO DAILY [facility] Last Admin: 12/04/16 10:28 Dose: 10 mg Aspirin (Aspirin Chewable) 81 mg PO DAILY [facility] Last Admin: 12/04/16 10:27 Dose: 81 mg Epoetin Denis ([facility]) [facility] Famot[facility] (Pepcid) 20 mg IVP DAILY [facility] Last Admin: 12/04/16 10:28 Dose: 20 mg Heparin Sodium (Porcine) (Heparin) 5,000 units SC Q12 [facility] Last Admin: 12/04/16 10:28 Dose: 5,000 units Vancomycin HCl 1 gm/ Sodium (Chloride) 250 mls @ 166.7 mls/hr IVPB [facility] Last Admin: 12/03/16 14:47 Dose: 166.7 mls/hr Cefazolin Sodium/Dextrose (Ancef Iv 2 Gm Duplex) 2 gm in 100 mls @ 100 mls/hr IVPB [facility] Last Admin: 12/03/16 13:22 Dose: 100 mls/hr Levetiracetam (Keppra) 750 mg PO Q12 [facility] Last Admin: 12/04/16 10:28 Dose: 750 mg Lorazepam (Ativan) 2 mg IVP Q4 PRN PRN Reason: Anxiety Last Admin: 12/03/16 15:32 Dose: 2 mg Metoprolol Tartrate (Lopressor) 12.5 mg PO Q12H [facility] Last Admin: 12/04/16 10:28 Dose: 12.5 mg Prednisone (Prednisone Tab) 20 mg PO DAILY [facility] Last Admin: 12/04/16 10:28 Dose: 20 mg Thiamine HCl (Vitamin B1 Tab) 100 mg PO DAILY [facility] Last Admin: 12/04/16 10:28 Dose: 100 mg - Labs Labs: 12/04/16 11:39 12/04/16 11:39 PT 11.4 SECONDS (9.7-12.2) 11/26/16 07:41 INR 1.0 11/26/16 07:41 APTT 30 SECONDS (21-34) 11/27/16 01:58 - Constitutional Appears: Non-toxic, No Acute Distress, Chronically Ill - Head Exam Head Exam: ATRAUMATIC, NORMAL INSPECTION, NORMOCEPHALIC - Eye Exam Eye Exam: EOMI - ENT Exam ENT Exam: Mucous Membranes Moist - Neck Exam Neck Exam: Full ROM, Normal Inspection - Respiratory Exam Respiratory Exam: NORMAL BREATHING PATTERN. absent: Respiratory Distress - Cardiovascular Exam Cardiovascular Exam: +S1, +S2 - GI/Abdominal Exam GI & Abdominal Exam: Soft, Normal Bowel Sounds. absent: Tenderness - Extremities Exam Extremities Exam: Full ROM, Normal Inspection - Neurological Exam Neurological Exam: Alert, Awake, CN II-XII Intact - Psychiatric Exam Psychiatric exam: Flat Affect - Skin Skin Exam: Dry, Intact, Normal Color, Warm Assessment and Plan - Assessment and Plan (Free Text) Assessment: This is a 51 yo male with past medical hx of ESRD on dialysis, s/p liver transplant, cirrhosis, HTN 1. Recurrent seizures -asa 81 daily -keppra 250 q 12 2. Occluded/infected av fistula -cefazolin 2 g mwf -sx following, plan for repair -vanco 1 g mwf prednisone 20 daily 3. Substance abuse thiamine 100 daily 4. HTN -norvasc 10 -lopressor 12.5 q 12 5. GI/DVT ppx -pepcid -heparin discussed with Dr. Ly
--- NOTE | 2016-12-04 17:20 | CP.PCM.PN ---
Subjective - Date & Time of Evaluation Date of Evaluation: 12/04/16 Time of Evaluation: 11:00 - Subjective Subjective: clinically same Objective - Vital Signs/Intake and Output Vital Signs (last 24 hours): Temp Pulse Resp BP Pulse Ox 98.5 F 83 18 126/86 100 12/04/16 15:09 12/04/16 15:09 12/04/16 15:09 12/04/16 15:09 12/04/16 15:09 Intake and Output: 12/04/16 12/04/16 06:59 18:59 Intake Total 240 400 Balance 240 400 - Medications Medications: Current Medications Amlodipine Besylate (Norvasc) 10 mg PO DAILY [facility] Last Admin: 12/04/16 10:28 Dose: 10 mg Aspirin (Aspirin Chewable) 81 mg PO DAILY [facility] Last Admin: 12/04/16 10:27 Dose: 81 mg Epoetin Denis (Procrit) 10,000 unit IV [facility] Famotidine (Pepcid) 20 mg IVP DAILY [facility] Last Admin: 12/04/16 10:28 Dose: 20 mg Heparin Sodium (Porcine) (Heparin) 5,000 units SC Q12 [facility] Last Admin: 12/04/16 10:28 Dose: 5,000 units Vancomycin HCl 1 gm/ Sodium (Chloride) 250 mls @ 166.7 mls/hr IVPB [facility] Last Admin: 12/03/16 14:47 Dose: 166.7 mls/hr Cefazolin Sodium/Dextrose (Ancef Iv 2 Gm Duplex) 2 gm in 100 mls @ 100 mls/hr IVPB [facility] Last Admin: 12/03/16 13:22 Dose: 100 mls/hr Levetiracetam (Keppra) 750 mg PO Q12 [facility] Last Admin: 12/04/16 10:28 Dose: 750 mg Lorazepam (Ativan) 2 mg IVP Q4 PRN PRN Reason: Anxiety Last Admin: 12/03/16 15:32 Dose: 2 mg Metoprolol Tartrate (Lopressor) 12.5 mg PO Q12H [facility] Last Admin: 12/04/16 10:28 Dose: 12.5 mg Prednisone (Prednisone Tab) 20 mg PO DAILY [facility] Last Admin: 12/04/16 10:28 Dose: 20 mg Thiamine HCl (Vitamin B1 Tab) 100 mg PO DAILY [facility] Last Admin: 12/04/16 10:28 Dose: 100 mg - Labs Labs: 12/04/16 11:39 12/04/16 11:39 PT 11.4 SECONDS (9.7-12.2) 11/26/16 07:41 INR 1.0 11/26/16 07:41 APTT 30 SECONDS (21-34) 11/27/16 01:58 Assessment and Plan (1) Alcohol withdrawal seizure with complication Status: Acute (2) Drug abuse Status: Acute (3) Hepatitis C Status: Acute (4) Seizure Status: Acute (5) Status epilepticus Status: Acute (6) Alcohol abuse Status: Chronic (7) ESRD (end stage renal disease) on dialysis Status: Chronic (8) Liver transplant recipient Status: Chronic (9) Alcohol abuse Status: Acute (10) Alcohol abuse following liver transplant Status: Acute (11) Alcohol intoxication Status: Acute (12) Anemia Status: Acute (13) CHF (congestive heart failure) Status: Acute (14) CKD (chronic kidney disease) stage 5, GFR less than 15 ml/min Status: Acute (15) Encephalopathy Status: Acute (16) Gastritis Status: Acute (17) Hypotension Status: Acute (18) Hypotension Status: Acute (19) Leukopenia Status: Acute (20) Liver transplant disorder Status: Acute (21) Pancytopenia, acquired Status: Acute (22) Polysubstance (including opioids) dependence with physiol dependence Status: Acute (23) Renal failure, acute on chronic Status: Acute (24) Vomiting Status: Acute (25) ESRD (end stage renal disease) Status: Chronic
--- NOTE | 2016-12-04 18:04 | CP.PCM.PN ---
Subjective - Date & Time of Evaluation Date of Evaluation: 12/04/16 Time of Evaluation: 18:04 Objective - Vital Signs/Intake and Output Vital Signs (last 24 hours): Temp Pulse Resp BP Pulse Ox 98.5 F 83 18 126/86 100 12/04/16 15:09 12/04/16 15:09 12/04/16 15:09 12/04/16 15:09 12/04/16 15:09 Intake and Output: 12/04/16 12/04/16 06:59 18:59 Intake Total 240 400 Balance 240 400 - Medications Medications: Current Medications Amlodipine Besylate (Norvasc) 10 mg PO DAILY [facility] Last Admin: 12/04/16 10:28 Dose: 10 mg Aspirin (Aspirin Chewable) 81 mg PO DAILY [facility] Last Admin: 12/04/16 10:27 Dose: 81 mg Epoetin Denis (Procrit) 10,000 unit IV [facility] Famotidine (Pepcid) 20 mg IVP DAILY [facility] Last Admin: 12/04/16 10:28 Dose: 20 mg Heparin Sodium (Porcine) (Heparin) 5,000 units SC Q12 [facility] Last Admin: 12/04/16 10:28 Dose: 5,000 units Vancomycin HCl 1 gm/ Sodium (Chloride) 250 mls @ 166.7 mls/hr IVPB [facility] Last Admin: 12/03/16 14:47 Dose: 166.7 mls/hr Cefazolin Sodium/Dextrose (Ancef Iv 2 Gm Duplex) 2 gm in 100 mls @ 100 mls/hr IVPB [facility] Last Admin: 12/03/16 13:22 Dose: 100 mls/hr Levetiracetam (Keppra) 750 mg PO Q12 [facility] Last Admin: 12/04/16 10:28 Dose: 750 mg Lorazepam (Ativan) 2 mg IVP Q4 PRN PRN Reason: Anxiety Last Admin: 12/03/16 15:32 Dose: 2 mg Metoprolol Tartrate (Lopressor) 12.5 mg PO Q12H [facility] Last Admin: 12/04/16 10:28 Dose: 12.5 mg Prednisone (Prednisone Tab) 20 mg PO DAILY [facility] Last Admin: 12/04/16 10:28 Dose: 20 mg Thiamine HCl (Vitamin B1 Tab) 100 mg PO DAILY [facility] Last Admin: 12/04/16 10:28 Dose: 100 mg - Labs Labs: 12/04/16 11:39 12/04/16 11:39 PT 11.4 SECONDS (9.7-12.2) 11/26/16 07:41 INR 1.0 11/26/16 07:41 APTT 30 SECONDS (21-34) 11/27/16 01:58
--- NOTE | 2016-12-04 19:20 | CP.PCM.PN ---
Subjective - Date & Time of Evaluation Date of Evaluation: 12/04/16 Time of Evaluation: 09:00 - Subjective Subjective: DISCUSSED ON ROUNDS IV RX FOR 6 WEEKS Objective - Vital Signs/Intake and Output Vital Signs (last 24 hours): Temp Pulse Resp BP Pulse Ox 98.5 F 83 18 126/86 100 12/04/16 15:09 12/04/16 15:09 12/04/16 15:09 12/04/16 15:09 12/04/16 15:09 Intake and Output: 12/04/16 12/05/16 18:59 06:59 Intake Total 400 Balance 400 - Medications Medications: Current Medications Amlodipine Besylate (Norvasc) 10 mg PO DAILY [facility] Last Admin: 12/04/16 10:28 Dose: 10 mg Aspirin (Aspirin Chewable) 81 mg PO DAILY [facility] Last Admin: 12/04/16 10:27 Dose: 81 mg Epoetin Denis (Procrit) 10,000 unit IV [facility] [place] Famotidine (Pepcid) 20 mg IVP DAILY [facility] Last Admin: 12/04/16 10:28 Dose: 20 mg Heparin Sodium (Porcine) (Heparin) 5,000 units SC Q12 [facility] Last Admin: 12/04/16 10:28 Dose: 5,000 units Vancomycin HCl 1 gm/ Sodium (Chloride) 250 mls @ 166.7 mls/hr IVPB [facility] [place] Last Admin: 12/03/16 14:47 Dose: 166.7 mls/hr Cefazolin Sodium/Dextrose (Ancef Iv 2 Gm Duplex) 2 gm in 100 mls @ 100 mls/hr IVPB [facility] [place] Last Admin: 12/03/16 13:22 Dose: 100 mls/hr Levetiracetam (Keppra) 750 mg PO Q12 [facility] Last Admin: 12/04/16 10:28 Dose: 750 mg Lorazepam (Ativan) 2 mg IVP Q4 PRN PRN Reason: Anxiety Last Admin: 12/03/16 15:32 Dose: 2 mg Metoprolol Tartrate (Lopressor) 12.5 mg PO Q12H [facility] Last Admin: 12/04/16 10:28 Dose: 12.5 mg Prednisone (Prednisone Tab) 20 mg PO DAILY [facility] Last Admin: 12/04/16 10:28 Dose: 20 mg Thiamine HCl (Vitamin B1 Tab) 100 mg PO DAILY [facility] Last Admin: 12/04/16 10:28 Dose: 100 mg - Labs Labs: 12/04/16 11:39 12/04/16 11:39 PT 11.4 SECONDS (9.7-12.2) 11/26/16 07:41 INR 1.0 11/26/16 07:41 APTT 30 SECONDS (21-34) 11/27/16 01:58 Assessment and Plan (1) Alcohol abuse Status: Chronic (2) Alcohol withdrawal seizure with complication Status: Acute (3) Drug abuse Status: Acute (4) Hepatitis C Status: Acute (5) Seizure Status: Acute (6) Status epilepticus Status: Acute (7) ESRD (end stage renal disease) on dialysis Status: Chronic (8) Liver transplant recipient Status: Chronic (9) Encephalopathy Status: Acute (10) Hypotension Status: Acute (11) Liver transplant disorder Status: Acute (12) Polysubstance (including opioids) dependence with physiol dependence Status: Acute (13) Renal failure, acute on chronic Status: Acute (14) ESRD (end stage renal disease) Status: Chronic
--- NOTE | 2016-12-04 22:58 | CP.PCM.PN ---
Subjective - Date & Time of Evaluation Date of Evaluation: 12/04/16 Time of Evaluation: 10:20 - Subjective Subjective: Patient seen and evaluated Denies chest pain and dyspnea Comfortable Objective - Vital Signs/Intake and Output Vital Signs (last 24 hours): Temp Pulse Resp BP Pulse Ox 98.5 F 83 18 126/86 100 12/04/16 15:09 12/04/16 15:09 12/04/16 15:09 12/04/16 15:09 12/04/16 15:09 Intake and Output: 12/04/16 12/05/16 18:59 06:59 Intake Total 400 Balance 400 - Medications Medications: Current Medications Amlodipine Besylate (Norvasc) 10 mg PO DAILY [facility] Last Admin: 12/04/16 10:28 Dose: 10 mg Aspirin (Aspirin Chewable) 81 mg PO DAILY [facility] Last Admin: 12/04/16 10:27 Dose: 81 mg Epoetin Denis (Procrit) 10,000 unit IV [facility] Famotidine (Pepcid) 20 mg IVP DAILY [facility] Last Admin: 12/04/16 10:28 Dose: 20 mg Heparin Sodium (Porcine) (Heparin) 5,000 units SC Q12 [facility] Last Admin: 12/04/16 10:28 Dose: 5,000 units Vancomycin HCl 1 gm/ Sodium (Chloride) 250 mls @ 166.7 mls/hr IVPB [facility] Last Admin: 12/03/16 14:47 Dose: 166.7 mls/hr Cefazolin Sodium/Dextrose (Ancef Iv 2 Gm Duplex) 2 gm in 100 mls @ 100 mls/hr IVPB [facility] Last Admin: 12/03/16 13:22 Dose: 100 mls/hr Levetiracetam (Keppra) 750 mg PO Q12 [facility] Last Admin: 12/04/16 10:28 Dose: 750 mg Lorazepam (Ativan) 2 mg IVP Q4 PRN PRN Reason: Anxiety Last Admin: 12/04/16 20:32 Dose: 2 mg Metoprolol Tartrate (Lopressor) 12.5 mg PO Q12H [facility] Last Admin: 12/04/16 10:28 Dose: 12.5 mg Prednisone (Prednisone Tab) 20 mg PO DAILY [facility] Last Admin: 12/04/16 10:28 Dose: 20 mg Thiamine HCl (Vitamin B1 Tab) 100 mg PO DAILY [facility] Last Admin: 12/04/16 10:28 Dose: 100 mg - Labs Labs: 12/04/16 11:39 12/04/16 11:39 PT 11.4 SECONDS (9.7-12.2) 11/26/16 07:41 INR 1.0 11/26/16 07:41 APTT 30 SECONDS (21-34) 11/27/16 01:58 - Head Exam Head Exam: ATRAUMATIC, NORMAL INSPECTION - Eye Exam Eye Exam: EOMI, PERRL Pupil Exam: NORMAL ACCOMODATION - ENT Exam ENT Exam: Mucous Membranes Moist - Neck Exam Neck Exam: Full ROM, Normal Inspection - Respiratory Exam Respiratory Exam: Clear to Ausculation Bilateral, NORMAL BREATHING PATTERN - Cardiovascular Exam Cardiovascular Exam: Irregular Rhythm, +S1, +S2 - GI/Abdominal Exam GI & Abdominal Exam: Soft, Normal Bowel Sounds - Neurological Exam Neurological Exam: Alert, Oriented x3 - Skin Skin Exam: Warm Assessment and Plan - Assessment and Plan (Free Text) Assessment: 1. Endocarditis Abx as per ID 2. A Fib: Not on Anticoagulation due to risk of cerebral bleed 3. CRF on HD 4. S/P Liver transplant 5. Psych history 6. H/O of endocarditis
[2016-12-05] MEDS: levETIRAcetam 100 mg/ml (5ml) Oral Syringe PO SCH ×3 (00:16→22:57)
[2016-12-05] MEDS: ceFAZolin IV 2 gm in Dextrose 2 GM/100 ML BAG IVPB SCH (08:56)
--- NOTE | 2016-12-05 09:15 | CP.PCM.PN ---
Subjective - Date & Time of Evaluation Date of Evaluation: 12/05/16 Time of Evaluation: 09:13 - Subjective Subjective: Vascular Surgery - Dr. Cardenas Pt S&E. SARAH. Pt this morning states he is trying to leave so that he can get a paycheck. He acknowledges that he will need surgery for AVF, and states he plans to return to the hospital within the next few days to continue care. Objective - Vital Signs/Intake and Output Vital Signs (last 24 hours): Temp Pulse Resp BP Pulse Ox 97.5 F L 98 H 20 149/84 97 12/05/16 08:03 12/05/16 08:03 12/05/16 08:03 12/05/16 08:03 12/05/16 08:03 Intake and Output: 12/05/16 12/05/16 06:59 18:59 Intake Total 240 Output Total 200 Balance 40 - Medications Medications: Current Medications Amlodipine Besylate (Norvasc) 10 mg PO DAILY [facility] Last Admin: 12/04/16 10:28 Dose: 10 mg Aspirin (Aspirin Chewable) 81 mg PO DAILY [facility] Last Admin: 12/04/16 10:27 Dose: 81 mg Epoetin Denis (Procrit) 10,000 unit IV [facility] Famotidine (Pepcid) 20 mg IVP DAILY [facility] Last Admin: 12/04/16 10:28 Dose: 20 mg Heparin Sodium (Porcine) (Heparin) 5,000 units SC Q12 [facility] Last Admin: 12/05/16 00:16 Dose: 5,000 units Vancomycin HCl 1 gm/ Sodium (Chloride) 250 mls @ 166.7 mls/hr IVPB [facility] Last Admin: 12/03/16 14:47 Dose: 166.7 mls/hr Cefazolin Sodium/Dextrose (Ancef Iv 2 Gm Duplex) 2 gm in 100 mls @ 100 mls/hr IVPB [facility] Last Admin: 12/05/16 08:56 Dose: 100 mls/hr Levetiracetam (Keppra) 750 mg PO Q12 [facility] Last Admin: 12/05/16 00:16 Dose: 750 mg Lorazepam (Ativan) 2 mg IVP Q4 PRN PRN Reason: Anxiety Last Admin: 12/05/16 05:51 Dose: 2 mg Metoprolol Tartrate (Lopressor) 12.5 mg PO Q12H [facility] Last Admin: 12/05/16 00:16 Dose: 12.5 mg Prednisone (Prednisone Tab) 20 mg PO DAILY [facility] Last Admin: 12/04/16 10:28 Dose: 20 mg Thiamine HCl (Vitamin B1 Tab) 100 mg PO DAILY [facility] Last Admin: 12/04/16 10:28 Dose: 100 mg - Labs Labs: 12/04/16 11:39 12/04/16 11:39 PT 11.4 SECONDS (9.7-12.2) 11/26/16 07:41 INR 1.0 11/26/16 07:41 APTT 30 SECONDS (21-34) 11/27/16 01:58 - Constitutional Appears: No Acute Distress - Head Exam Head Exam: ATRAUMATIC, NORMOCEPHALIC - Respiratory Exam Respiratory Exam: NORMAL BREATHING PATTERN - Neurological Exam Neurological Exam: Alert, Oriented x3 - Skin Skin Exam: Dry, Intact Assessment and Plan - Assessment and Plan (Free Text) Assessment: 51M with CKD, occluded AVF, will need new AVF Plan: - Vein mapping - AVF to follow DW Dr. Ronald Ward PGY3
--- NOTE | 2016-12-05 09:18 | CP.PCM.PN ---
Subjective - Date & Time of Evaluation Date of Evaluation: 12/05/16 Time of Evaluation: 07:00 - Subjective Subjective: PGY2 Resident - Medicine Progress Note Patient seen and examined at bedside. Surgery is following patient for fistula repair. 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 Refusing dialysis today. No fevers, chills, chest pain, SOB, nausea, vomiting, diarrhea, constipation, seizure, or additional complaints. Objective - Vital Signs/Intake and Output Vital Signs (last 24 hours): Temp Pulse Resp BP Pulse Ox 97.5 F L 98 H 20 149/84 97 12/05/16 08:03 12/05/16 08:03 12/05/16 08:03 12/05/16 08:03 12/05/16 08:03 Intake and Output: 12/05/16 12/05/16 06:59 18:59 Intake Total 240 Output Total 200 Balance 40 - Medications Medications: Current Medications Amlodipine Besylate (Norvasc) 10 mg PO DAILY [facility] Last Admin: 12/04/16 10:28 Dose: 10 mg Aspirin (Aspirin Chewable) 81 mg PO DAILY [facility] Last Admin: 12/04/16 10:27 Dose: 81 mg Epoetin Denis (Procrit) 10,000 unit IV [facility] Famotidine (Pepcid) 20 mg IVP DAILY [facility] Last Admin: 12/04/16 10:28 Dose: 20 mg Heparin Sodium (Porcine) (Heparin) 5,000 units SC Q12 [facility] Last Admin: 12/05/16 00:16 Dose: 5,000 units Vancomycin HCl 1 gm/ Sodium (Chloride) 250 mls @ 166.7 mls/hr IVPB [facility] Last Admin: 12/03/16 14:47 Dose: 166.7 mls/hr Cefazolin Sodium/Dextrose (Ancef Iv 2 Gm Duplex) 2 gm in 100 mls @ 100 mls/hr IVPB [facility] Last Admin: 12/05/16 08:56 Dose: 100 mls/hr Levetiracetam (Keppra) 750 mg PO Q12 [facility] Last Admin: 12/05/16 00:16 Dose: 750 mg Lorazepam (Ativan) 2 mg IVP Q4 PRN PRN Reason: Anxiety Last Admin: 12/05/16 05:51 Dose: 2 mg Metoprolol Tartrate (Lopressor) 12.5 mg PO Q12H [facility] Last Admin: 12/05/16 00:16 Dose: 12.5 mg Prednisone (Prednisone Tab) 20 mg PO DAILY [facility] Last Admin: 12/04/16 10:28 Dose: 20 mg Thiamine HCl (Vitamin B1 Tab) 100 mg PO DAILY [facility] Last Admin: 12/04/16 10:28 Dose: 100 mg - Labs Labs: 12/04/16 11:39 12/04/16 11:39 PT 11.4 SECONDS (9.7-12.2) 11/26/16 07:41 INR 1.0 11/26/16 07:41 APTT 30 SECONDS (21-34) 11/27/16 01:58 - Additional Findings Additional findings: - Constitutional Appears: Non-toxic, No Acute Distress, Chronically Ill - Head Exam Head Exam: ATRAUMATIC, NORMAL INSPECTION, NORMOCEPHALIC - Eye Exam Eye Exam: EOMI - ENT Exam ENT Exam: Mucous Membranes Moist - Neck Exam Neck Exam: Full ROM, Normal Inspection - Respiratory Exam Respiratory Exam: NORMAL BREATHING PATTERN, Clear to Auscultation, Decreased Breath Sounds. absent: Respiratory Distress - Cardiovascular Exam Cardiovascular Exam: +S1, +S2 - GI/Abdominal Exam GI & Abdominal Exam: Soft, Normal Bowel Sounds. absent: Tenderness - Extremities Exam Extremities Exam: Full ROM, Normal Inspection - Neurological Exam Neurological Exam: Alert, Awake, CN II-XII Intact - Psychiatric Exam Psychiatric exam: Flat Affect - Skin Skin Exam: Dry, Intact, Normal Color, Warm Assessment and Plan - Assessment and Plan (Free Text) Assessment: This is a 51 yo male with past medical hx of ESRD on dialysis, s/p liver transplant, cirrhosis, HTN 1. Recurrent seizures 12/05: no seizure activity noted for several days -asa 81 daily -keppra 250 q 12 2. 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 Per surgery - plan for AVF on Saturday 12/16 Surgery consult, Dr. Cardenas, f/u recs -cefazolin 2 g mwf -sx following, plan for repair -vanco 1 g mwf -prednisone 20 daily 5. Acute on Chronic Renal Failure 12/05: patient refusing dialysis today. BUN 41 / Cr 4.1 4. Substance abuse thiamine 100 daily 5. HTN 12/05: BP 149/84 -norvasc 10 -lopressor 12.5 q 12 6. GI/DVT ppx -pepcid -heparin Case discussed with attending. All medical management as per Dr. Kary Ly
[2016-12-05 11:48] LABS: BASO % 0.6 % (0.0-2.0); EOS # 0.1 K/uL (0.0-0.7); EOS % 2.5 % (0.0-4.0); HEMATOCRIT 28.8 % (35.0-51.0); LYMPH # 1.1 K/uL (1.0-4.3); LYMPH % 32.8 % (20.0-40.0); MEAN CELL VOLUME 98.6 fL (80.0-94.0); MEAN CORPUSCULAR HEMOGLOBIN 34.2 pg (27.0-31.0); MEAN CORPUSCULAR HGB CONC 34.7 g/dL (33.0-37.0); MEAN PLATELET VOLUME 8.4 fL (7.2-11.7); MONO # 0.3 K/uL (0.0-0.8); MONO % 9.3 % (0.0-10.0); RED CELL DISTRIBUTION WIDTH 12.7 % (11.5-14.5); WHITE BLOOD COUNT 3.2 K/uL (4.8-10.8)
[2016-12-05 11:56] LABS: ALB/GLOB RATIO 1.2 (1.0-2.1); BILIRUBIN,TOTAL 0.5 mg/dL (0.2-1.3); TOTAL PROTEIN 7.5 g/dL (6.3-8.3)
[2016-12-05 11:57] LABS: CALCIUM 9.4 mg/dl (8.6-10.4); MAGNESIUM 2.2 mg/dL (1.6-2.3); PHOSPHOROUS 3.9 mg/dL (2.5-4.5)
--- NOTE | 2016-12-05 13:08 | CP.PCM.PN ---
Subjective - Date & Time of Evaluation Date of Evaluation: 12/05/16 Time of Evaluation: 13:07 - Subjective Subjective: Refusing dialysis Very belligerant Objective - Vital Signs/Intake and Output Vital Signs (last 24 hours): Temp Pulse Resp BP Pulse Ox 97.5 F L 91 H 20 131/99 H 97 12/05/16 08:03 12/05/16 13:01 12/05/16 08:03 12/05/16 13:01 12/05/16 08:03 Intake and Output: 12/05/16 12/05/16 06:59 18:59 Intake Total 240 Output Total 200 Balance 40 - Medications Medications: Current Medications Amlodipine Besylate (Norvasc) 10 mg PO DAILY [facility] Last Admin: 12/05/16 10:23 Dose: Not Given Aspirin (Aspirin Chewable) 81 mg PO DAILY [facility] Last Admin: 12/05/16 09:38 Dose: Not Given Epoetin Denis (Procrit) 10,000 unit IV [facility] [place] Famotidine (Pepcid) 20 mg IVP DAILY [facility] Last Admin: 12/05/16 10:20 Dose: 20 mg Heparin Sodium (Porcine) (Heparin) 5,000 units SC Q12 [facility] Last Admin: 12/05/16 09:38 Dose: Not Given Vancomycin HCl 1 gm/ Sodium (Chloride) 250 mls @ 166.7 mls/hr IVPB [facility] [place] Last Admin: 12/05/16 10:23 Dose: 166.7 mls/hr Cefazolin Sodium/Dextrose (Ancef Iv 2 Gm Duplex) 2 gm in 100 mls @ 100 mls/hr IVPB [facility] [place] Last Admin: 12/05/16 08:56 Dose: 100 mls/hr Levetiracetam (Keppra) 750 mg PO Q12 [facility] Last Admin: 12/05/16 10:20 Dose: 750 mg Lorazepam (Ativan) 2 mg IVP Q4 PRN PRN Reason: Anxiety Last Admin: 12/05/16 05:51 Dose: 2 mg Metoprolol Tartrate (Lopressor) 12.5 mg PO Q12H [facility] Last Admin: 12/05/16 10:23 Dose: Not Given Prednisone (Prednisone Tab) 20 mg PO DAILY [facility] Last Admin: 12/05/16 10:20 Dose: 20 mg Thiamine HCl (Vitamin B1 Tab) 100 mg PO DAILY [facility] Last Admin: 12/05/16 10:20 Dose: 100 mg - Labs Labs: 12/05/16 11:36 12/05/16 11:36 PT 11.4 SECONDS (9.7-12.2) 11/26/16 07:41 INR 1.0 11/26/16 07:41 APTT 30 SECONDS (21-34) 11/27/16 01:58 - Constitutional Appears: No Acute Distress, Chronically Ill - Head Exam Head Exam: ATRAUMATIC, NORMAL INSPECTION - Neck Exam Neck Exam: Normal Inspection. absent: Tenderness - Respiratory Exam Respiratory Exam: Clear to Ausculation Bilateral, NORMAL BREATHING PATTERN - Cardiovascular Exam Cardiovascular Exam: REGULAR RHYTHM, +S1 - GI/Abdominal Exam GI & Abdominal Exam: Soft. absent: Tenderness - Extremities Exam Extremities Exam: Normal Inspection. absent: Tenderness - Neurological Exam Neurological Exam: Alert, CN II-XII Intact - Psychiatric Exam Psychiatric exam: Anxious, Manic - Skin Skin Exam: Dry, Warm Assessment and Plan (1) Alcohol withdrawal seizure with complication Status: Acute (2) Hepatitis C Status: Acute (3) Status epilepticus Status: Acute (4) Alcohol abuse Status: Chronic (5) ESRD (end stage renal disease) on dialysis Status: Chronic (6) Liver transplant recipient Status: Chronic - Assessment and Plan (Free Text) Plan: Refusing dialysis
--- NOTE | 2016-12-05 14:59 | CP.PCM.PN ---
Subjective - Date & Time of Evaluation Date of Evaluation: 12/05/16 Time of Evaluation: 09:00 - Subjective Subjective: CLINICALLY SAME Objective - Vital Signs/Intake and Output Vital Signs (last 24 hours): Temp Pulse Resp BP Pulse Ox 97.5 F L 93 H 20 130/89 97 12/05/16 08:03 12/05/16 13:41 12/05/16 08:03 12/05/16 13:41 12/05/16 08:03 Intake and Output: 12/05/16 12/05/16 06:59 18:59 Intake Total 240 300 Output Total 200 Balance 40 300 - Medications Medications: Current Medications Amlodipine Besylate (Norvasc) 10 mg PO DAILY [facility] Last Admin: 12/05/16 10:23 Dose: Not Given Aspirin (Aspirin Chewable) 81 mg PO DAILY [facility] Last Admin: 12/05/16 09:38 Dose: Not Given Epoetin Denis (Procrit) 10,000 unit IV [facility] [place] Famotidine (Pepcid) 20 mg IVP DAILY [facility] Last Admin: 12/05/16 10:20 Dose: 20 mg Heparin Sodium (Porcine) (Heparin) 5,000 units SC Q12 [facility] Last Admin: 12/05/16 09:38 Dose: Not Given Vancomycin HCl 1 gm/ Sodium (Chloride) 250 mls @ 166.7 mls/hr IVPB [facility] Last Admin: 12/05/16 10:23 Dose: 166.7 mls/hr Cefazolin Sodium/Dextrose (Ancef Iv 2 Gm Duplex) 2 gm in 100 mls @ 100 mls/hr IVPB [facility] Last Admin: 12/05/16 08:56 Dose: 100 mls/hr Levetiracetam (Keppra) 750 mg PO Q12 [facility] Last Admin: 12/05/16 10:20 Dose: 750 mg Lorazepam (Ativan) 2 mg IVP Q4 PRN PRN Reason: Anxiety Last Admin: 12/05/16 13:42 Dose: 2 mg Metoprolol Tartrate (Lopressor) 12.5 mg PO Q12H [facility] Last Admin: 12/05/16 10:23 Dose: Not Given Prednisone (Prednisone Tab) 20 mg PO DAILY [facility] Last Admin: 12/05/16 10:20 Dose: 20 mg Thiamine HCl (Vitamin B1 Tab) 100 mg PO DAILY [facility] Last Admin: 12/05/16 10:20 Dose: 100 mg - Labs Labs: 12/05/16 11:36 12/05/16 11:36 PT 11.4 SECONDS (9.7-12.2) 11/26/16 07:41 INR 1.0 11/26/16 07:41 APTT 30 SECONDS (21-34) 11/27/16 01:58 - Constitutional Appears: Well - Head Exam Head Exam: ATRAUMATIC, NORMAL INSPECTION, NORMOCEPHALIC - Eye Exam Eye Exam: EOMI, Normal appearance, PERRL Pupil Exam: NORMAL ACCOMODATION, PERRL - ENT Exam ENT Exam: Mucous Membranes Moist, Normal Exam - Neck Exam Neck Exam: Full ROM, Normal Inspection. absent: Lymphadenopathy - Respiratory Exam Respiratory Exam: Decreased Breath Sounds - Cardiovascular Exam Cardiovascular Exam: REGULAR RHYTHM, +S1, +S2 - GI/Abdominal Exam GI & Abdominal Exam: Soft, Diminished Bowel Sounds - Rectal Exam Rectal Exam: Deferred Assessment and Plan (1) Alcohol withdrawal seizure with complication Status: Acute (2) Drug abuse Status: Acute (3) Hepatitis C Status: Acute (4) Seizure Status: Acute (5) Status epilepticus Status: Acute (6) Alcohol abuse Status: Chronic (7) ESRD (end stage renal disease) on dialysis Status: Chronic (8) Liver transplant recipient Status: Chronic (9) Alcohol abuse Status: Acute (10) Alcohol abuse following liver transplant Status: Acute (11) Alcohol intoxication Status: Acute (12) Anemia Status: Acute (13) CHF (congestive heart failure) Status: Acute (14) CKD (chronic kidney disease) stage 5, GFR less than 15 ml/min Status: Acute (15) Encephalopathy Status: Acute (16) Gastritis Status: Acute (17) Hypotension Status: Acute (18) Hypotension Status: Acute (19) Leukopenia Status: Acute (20) Liver transplant disorder Status: Acute (21) Pancytopenia, acquired Status: Acute (22) Polysubstance (including opioids) dependence with physiol dependence Status: Acute (23) Renal failure, acute on chronic Status: Acute (24) Vomiting Status: Acute (25) ESRD (end stage renal disease) Status: Chronic
--- NOTE | 2016-12-05 16:23 | CP.PCM.PN ---
Subjective - Date & Time of Evaluation Date of Evaluation: 12/05/16 Time of Evaluation: 16:23 Objective - Vital Signs/Intake and Output Vital Signs (last 24 hours): Temp Pulse Resp BP Pulse Ox 97.5 F L 93 H 20 130/89 97 12/05/16 08:03 12/05/16 13:41 12/05/16 08:03 12/05/16 13:41 12/05/16 08:03 Intake and Output: 12/05/16 12/05/16 06:59 18:59 Intake Total 240 300 Output Total 200 Balance 40 300 - Medications Medications: Current Medications Amlodipine Besylate (Norvasc) 10 mg PO DAILY [facility] Last Admin: 12/05/16 10:23 Dose: Not Given Aspirin (Aspirin Chewable) 81 mg PO DAILY [facility] Last Admin: 12/05/16 09:38 Dose: Not Given Epoetin Denis (Procrit) 10,000 unit IV [facility] [place] Famotidine (Pepcid) 20 mg IVP DAILY [facility] Last Admin: 12/05/16 10:20 Dose: 20 mg Heparin Sodium (Porcine) (Heparin) 5,000 units SC Q12 [facility] Last Admin: 12/05/16 09:38 Dose: Not Given Vancomycin HCl 1 gm/ Sodium (Chloride) 250 mls @ 166.7 mls/hr IVPB [facility] [place] Last Admin: 12/05/16 10:23 Dose: 166.7 mls/hr Cefazolin Sodium/Dextrose (Ancef Iv 2 Gm Duplex) 2 gm in 100 mls @ 100 mls/hr IVPB [facility] [place] Last Admin: 12/05/16 08:56 Dose: 100 mls/hr Levetiracetam (Keppra) 750 mg PO Q12 [facility] Last Admin: 12/05/16 10:20 Dose: 750 mg Lorazepam (Ativan) 2 mg IVP Q4 PRN PRN Reason: Anxiety Last Admin: 12/05/16 13:42 Dose: 2 mg Metoprolol Tartrate (Lopressor) 12.5 mg PO Q12H [facility] Last Admin: 12/05/16 10:23 Dose: Not Given Prednisone (Prednisone Tab) 20 mg PO DAILY [facility] Last Admin: 12/05/16 10:20 Dose: 20 mg Thiamine HCl (Vitamin B1 Tab) 100 mg PO DAILY [facility] Last Admin: 12/05/16 10:20 Dose: 100 mg - Labs Labs: 12/05/16 11:36 12/05/16 11:36 PT 11.4 SECONDS (9.7-12.2) 11/26/16 07:41 INR 1.0 11/26/16 07:41 APTT 30 SECONDS (21-34) 11/27/16 01:58
--- NOTE | 2016-12-05 18:30 | CP.PCM.PN ---
Subjective - Date & Time of Evaluation Date of Evaluation: 12/05/16 Time of Evaluation: 07:00 - Subjective Subjective: IV RX RENEWED DISCUSSED ON ROUNDS Objective - Vital Signs/Intake and Output Vital Signs (last 24 hours): Temp Pulse Resp BP Pulse Ox 97.9 F 99 H 20 146/90 97 12/05/16 15:40 12/05/16 15:40 12/05/16 15:40 12/05/16 15:40 12/05/16 08:03 Intake and Output: 12/05/16 12/05/16 06:59 18:59 Intake Total 240 300 Output Total 200 Balance 40 300 - Medications Medications: Current Medications Amlodipine Besylate (Norvasc) 10 mg PO DAILY [facility] Last Admin: 12/05/16 10:23 Dose: Not Given Aspirin (Aspirin Chewable) 81 mg PO DAILY [facility] Last Admin: 12/05/16 09:38 Dose: Not Given Epoetin Denis (Procrit) 10,000 [place] [facility] [place] Famotidine (Pepcid) 20 mg IVP DAILY [facility] Last Admin: 12/05/16 10:20 Dose: 20 mg Heparin Sodium (Porcine) (Heparin) 5,000 units SC Q12 [facility] Last Admin: 12/05/16 09:38 Dose: Not Given Vancomycin HCl 1 gm/ Sodium (Chloride) 250 mls @ 166.7 mls/hr IVPB [facility] Last Admin: 12/05/16 10:23 Dose: 166.7 mls/hr Cefazolin Sodium/Dextrose (Ancef Iv 2 Gm Duplex) 2 gm in 100 mls @ 100 mls/hr IVPB [facility] Last Admin: 12/05/16 08:56 Dose: 100 mls/hr Levetiracetam (Keppra) 750 mg PO Q12 [facility] Last Admin: 12/05/16 10:20 Dose: 750 mg Lorazepam (Ativan) 2 mg IVP Q4 PRN PRN Reason: Anxiety Last Admin: 12/05/16 13:42 Dose: 2 mg Metoprolol Tartrate (Lopressor) 12.5 mg PO Q12H [facility] Last Admin: 12/05/16 10:23 Dose: Not Given Prednisone (Prednisone Tab) 20 mg PO DAILY [facility] Last Admin: 12/05/16 10:20 Dose: 20 mg Thiamine HCl (Vitamin B1 Tab) 100 mg PO DAILY [facility] Last Admin: 12/05/16 10:20 Dose: 100 mg - Labs Labs: 12/05/16 11:36 12/05/16 11:36 PT 11.4 SECONDS (9.7-12.2) 11/26/16 07:41 INR 1.0 11/26/16 07:41 APTT 30 SECONDS (21-34) 11/27/16 01:58 - Constitutional Appears: Cachectic - Head Exam Head Exam: NORMOCEPHALIC - Eye Exam Eye Exam: PERRL. absent: Scleral icterus - ENT Exam ENT Exam: Mucous Membranes Dry - Neck Exam Neck Exam: absent: Lymphadenopathy - Respiratory Exam Respiratory Exam: Decreased Breath Sounds, Rhonchi - Cardiovascular Exam Cardiovascular Exam: REGULAR RHYTHM Assessment and Plan (1) Alcohol abuse Status: Chronic (2) Alcohol withdrawal seizure with complication Status: Acute (3) Drug abuse Status: Acute (4) Hepatitis C Status: Acute (5) Seizure Status: Acute (6) Status epilepticus Status: Acute (7) ESRD (end stage renal disease) on dialysis Status: Chronic (8) Liver transplant recipient Status: Chronic (9) Encephalopathy Status: Acute (10) Hypotension Status: Acute (11) Liver transplant disorder Status: Acute (12) Polysubstance (including opioids) dependence with physiol dependence Status: Acute (13) Renal failure, acute on chronic Status: Acute (14) ESRD (end stage renal disease) Status: Chronic
--- NOTE | 2016-12-06 07:29 | CP.PCM.PN ---
Subjective - Date & Time of Evaluation Date of Evaluation: 12/05/16 Time of Evaluation: 09:50 - Subjective Subjective: Patient seen and evaluated No cardiac events Denies chest pain and dyspnea Objective - Vital Signs/Intake and Output Vital Signs (last 24 hours): Temp Pulse Resp BP Pulse Ox 98.2 F 75 20 140/89 99 12/05/16 23:06 12/05/16 23:06 12/05/16 23:06 12/05/16 23:06 12/05/16 23:06 Intake and Output: 12/06/16 12/06/16 06:59 18:59 Intake Total 500 Output Total 500 Balance 0 - Medications Medications: Current Medications Amlodipine Besylate (Norvasc) 10 mg PO DAILY [facility] Last Admin: 12/05/16 10:23 Dose: Not Given Aspirin (Aspirin Chewable) 81 mg PO DAILY [facility] Last Admin: 12/05/16 09:38 Dose: Not Given Epoetin Denis (Procrit) 10,000 unit IV [facility] [place] Famotidine (Pepcid) 20 mg IVP DAILY [facility] Last Admin: 12/05/16 10:20 Dose: 20 mg Heparin Sodium (Porcine) (Heparin) 5,000 units SC Q12 [facility] Last Admin: 12/05/16 22:56 Dose: 5,000 units Vancomycin HCl 1 gm/ Sodium (Chloride) 250 mls @ 166.7 mls/hr IVPB [facility] [place] Last Admin: 12/05/16 10:23 Dose: 166.7 mls/hr Cefazolin Sodium/Dextrose (Ancef Iv 2 Gm Duplex) 2 gm in 100 mls @ 100 mls/hr IVPB [facility] [place] Last Admin: 12/05/16 08:56 Dose: 100 mls/hr Levetiracetam (Keppra) 750 mg PO Q12 [facility] Last Admin: 12/05/16 22:57 Dose: 750 mg Lorazepam (Ativan) 2 mg IVP Q4 PRN PRN Reason: Anxiety Last Admin: 12/05/16 19:03 Dose: 2 mg Metoprolol Tartrate (Lopressor) 12.5 mg PO Q12H [facility] Last Admin: 12/05/16 22:58 Dose: 12.5 mg Prednisone (Prednisone Tab) 20 mg PO DAILY [facility] Last Admin: 12/05/16 10:20 Dose: 20 mg Thiamine HCl (Vitamin B1 Tab) 100 mg PO DAILY [facility] Last Admin: 12/05/16 10:20 Dose: 100 mg - Labs Labs: 12/05/16 11:36 12/05/16 11:36 PT 11.4 SECONDS (9.7-12.2) 11/26/16 07:41 INR 1.0 11/26/16 07:41 APTT 30 SECONDS (21-34) 11/27/16 01:58 - Head Exam Head Exam: ATRAUMATIC, NORMAL INSPECTION - Eye Exam Eye Exam: EOMI, PERRL - ENT Exam ENT Exam: Mucous Membranes Moist - Neck Exam Neck Exam: Full ROM - Respiratory Exam Respiratory Exam: Clear to Ausculation Bilateral, NORMAL BREATHING PATTERN - Cardiovascular Exam Cardiovascular Exam: REGULAR RHYTHM, +S1, +S2 - GI/Abdominal Exam GI & Abdominal Exam: Soft, Normal Bowel Sounds - Extremities Exam Extremities Exam: Full ROM - Neurological Exam Neurological Exam: Alert, Oriented x3 - Skin Skin Exam: Warm Assessment and Plan - Assessment and Plan (Free Text) Assessment: 1. Endocarditis 2. ESRD on HD 3. Hep C s/p Liver transplant 4. HTN Agree with the ID management
--- NOTE | 2016-12-06 09:31 | CP.PCM.PN ---
Subjective - Date & Time of Evaluation Date of Evaluation: 12/06/16 Time of Evaluation: 09:30 - Subjective Subjective: afebrile bp stable no new chems awake alert comfortable wants to leave again refuses dialysis Entire ros negative.says no to all questions Objective - Vital Signs/Intake and Output Vital Signs (last 24 hours): Temp Pulse Resp BP Pulse Ox 98.2 F 75 20 140/89 99 12/05/16 23:06 12/05/16 23:06 12/05/16 23:06 12/05/16 23:06 12/05/16 23:06 Intake and Output: 12/06/16 12/06/16 06:59 18:59 Intake Total 500 Output Total 500 Balance 0 - Medications Medications: Current Medications Amlodipine Besylate (Norvasc) 10 mg PO DAILY [facility] Last Admin: 12/05/16 10:23 Dose: Not Given Aspirin (Aspirin Chewable) 81 mg PO DAILY [facility] Last Admin: 12/05/16 09:38 Dose: Not Given Epoetin Denis (Procrit) 10,000 unit IV [facility] [place] Famotidine (Pepcid) 20 mg IVP DAILY [facility] Last Admin: 12/05/16 10:20 Dose: 20 mg Heparin Sodium (Porcine) (Heparin) 5,000 units SC Q12 [facility] Last Admin: 12/05/16 22:56 Dose: 5,000 units Vancomycin HCl 1 gm/ Sodium (Chloride) 250 mls @ 166.7 mls/hr IVPB [facility] [place] Last Admin: 12/05/16 10:23 Dose: 166.7 mls/hr Cefazolin Sodium/Dextrose (Ancef Iv 2 Gm Duplex) 2 gm in 100 mls @ 100 mls/hr IVPB [facility] [place] Last Admin: 12/05/16 08:56 Dose: 100 mls/hr Levetiracetam (Keppra) 750 mg PO Q12 [facility] Last Admin: 12/05/16 22:57 Dose: 750 mg Lorazepam (Ativan) 2 mg IVP Q4 PRN PRN Reason: Anxiety Last Admin: 12/05/16 19:03 Dose: 2 mg Metoprolol Tartrate (Lopressor) 12.5 mg PO Q12H [facility] Last Admin: 12/05/16 22:58 Dose: 12.5 mg Prednisone (Prednisone Tab) 20 mg PO DAILY [facility] Last Admin: 12/05/16 10:20 Dose: 20 mg Thiamine HCl (Vitamin B1 Tab) 100 mg PO DAILY [facility] Last Admin: 12/05/16 10:20 Dose: 100 mg - Labs Labs: 12/05/16 11:36 12/05/16 11:36 PT 11.4 SECONDS (9.7-12.2) 11/26/16 07:41 INR 1.0 11/26/16 07:41 APTT 30 SECONDS (21-34) 11/27/16 01:58 - Constitutional Appears: No Acute Distress - Eye Exam Eye Exam: Normal appearance - ENT Exam ENT Exam: Mucous Membranes Moist - Respiratory Exam Respiratory Exam: Clear to Ausculation Bilateral - Cardiovascular Exam Cardiovascular Exam: REGULAR RHYTHM. absent: JVD - GI/Abdominal Exam GI & Abdominal Exam: Soft. absent: Distended, Tenderness - Extremities Exam Extremities Exam: absent: Calf Tenderness - Skin Skin Exam: Dry Assessment and Plan (1) Seizure Status: Acute (2) ESRD (end stage renal disease) on dialysis Status: Chronic (3) Liver transplant recipient Status: Chronic - Assessment and Plan (Free Text) Plan: could not convince to go to dialysis to observe
[2016-12-06] MEDS: levETIRAcetam 100 mg/ml (5ml) Oral Syringe PO SCH ×3 (10:19→21:41)
--- NOTE | 2016-12-06 12:19 | CP.PCM.PN ---
Subjective - Date & Time of Evaluation Date of Evaluation: 12/06/16 Time of Evaluation: 06:00 - Subjective Subjective: Vascular Surgery - Dr. Cardenas Pt S&E at bedside this AM. SARAH. Pt would like to leave this AM. Pt understands that he needs surgery for AVF and states he will return and continue care. Objective - Vital Signs/Intake and Output Vital Signs (last 24 hours): Temp Pulse Resp BP Pulse Ox 97.8 F 97 H 20 147/96 H 100 12/06/16 10:00 12/06/16 10:00 12/06/16 10:00 12/06/16 10:00 12/06/16 10:00 Intake and Output: 12/06/16 12/06/16 06:59 18:59 Intake Total 500 Output Total 500 Balance 0 - Medications Medications: Current Medications Amlodipine Besylate (Norvasc) 10 mg PO DAILY [facility] Last Admin: 12/06/16 10:07 Dose: 10 mg Aspirin (Aspirin Chewable) 81 mg PO DAILY [facility] Last Admin: 12/06/16 10:06 Dose: 81 mg Epoetin Denis (Procrit) 10,000 unit IV [facility] [place] Famotidine (Pepcid) 20 mg IVP DAILY [facility] Last Admin: 12/06/16 10:07 Dose: 20 mg Heparin Sodium (Porcine) (Heparin) 5,000 units SC Q12 [facility] Last Admin: 12/06/16 10:13 Dose: 5,000 units Vancomycin HCl 1 gm/ Sodium (Chloride) 250 mls @ 166.7 mls/hr IVPB [facility] [place] Last Admin: 12/05/16 10:23 Dose: 166.7 mls/hr Cefazolin Sodium/Dextrose (Ancef Iv 2 Gm Duplex) 2 gm in 100 mls @ 100 mls/hr IVPB [facility] [place] Last Admin: 12/05/16 08:56 Dose: 100 mls/hr Levetiracetam (Keppra) 750 mg PO Q12 [facility] Last Admin: 12/06/16 10:20 Dose: 750 mg Lorazepam (Ativan) 2 mg IVP Q4 PRN PRN Reason: Anxiety Last Admin: 12/05/16 19:03 Dose: 2 mg Metoprolol Tartrate (Lopressor) 12.5 mg PO Q12H [facility] Last Admin: 12/06/16 10:08 Dose: 12.5 mg Prednisone (Prednisone Tab) 20 mg PO DAILY [facility] Last Admin: 12/06/16 10:06 Dose: 20 mg Thiamine HCl (Vitamin B1 Tab) 100 mg PO DAILY [facility] Last Admin: 12/06/16 10:07 Dose: 100 mg - Labs Labs: 12/05/16 11:36 12/05/16 11:36 PT 11.4 SECONDS (9.7-12.2) 11/26/16 07:41 INR 1.0 11/26/16 07:41 APTT 30 SECONDS (21-34) 11/27/16 01:58 - Constitutional Appears: No Acute Distress - Eye Exam Eye Exam: EOMI - ENT Exam ENT Exam: Mucous Membranes Moist - Neck Exam Additional comments: Right IJ vannesa in place - Respiratory Exam Respiratory Exam: NORMAL BREATHING PATTERN. absent: Accessory Muscle Use, Rales , Rhonchi - Cardiovascular Exam Cardiovascular Exam: +S1, +S2 - GI/Abdominal Exam GI & Abdominal Exam: Soft. absent: Distended, Firm, Rigid, Tenderness - Neurological Exam Neurological Exam: Awake - Skin Skin Exam: Normal Color Assessment and Plan - Assessment and Plan (Free Text) Assessment: 51M with CKD, occluded AVF Plan: - scheduled for OR Thursday - will continue to follow - further recs per Dr. Ronald Francisco PGY1
--- NOTE | 2016-12-06 14:18 | CP.PCM.PN ---
Subjective - Date & Time of Evaluation Date of Evaluation: 12/06/16 Time of Evaluation: 10:00 - Subjective Subjective: clinically same Objective - Vital Signs/Intake and Output Vital Signs (last 24 hours): Temp Pulse Resp BP Pulse Ox 97.8 F 97 H 20 147/96 H 100 12/06/16 10:00 12/06/16 10:00 12/06/16 10:00 12/06/16 10:00 12/06/16 10:00 Intake and Output: 12/06/16 12/06/16 06:59 18:59 Intake Total 500 Output Total 500 Balance 0 - Medications Medications: Current Medications Amlodipine Besylate (Norvasc) 10 mg PO DAILY [facility] Last Admin: 12/06/16 10:07 Dose: 10 mg Aspirin (Aspirin Chewable) 81 mg PO DAILY [facility] Last Admin: 12/06/16 10:06 Dose: 81 mg Epoetin Denis (Procrit) 10,000 unit IV [facility] [place] Famotidine (Pepcid) 20 mg IVP DAILY [facility] Last Admin: 12/06/16 10:07 Dose: 20 mg Heparin Sodium (Porcine) (Heparin) 5,000 units SC Q12 [facility] Last Admin: 12/06/16 10:13 Dose: 5,000 units Vancomycin HCl 1 gm/ Sodium (Chloride) 250 mls @ 166.7 mls/hr IVPB [facility] Last Admin: 12/05/16 10:23 Dose: 166.7 mls/hr Cefazolin Sodium/Dextrose (Ancef Iv 2 Gm Duplex) 2 gm in 100 mls @ 100 mls/hr IVPB [facility] Last Admin: 12/05/16 08:56 Dose: 100 mls/hr Levetiracetam (Keppra) 750 mg PO Q12 [facility] Last Admin: 12/06/16 10:20 Dose: 750 mg Lorazepam (Ativan) 2 mg IVP Q4 PRN PRN Reason: Anxiety Last Admin: 12/05/16 19:03 Dose: 2 mg Metoprolol Tartrate (Lopressor) 12.5 mg PO Q12H [facility] Last Admin: 12/06/16 10:08 Dose: 12.5 mg Prednisone (Prednisone Tab) 20 mg PO DAILY [facility] Last Admin: 12/06/16 10:06 Dose: 20 mg Thiamine HCl (Vitamin B1 Tab) 100 mg PO DAILY [facility] Last Admin: 12/06/16 10:07 Dose: 100 mg - Labs Labs: 12/05/16 11:36 12/05/16 11:36 PT 11.4 SECONDS (9.7-12.2) 11/26/16 07:41 INR 1.0 11/26/16 07:41 APTT 30 SECONDS (21-34) 11/27/16 01:58 - Constitutional Appears: Well - Head Exam Head Exam: ATRAUMATIC, NORMAL INSPECTION, NORMOCEPHALIC - Eye Exam Eye Exam: EOMI, Normal appearance, PERRL Pupil Exam: NORMAL ACCOMODATION, PERRL - ENT Exam ENT Exam: Mucous Membranes Moist, Normal Exam - Neck Exam Neck Exam: Full ROM, Normal Inspection. absent: Lymphadenopathy - Respiratory Exam Respiratory Exam: Decreased Breath Sounds - Cardiovascular Exam Cardiovascular Exam: REGULAR RHYTHM, +S1, +S2. absent: Murmur - GI/Abdominal Exam GI & Abdominal Exam: Diminished Bowel Sounds - Rectal Exam Rectal Exam: Deferred Assessment and Plan (1) Alcohol withdrawal seizure with complication Status: Acute (2) Drug abuse Status: Acute (3) Hepatitis C Status: Acute (4) Seizure Status: Acute (5) Status epilepticus Status: Acute (6) Alcohol abuse Status: Chronic (7) ESRD (end stage renal disease) on dialysis Status: Chronic (8) Liver transplant recipient Status: Chronic (9) Alcohol abuse Status: Acute (10) Alcohol abuse following liver transplant Status: Acute (11) Alcohol intoxication Status: Acute (12) Anemia Status: Acute (13) CHF (congestive heart failure) Status: Acute (14) CKD (chronic kidney disease) stage 5, GFR less than 15 ml/min Status: Acute (15) Encephalopathy Status: Acute (16) Gastritis Status: Acute (17) Hypotension Status: Acute (18) Hypotension Status: Acute (19) Leukopenia Status: Acute (20) Liver transplant disorder Status: Acute (21) Pancytopenia, acquired Status: Acute (22) Polysubstance (including opioids) dependence with physiol dependence Status: Acute (23) Renal failure, acute on chronic Status: Acute (24) Vomiting Status: Acute (25) ESRD (end stage renal disease) Status: Chronic
--- NOTE | 2016-12-06 21:58 | CP.PCM.PN ---
Subjective - Date & Time of Evaluation Date of Evaluation: 12/06/16 Time of Evaluation: 07:45 - Subjective Subjective: Patient seen and evaluated denies chest pain and dyspnea Wants to go home Objective - Vital Signs/Intake and Output Vital Signs (last 24 hours): Temp Pulse Resp BP Pulse Ox 97.3 F L 84 20 150/93 H 100 12/06/16 15:00 12/06/16 15:00 12/06/16 15:00 12/06/16 15:00 12/06/16 15:00 Intake and Output: 12/06/16 12/07/16 18:59 06:59 Intake Total 480 Balance 480 - Medications Medications: Current Medications Amlodipine Besylate (Norvasc) 10 mg PO DAILY [facility] Last Admin: 12/06/16 10:07 Dose: 10 mg Aspirin (Aspirin Chewable) 81 mg PO DAILY [facility] Last Admin: 12/06/16 10:06 Dose: 81 mg Epoetin Denis (Procrit) 10,000 unit IV [facility] [place] Famotidine (Pepcid) 20 mg IVP DAILY [facility] Last Admin: 12/06/16 10:07 Dose: 20 mg Heparin Sodium (Porcine) (Heparin) 5,000 units SC Q12 [facility] Last Admin: 12/06/16 21:41 Dose: 5,000 units Vancomycin HCl 1 gm/ Sodium (Chloride) 250 mls @ 166.7 mls/hr IVPB [facility] [place] Last Admin: 12/05/16 10:23 Dose: 166.7 mls/hr Cefazolin Sodium/Dextrose (Ancef Iv 2 Gm Duplex) 2 gm in 100 mls @ 100 mls/hr IVPB [facility] [place] Last Admin: 12/05/16 08:56 Dose: 100 mls/hr Levetiracetam (Keppra) 750 mg PO Q12 [facility] Last Admin: 12/06/16 21:41 Dose: 750 mg Metoprolol Tartrate (Lopressor) 12.5 mg PO Q12H [facility] Last Admin: 12/06/16 21:41 Dose: 12.5 mg Prednisone (Prednisone Tab) 20 mg PO DAILY [facility] Last Admin: 12/06/16 10:06 Dose: 20 mg Thiamine HCl (Vitamin B1 Tab) 100 mg PO DAILY [facility] Last Admin: 12/06/16 10:07 Dose: 100 mg - Labs Labs: 12/05/16 11:36 12/05/16 11:36 PT 11.4 SECONDS (9.7-12.2) 11/26/16 07:41 INR 1.0 11/26/16 07:41 APTT 30 SECONDS (21-34) 11/27/16 01:58 - Head Exam Head Exam: ATRAUMATIC, NORMAL INSPECTION - Eye Exam Eye Exam: EOMI, PERRL Pupil Exam: NORMAL ACCOMODATION - ENT Exam ENT Exam: Mucous Membranes Moist - Neck Exam Neck Exam: Full ROM, Normal Inspection - Respiratory Exam Respiratory Exam: Clear to Ausculation Bilateral, NORMAL BREATHING PATTERN - Cardiovascular Exam Cardiovascular Exam: Irregular Rhythm, +S1, +S2 - Extremities Exam Extremities Exam: Full ROM - Back Exam Back Exam: NORMAL INSPECTION - Neurological Exam Neurological Exam: Alert, Oriented x3 - Skin Skin Exam: Warm Assessment and Plan - Assessment and Plan (Free Text) Assessment: 1. Endocarditis Abx as per ID 2. A Fib: Not on Anticoagulation due to risk of cerebral bleed 3. CRF on HD 4. S/P Liver transplant 5. Psych history 6. H/O of endocarditis
[2016-12-07] MEDS: levETIRAcetam 100 mg/ml (5ml) Oral Syringe PO SCH ×2 (10:03→21:49)
--- NOTE | 2016-12-07 14:01 | CP.PCM.PN ---
Subjective - Date & Time of Evaluation Date of Evaluation: 12/07/16 Time of Evaluation: 10:00 - Subjective Subjective: clinically same Objective - Vital Signs/Intake and Output Vital Signs (last 24 hours): Temp Pulse Resp BP Pulse Ox 98.0 F 78 20 138/80 100 12/07/16 08:56 12/07/16 08:56 12/07/16 08:56 12/07/16 08:56 12/07/16 08:56 Intake and Output: 12/07/16 12/07/16 06:59 18:59 Intake Total 400 480 Output Total 450 Balance -50 480 - Medications Medications: Current Medications Amlodipine Besylate (Norvasc) 10 mg PO DAILY [facility] Last Admin: 12/07/16 10:04 Dose: 10 mg Aspirin (Aspirin Chewable) 81 mg PO DAILY [facility] Last Admin: 12/07/16 10:04 Dose: 81 mg Epoetin Denis (Procrit) 10,000 unit IV [facility] [place] Famotidine (Pepcid) 20 mg IVP DAILY [facility] Last Admin: 12/07/16 10:04 Dose: 20 mg Heparin Sodium (Porcine) (Heparin) 5,000 units SC Q12 [facility] Last Admin: 12/07/16 10:04 Dose: 5,000 units Vancomycin HCl 1 gm/ Sodium (Chloride) 250 mls @ 166.7 mls/hr IVPB [facility] [place] Last Admin: 12/05/16 10:23 Dose: 166.7 mls/hr Cefazolin Sodium/Dextrose (Ancef Iv 2 Gm Duplex) 2 gm in 100 mls @ 100 mls/hr IVPB [facility] [place] Last Admin: 12/05/16 08:56 Dose: 100 mls/hr Levetiracetam (Keppra) 750 mg PO Q12 [facility] Last Admin: 12/07/16 10:03 Dose: 750 mg Metoprolol Tartrate (Lopressor) 12.5 mg PO Q12H [facility] Last Admin: 12/07/16 10:07 Dose: 12.5 mg Prednisone (Prednisone Tab) 20 mg PO DAILY [facility] Last Admin: 12/07/16 10:04 Dose: 20 mg Thiamine HCl (Vitamin B1 Tab) 100 mg PO DAILY [facility] Last Admin: 12/07/16 10:07 Dose: 100 mg - Labs Labs: 12/05/16 11:36 12/05/16 11:36 PT 11.4 SECONDS (9.7-12.2) 11/26/16 07:41 INR 1.0 11/26/16 07:41 APTT 30 SECONDS (21-34) 11/27/16 01:58 - Constitutional Appears: Well - Head Exam Head Exam: ATRAUMATIC, NORMAL INSPECTION, NORMOCEPHALIC - Eye Exam Eye Exam: EOMI, Normal appearance, PERRL Pupil Exam: NORMAL ACCOMODATION, PERRL - ENT Exam ENT Exam: Mucous Membranes Moist, Normal Exam - Neck Exam Neck Exam: Full ROM, Normal Inspection. absent: Lymphadenopathy - Respiratory Exam Respiratory Exam: Decreased Breath Sounds - Cardiovascular Exam Cardiovascular Exam: REGULAR RHYTHM, +S1, +S2. absent: Murmur - GI/Abdominal Exam GI & Abdominal Exam: Diminished Bowel Sounds - Rectal Exam Rectal Exam: Deferred Assessment and Plan (1) Alcohol withdrawal seizure with complication Status: Acute (2) Drug abuse Status: Acute (3) Hepatitis C Status: Acute (4) Seizure Status: Acute (5) Status epilepticus Status: Acute (6) Alcohol abuse Status: Chronic (7) ESRD (end stage renal disease) on dialysis Status: Chronic (8) Liver transplant recipient Status: Chronic (9) Alcohol abuse Status: Acute (10) Alcohol abuse following liver transplant Status: Acute (11) Alcohol intoxication Status: Acute (12) Anemia Status: Acute (13) CHF (congestive heart failure) Status: Acute (14) CKD (chronic kidney disease) stage 5, GFR less than 15 ml/min Status: Acute (15) Encephalopathy Status: Acute (16) Gastritis Status: Acute (17) Hypotension Status: Acute (18) Hypotension Status: Acute (19) Leukopenia Status: Acute (20) Liver transplant disorder Status: Acute (21) Pancytopenia, acquired Status: Acute (22) Polysubstance (including opioids) dependence with physiol dependence Status: Acute (23) Renal failure, acute on chronic Status: Acute (24) Vomiting Status: Acute (25) ESRD (end stage renal disease) Status: Chronic
--- NOTE | 2016-12-07 14:27 | CP.PCM.PN ---
Subjective - Date & Time of Evaluation Date of Evaluation: 12/07/16 Time of Evaluation: 07:00 - Subjective Subjective: iv antibiotics renewed discussed on rounds no new complaints Objective - Vital Signs/Intake and Output Vital Signs (last 24 hours): Temp Pulse Resp BP Pulse Ox 98.0 F 78 20 138/80 100 12/07/16 08:56 12/07/16 08:56 12/07/16 08:56 12/07/16 08:56 12/07/16 08:56 Intake and Output: 12/07/16 12/07/16 06:59 18:59 Intake Total 400 480 Output Total 450 Balance -50 480 - Medications Medications: Current Medications Amlodipine Besylate (Norvasc) 10 mg PO DAILY [facility] Last Admin: 12/07/16 10:04 Dose: 10 mg Aspirin (Aspirin Chewable) 81 mg PO DAILY [facility] Last Admin: 12/07/16 10:04 Dose: 81 mg Epoetin Denis (Procrit) 10,000 [place] [facility] [place]amotidine (Pepcid) 20 mg IVP DAILY [facility] Last Admin: 12/07/16 10:04 Dose: 20 mg Heparin Sodium (Porcine) (Heparin) 5,000 units SC Q12 [facility] Last Admin: 12/07/16 10:04 Dose: 5,000 units Vancomycin HCl 1 gm/ Sodium (Chloride) 250 mls @ 166.7 mls/hr IVPB [facility] [place] Last Admin: 12/05/16 10:23 Dose: 166.7 mls/hr Cefazolin Sodium/Dextrose (Ancef Iv 2 Gm Duplex) 2 gm in 100 mls @ 100 mls/hr [place]PB [facility] [place] Last Admin: 12/05/16 08:56 Dose: 100 mls/hr Levetiracetam (Keppra) 750 mg PO Q12 [facility] Last Admin: 12/07/16 10:03 Dose: 750 mg Metoprolol Tartrate (Lopressor) 12.5 mg PO Q12H [facility] Last Admin: 12/07/16 10:07 Dose: 12.5 mg Prednisone (Prednisone Tab) 20 mg PO DAILY [facility] Last Admin: 12/07/16 10:04 Dose: 20 mg Thiamine HCl (Vitamin B1 Tab) 100 mg PO DAILY [facility] Last Admin: 12/07/16 10:07 Dose: 100 mg - Labs Labs: 12/05/16 11:36 12/05/16 11:36 PT 11.4 SECONDS (9.7-12.2) 11/26/16 07:41 INR 1.0 11/26/16 07:41 APTT 30 SECONDS (21-34) 11/27/16 01:58 - Constitutional Appears: Non-toxic, Cachectic - Head Exam Head Exam: NORMOCEPHALIC - Eye Exam Eye Exam: absent: Scleral icterus - ENT Exam ENT Exam: Mucous Membranes Dry - Neck Exam Neck Exam: absent: Lymphadenopathy - Respiratory Exam Respiratory Exam: Decreased Breath Sounds - Cardiovascular Exam Cardiovascular Exam: REGULAR RHYTHM - GI/Abdominal Exam GI & Abdominal Exam: Distended, Soft - Rectal Exam Rectal Exam: Deferred - Exam Exam: NORMAL INSPECTION - Extremities Exam Extremities Exam: absent: Pedal Edema - Back Exam Back Exam: absent: CVA tenderness (L), CVA tenderness (R) Assessment and Plan (1) Alcohol abuse Status: Chronic (2) Alcohol withdrawal seizure with complication Status: Acute (3) Drug abuse Status: Acute (4) Hepatitis C Status: Acute (5) Seizure Status: Acute (6) Status epilepticus Status: Acute (7) ESRD (end stage renal disease) on dialysis Status: Chronic (8) Liver transplant recipient Status: Chronic (9) Encephalopathy Status: Acute (10) Hypotension Status: Acute (11) Liver transplant disorder Status: Acute (12) Polysubstance (including opioids) dependence with physiol dependence Status: Acute (13) Renal failure, acute on chronic Status: Acute (14) ESRD (end stage renal disease) Status: Chronic - Assessment and Plan (Free Text) Assessment: cont iv rx for suspected endocarditis
--- NOTE | 2016-12-07 20:16 | CP.PCM.PN ---
Subjective - Date & Time of Evaluation Date of Evaluation: 12/07/16 Time of Evaluation: 09:10 - Subjective Subjective: Patient seen and evaluated Denies chest pain and dyspnea Objective - Vital Signs/Intake and Output Vital Signs (last 24 hours): Temp Pulse Resp BP Pulse Ox 98.0 F 78 20 138/80 100 12/07/16 08:56 12/07/16 08:56 12/07/16 08:56 12/07/16 08:56 12/07/16 08:56 Intake and Output: 12/07/16 12/08/16 18:59 06:59 Intake Total 480 Balance 480 - Medications Medications: Current Medications Amlodipine Besylate (Norvasc) 10 mg PO DAILY [facility] Last Admin: 12/07/16 10:04 Dose: 10 mg Aspirin (Aspirin Chewable) 81 mg PO DAILY [facility] Last Admin: 12/07/16 10:04 Dose: 81 mg Epoetin Denis ([facility]) [facility] (Pepcid) 20 mg IVP DAILY [facility] Last Admin: 12/07/16 10:04 Dose: 20 mg Heparin Sodium (Porcine) (Heparin) 5,000 units SC Q12 [facility] Last Admin: 12/07/16 10:04 Dose: 5,000 units Vancomycin HCl 1 gm/ Sodium (Chloride) 250 mls @ 166.7 mls/hr IVPB [facility] [place] Last Admin: 12/05/16 10:23 Dose: 166.7 mls/hr Cefazolin Sodium/Dextrose (Ancef Iv 2 Gm Duplex) 2 gm in 100 mls @ 100 mls/hr IVPB [facility] [place] Last Admin: 12/05/16 08:56 Dose: 100 mls/hr Levetiracetam (Keppra) 750 mg PO Q12 [facility] Last Admin: 12/07/16 10:03 Dose: 750 mg Metoprolol Tartrate (Lopressor) 12.5 mg PO Q12H [facility] Last Admin: 12/07/16 10:07 Dose: 12.5 mg Prednisone (Prednisone Tab) 20 mg PO DAILY [facility] Last Admin: 12/07/16 10:04 Dose: 20 mg Thiamine HCl (Vitamin B1 Tab) 100 mg PO DAILY [facility] Last Admin: 12/07/16 10:07 Dose: 100 mg - Labs Labs: 12/05/16 11:36 12/05/16 11:36 PT 11.4 SECONDS (9.7-12.2) 11/26/16 07:41 INR 1.0 11/26/16 07:41 APTT 30 SECONDS (21-34) 11/27/16 01:58 - Head Exam Head Exam: ATRAUMATIC, NORMAL INSPECTION - Eye Exam Eye Exam: EOMI, PERRL Pupil Exam: NORMAL ACCOMODATION - ENT Exam ENT Exam: Mucous Membranes Moist - Neck Exam Neck Exam: Full ROM, Normal Inspection - Respiratory Exam Respiratory Exam: Clear to Ausculation Bilateral, NORMAL BREATHING PATTERN - Cardiovascular Exam Cardiovascular Exam: Irregular Rhythm, +S1, +S2 - GI/Abdominal Exam GI & Abdominal Exam: Soft, Normal Bowel Sounds - Extremities Exam Extremities Exam: Full ROM - Neurological Exam Neurological Exam: Alert, Oriented x3 - Skin Skin Exam: Warm Assessment and Plan - Assessment and Plan (Free Text) Assessment: 1. Endocarditis Abx as per ID 2. A Fib: Not on Anticoagulation due to risk of cerebral bleed 3. CRF on HD 4. S/P Liver transplant 5. Psych history 6. H/O of endocarditis 7. Seizure disorder Continue all meds
--- NOTE | 2016-12-08 06:40 | CP.PCM.PN ---
Subjective - Date & Time of Evaluation Date of Evaluation: 12/08/16 Time of Evaluation: 06:38 - Subjective Subjective: Vasc Sx: Dr Cardenas Pt S&E. NAEO. Resting comfortably. No complaints. Pt aware of plan for procedure tomorrow with Dr Cardenas. Objective - Vital Signs/Intake and Output Vital Signs (last 24 hours): Temp Pulse Resp BP Pulse Ox 97.4 F L 80 20 136/80 96 12/07/16 23:20 12/07/16 23:20 12/07/16 23:20 12/07/16 23:20 12/07/16 23:20 Intake and Output: 12/07/16 12/08/16 18:59 06:59 Intake Total 480 240 Balance 480 240 - Medications Medications: Current Medications Amlodipine Besylate (Norvasc) 10 mg PO DAILY [facility] Last Admin: 12/07/16 10:04 Dose: 10 mg Aspirin (Aspirin Chewable) 81 mg PO DAILY [facility] Last Admin: 12/07/16 10:04 Dose: 81 mg Epoetin Denis (Procrit) 10,000 unit IV [facility] [place] Famotidine (Pepcid) 20 mg IVP DAILY [facility] Last Admin: 12/07/16 10:04 Dose: 20 mg Heparin Sodium (Porcine) (Heparin) 5,000 units SC Q12 [facility] Last Admin: 12/07/16 21:48 Dose: Not Given Vancomycin HCl 1 gm/ Sodium (Chloride) 250 mls @ 166.7 mls/hr IVPB [facility] [place] Last Admin: 12/05/16 10:23 Dose: 166.7 mls/hr Cefazolin Sodium/Dextrose (Ancef Iv 2 Gm Duplex) 2 gm in 100 mls @ 100 mls/hr IVPB [facility] [place] Last Admin: 12/05/16 08:56 Dose: 100 mls/hr Levetiracetam (Keppra) 750 mg PO Q12 [facility] Last Admin: 12/07/16 21:49 Dose: Not Given Metoprolol Tartrate (Lopressor) 12.5 mg PO Q12H [facility]S [facility] Last Admin: 12/07/16 21:49 Dose: Not Given Prednisone (Prednisone Tab) 20 mg PO DAILY [facility] Last Admin: 12/07/16 10:04 Dose: 20 mg Thiamine HCl (Vitamin B1 Tab) 100 mg PO DAILY [facility] Last Admin: 12/07/16 10:07 Dose: 100 mg - Labs Labs: 12/05/16 11:36 12/05/16 11:36 PT 11.4 SECONDS (9.7-12.2) 11/26/16 07:41 INR 1.0 11/26/16 07:41 APTT 30 SECONDS (21-34) 11/27/16 01:58 - Constitutional Appears: Non-toxic - Respiratory Exam Respiratory Exam: absent: Accessory Muscle Use, Respiratory Distress - GI/Abdominal Exam GI & Abdominal Exam: Soft. absent: Tenderness - Neurological Exam Neurological Exam: Alert, Awake - Psychiatric Exam Psychiatric exam: Normal Mood - Skin Skin Exam: Normal Color, Warm Assessment and Plan - Assessment and Plan (Free Text) Assessment: 51M with ESRD w/ permacath placement Plan: plan for AVF tomorrow, thursday, 12/09 Will need consent, awaiting family member arrival NPO @ [place] d/w Dr Ronald Hanley, PGY3
[2016-12-08] MEDS: ceFAZolin IV 2 gm in Dextrose 2 GM/100 ML BAG IVPB SCH (09:44)
[2016-12-08] MEDS: levETIRAcetam 100 mg/ml (5ml) Oral Syringe PO SCH ×2 (09:45→21:13)
[2016-12-08] MEDS: EPOETIN ALFA 10,000 UNIT/ML ML IV SCH (09:46)
--- NOTE | 2016-12-08 10:35 | CP.PCM.PN ---
Subjective - Date & Time of Evaluation Date of Evaluation: 12/08/16 Time of Evaluation: 10:34 - Subjective Subjective: Refusing dialysis again Wants to go home no new other complaints Objective - Vital Signs/Intake and Output Vital Signs (last 24 hours): Temp Pulse Resp BP Pulse Ox 97.4 F L 80 20 136/80 96 12/07/16 23:20 12/07/16 23:20 12/07/16 23:20 12/07/16 23:20 12/07/16 23:20 Intake and Output: 12/08/16 12/08/16 06:59 18:59 Intake Total 240 Balance 240 - Medications Medications: Current Medications Amlodipine Besylate (Norvasc) 10 mg PO DAILY [facility] Last Admin: 12/08/16 09:45 Dose: Not Given Aspirin (Aspirin Chewable) 81 mg PO DAILY [facility] Last Admin: 12/08/16 09:45 Dose: Not Given Epoetin Denis (Procrit) 10,000 unit IV [facility] [place] Last Admin: 12/08/16 09:46 Dose: Not Given Famotidine (Pepcid) 20 mg IVP DAILY [facility] Last Admin: 12/08/16 09:46 Dose: Not Given Heparin Sodium (Porcine) (Heparin) 5,000 units SC Q12 [facility] Last Admin: 12/08/16 09:45 Dose: Not Given Vancomycin HCl 1 gm/ Sodium (Chloride) 250 mls @ 166.7 mls/hr IVPB [facility] [place] Last Admin: 12/08/16 09:46 Dose: Not Given Cefazolin Sodium/Dextrose (Ancef Iv 2 Gm Duplex) 2 gm in 100 mls @ 100 mls/hr IVPB [facility] Last Admin: 12/08/16 09:44 Dose: Not Given Levetiracetam (Keppra) 750 mg PO Q12 [facility] Last Admin: 12/08/16 09:45 Dose: Not Given Metoprolol Tartrate (Lopressor) 12.5 mg PO Q12H [facility] Last Admin: 12/08/16 09:45 Dose: Not Given Prednisone (Prednisone Tab) 20 mg PO DAILY [facility] Last Admin: 12/08/16 09:46 Dose: Not Given Thiamine HCl (Vitamin B1 Tab) 100 mg PO DAILY [facility] Last Admin: 12/08/16 09:46 Dose: Not Given - Labs Labs: 12/05/16 11:36 12/05/16 11:36 PT 11.4 SECONDS (9.7-12.2) 11/26/16 07:41 INR 1.0 11/26/16 07:41 APTT 30 SECONDS (21-34) 11/27/16 01:58 - Constitutional Appears: Non-toxic, No Acute Distress - Head Exam Head Exam: ATRAUMATIC, NORMAL INSPECTION - Eye Exam Eye Exam: EOMI, Normal appearance - Neck Exam Neck Exam: Normal Inspection. absent: Tenderness - Cardiovascular Exam Cardiovascular Exam: Gallop, REGULAR RHYTHM - GI/Abdominal Exam GI & Abdominal Exam: Soft. absent: Tenderness - Extremities Exam Extremities Exam: Normal Inspection. absent: Tenderness - Neurological Exam Neurological Exam: Alert, CN II-XII Intact - Skin Skin Exam: Dry, Warm Assessment and Plan (1) Alcohol withdrawal seizure with complication Status: Acute (2) Hepatitis C Status: Acute (3) Status epilepticus Status: Acute (4) Alcohol abuse Status: Chronic (5) ESRD (end stage renal disease) on dialysis Status: Chronic (6) Liver transplant recipient Status: Chronic - Assessment and Plan (Free Text) Plan: Refusing dialysis Refusing av access surgery
--- NOTE | 2016-12-08 18:25 | CP.PCM.PN ---
Subjective - Date & Time of Evaluation Date of Evaluation: 12/08/16 Time of Evaluation: 09:40 - Subjective Subjective: clinically same Objective - Vital Signs/Intake and Output Vital Signs (last 24 hours): Temp Pulse Resp BP Pulse Ox 98.1 F 84 20 131/89 100 12/08/16 15:14 12/08/16 15:14 12/08/16 15:14 12/08/16 15:14 12/08/16 15:14 Intake and Output: 12/08/16 12/08/16 06:59 18:59 Intake Total 240 960 Balance 240 960 - Medications Medications: Current Medications Amlodipine Besylate (Norvasc) 10 mg PO DAILY [facility] Last Admin: 12/08/16 09:45 Dose: Not Given Aspirin (Aspirin Chewable) 81 mg PO DAILY [facility] Last Admin: 12/08/16 09:45 Dose: Not Given Epoetin Denis (Procrit) 10,000 unit IV [facility] [place] Last Admin: 12/08/16 09:46 Dose: Not Given Famotidine (Pepcid) 20 mg IVP DAILY [facility] Last Admin: 12/08/16 09:46 Dose: Not Given Heparin Sodium (Porcine) (Heparin) 5,000 units SC Q12 [facility] Last Admin: 12/08/16 09:45 Dose: Not Given Vancomycin HCl 1 gm/ Sodium (Chloride) 250 mls @ 166.7 mls/hr IVPB [facility] [place] Last Admin: 12/08/16 09:46 Dose: Not Given Cefazolin Sodium/Dextrose (Ancef Iv 2 Gm Duplex) 2 gm in 100 mls @ 100 mls/hr IVPB [facility] [place] Last Admin: 12/08/16 09:44 Dose: Not Given Levetiracetam (Keppra) 750 mg PO Q12 [facility] Last Admin: 12/08/16 09:45 Dose: Not Given Metoprolol Tartrate (Lopressor) 12.5 mg PO Q12H [facility] Last Admin: 12/08/16 09:45 Dose: Not Given Prednisone (Prednisone Tab) 20 mg PO DAILY [facility] Last Admin: 12/08/16 09:46 Dose: Not Given Thiamine HCl (Vitamin B1 Tab) 100 mg PO DAILY [facility] Last Admin: 12/08/16 09:46 Dose: Not Given - Labs Labs: 12/05/16 11:36 12/05/16 11:36 PT 11.4 SECONDS (9.7-12.2) 11/26/16 07:41 INR 1.0 11/26/16 07:41 APTT 30 SECONDS (21-34) 11/27/16 01:58 - Constitutional Appears: Well - Head Exam Head Exam: ATRAUMATIC, NORMAL INSPECTION, NORMOCEPHALIC - Eye Exam Eye Exam: EOMI, Normal appearance, PERRL Pupil Exam: NORMAL ACCOMODATION, PERRL - ENT Exam ENT Exam: Mucous Membranes Moist, Normal Exam - Neck Exam Neck Exam: Full ROM, Normal Inspection. absent: Lymphadenopathy - Respiratory Exam Respiratory Exam: Decreased Breath Sounds - Cardiovascular Exam Cardiovascular Exam: REGULAR RHYTHM, +S1, +S2 - GI/Abdominal Exam GI & Abdominal Exam: Soft, Diminished Bowel Sounds - Rectal Exam Rectal Exam: Deferred Assessment and Plan (1) Alcohol withdrawal seizure with complication Status: Acute (2) Drug abuse Status: Acute (3) Hepatitis C Status: Acute (4) Seizure Status: Acute (5) Status epilepticus Status: Acute (6) Alcohol abuse Status: Chronic (7) ESRD (end stage renal disease) on dialysis Status: Chronic (8) Liver transplant recipient Status: Chronic (9) Alcohol abuse Status: Acute (10) Alcohol abuse following liver transplant Status: Acute (11) Alcohol intoxication Status: Acute (12) Anemia Status: Acute (13) CHF (congestive heart failure) Status: Acute (14) CKD (chronic kidney disease) stage 5, GFR less than 15 ml/min Status: Acute (15) Encephalopathy Status: Acute (16) Gastritis Status: Acute (17) Hypotension Status: Acute (18) Hypotension Status: Acute (19) Leukopenia Status: Acute (20) Liver transplant disorder Status: Acute (21) Pancytopenia, acquired Status: Acute (22) Polysubstance (including opioids) dependence with physiol dependence Status: Acute (23) Renal failure, acute on chronic Status: Acute (24) Vomiting Status: Acute (25) ESRD (end stage renal disease) Status: Chronic
--- NOTE | 2016-12-08 20:50 | CP.PCM.PN ---
Subjective - Date & Time of Evaluation Date of Evaluation: 12/08/16 Time of Evaluation: 09:45 - Subjective Subjective: Patient seen and evaluated Comfortable Denies chest pain and dyspnea Objective - Vital Signs/Intake and Output Vital Signs (last 24 hours): Temp Pulse Resp BP Pulse Ox 98.1 F 84 20 131/89 100 12/08/16 15:14 12/08/16 15:14 12/08/16 15:14 12/08/16 15:14 12/08/16 15:14 Intake and Output: 12/08/16 12/09/16 18:59 06:59 Intake Total 960 Balance 960 - Medications Medications: Current Medications Amlodipine Besylate (Norvasc) 10 mg PO DAILY [facility] Last Admin: 12/08/16 09:45 Dose: Not Given Aspirin (Aspirin Chewable) 81 mg PO DAILY [facility] Last Admin: 12/08/16 09:45 Dose: Not Given Epoetin Denis (Procrit) 10,[address] [facility] [place] Admin: 12/08/16 09:46 Dose: Not Given Famotidine (Pepcid) 20 mg IVP DAILY [facility] Last Admin: 12/08/16 09:46 Dose: Not Given Heparin Sodium (Porcine) (Heparin) 5,000 units SC Q12 [facility] Last Admin: 12/08/16 09:45 Dose: Not Given Vancomycin HCl 1 gm/ Sodium (Chloride) 250 mls @ 166.7 mls/hr IVPB [facility] [place] Last Admin: 12/08/16 09:46 Dose: Not Given Cefazolin Sodium/Dextrose (Ancef Iv 2 Gm Duplex) 2 gm in 100 mls @ 100 mls/hr IVPB [facility] [place] Last Admin: 12/08/16 09:44 Dose: Not Given Levetiracetam (Keppra) 750 mg PO Q12 [facility] Last Admin: 12/08/16 09:45 Dose: Not Given Metoprolol Tartrate (Lopressor) 12.5 mg PO Q12H [facility] Last Admin: 12/08/16 09:45 Dose: Not Given Prednisone (Prednisone Tab) 20 mg PO DAILY [facility] Last Admin: 12/08/16 09:46 Dose: Not Given Thiamine HCl (Vitamin B1 Tab) 100 mg PO DAILY [facility] Last Admin: 12/08/16 09:46 Dose: Not Given - Labs Labs: 12/05/16 11:36 12/05/16 11:36 PT 11.4 SECONDS (9.7-12.2) 11/26/16 07:41 INR 1.0 11/26/16 07:41 APTT 30 SECONDS (21-34) 11/27/16 01:58 - Head Exam Head Exam: ATRAUMATIC, NORMAL INSPECTION - Eye Exam Eye Exam: EOMI, PERRL Pupil Exam: NORMAL ACCOMODATION - ENT Exam ENT Exam: Mucous Membranes Moist, Normal Exam - Neck Exam Neck Exam: Full ROM - Respiratory Exam Respiratory Exam: Clear to Ausculation Bilateral, NORMAL BREATHING PATTERN - Cardiovascular Exam Cardiovascular Exam: REGULAR RHYTHM, +S1, +S2 - GI/Abdominal Exam GI & Abdominal Exam: Soft, Normal Bowel Sounds - Back Exam Back Exam: NORMAL INSPECTION - Neurological Exam Neurological Exam: Alert, Oriented x3 - Psychiatric Exam Psychiatric exam: Normal Mood - Skin Skin Exam: Warm Assessment and Plan - Assessment and Plan (Free Text) Assessment: 1. Endocarditis Abx as per ID 2. A Fib: Not on Anticoagulation due to risk of cerebral bleed 3. CRF on HD 4. S/P Liver transplant 5. Psych history 6. H/O of endocarditis 7. Seizure disorder Continue all meds
[2016-12-09] MEDS: levETIRAcetam 100 mg/ml (5ml) Oral Syringe PO SCH ×2 (10:10→22:14)
[2016-12-09 11:41] LABS: POTASSIUM 5.3 mmol/L (3.6-5.2)
[2016-12-09] MEDS ORDERED: Sod Polystyrene Sulf 15 gm/60 ml Oral Susp PO ONE (12:06)
--- NOTE | 2016-12-09 12:07 | CP.PCM.PN ---
Subjective - Date & Time of Evaluation Date of Evaluation: 12/09/16 Time of Evaluation: 12:06 - Subjective Subjective: notes reviewed pt refusing hd and avf surgery, wants to go home. Last HD 12/03 rt chest permcath Objective - Vital Signs/Intake and Output Vital Signs (last 24 hours): Temp Pulse Resp BP Pulse Ox 98.2 F 78 18 166/92 H 100 12/09/16 08:00 12/09/16 08:00 12/09/16 08:00 12/09/16 08:00 12/09/16 08:00 Intake and Output: 12/09/16 12/09/16 06:59 18:59 Output Total 600 Balance -600 - Medications Medications: Current Medications Amlodipine Besylate (Norvasc) 10 mg PO DAILY [facility] Last Admin: 12/09/16 10:10 Dose: 10 mg Aspirin (Aspirin Chewable) 81 mg PO DAILY [facility] Last Admin: 12/09/16 09:13 Dose: Not Given Epoetin Denis (Procrit) 10,000 unit IV [facility] [place] Last Admin: 12/08/16 09:46 Dose: Not Given Famotidine (Pepcid) 20 mg IVP DAILY [facility] Last Admin: 12/09/16 10:47 Dose: Not Given Heparin Sodium (Porcine) (Heparin) 5,000 units SC Q12 [facility] Last Admin: 12/08/16 21:11 Dose: 5,000 units Vancomycin HCl 1 gm/ Sodium (Chloride) 250 mls @ 166.7 [facility]ls[facility] Last Admin: 12/08/16 09:46 Dose: Not Given Cefazolin Sodium/Dextrose (Ancef Iv 2 Gm Duplex) 2 gm in 100 mls @ 100 mls/hr IVPB [facility] [place] Last Admin: 12/08/16 09:44 Dose: Not Given Levetiracetam (Keppra) 750 mg PO Q12 [facility] Last Admin: 12/09/16 10:10 Dose: 750 mg Metoprolol Tartrate (Lopressor) 12.5 mg PO Q12H [facility] Last Admin: 12/09/16 10:10 Dose: 12.5 mg Prednisone (Prednisone Tab) 20 mg PO DAILY [facility] Last Admin: 12/09/16 09:15 Dose: Not Given Thiamine HCl (Vitamin B1 Tab) 100 mg PO DAILY [facility] Last Admin: 12/09/16 10:47 Dose: Not Given - Labs Labs: 12/05/16 11:36 12/09/16 11:19 PT 11.4 SECONDS (9.7-12.2) 11/26/16 07:41 INR 1.0 11/26/16 07:41 APTT 30 SECONDS (21-34) 11/27/16 01:58 - Constitutional Appears: No Acute Distress, Cachectic, Chronically Ill - Head Exam Head Exam: NORMAL INSPECTION - Eye Exam Eye Exam: Normal appearance, Scleral icterus - ENT Exam ENT Exam: Mucous Membranes Moist, Normal Exam - Neck Exam Neck Exam: Normal Inspection - Respiratory Exam Respiratory Exam: Clear to Ausculation Bilateral, NORMAL BREATHING PATTERN - Cardiovascular Exam Cardiovascular Exam: REGULAR RHYTHM, RRR (rt chest permcath) - GI/Abdominal Exam GI & Abdominal Exam: Distended, Soft - Extremities Exam Extremities Exam: Normal Inspection (lue avf) Assessment and Plan (1) Alcohol abuse Status: Chronic (2) Alcohol withdrawal seizure with complication Status: Acute (3) Hepatitis C Status: Acute (4) Status epilepticus Status: Acute (5) ESRD (end stage renal disease) on dialysis Status: Chronic (6) Liver transplant recipient Status: Chronic - Assessment and Plan (Free Text) Assessment: pt refusing hd and surgical intervention, recommend psych eval. kayexelate ordered antibiotics for presumed endocarditis
--- NOTE | 2016-12-09 13:28 | CP.PCM.PN ---
Subjective - Date & Time of Evaluation Date of Evaluation: 12/09/16 Time of Evaluation: 13:25 - Subjective Subjective: Service for Dr. Ly Pt seen/examined at bedside. No acute distress. No events overnight. Pt still confused. Plan for procedure today, awaiting consent. No fevers, chills, vomiting, diarrhea, cp, sob. Objective - Vital Signs/Intake and Output Vital Signs (last 24 hours): Temp Pulse Resp BP Pulse Ox 98.2 F 78 18 166/92 H 100 12/09/16 08:00 12/09/16 08:00 12/09/16 08:00 12/09/16 08:00 12/09/16 08:00 Intake and Output: 12/09/16 12/09/16 06:59 18:59 Output Total 600 Balance -600 - Medications Medications: Current Medications Amlodipine Besylate (Norvasc) 10 mg PO DAILY [facility] Last Admin: 12/09/16 10:10 Dose: 10 mg Aspirin (Aspirin Chewable) 81 mg PO DAILY [facility] Last Admin: 12/09/16 09:13 Dose: Not Given Epoetin Denis (Procrit) 10,000 unit IV [facility] [place] Last Admin: 12/08/16 09:46 Dose: Not Given Famotidine (Pepcid) 20 mg IVP DAILY [facility] Last Admin: 12/09/16 10:47 Dose: Not Given Heparin Sodium (Porcine) (Heparin) 5,000 units SC Q12 [facility] Last Admin: 12/08/16 21:11 Dose: 5,000 units Vancomycin HCl 1 gm/ Sodium (Chloride) 250 mls @ 166.7 mls/hr IVPB [facility] [place] Last Admin: 12/08/16 09:46 Dose: Not Given Cefazolin Sodium/Dextrose (Ancef Iv 2 Gm Duplex) 2 gm in 100 mls @ 100 mls/hr IVPB [facility] [place] Last Admin: 12/08/16 09:44 Dose: Not Given Levetiracetam (Keppra) 750 mg PO Q12 [facility] Last Admin: 12/09/16 10:10 Dose: 750 mg Metoprolol Tartrate (Lopressor) 12.5 mg PO Q12H [facility] Last Admin: 12/09/16 10:10 Dose: 12.5 mg Prednisone (Prednisone Tab) 20 mg PO DAILY [facility] Last Admin: 12/09/16 09:15 Dose: Not Given Thiamine HCl (Vitamin B1 Tab) 100 mg PO DAILY [facility] Last Admin: 12/09/16 10:47 Dose: Not Given - Labs Labs: 12/05/16 11:36 12/09/16 11:19 PT 11.4 SECONDS (9.7-12.2) 11/26/16 07:41 INR 1.0 11/26/16 07:41 APTT 30 SECONDS (21-34) 11/27/16 01:58 - Constitutional Appears: Non-toxic, No Acute Distress, Older Than Stated Age, Chronically Ill - Head Exam Head Exam: ATRAUMATIC, NORMAL INSPECTION, NORMOCEPHALIC - Eye Exam Eye Exam: EOMI - ENT Exam ENT Exam: Mucous Membranes Moist - Neck Exam Neck Exam: Full ROM, Normal Inspection - Respiratory Exam Respiratory Exam: NORMAL BREATHING PATTERN. absent: Respiratory Distress - Cardiovascular Exam Cardiovascular Exam: +S1, +S2 - GI/Abdominal Exam GI & Abdominal Exam: Soft, Normal Bowel Sounds. absent: Tenderness - Extremities Exam Extremities Exam: Full ROM, Normal Inspection - Back Exam Back Exam: NORMAL INSPECTION - Neurological Exam Neurological Exam: Altered - Psychiatric Exam Psychiatric exam: Depressed, Flat Affect - Skin Skin Exam: Dry, Intact, Normal Color, Warm Assessment and Plan - Assessment and Plan (Free Text) Assessment: This is a 51 yo male with past medical hx of ESRD on dialysis, s/p liver transplant, cirrhosis, HTN 1. Recurrent seizures 12/09: no seizure activity noted for several days -asa 81 daily -keppra 250 q 12 2. 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 Per surgery - plan for AVF on Thursday Surgery consult, Dr. Cardenas, f/u recs -cefazolin 2 g mwf -sx following, plan for repair -vanco 1 g mwf -prednisone 20 daily 5. Acute on Chronic Renal Failure 12/05: patient refusing dialysis today. BUN 41 / Cr 4.1 4. Substance abuse thiamine 100 daily 5. HTN -norvasc 10 -lopressor 12.5 q 12 6. GI/DVT ppx -pepcid -heparin Case discussed with attending. All medical management as per Dr. Kary Ly
--- NOTE | 2016-12-09 14:31 | CP.PCM.PN ---
Subjective - Date & Time of Evaluation Date of Evaluation: 12/09/16 Time of Evaluation: 10:40 - Subjective Subjective: clinically same Objective - Vital Signs/Intake and Output Vital Signs (last 24 hours): Temp Pulse Resp BP Pulse Ox 98.2 F 78 18 166/92 H 100 12/09/16 08:00 12/09/16 08:00 12/09/16 08:00 12/09/16 08:00 12/09/16 08:00 Intake and Output: 12/09/16 12/09/16 06:59 18:59 Output Total 600 Balance -600 - Medications Medications: Current Medications Amlodipine Besylate (Norvasc) 10 mg PO DAILY [facility] Last Admin: 12/09/16 10:10 Dose: 10 mg Aspirin (Aspirin Chewable) 81 mg PO DAILY [facility] Last Admin: 12/09/16 09:13 Dose: Not Given Epoetin Denis (Procrit) 10,000 unit IV [facility] [place] Last Admin: 12/08/16 09:46 Dose: Not Given Famotidine (Pepcid) 20 mg IVP DAILY [facility] Last Admin: 12/09/16 10:47 Dose: Not Given Heparin Sodium (Porcine) (Heparin) 5,000 units SC Q12 [facility] Last Admin: 12/08/16 21:11 Dose: 5,000 units Vancomycin HCl 1 gm/ Sodium (Chloride) 250 mls @ 166.7 mls/hr IVPB [facility] [place] Last Admin: 12/08/16 09:46 Dose: Not Given Cefazolin Sodium/Dextrose (Ancef Iv 2 Gm Duplex) 2 gm in 100 mls @ 100 mls/hr IVPB [facility] [place] Last Admin: 12/08/16 09:44 Dose: Not Given Levetiracetam (Keppra) 750 mg PO Q12 [facility] Last Admin: 12/09/16 10:10 Dose: 750 mg Metoprolol Tartrate (Lopressor) 12.5 mg PO Q12H [facility] Last Admin: 12/09/16 10:10 Dose: 12.5 mg Prednisone (Prednisone Tab) 20 mg PO DAILY [facility] Last Admin: 12/09/16 09:15 Dose: Not Given Thiamine HCl (Vitamin B1 Tab) 100 mg PO DAILY [facility] Last Admin: 12/09/16 10:47 Dose: Not Given - Labs Labs: 12/05/16 11:36 12/09/16 11:19 PT 11.4 SECONDS (9.7-12.2) 11/26/16 07:41 INR 1.0 11/26/16 07:41 APTT 30 SECONDS (21-34) 11/27/16 01:58 - Constitutional Appears: Well - Head Exam Head Exam: ATRAUMATIC, NORMAL INSPECTION, NORMOCEPHALIC - Eye Exam Eye Exam: EOMI, Normal appearance, PERRL Pupil Exam: NORMAL ACCOMODATION, PERRL - ENT Exam ENT Exam: Mucous Membranes Moist, Normal Exam - Neck Exam Neck Exam: Full ROM, Normal Inspection. absent: Lymphadenopathy - Respiratory Exam Respiratory Exam: Decreased Breath Sounds - Cardiovascular Exam Cardiovascular Exam: REGULAR RHYTHM, +S1, +S2 - GI/Abdominal Exam GI & Abdominal Exam: Soft, Diminished Bowel Sounds - Rectal Exam Rectal Exam: Deferred Assessment and Plan (1) Alcohol withdrawal seizure with complication Status: Acute (2) Drug abuse Status: Acute (3) Hepatitis C Status: Acute (4) Seizure Status: Acute (5) Status epilepticus Status: Acute (6) Alcohol abuse Status: Chronic (7) ESRD (end stage renal disease) on dialysis Status: Chronic (8) Liver transplant recipient Status: Chronic (9) Alcohol abuse Status: Acute (10) Alcohol abuse following liver transplant Status: Acute (11) Alcohol intoxication Status: Acute (12) Anemia Status: Acute (13) CHF (congestive heart failure) Status: Acute (14) CKD (chronic kidney disease) stage 5, GFR less than 15 ml/min Status: Acute (15) Encephalopathy Status: Acute (16) Gastritis Status: Acute (17) Hypotension Status: Acute (18) Hypotension Status: Acute (19) Leukopenia Status: Acute (20) Liver transplant disorder Status: Acute (21) Pancytopenia, acquired Status: Acute (22) Polysubstance (including opioids) dependence with physiol dependence Status: Acute (23) Renal failure, acute on chronic Status: Acute (24) Vomiting Status: Acute (25) ESRD (end stage renal disease) Status: Chronic
--- NOTE | 2016-12-10 00:18 | CP.PCM.PN ---
Subjective - Date & Time of Evaluation Date of Evaluation: 12/09/16 Time of Evaluation: 10:30 - Subjective Subjective: Patient seen and evaluated No cardiac complaints Objective - Vital Signs/Intake and Output Vital Signs (last 24 hours): Temp Pulse Resp BP Pulse Ox 98 F 76 20 146/87 97 12/09/16 23:43 12/09/16 23:43 12/09/16 23:43 12/09/16 23:43 12/09/16 23:43 Intake and Output: 12/09/16 12/10/16 18:59 06:59 Intake Total 480 Balance 480 - Medications Medications: Current Medications Amlodipine Besylate (Norvasc) 10 mg PO DAILY [facility] Last Admin: 12/09/16 10:10 Dose: 10 mg Aspirin (Aspirin Chewable) 81 mg PO DAILY [facility] Last Admin: 12/09/16 09:13 Dose: Not Given Epoetin Denis (Procrit) 10,000 unit IV [facility] [place] Last Admin: 12/08/16 09:46 Dose: Not Given Famotidine (Pepcid) 20 mg IVP DAILY [facility] Last Admin: 12/09/16 10:47 Dose: Not Given Heparin Sodium (Porcine) (Heparin) 5,000 units SC Q12 [facility] Last Admin: 12/08/16 21:11 Dose: 5,000 units Vancomycin HCl 1 gm/ Sodium (Chloride) 250 mls @ 166.7 mls/hr IVPB [facility] [place] Last Admin: 12/08/16 09:46 Dose: Not Given Cefazolin Sodium/Dextrose (Ancef Iv 2 Gm Duplex) 2 gm in 100 mls @ 100 mls/hr IVPB [facility] [place] Last Admin: 12/08/16 09:44 Dose: Not Given Levetiracetam (Keppra) 750 mg PO Q12 [facility] Last Admin: 12/09/16 22:14 Dose: 750 mg Metoprolol Tartrate (Lopressor) 12.5 mg PO Q12H [facility] Last Admin: 12/09/16 22:14 Dose: 12.5 mg Prednisone (Prednisone Tab) 20 mg PO DAILY [facility] Last Admin: 12/09/16 09:15 Dose: Not Given Thiamine HCl (Vitamin B1 Tab) 100 mg PO DAILY [facility] Last Admin: 12/09/16 10:47 Dose: Not Given - Labs Labs: 12/05/16 11:36 12/09/16 11:19 PT 11.4 SECONDS (9.7-12.2) 11/26/16 07:41 INR 1.0 11/26/16 07:41 APTT 30 SECONDS (21-34) 11/27/16 01:58 - Head Exam Head Exam: ATRAUMATIC, NORMAL INSPECTION - Eye Exam Eye Exam: EOMI, PERRL - ENT Exam ENT Exam: Mucous Membranes Moist - Neck Exam Neck Exam: Full ROM - Respiratory Exam Respiratory Exam: Clear to Ausculation Bilateral, NORMAL BREATHING PATTERN - Cardiovascular Exam Cardiovascular Exam: REGULAR RHYTHM, +S1, +S2 - GI/Abdominal Exam GI & Abdominal Exam: Soft, Normal Bowel Sounds - Extremities Exam Extremities Exam: Full ROM - Neurological Exam Neurological Exam: Alert, CN II-XII Intact, Oriented x3 - Skin Skin Exam: Warm Assessment and Plan - Assessment and Plan (Free Text) Assessment: (1) Alcohol abuse Status: Chronic (2) Alcohol withdrawal seizure with complication Status: Acute (3) Hepatitis C Status: Acute (4) Status epilepticus Status: Acute (5) ESRD (end stage renal disease) on dialysis Status: Chronic (6) Liver transplant recipient Status: Chronic
[2016-12-10 07:00] LABS: BASO % 0.5 % (0.0-2.0); EOS # 0.1 K/uL (0.0-0.7); EOS % 2.8 % (0.0-4.0); HEMATOCRIT 24.3 % (35.0-51.0); LYMPH # 1.1 K/uL (1.0-4.3); LYMPH % 31.6 % (20.0-40.0); MEAN CELL VOLUME 98.2 fL (80.0-94.0); MEAN CORPUSCULAR HGB CONC 34.7 g/dL (33.0-37.0); MEAN PLATELET VOLUME 7.8 fL (7.2-11.7); MONO # 0.2 K/uL (0.0-0.8); MONO % 6.8 % (0.0-10.0); RED CELL DISTRIBUTION WIDTH 12.9 % (11.5-14.5); WHITE BLOOD COUNT 3.6 K/uL (4.8-10.8)
[2016-12-10 07:44] LABS: POTASSIUM 4.8 mmol/L (3.6-5.2)
[2016-12-10 07:47] LABS: ALB/GLOB RATIO 1.2 (1.0-2.1); BILIRUBIN,TOTAL 0.5 mg/dL (0.2-1.3); CALCIUM 8.8 mg/dl (8.6-10.4); TOTAL PROTEIN 6.5 g/dL (6.3-8.3)
[2016-12-10] MEDS: ceFAZolin IV 2 gm in Dextrose 2 GM/100 ML BAG IVPB SCH (09:00)
[2016-12-10] MEDS: EPOETIN ALFA 10,000 UNIT/ML ML IV SCH (09:00)
[2016-12-10] MEDS: levETIRAcetam 100 mg/ml (5ml) Oral Syringe PO SCH ×3 (13:00→21:41)
--- NOTE | 2016-12-10 15:18 | PCM.PSYCH ---
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 He presented to the ED on 11/26/16 after experiencing two alcohol withdrawal seizures the previous night and was experiencing an active generalized seizure upon arrival. Pt reports to have relapsed on alcohol about 2 months ago and states that prior to that he had abstained for "a couple of years." He could not offer a reason for why he relapsed at that time. During this relapse, he reports to have been drinking "a couple of cans of beer" daily, but would not specify further. He would not specify when he had his last drink or when he first started using alcohol in his life. In his chart, he has a history of alcohol detox in May 2015 but when asked about it he stated that he "couldn't remember." Pt reports to smoke 1/2 pack of cigarettes daily for the past 20 years. He denies use of other drugs. Pt currently denies symptoms of withdrawal including tremor, headache, N/V/D, sweats and hallucinations. He denies history of follow up with psychiatrist, prior psychiatric hospitalization, personal psychiatric history and family psychiatrist history. During interview, pt was visibly inpatient, annoyed and continued to emphasize desire to "just go home." It is possible that he was downplaying his experience of symptoms for the sake of imminent discharge. SW will discuss possible IOP rehab with pt. Current Medications: Active Medications Generic Name Dose Route Start Last Admin Trade Name Freq PRN Reason Stop Dose Admin Amlodipine Besylate 10 mg 12/04/16 10:15 12/10/16 13:15 Norvasc PO Not Given DAILY [facility] Aspirin 81 mg 11/29/16 10:00 12/10/16 13:10 Aspirin Chewable PO Not Given DAILY [facility] Epoetin Denis 10,000 unit 12/05/16 09:00 12/10/16 09:00 Procrit IV Not Given [facility] Famotidine 20 mg 11/26/16 10:00 12/10/16 13:15 Pepcid IVP Not Given DAILY [facility] Heparin Sodium (Porcine) 5,000 units 11/29/16 22:00 12/08/16 21:11 Heparin SC 5,000 units Q12 [facility] Administration Vancomycin HCl 1 gm/ Sodium 250 mls @ 166.7 mls/hr 11/28/16 09:00 12/10/16 09 :00 Chloride IVPB Not Given MWF [facility] Cefazolin Sodium/Dextrose 2 gm in 100 mls @ 100 mls/hr 12/01/16 09:00 09:00 Ancef Iv 2 Gm Duplex IVPB Not Given MWF [facility] Levetiracetam 750 mg 12/01/16 10:30 12/10/16 13:15 Keppra PO Not Given Q12 [facility] Metoprolol Tartrate 12.5 mg 11/30/16 22:00 12/10/16 13:15 Lopressor PO Not Given Q12H [facility] Prednisone 20 mg 12/02/16 11:45 12/10/16 13:15 Prednisone Tab PO Not Given DAILY [facility] Thiamine HCl 100 mg 12/02/16 11:45 12/10/16 13:17 Vitamin B1 Tab PO 100 mg DAILY [facility] Administration Past Psychiatric History - Past Psychiatric History Previous Treatment History: None Prior Professional Help: Denies Prior Psychiatric Treatment: Denies History of Abuse: Denies History of ETOH/Drug Use: History of alcohol use, unspecified History of Family Illness: Denies Pertinent Medical Hx (Current Medical&Sleep Prob, Allergies): Allergies Allergy/AdvReac Type Severity Reaction Status Date / Time No Known Allergies Allergy Verified 11/04/16 20:20 Docusate [Colace] 100 mg PO DAILY 05/24/15 Ferrous Sulfate 1 tab PO DAILY 05/24/15 Folic Acid 1 mg PO DAILY 05/24/15 Furosemide 80 mg PO DAILY 05/24/15 Metoprolol Succinate 25 mg PO DAILY 05/24/15 NIFEdipine ER [Procardia XL] 60 mg PO DAILY 05/24/15 Thiamine HCl [B-1] 100 mg PO DAILY 05/24/15 Pantoprazole [Protonix] 40 mg PO DAILY #15 ect 05/31/15 Sucralfate [Carafate Oral Susp] 1 gm PO ACBD #0 udc 05/31/15 metOLazone [Zaroxolyn] 2.5 mg PO DAILY #0 tab 05/31/15 Calcitriol 0.25 mcg PO DAILY 11/26/16 Cyclosporine, Modified [Cyclosporine Modified] 75 mg PO BID 11/26/16 Lurasidone HCl [Latuda] 20 mg PO Q6H 11/26/16 Petrolatum,White/Lanolin [Vitamin A & D Ointment] 113 gm TP 11/26/16 amLODIPine [Norvasc] 10 mg PO DAILY 11/26/16 levETIRAcetam [Keppra] 500 mg PO DAILY 11/26/16 Review of Systems - Neurological Neurological: UNREMARKABLE - Psychiatric Psychiatric: As Per HPI, Irritability. absent: Anxiety, Auditory Hallucinations , Change in Appetite, Depression, Difficulty Concentrating, Hallucinations, Homicidal Ideation, Paranoia, Suicidal Ideation Mental Status Examination - Personal Presentation Personal Presentation: Looks stated age - Affect Affect: Constricted - Motor Activity Motor Activity: Psychomotor Retardation - Reliability in Providing Information Reliability in Providing Information: Other Additional comments: Poor due to lack of desire to speak with psychiatry - Speech Speech: Organized, Relevant, Coherent - Mood Mood: Depressed - Formal Thought Process Formal Thought Process: No Impairment - Obsessions/Compulsions Obsessions: None Compulsions: None - Cognitive Functions Orientation: Person, Place, Situation, Time Sensorium: Alert Attention/Concentration: Attentive Estimate of Intelligence: Average - Risk Risk: Seizure, Withdrawal, Diminished functioning - Strength & Assets Inventory Strength & Assets Inventory: Family support DSM 5 DX - DSM 5 DSM 5 Diagnosis: Alcohol use disorder Alcohol withdrawal - Recommended/Plan of Treatment Treatment Recommendations and Plan of Treatment: Alcohol use disorder Support and psychoeducation given PR for abstinence and CBT for relapse prevention Refer to after care Alcohol use withdrawal Support and psychoeducation given As needed meds and vitamins - Smoking Cessation Smoking Cessation Initiated: No
--- NOTE | 2016-12-10 15:55 | CP.PCM.PN ---
Subjective - Date & Time of Evaluation Date of Evaluation: 12/10/16 Time of Evaluation: 16:00 - Subjective Subjective: PROGRESS NOTE Service for Dr. Ly. Pt seen/examined at bedside. No acute distress. No events overnight. Pt stating he wants to go home, psych eval pending. No complaints. No fevers, chills, vomiting, diarrhea. Objective - Vital Signs/Intake and Output Vital Signs (last 24 hours): Temp Pulse Resp BP Pulse Ox 98.0 F 72 20 135/89 99 12/10/16 08:08 12/10/16 08:08 12/10/16 08:08 12/10/16 08:08 12/10/16 08:08 Intake and Output: 12/10/16 12/10/16 06:59 18:59 Intake Total 480 Balance 480 - Medications Medications: Current Medications Amlodipine Besylate (Norvasc) 10 mg PO DAILY [facility] Last Admin: 12/10/16 13:15 Dose: Not Given Aspirin (Aspirin Chewable) 81 mg PO DAILY [facility] Last Admin: 12/10/16 13:10 Dose: Not Given Epoetin Denis (Procrit) 10,000 unit IV [facility] Last Admin: 12/10/16 09:00 Dose: Not Given Famotidine (Pepcid) 20 mg IVP DAILY [facility] Last Admin: 12/10/16 13:15 Dose: Not Given Heparin Sodium (Porcine) (Heparin) 5,000 units SC Q12 [facility] Last Admin: 12/08/16 21:11 Dose: 5,000 units Vancomycin HCl 1 gm/ Sodium (Chloride) 250 mls @ 166.7 mls/hr IVPB [facility] Last Admin: 12/10/16 09:00 Dose: Not Given Cefazolin Sodium/Dextrose (Ancef Iv 2 Gm Duplex) 2 gm in 100 mls @ 100 mls/hr IVPB [facility] [place] Last Admin: 12/10/16 09:00 Dose: Not Given Levetiracetam (Keppra) 750 mg PO Q12 [facility] Last Admin: 12/10/16 13:15 Dose: Not Given Metoprolol Tartrate (Lopressor) 12.5 mg PO Q12H [facility] Last Admin: 12/10/16 13:15 Dose: Not Given Prednisone (Prednisone Tab) 20 mg PO DAILY [facility] Last Admin: 12/10/16 13:15 Dose: Not Given Thiamine HCl (Vitamin B1 Tab) 100 mg PO DAILY [facility] Last Admin: 12/10/16 13:17 Dose: 100 mg - Labs Labs: 12/10/16 06:54 12/10/16 06:54 PT 11.4 SECONDS (9.7-12.2) 11/26/16 07:41 INR 1.0 11/26/16 07:41 APTT 30 SECONDS (21-34) 11/27/16 01:58 - Constitutional Appears: Non-toxic, No Acute Distress, Unkempt, Confused, Chronically Ill - Head Exam Head Exam: ATRAUMATIC, NORMAL INSPECTION, NORMOCEPHALIC - ENT Exam ENT Exam: Mucous Membranes Moist - Neck Exam Neck Exam: Full ROM, Normal Inspection - Respiratory Exam Respiratory Exam: NORMAL BREATHING PATTERN. absent: Respiratory Distress - Cardiovascular Exam Cardiovascular Exam: +S1, +S2 - GI/Abdominal Exam GI & Abdominal Exam: Soft, Normal Bowel Sounds. absent: Tenderness - Extremities Exam Extremities Exam: Full ROM, Normal Inspection - Neurological Exam Neurological Exam: Alert, Awake, CN II-XII Intact - Psychiatric Exam Psychiatric exam: Flat Affect. absent: Normal Affect, Normal Mood - Skin Skin Exam: Dry, Intact, Normal Color, Warm Assessment and Plan - Assessment and Plan (Free Text) Assessment: This is a 51 yo male with past medical hx of ESRD on dialysis, s/p liver transplant, cirrhosis, HTN 1. Recurrent seizures 12/10: no seizure activity noted for several days -asa 81 daily -keppra 250 q 12 2. 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 Per surgery - plan for AVF on Thursday >> cancelled due to pt refusal Surgery consult, Dr. Cardenas, f/u recs -cefazolin 2 g mwf -sx following, plan for repair -vanco 1 g mwf -prednisone 20 daily 5. Acute on Chronic Renal Failure -pt refusing dialysis 4. Substance abuse thiamine 100 daily 5. HTN -norvasc 10 -lopressor 12.5 q 12 6. GI/DVT ppx -pepcid -heparin Case discussed with attending. All medical management as per Dr. Kary Ly
--- NOTE | 2016-12-10 16:33 | CP.PCM.PN ---
Subjective - Date & Time of Evaluation Date of Evaluation: 12/10/16 Time of Evaluation: 10:00 - Subjective Subjective: no new positive cultures awake alert Objective - Vital Signs/Intake and Output Vital Signs (last 24 hours): Temp Pulse Resp BP Pulse Ox 98.0 F 72 20 135/89 99 12/10/16 08:08 12/10/16 08:08 12/10/16 08:08 12/10/16 08:08 12/10/16 08:08 Intake and Output: 12/10/16 12/10/16 06:59 18:59 Intake Total 480 Balance 480 - Medications Medications: Current Medications Amlodipine Besylate (Norvasc) 10 mg PO DAILY [facility] Last Admin: 12/10/16 13:15 Dose: Not Given Aspirin (Aspirin Chewable) 81 mg PO DAILY [facility] Last Admin: 12/10/16 13:10 Dose: Not Given Epoetin Denis (Procrit) 10,000 unit IV [facility] [place] Last Admin: 12/10/16 09:00 Dose: Not Given Famotidine (Pepcid) 20 mg IVP DAILY [facility] Last Admin: 12/10/16 13:15 Dose: Not Given Heparin Sodium (Porcine) (Heparin) 5,000 units SC Q12 [facility] Last Admin: 12/08/16 21:11 Dose: 5,000 units Vancomycin HCl 1 gm/ Sodium (Chloride) 250 mls @ 166.7 mls/hr IVPB [facility] [place] Last Admin: 12/10/16 09:00 Dose: Not Given Cefazolin Sodium/Dextrose (Ancef Iv 2 Gm Duplex) 2 gm in 100 mls @ 100 mls/hr IVPB [facility] [place] Last Admin: 12/10/16 09:00 Dose: Not Given Levetiracetam (Keppra) 750 mg PO Q12 [facility] Last Admin: 12/10/16 13:15 Dose: Not Given Metoprolol Tartrate (Lopressor) 12.5 mg PO Q12H [facility] Last Admin: 12/10/16 13:15 Dose: Not Given Prednisone (Prednisone Tab) 20 mg PO DAILY [facility] Last Admin: 12/10/16 13:15 Dose: Not Given Thiamine HCl (Vitamin B1 Tab) 100 mg PO DAILY [facility] Last Admin: 12/10/16 13:17 Dose: 100 mg - Labs Labs: 12/10/16 06:54 12/10/16 06:54 PT 11.4 SECONDS (9.7-12.2) 11/26/16 07:41 INR 1.0 11/26/16 07:41 APTT 30 SECONDS (21-34) 11/27/16 01:58 - Constitutional Appears: Non-toxic, Cachectic, Chronically Ill - Head Exam Head Exam: NORMOCEPHALIC - Eye Exam Eye Exam: PERRL - ENT Exam ENT Exam: Mucous Membranes Dry - Neck Exam Neck Exam: absent: Lymphadenopathy - Respiratory Exam Respiratory Exam: Decreased Breath Sounds, Rhonchi - Cardiovascular Exam Cardiovascular Exam: REGULAR RHYTHM, +S1, +S2 - GI/Abdominal Exam GI & Abdominal Exam: Distended, Soft Assessment and Plan (1) Alcohol abuse Status: Chronic (2) Alcohol withdrawal seizure with complication Status: Acute (3) Drug abuse Status: Acute (4) Hepatitis C Status: Acute (5) Seizure Status: Acute (6) Status epilepticus Status: Acute (7) ESRD (end stage renal disease) on dialysis Status: Chronic (8) Liver transplant recipient Status: Chronic (9) Encephalopathy Status: Acute (10) Hypotension Status: Acute (11) Liver transplant disorder Status: Acute (12) Polysubstance (including opioids) dependence with physiol dependence Status: Acute (13) Renal failure, acute on chronic Status: Acute (14) ESRD (end stage renal disease) Status: Chronic - Assessment and Plan (Free Text) Assessment: consider vascular re-eval left arm av graft
--- NOTE | 2016-12-10 22:02 | CP.PCM.PN ---
Subjective - Date & Time of Evaluation Date of Evaluation: 12/10/16 Objective - Vital Signs/Intake and Output Vital Signs (last 24 hours): Temp Pulse Resp BP Pulse Ox 98 F 82 20 147/92 H 100 12/10/16 16:00 12/10/16 16:00 12/10/16 16:00 12/10/16 16:00 12/10/16 16:00 - Medications Medications: Current Medications Amlodipine Besylate (Norvasc) 10 mg PO DAILY [facility] Last Admin: 12/10/16 13:15 Dose: Not Given Aspirin (Aspirin Chewable) 81 mg PO DAILY [facility] Last Admin: 12/10/16 13:10 Dose: Not Given Epoetin Denis (Procrit) 10,000 [place] [facility] Admin: 12/10/16 09:00 Dose: Not Given Famotidine (Pepcid) 20 mg IVP DAILY [facility] Last Admin: 12/10/16 13:15 Dose: Not Given Heparin Sodium (Porcine) (Heparin) 5,000 units SC Q12 [facility] Last Admin: 12/08/16 21:11 Dose: 5,000 units Vancomycin HCl 1 gm/ Sodium (Chloride) 250 mls @ 166.7 mls/hr [place]PB [facility] Last Admin: 12/10/16 09:00 Dose: Not Given Cefazolin Sodium/Dextrose (Ancef Iv 2 Gm Duplex) 2 gm in 100 mls @ 100 mls/hr [place]PB [facility] Last Admin: 12/10/16 09:00 Dose: Not Given Levetiracetam (Keppra) 750 mg PO Q12 [facility] Last Admin: 12/10/16 21:41 Dose: 750 mg Metoprolol Tartrate (Lopressor) 12.5 mg PO Q12H [facility] Last Admin: 12/10/16 21:40 Dose: 12.5 mg Prednisone (Prednisone Tab) 20 mg PO DAILY [facility] Last Admin: 12/10/16 13:15 Dose: Not Given Thiamine HCl (Vitamin B1 Tab) 100 mg PO DAILY [facility] Last Admin: 12/10/16 13:17 Dose: 100 mg - Labs Labs: 12/10/16 06:54 12/10/16 06:54 PT 11.4 SECONDS (9.7-12.2) 11/26/16 07:41 INR 1.0 11/26/16 07:41 APTT 30 SECONDS (21-34) 11/27/16 01:58 Assessment and Plan (1) Alcohol withdrawal seizure with complication Status: Acute (2) Drug abuse Status: Acute (3) Hepatitis C Status: Acute (4) Seizure Status: Acute (5) Status epilepticus Status: Acute (6) Alcohol abuse Status: Chronic (7) ESRD (end stage renal disease) on dialysis Status: Chronic (8) Liver transplant recipient Status: Chronic (9) Alcohol abuse Status: Acute (10) Alcohol abuse following liver transplant Status: Acute (11) Alcohol intoxication Status: Acute (12) Anemia Status: Acute (13) CHF (congestive heart failure) Status: Acute (14) CKD (chronic kidney disease) stage 5, GFR less than 15 ml/min Status: Acute (15) Encephalopathy Status: Acute (16) Gastritis Status: Acute (17) Hypotension Status: Acute (18) Hypotension Status: Acute (19) Leukopenia Status: Acute (20) Liver transplant disorder Status: Acute (21) Pancytopenia, acquired Status: Acute (22) Polysubstance (including opioids) dependence with physiol dependence Status: Acute (23) Renal failure, acute on chronic Status: Acute (24) Vomiting Status: Acute (25) ESRD (end stage renal disease) Status: Chronic
--- NOTE | 2016-12-10 23:16 | CP.PCM.PN ---
Subjective - Date & Time of Evaluation Date of Evaluation: 12/10/16 Time of Evaluation: 09:40 - Subjective Subjective: clinically same Objective - Vital Signs/Intake and Output Vital Signs (last 24 hours): Temp Pulse Resp BP Pulse Ox 98 F 82 20 147/92 H 100 12/10/16 16:00 12/10/16 16:00 12/10/16 16:00 12/10/16 16:00 12/10/16 16:00 - Medications Medications: Current Medications Amlodipine Besylate (Norvasc) 10 mg PO DAILY [facility] Last Admin: 12/10/16 13:15 Dose: Not Given Aspirin (Aspirin Chewable) 81 mg PO DAILY [facility] Last Admin: 12/10/16 13:10 Dose: Not Given Epoetin Denis (Procrit) 10,000 unit IV [facility] [place] Last Admin: 12/10/16 09:00 Dose: Not Given Famotidine (Pepcid) 20 mg IVP DAILY [facility] Last Admin: 12/10/16 13:15 Dose: Not Given Heparin Sodium (Porcine) (Heparin) 5,000 units SC Q12 [facility] Last Admin: 12/08/16 21:11 Dose: 5,000 units Vancomycin HCl 1 gm/ Sodium (Chloride) 250 mls @ 166.7 mls/hr IVPB [facility] [place] Last Admin: 12/10/16 09:00 Dose: Not Given Cefazolin Sodium/Dextrose (Ancef Iv 2 Gm Duplex) 2 gm in 100 mls @ 100 mls/hr IVPB [facility] Last Admin: 12/10/16 09:00 Dose: Not Given Levetiracetam (Keppra) 750 mg PO Q12 [facility] Last Admin: 12/10/16 21:41 Dose: 750 mg Metoprolol Tartrate (Lopressor) 12.5 mg PO Q12H [facility] Last Admin: 12/10/16 21:40 Dose: 12.5 mg Prednisone (Prednisone Tab) 20 mg PO DAILY [facility] Last Admin: 12/10/16 13:15 Dose: Not Given Thiamine HCl (Vitamin B1 Tab) 100 mg PO DAILY [facility] Last Admin: 12/10/16 13:17 Dose: 100 mg - Labs Labs: 12/10/16 06:54 12/10/16 06:54 PT 11.4 SECONDS (9.7-12.2) 11/26/16 07:41 INR 1.0 11/26/16 07:41 APTT 30 SECONDS (21-34) 11/27/16 01:58 - Constitutional Appears: Well - Head Exam Head Exam: ATRAUMATIC, NORMAL INSPECTION, NORMOCEPHALIC - Eye Exam Eye Exam: EOMI, Normal appearance, PERRL Pupil Exam: NORMAL ACCOMODATION, PERRL - ENT Exam ENT Exam: Mucous Membranes Moist, Normal Exam - Neck Exam Neck Exam: Full ROM, Normal Inspection. absent: Lymphadenopathy - Respiratory Exam Respiratory Exam: Decreased Breath Sounds - Cardiovascular Exam Cardiovascular Exam: REGULAR RHYTHM, +S1, +S2 - GI/Abdominal Exam GI & Abdominal Exam: Soft, Diminished Bowel Sounds - Rectal Exam Rectal Exam: Deferred Assessment and Plan (1) Alcohol withdrawal seizure with complication Status: Acute (2) Drug abuse Status: Acute (3) Hepatitis C Status: Acute (4) Seizure Status: Acute (5) Status epilepticus Status: Acute (6) Alcohol abuse Status: Chronic (7) ESRD (end stage renal disease) on dialysis Status: Chronic (8) Liver transplant recipient Status: Chronic (9) Alcohol abuse Status: Acute (10) Alcohol abuse following liver transplant Status: Acute (11) Alcohol intoxication Status: Acute (12) Anemia Status: Acute (13) CHF (congestive heart failure) Status: Acute (14) CKD (chronic kidney disease) stage 5, GFR less than 15 ml/min Status: Acute (15) Encephalopathy Status: Acute (16) Gastritis Status: Acute (17) Hypotension Status: Acute (18) Hypotension Status: Acute (19) Leukopenia Status: Acute (20) Liver transplant disorder Status: Acute (21) Pancytopenia, acquired Status: Acute (22) Polysubstance (including opioids) dependence with physiol dependence Status: Acute (23) Renal failure, acute on chronic Status: Acute (24) Vomiting Status: Acute (25) ESRD (end stage renal disease) Status: Chronic
[2016-12-11] MEDS: levETIRAcetam 100 mg/ml (5ml) Oral Syringe PO SCH ×3 (10:43→22:39)
--- NOTE | 2016-12-11 14:03 | CP.PCM.PN ---
<Pato Guzmán - Last Filed: 12/11/16 14:03> Subjective - Date & Time of Evaluation Date of Evaluation: 12/11/16 Time of Evaluation: 14:00 - Subjective Subjective: Progress note. Attending: Dr. Brandon Ly Pt seen and examined at bedside. No acute distress. Fall precautions with avasys instituted. Pt wants to go home and is refusing meds. No fevers, chills, vomiting, diarrhea. Objective - Vital Signs/Intake and Output Vital Signs (last 24 hours): Temp Pulse Resp BP Pulse Ox 97.7 F 73 20 133/89 100 12/11/16 09:00 12/11/16 09:00 12/11/16 09:00 12/11/16 09:00 12/11/16 09:00 Intake and Output: 12/11/16 12/11/16 06:59 18:59 Intake Total 100 Balance 100 - Medications Medications: Current Medications Amlodipine Besylate (Norvasc) 10 mg PO DAILY [facility] Last Admin: 12/11/16 10:43 Dose: Not Given Aspirin (Aspirin Chewable) 81 mg PO DAILY [facility] Last Admin: 12/11/16 10:42 Dose: Not Given Epoetin Denis (Procrit) 10,000 unit IV [facility] Last Admin: 12/10/16 09:00 Dose: Not Given Famotidine (Pepcid) 20 mg IVP DAILY [facility] Last Admin: 12/11/16 10:43 Dose: Not Given Heparin Sodium (Porcine) (Heparin) 5,000 units SC Q12 [facility] Last Admin: 12/08/16 21:11 Dose: 5,000 units Vancomycin HCl 1 gm/ Sodium (Chloride) 250 mls @ 166.7 mls/hr IVPB [facility] Last Admin: 12/10/16 09:00 Dose: Not Given Cefazolin Sodium/Dextrose (Ancef Iv 2 Gm Duplex) 2 gm in 100 mls @ 100 mls/hr IVPB [facility] Last Admin: 12/10/16 09:00 Dose: Not Given Levetiracetam (Keppra) 750 mg PO Q12 [facility] Last Admin: 12/11/16 10:43 Dose: Not Given Metoprolol Tartrate (Lopressor) 12.5 mg PO Q12H [facility] Last Admin: 12/11/16 10:43 Dose: Not Given Prednisone (Prednisone Tab) 20 mg PO DAILY [facility] Last Admin: 12/11/16 10:43 Dose: Not Given Thiamine HCl (Vitamin B1 Tab) 100 mg PO DAILY [facility] Last Admin: 12/11/16 10:44 Dose: Not Given - Labs Labs: 12/10/16 06:54 12/10/16 06:54 PT 11.4 SECONDS (9.7-12.2) 11/26/16 07:41 INR 1.0 11/26/16 07:41 APTT 30 SECONDS (21-34) 11/27/16 01:58 - Constitutional Appears: Non-toxic, No Acute Distress - Head Exam Head Exam: ATRAUMATIC, NORMAL INSPECTION, NORMOCEPHALIC - Eye Exam Eye Exam: EOMI - ENT Exam ENT Exam: Mucous Membranes Moist - Neck Exam Neck Exam: Full ROM, Normal Inspection - Respiratory Exam Respiratory Exam: NORMAL BREATHING PATTERN. absent: Respiratory Distress - Cardiovascular Exam Cardiovascular Exam: +S1, +S2 - GI/Abdominal Exam GI & Abdominal Exam: Soft, Normal Bowel Sounds. absent: Tenderness - Extremities Exam Extremities Exam: Full ROM - Neurological Exam Neurological Exam: Alert, Awake, Oriented x3 - Psychiatric Exam Psychiatric exam: Normal Affect, Normal Mood - Skin Skin Exam: Dry, Intact, Normal Color, Warm Assessment and Plan - Assessment and Plan (Free Text) Assessment: This is a 51 yo male with past medical hx of ESRD on dialysis, s/p liver transplant, cirrhosis, HTN 1. Recurrent seizures 12/10: no seizure activity noted for several days -asa 81 daily -keppra 250 q 12 2. 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 Per surgery - plan for AVF on Thursday >> cancelled due to pt refusal Surgery consult, Dr. Cardenas, f/u recs -cefazolin 2 g mwf -sx following, plan for repair -vanco 1 g mwf -prednisone 20 daily 5. Acute on Chronic Renal Failure -pt refusing dialysis 4. Substance abuse thiamine 100 daily evaluated by psychiatry long standing hx of alcoholism cessation stressed and encouraged 5. HTN -norvasc 10 -lopressor 12.5 q 12 6. GI/DVT ppx -pepcid -heparin Case discussed with attending. All medical management as per Dr. Kary Ly <An Ly S - Last Filed: 12/12/16 00:42> Objective - Vital Signs/Intake and Output Vital Signs (last 24 hours): Temp Pulse Resp BP Pulse Ox 97.7 F 73 20 133/89 100 12/11/16 09:00 12/11/16 09:00 12/11/16 09:00 12/11/16 09:00 12/11/16 09:00 Intake and Output: 12/11/16 12/12/16 18:59 06:59 Intake Total 100 Balance 100 - Medications Medications: Current Medications Amlodipine Besylate (Norvasc) 10 mg PO DAILY [facility] Last Admin: 12/11/16 10:43 Dose: Not Given Aspirin (Aspirin Chewable) 81 mg PO DAILY [facility] Last Admin: 12/11/16 10:42 Dose: Not Given Epoetin Denis (Procrit) 10,000 unit IV [facility] Last Admin: 12/10/16 09:00 Dose: Not Given Famotidine (Pepcid) 20 mg IVP DAILY [facility] Last Admin: 12/11/16 10:43 Dose: Not Given Heparin Sodium (Porcine) (Heparin) 5,000 units SC Q12 [facility] Last Admin: 12/08/16 21:11 Dose: 5,000 units Vancomycin HCl 1 gm/ Sodium (Chloride) 250 mls @ 166.7 mls/hr IVPB [facility] Last Admin: 12/10/16 09:00 Dose: Not Given Cefazolin Sodium/Dextrose (Ancef Iv 2 Gm Duplex) 2 gm in 100 mls @ 100 mls/hr IVPB [facility] Last Admin: 12/10/16 09:00 Dose: Not Given Levetiracetam (Keppra) 750 mg PO Q12 [facility] Last Admin: 12/11/16 22:39 Dose: Not Given Metoprolol Tartrate (Lopressor) 12.5 mg PO Q12H [facility] Last Admin: 12/11/16 10:43 Dose: Not Given Prednisone (Prednisone Tab) 20 mg PO DAILY [facility] Last Admin: 12/11/16 10:43 Dose: Not Given Thiamine HCl (Vitamin B1 Tab) 100 mg PO DAILY [facility] Last Admin: 12/11/16 10:44 Dose: Not Given - Labs Labs: 12/10/16 06:54 12/10/16 06:54 PT 11.4 SECONDS (9.7-12.2) 11/26/16 07:41 INR 1.0 11/26/16 07:41 APTT 30 SECONDS (21-34) 11/27/16 01:58 Assessment and Plan (1) Alcohol withdrawal seizure with complication Status: Acute (2) Drug abuse Status: Acute (3) Hepatitis C Status: Acute (4) Seizure Status: Acute (5) Status epilepticus Status: Acute (6) Alcohol abuse Status: Chronic (7) ESRD (end stage renal disease) on dialysis Status: Chronic (8) Liver transplant recipient Status: Chronic (9) Alcohol abuse Status: Acute (10) Alcohol abuse following liver transplant Status: Acute (11) Alcohol intoxication Status: Acute (12) Anemia Status: Acute (13) CHF (congestive heart failure) Status: Acute (14) CKD (chronic kidney disease) stage 5, GFR less than 15 ml/min Status: Acute (15) Encephalopathy Status: Acute (16) Gastritis Status: Acute (17) Hypotension Status: Acute (18) Hypotension Status: Acute (19) Leukopenia Status: Acute (20) Liver transplant disorder Status: Acute (21) Pancytopenia, acquired Status: Acute (22) Polysubstance (including opioids) dependence with physiol dependence Status: Acute (23) Renal failure, acute on chronic Status: Acute (24) Vomiting Status: Acute (25) ESRD (end stage renal disease) Status: Chronic Attending/Attestation - Attestation I have personally seen and examined this patient.: Yes I have fully participated in the care of the patient.: Yes I have reviewed all pertinent clinical information, including history, physical exam and plan: Yes Notes (Text): 12/12/16 00:42 Is seen and discussed with the staff for possible rehab placement will talk to the
--- NOTE | 2016-12-11 17:18 | CP.PCM.PN ---
Subjective - Date & Time of Evaluation Date of Evaluation: 12/11/16 Time of Evaluation: 10:20 - Subjective Subjective: clinically same Objective - Vital Signs/Intake and Output Vital Signs (last 24 hours): Temp Pulse Resp BP Pulse Ox 97.7 F 73 20 133/89 100 12/11/16 09:00 12/11/16 09:00 12/11/16 09:00 12/11/16 09:00 12/11/16 09:00 Intake and Output: 12/11/16 12/11/16 06:59 18:59 Intake Total 100 Balance 100 - Medications Medications: Current Medications Amlodipine Besylate (Norvasc) 10 mg PO DAILY [facility] Last Admin: 12/11/16 10:43 Dose: Not Given Aspirin (Aspirin Chewable) 81 mg PO DAILY [facility] Last Admin: 12/11/16 10:42 Dose: Not Given Epoetin Denis (Procrit) 10,000 unit IV [facility] Last Admin: 12/10/16 09:00 Dose: Not Given Famotidine (Pepcid) 20 mg IVP DAILY [facility] Last Admin: 12/11/16 10:43 Dose: Not Given Heparin Sodium (Porcine) (Heparin) 5,000 units SC Q12 [facility] Last Admin: 12/08/16 21:11 Dose: 5,000 units Vancomycin HCl 1 gm/ Sodium (Chloride) 250 mls @ 166.7 mls/hr IVPB [facility] Last Admin: 12/10/16 09:00 Dose: Not Given Cefazolin Sodium/Dextrose (Ancef Iv 2 Gm Duplex) 2 gm in 100 mls @ 100 mls/hr IVPB [facility] Last Admin: 12/10/16 09:00 Dose: Not Given Levetiracetam (Keppra) 750 mg PO Q12 [facility] Last Admin: 12/11/16 10:43 Dose: Not Given Metoprolol Tartrate (Lopressor) 12.5 mg PO Q12H [facility] Last Admin: 12/11/16 10:43 Dose: Not Given Prednisone (Prednisone Tab) 20 mg PO DAILY [facility] Last Admin: 12/11/16 10:43 Dose: Not Given Thiamine HCl (Vitamin B1 Tab) 100 mg PO DAILY [facility] Last Admin: 12/11/16 10:44 Dose: Not Given - Labs Labs: 12/10/16 06:54 12/10/16 06:54 PT 11.4 SECONDS (9.7-12.2) 11/26/16 07:41 INR 1.0 11/26/16 07:41 APTT 30 SECONDS (21-34) 11/27/16 01:58 - Constitutional Appears: Well - Head Exam Head Exam: ATRAUMATIC, NORMAL INSPECTION, NORMOCEPHALIC - Eye Exam Eye Exam: EOMI, Normal appearance, PERRL Pupil Exam: NORMAL ACCOMODATION, PERRL - ENT Exam ENT Exam: Mucous Membranes Moist, Normal Exam - Neck Exam Neck Exam: Full ROM, Normal Inspection. absent: Lymphadenopathy - Respiratory Exam Respiratory Exam: Decreased Breath Sounds - Cardiovascular Exam Cardiovascular Exam: REGULAR RHYTHM, +S1, +S2 - GI/Abdominal Exam GI & Abdominal Exam: Soft, Diminished Bowel Sounds - Rectal Exam Rectal Exam: Deferred Assessment and Plan (1) Alcohol withdrawal seizure with complication Status: Acute (2) Drug abuse Status: Acute (3) Hepatitis C Status: Acute (4) Seizure Status: Acute (5) Status epilepticus Status: Acute (6) Alcohol abuse Status: Chronic (7) ESRD (end stage renal disease) on dialysis Status: Chronic (8) Liver transplant recipient Status: Chronic (9) Alcohol abuse Status: Acute (10) Alcohol abuse following liver transplant Status: Acute (11) Alcohol intoxication Status: Acute (12) Anemia Status: Acute (13) CHF (congestive heart failure) Status: Acute (14) CKD (chronic kidney disease) stage 5, GFR less than 15 ml/min Status: Acute (15) Encephalopathy Status: Acute (16) Gastritis Status: Acute (17) Hypotension Status: Acute (18) Hypotension Status: Acute (19) Leukopenia Status: Acute (20) Liver transplant disorder Status: Acute (21) Pancytopenia, acquired Status: Acute (22) Polysubstance (including opioids) dependence with physiol dependence Status: Acute (23) Renal failure, acute on chronic Status: Acute (24) Vomiting Status: Acute (25) ESRD (end stage renal disease) Status: Chronic
[2016-12-12] MEDS: ceFAZolin IV 2 gm in Dextrose 2 GM/100 ML BAG IVPB SCH (09:00)
[2016-12-12] MEDS: EPOETIN ALFA 10,000 UNIT/ML ML IV SCH (09:00)
--- NOTE | 2016-12-12 09:29 | CP.PCM.PN ---
Subjective - Date & Time of Evaluation Date of Evaluation: 12/12/16 Time of Evaluation: 09:55 - Subjective Subjective: PGY 2 Medicine Note- Dr. Ly's service Patient seen and examined in no acute distress. Patient states that he needs to be discharged by 12 noon so that he can go to the bank. Patient states that there is nothing wrong with him. He denies having any seizure activity which led him to be admitted to the hospital. He states that the only reason he came to the hospital is because he did not feel well. At this time, he denies seizures, lightheadedness, fevers or chills, nausea, vomiting, diarrhea, chest pain or palpitations. Objective - Vital Signs/Intake and Output Vital Signs (last 24 hours): Temp Pulse Resp BP Pulse Ox 97.7 F 73 20 133/89 100 12/11/16 09:00 12/11/16 09:00 12/11/16 09:00 12/11/16 09:00 12/11/16 09:00 - Medications Medications: Current Medications Amlodipine Besylate (Norvasc) 10 mg PO DAILY [facility] Last Admin: 12/11/16 10:43 Dose: Not Given Aspirin (Aspirin Chewable) 81 mg PO DAILY [facility] Last Admin: 12/11/16 10:42 Dose: Not Given Epoetin Denis (Procrit) 10,000 [place] [facility] Last Admin: 12/10/16 09:00 Dose: Not Given Famotidine (Pepcid) 20 mg IVP DAILY [facility] Last Admin: 12/11/16 10:43 Dose: Not Given Heparin Sodium (Porcine) (Heparin) 5,000 units SC Q12 [facility] Last Admin: 12/08/16 21:11 Dose: 5,000 units Vancomycin HCl 1 gm/ Sodium (Chloride) 250 mls @ 166.7 mls/hr IVPB [facility] Last Admin: 12/10/16 09:00 Dose: Not Given Cefazolin Sodium/Dextrose (Ancef Iv 2 Gm Duplex) 2 gm in 100 mls @ 100 mls/hr IVPB [facility] Last Admin: 12/10/16 09:00 Dose: Not Given Levetiracetam (Keppra) 750 mg PO Q12 [facility] Last Admin: 12/11/16 22:39 Dose: Not Given Metoprolol Tartrate (Lopressor) 12.5 mg PO Q12H [facility] Last Admin: 12/11/16 10:43 Dose: Not Given Prednisone (Prednisone Tab) 20 mg PO DAILY [facility] Last Admin: 12/11/16 10:43 Dose: Not Given Thiamine HCl (Vitamin B1 Tab) 100 mg PO DAILY [facility] Last Admin: 12/11/16 10:44 Dose: Not Given - Labs Labs: 12/10/16 06:54 12/10/16 06:54 PT 11.4 SECONDS (9.7-12.2) 11/26/16 07:41 INR 1.0 11/26/16 07:41 APTT 30 SECONDS (21-34) 11/27/16 01:58 - Constitutional Appears: Non-toxic, No Acute Distress - Head Exam Head Exam: ATRAUMATIC - Eye Exam Eye Exam: EOMI, PERRL (skin pulled over left medial canthus of eye). absent: Normal appearance Pupil Exam: NORMAL ACCOMODATION, PERRL - ENT Exam ENT Exam: Mucous Membranes Moist, Normal Exam - Neck Exam Neck Exam: Full ROM - Respiratory Exam Respiratory Exam: NORMAL BREATHING PATTERN. absent: Wheezes - Cardiovascular Exam Cardiovascular Exam: +S1, +S2 - GI/Abdominal Exam GI & Abdominal Exam: Soft, Normal Bowel Sounds - Extremities Exam Extremities Exam: Full ROM, Normal Capillary Refill, Normal Inspection Additional comments: Could not assess fully at this time due to patient's aggression at the time of evaluation - Back Exam Back Exam: Full ROM - Neurological Exam Neurological Exam: Alert, Awake, CN II-XII Intact, Oriented x3 Additional comments: normal finger to nose test, sensation intact with respect to temperature - Psychiatric Exam Psychiatric exam: Normal Affect, Normal Mood - Skin Skin Exam: Dry, Intact, Normal Color, Warm - Additional Findings Additional findings: Limited exam performed due to patient's aggression Assessment and Plan - Assessment and Plan (Free Text) Assessment: History of recurrent seizures No seizure activity noted for several days EEG showed signs of what may be possible epileptiform activity F/U Neuro recommendations -asa 81mg daily -keppra 750mg q 12 Occluded/infected av fistula 12/05: patient will require AVF Repair. Per surgery - plan for AVF on Thursday >> cancelled due to pt refusal. Patient states that he will have the procedure when he is ready. Surgery consult, Dr. Ronald, f/u recs -cefazolin 2 g mwf -vanco 1 g mwf with HD -prednisone 20 daily ESRD on HD Pt refusing dialysis Alcohol use disorder thiamine 100 daily evaluated by psychiatry long standing hx of alcoholism Despite patient's aggression, cessation stressed and encouraged HTN Norvasc 10 mg PO daily Lopressor 12.5 q 12h GI/DVT ppx Pepcid 20 mg IV daily Heparin SC Q12 [facility] Disposition Per case management, patient's is unable to care for at home anymore due to his aggressive behavior and other chronic medical conditions. She would like for him to be placed at a facility where he can receive health care services . At this point, awaiting a facility as well as authorization to proceed. Case discussed with attending. All medical management as per Dr. Kary Ly
[2016-12-12] MEDS: levETIRAcetam 100 mg/ml (5ml) Oral Syringe PO SCH ×2 (10:00→21:26)
--- NOTE | 2016-12-12 16:17 | CP.PCM.PN ---
Subjective - Date & Time of Evaluation Date of Evaluation: 12/12/16 Time of Evaluation: 08:00 - Subjective Subjective: no new complaints Objective - Vital Signs/Intake and Output Vital Signs (last 24 hours): Temp Pulse Resp BP Pulse Ox 97.7 F 73 20 133/89 100 12/11/16 09:00 12/11/16 09:00 12/11/16 09:00 12/11/16 09:00 12/11/16 09:00 Intake and Output: 12/12/16 12/12/16 06:59 18:59 Output Total 200 Balance -200 - Medications Medications: Current Medications Amlodipine Besylate (Norvasc) 10 mg PO DAILY [facility] Last Admin: 12/11/16 10:43 Dose: Not Given Aspirin (Aspirin Chewable) 81 mg PO DAILY [facility] Last Admin: 12/11/16 10:42 Dose: Not Given Epoetin Denis (Procrit) 10,000 unit IV [facility] [place] Last Admin: 12/10/16 09:00 Dose: Not Given Famotidine (Pepcid) 20 mg IVP DAILY [facility] Last Admin: 12/11/16 10:43 Dose: Not Given Heparin Sodium (Porcine) (Heparin) 5,000 units SC Q12 [facility] Last Admin: 12/08/16 21:11 Dose: 5,000 units Vancomycin HCl 1 gm/ Sodium (Chloride) 250 mls @ 166.7 mls/hr IVPB [facility] [place] Last Admin: 12/10/16 09:00 Dose: Not Given Cefazolin Sodium/Dextrose (Ancef Iv 2 Gm Duplex) 2 gm in 100 mls @ 100 mls/hr IVPB [facility] Last Admin: 12/10/16 09:00 Dose: Not Given Levetiracetam (Keppra) 750 mg PO Q12 [facility] Last Admin: 12/11/16 22:39 Dose: Not Given Metoprolol Tartrate (Lopressor) 12.5 mg PO Q12H [facility] Last Admin: 12/11/16 22:00 Dose: Not Given Prednisone (Prednisone Tab) 20 mg PO DAILY [facility] Last Admin: 12/11/16 10:43 Dose: Not Given Thiamine HCl (Vitamin B1 Tab) 100 mg PO DAILY [facility] Last Admin: 12/11/16 10:44 Dose: Not Given - Labs Labs: 12/10/16 06:54 12/10/16 06:54 PT 11.4 SECONDS (9.7-12.2) 11/26/16 07:41 INR 1.0 11/26/16 07:41 APTT 30 SECONDS (21-34) 11/27/16 01:58 - Constitutional Appears: Non-toxic, Cachectic, Chronically Ill - Head Exam Head Exam: NORMOCEPHALIC - Eye Exam Eye Exam: PERRL - ENT Exam ENT Exam: Mucous Membranes Dry - Neck Exam Neck Exam: absent: Lymphadenopathy - Respiratory Exam Respiratory Exam: Decreased Breath Sounds - Cardiovascular Exam Cardiovascular Exam: REGULAR RHYTHM - GI/Abdominal Exam GI & Abdominal Exam: Distended, Soft - Rectal Exam Rectal Exam: Deferred - Exam Exam: NORMAL INSPECTION - Extremities Exam Extremities Exam: absent: Pedal Edema - Back Exam Back Exam: absent: CVA tenderness (L), CVA tenderness (R) Assessment and Plan (1) Alcohol abuse Status: Chronic (2) Alcohol withdrawal seizure with complication Status: Acute (3) Drug abuse Status: Acute (4) Hepatitis C Status: Acute (5) Seizure Status: Acute (6) Status epilepticus Status: Acute (7) ESRD (end stage renal disease) on dialysis Status: Chronic (8) Liver transplant recipient Status: Chronic (9) Encephalopathy Status: Acute (10) Hypotension Status: Acute (11) Liver transplant disorder Status: Acute (12) Polysubstance (including opioids) dependence with physiol dependence Status: Acute (13) Renal failure, acute on chronic Status: Acute (14) ESRD (end stage renal disease) Status: Chronic
--- NOTE | 2016-12-12 19:05 | CP.PCM.PN ---
Subjective - Date & Time of Evaluation Date of Evaluation: 12/12/16 Time of Evaluation: 10:20 - Subjective Subjective: clinically same Objective - Vital Signs/Intake and Output Vital Signs (last 24 hours): Temp Pulse Resp BP Pulse Ox 97.7 F 73 20 133/89 100 12/11/16 09:00 12/11/16 09:00 12/11/16 09:00 12/11/16 09:00 12/11/16 09:00 Intake and Output: 12/12/16 12/13/16 18:59 06:59 Output Total 200 Balance -200 - Medications Medications: Current Medications Amlodipine Besylate (Norvasc) 10 mg PO DAILY [facility] Last Admin: 12/12/16 10:00 Dose: Not Given Aspirin (Aspirin Chewable) 81 mg PO DAILY [facility] Last Admin: 12/12/16 10:00 Dose: Not Given Epoetin Denis (Procrit) 10,000 unit IV [facility] [place] Last Admin: 12/12/16 09:00 Dose: Not Given Famotidine (Pepcid) 20 mg IVP DAILY [facility] Last Admin: 12/12/16 10:00 Dose: Not Given Heparin Sodium (Porcine) (Heparin) 5,000 units SC Q12 [facility] Last Admin: 12/08/16 21:11 Dose: 5,000 units Vancomycin HCl 1 gm/ Sodium (Chloride) 250 mls @ 166.7 mls/hr IVPB [facility] [place] Last Admin: 12/12/16 09:00 Dose: Not Given Cefazolin Sodium/Dextrose (Ancef Iv 2 Gm Duplex) 2 gm in 100 mls @ 100 mls/hr IVPB [facility] [place] Last Admin: 12/12/16 09:00 Dose: Not Given Levetiracetam (Keppra) 750 mg PO Q12 [facility] Last Admin: 12/12/16 10:00 Dose: Not Given Metoprolol Tartrate (Lopressor) 12.5 mg PO Q12H [facility] Last Admin: 12/12/16 10:00 Dose: Not Given Prednisone (Prednisone Tab) 20 mg PO DAILY [facility] Last Admin: 12/12/16 10:00 Dose: Not Given Thiamine HCl (Vitamin B1 Tab) 100 mg PO DAILY [facility] Last Admin: 12/12/16 10:00 Dose: Not Given - Labs Labs: 12/10/16 06:54 12/10/16 06:54 PT 11.4 SECONDS (9.7-12.2) 11/26/16 07:41 INR 1.0 11/26/16 07:41 APTT 30 SECONDS (21-34) 11/27/16 01:58 - Constitutional Appears: Well - Head Exam Head Exam: ATRAUMATIC, NORMAL INSPECTION, NORMOCEPHALIC - Eye Exam Eye Exam: EOMI, Normal appearance, PERRL Pupil Exam: NORMAL ACCOMODATION, PERRL - ENT Exam ENT Exam: Mucous Membranes Moist, Normal Exam - Neck Exam Neck Exam: Full ROM, Normal Inspection. absent: Lymphadenopathy - Respiratory Exam Respiratory Exam: Decreased Breath Sounds - Cardiovascular Exam Cardiovascular Exam: REGULAR RHYTHM, +S1, +S2 - GI/Abdominal Exam GI & Abdominal Exam: Soft, Diminished Bowel Sounds - Rectal Exam Rectal Exam: Deferred Assessment and Plan (1) Alcohol withdrawal seizure with complication Status: Acute (2) Drug abuse Status: Acute (3) Hepatitis C Status: Acute (4) Seizure Status: Acute (5) Status epilepticus Status: Acute (6) Alcohol abuse Status: Chronic (7) ESRD (end stage renal disease) on dialysis Status: Chronic (8) Liver transplant recipient Status: Chronic (9) Alcohol abuse Status: Acute (10) Alcohol abuse following liver transplant Status: Acute (11) Alcohol intoxication Status: Acute (12) Anemia Status: Acute (13) CHF (congestive heart failure) Status: Acute (14) CKD (chronic kidney disease) stage 5, GFR less than 15 ml/min Status: Acute (15) Encephalopathy Status: Acute (16) Gastritis Status: Acute (17) Hypotension Status: Acute (18) Hypotension Status: Acute (19) Leukopenia Status: Acute (20) Liver transplant disorder Status: Acute (21) Pancytopenia, acquired Status: Acute (22) Polysubstance (including opioids) dependence with physiol dependence Status: Acute (23) Renal failure, acute on chronic Status: Acute (24) Vomiting Status: Acute (25) ESRD (end stage renal disease) Status: Chronic
[2016-12-13] MEDS: levETIRAcetam 100 mg/ml (5ml) Oral Syringe PO SCH ×2 (09:34→22:14)
--- NOTE | 2016-12-13 15:39 | CP.PCM.PN ---
Subjective - Date & Time of Evaluation Date of Evaluation: 12/13/16 Time of Evaluation: 10:40 - Subjective Subjective: clinically same Objective - Vital Signs/Intake and Output Vital Signs (last 24 hours): Temp Pulse Resp BP Pulse Ox 97.7 F 73 20 133/89 100 12/11/16 09:00 12/11/16 09:00 12/11/16 09:00 12/11/16 09:00 12/11/16 09:00 - Medications Medications: Current Medications Amlodipine Besylate (Norvasc) 10 mg PO DAILY [facility] Last Admin: 12/13/16 09:34 Dose: Not Given Aspirin (Aspirin Chewable) 81 mg PO DAILY [facility] Last Admin: 12/13/16 09:34 Dose: Not Given Epoetin Denis (Procrit) 10,000 unit IV [facility] Last Admin: 12/12/16 09:00 Dose: Not Given Famotidine (Pepcid) 20 mg IVP DAILY [facility] Last Admin: 12/13/16 09:34 Dose: Not Given Heparin Sodium (Porcine) (Heparin) 5,000 units SC Q12 [facility] Last Admin: 12/08/16 21:11 Dose: 5,000 units Vancomycin HCl 1 gm/ Sodium (Chloride) 250 mls @ 166.7 mls/hr IVPB MWF [facility] Last Admin: 12/12/16 09:00 Dose: Not Given Cefazolin Sodium/Dextrose (Ancef Iv 2 Gm Duplex) 2 gm in 100 mls @ 100 mls/hr IVPB F [facility] Last Admin: 12/12/16 09:00 Dose: Not Given Levetiracetam (Keppra) 750 mg PO Q12 [facility] Last Admin: 12/13/16 09:34 Dose: Not Given Metoprolol Tartrate (Lopressor) 12.5 mg PO Q12H [facility] Last Admin: 12/13/16 09:34 Dose: Not Given Prednisone (Prednisone Tab) 20 mg PO DAILY [facility] Last Admin: 12/13/16 09:35 Dose: Not Given Thiamine HCl (Vitamin B1 Tab) 100 mg PO DAILY [facility] Last Admin: 12/13/16 09:35 Dose: Not Given - Labs Labs: 12/10/16 06:54 12/10/16 06:54 PT 11.4 SECONDS (9.7-12.2) 11/26/16 07:41 INR 1.0 11/26/16 07:41 APTT 30 SECONDS (21-34) 11/27/16 01:58 - Constitutional Appears: Well - Head Exam Head Exam: ATRAUMATIC, NORMAL INSPECTION, NORMOCEPHALIC - Eye Exam Eye Exam: EOMI, Normal appearance, PERRL Pupil Exam: NORMAL ACCOMODATION, PERRL - ENT Exam ENT Exam: Mucous Membranes Moist, Normal Exam - Neck Exam Neck Exam: Full ROM, Normal Inspection. absent: Lymphadenopathy - Respiratory Exam Respiratory Exam: Decreased Breath Sounds - Cardiovascular Exam Cardiovascular Exam: REGULAR RHYTHM, +S1, +S2 - GI/Abdominal Exam GI & Abdominal Exam: Soft, Diminished Bowel Sounds - Rectal Exam Rectal Exam: Deferred Assessment and Plan (1) Alcohol withdrawal seizure with complication Status: Acute (2) Drug abuse Status: Acute (3) Hepatitis C Status: Acute (4) Seizure Status: Acute (5) Status epilepticus Status: Acute (6) Alcohol abuse Status: Chronic (7) ESRD (end stage renal disease) on dialysis Status: Chronic (8) Liver transplant recipient Status: Chronic (9) Alcohol abuse Status: Acute (10) Alcohol abuse following liver transplant Status: Acute (11) Alcohol intoxication Status: Acute (12) Anemia Status: Acute (13) CHF (congestive heart failure) Status: Acute (14) CKD (chronic kidney disease) stage 5, GFR less than 15 ml/min Status: Acute (15) Encephalopathy Status: Acute (16) Gastritis Status: Acute (17) Hypotension Status: Acute (18) Hypotension Status: Acute (19) Leukopenia Status: Acute (20) Liver transplant disorder Status: Acute (21) Pancytopenia, acquired Status: Acute (22) Polysubstance (including opioids) dependence with physiol dependence Status: Acute (23) Renal failure, acute on chronic Status: Acute (24) Vomiting Status: Acute (25) ESRD (end stage renal disease) Status: Chronic
[2016-12-14] MEDS: levETIRAcetam 100 mg/ml (5ml) Oral Syringe PO SCH ×2 (10:28→22:24)
--- NOTE | 2016-12-14 11:00 | CP.PCM.PN ---
Subjective - Date & Time of Evaluation Date of Evaluation: 12/14/16 Time of Evaluation: 09:20 - Subjective Subjective: clinically same Objective - Vital Signs/Intake and Output Vital Signs (last 24 hours): Temp Pulse Resp BP Pulse Ox 97.7 F 73 20 133/89 100 12/11/16 09:00 12/11/16 09:00 12/11/16 09:00 12/11/16 09:00 12/11/16 09:00 Intake and Output: 12/14/16 12/14/16 06:59 18:59 Intake Total 300 Balance 300 - Medications Medications: Current Medications Amlodipine Besylate (Norvasc) 10 mg PO DAILY [facility] Last Admin: 12/14/16 10:29 Dose: Not Given Epoetin Denis (Procrit) 10,000 unit IV [facility] Last Admin: 12/12/16 09:00 Dose: Not Given Famotidine (Pepcid) 20 mg IVP DAILY [facility] Last Admin: 12/14/16 10:29 Dose: Not Given Heparin Sodium (Porcine) (Heparin) 5,000 units SC Q12 [facility] Last Admin: 12/08/16 21:11 Dose: 5,000 units Vancomycin HCl 1 gm/ Sodium (Chloride) 250 mls @ 166.7 mls/hr IVPB [facility] Last Admin: 12/12/16 09:00 Dose: Not Given Cefazolin Sodium/Dextrose (Ancef Iv 2 Gm Duplex) 2 gm in 100 mls @ 100 mls/hr IVPB [facility] Last Admin: 12/12/16 09:00 Dose: Not Given Levetiracetam (Keppra) 750 mg PO Q12 [facility] Last Admin: 12/14/16 10:28 Dose: Not Given Metoprolol Tartrate (Lopressor) 12.5 mg PO Q12H [facility] Last Admin: 12/14/16 10:29 Dose: Not Given Prednisone (Prednisone Tab) 20 mg PO DAILY [facility] Last Admin: 12/14/16 10:29 Dose: Not Given Thiamine HCl (Vitamin B1 Tab) 100 mg PO DAILY [facility] Last Admin: 12/14/16 10:29 Dose: Not Given - Labs Labs: 12/10/16 06:54 12/10/16 06:54 PT 11.4 SECONDS (9.7-12.2) 11/26/16 07:41 INR 1.0 11/26/16 07:41 APTT 30 SECONDS (21-34) 11/27/16 01:58 - Constitutional Appears: Well - Head Exam Head Exam: ATRAUMATIC, NORMAL INSPECTION, NORMOCEPHALIC - Eye Exam Eye Exam: EOMI, Normal appearance, PERRL Pupil Exam: NORMAL ACCOMODATION, PERRL - ENT Exam ENT Exam: Mucous Membranes Moist, Normal Exam - Neck Exam Neck Exam: Full ROM, Normal Inspection. absent: Lymphadenopathy - Respiratory Exam Respiratory Exam: Decreased Breath Sounds - Cardiovascular Exam Cardiovascular Exam: REGULAR RHYTHM, +S1, +S2 - GI/Abdominal Exam GI & Abdominal Exam: Soft, Diminished Bowel Sounds - Rectal Exam Rectal Exam: Deferred Assessment and Plan (1) Alcohol withdrawal seizure with complication Status: Acute (2) Drug abuse Status: Acute (3) Hepatitis C Status: Acute (4) Seizure Status: Acute (5) Status epilepticus Status: Acute (6) Alcohol abuse Status: Chronic (7) ESRD (end stage renal disease) on dialysis Status: Chronic (8) Liver transplant recipient Status: Chronic (9) Alcohol abuse Status: Acute (10) Alcohol abuse following liver transplant Status: Acute (11) Alcohol intoxication Status: Acute (12) Anemia Status: Acute (13) CHF (congestive heart failure) Status: Acute (14) CKD (chronic kidney disease) stage 5, GFR less than 15 ml/min Status: Acute (15) Encephalopathy Status: Acute (16) Gastritis Status: Acute (17) Hypotension Status: Acute (18) Hypotension Status: Acute (19) Leukopenia Status: Acute (20) Liver transplant disorder Status: Acute (21) Pancytopenia, acquired Status: Acute (22) Polysubstance (including opioids) dependence with physiol dependence Status: Acute (23) Renal failure, acute on chronic Status: Acute (24) Vomiting Status: Acute (25) ESRD (end stage renal disease) Status: Chronic
--- NOTE | 2016-12-14 14:37 | CP.PCM.PN ---
Subjective - Date & Time of Evaluation Date of Evaluation: 12/14/16 Time of Evaluation: 10:00 - Subjective Subjective: IV RX RENEWED CONSIDER VASCULAR EVAL OF ACCESS SITE LEFT ARM- REMOVAL Objective - Vital Signs/Intake and Output Vital Signs (last 24 hours): Temp Pulse Resp BP Pulse Ox 97.7 F 73 20 133/89 100 12/11/16 09:00 12/11/16 09:00 12/11/16 09:00 12/11/16 09:00 12/11/16 09:00 Intake and Output: 12/14/16 12/14/16 06:59 18:59 Intake Total 300 Balance 300 - Medications Medications: Current Medications Amlodipine Besylate (Norvasc) 10 mg PO DAILY [facility] Last Admin: 12/14/16 10:29 Dose: Not Given Epoetin Denis (Procrit) 10,000 unit IV [facility] Last Admin: 12/12/16 09:00 Dose: Not Given Famotidine (Pepcid) 20 mg IVP DAILY [facility] Last Admin: 12/14/16 10:29 Dose: Not Given Heparin Sodium (Porcine) (Heparin) 5,000 units SC Q12 [facility] Last Admin: 12/08/16 21:11 Dose: 5,000 units Vancomycin HCl 1 gm/ Sodium (Chloride) 250 mls @ 166.7 mls/hr [facility] Last Admin: 12/12/16 09:00 Dose: Not Given Cefazolin Sodium/Dextrose (Ancef Iv 2 Gm Duplex) 2 gm in 100 mls @ 100 mls/hr IVPB [facility] Last Admin: 12/12/16 09:00 Dose: Not Given Levetiracetam (Keppra) 750 mg PO Q12 [facility] Last Admin: 12/14/16 10:28 Dose: Not Given Metoprolol Tartrate (Lopressor) 12.5 mg PO Q12H [facility] Last Admin: 12/14/16 10:29 Dose: Not Given Prednisone (Prednisone Tab) 20 mg PO DAILY [facility] Last Admin: 12/14/16 10:29 Dose: Not Given Thiamine HCl (Vitamin B1 Tab) 100 mg PO DAILY [facility] Last Admin: 12/14/16 10:29 Dose: Not Given - Labs Labs: 12/10/16 06:54 12/10/16 06:54 PT 11.4 SECONDS (9.7-12.2) 11/26/16 07:41 INR 1.0 11/26/16 07:41 APTT 30 SECONDS (21-34) 11/27/16 01:58 - Constitutional Appears: Non-toxic, Chronically Ill - Head Exam Head Exam: NORMOCEPHALIC - Eye Exam Eye Exam: PERRL - ENT Exam ENT Exam: Normal External Ear Exam - Neck Exam Neck Exam: absent: Lymphadenopathy - Respiratory Exam Respiratory Exam: Decreased Breath Sounds - Cardiovascular Exam Cardiovascular Exam: REGULAR RHYTHM - GI/Abdominal Exam GI & Abdominal Exam: Distended, Soft Assessment and Plan (1) Alcohol abuse Status: Chronic (2) Alcohol withdrawal seizure with complication Status: Acute (3) Drug abuse Status: Acute (4) Hepatitis C Status: Acute (5) Seizure Status: Acute (6) Status epilepticus Status: Acute (7) ESRD (end stage renal disease) on dialysis Status: Chronic (8) Liver transplant recipient Status: Chronic (9) Encephalopathy Status: Acute (10) Hypotension Status: Acute (11) Liver transplant disorder Status: Acute (12) Polysubstance (including opioids) dependence with physiol dependence Status: Acute (13) Renal failure, acute on chronic Status: Acute (14) ESRD (end stage renal disease) Status: Chronic
[2016-12-15 07:25] LABS: BASO % 0.5 % (0.0-2.0); EOS # 0.1 K/uL (0.0-0.7); EOS % 3.1 % (0.0-4.0); HEMATOCRIT 24.1 % (35.0-51.0); LYMPH # 1.1 K/uL (1.0-4.3); LYMPH % 31.3 % (20.0-40.0); MEAN CELL VOLUME 96.8 fL (80.0-94.0); MEAN CORPUSCULAR HEMOGLOBIN 33.9 pg (27.0-31.0); MEAN PLATELET VOLUME 8.4 fL (7.2-11.7); MONO # 0.3 K/uL (0.0-0.8); MONO % 8.2 % (0.0-10.0); WHITE BLOOD COUNT 3.4 K/uL (4.8-10.8)
[2016-12-15 08:23] LABS: POTASSIUM 4.7 mmol/L (3.6-5.2)
[2016-12-15 08:25] LABS: ALB/GLOB RATIO 1.2 (1.0-2.1); BILIRUBIN,TOTAL 0.5 mg/dL (0.2-1.3); TOTAL PROTEIN 6.8 g/dL (6.3-8.3)
[2016-12-15 08:26] LABS: CALCIUM 9.1 mg/dl (8.6-10.4); PHOSPHOROUS 5.7 mg/dL (2.5-4.5)
[2016-12-15] MEDS: levETIRAcetam 100 mg/ml (5ml) Oral Syringe PO SCH ×2 (10:40→21:49)
[2016-12-15] MEDS: ceFAZolin IV 2 gm in Dextrose 2 GM/100 ML BAG IVPB SCH ×2 (11:31→14:32)
--- NOTE | 2016-12-15 12:38 | CP.PCM.PN ---
Subjective - Date & Time of Evaluation Date of Evaluation: 12/15/16 Time of Evaluation: 12:36 - Subjective Subjective: agrees to dialysis now then discharge to outpt unit will arrange dialysis Objective - Vital Signs/Intake and Output Vital Signs (last 24 hours): Temp Pulse Resp BP Pulse Ox 98.4 F 87 20 147/93 H 99 12/15/16 07:20 12/15/16 10:40 12/15/16 10:40 12/15/16 10:40 12/15/16 10:40 Intake and Output: 12/15/16 12/15/16 06:59 18:59 Intake Total 250 Balance 250 - Medications Medications: Current Medications Amlodipine Besylate (Norvasc) 10 mg PO DAILY [facility] Last Admin: 12/15/16 10:40 Dose: 10 mg Epoetin Denis (Procrit) 10,000 unit IV MWF [facility] Last Admin: 12/12/16 09:00 Dose: Not Given Famotidine (Pepcid) 20 mg IVP DAILY [facility] Last Admin: 12/15/16 10:43 Dose: Not Given Heparin Sodium (Porcine) (Heparin) 5,000 units SC Q12 [facility] Last Admin: 12/08/16 21:11 Dose: 5,000 units Vancomycin HCl 1 gm/ Sodium (Chloride) 250 mls @ 166.7 mls/hr IVPB MWF [facility] Last Admin: 12/15/16 11:31 Dose: Not Given Cefazolin Sodium/Dextrose (Ancef Iv 2 Gm Duplex) 2 gm in 100 mls @ 100 mls/hr IVPB F [facility] Last Admin: 12/15/16 11:31 Dose: Not Given Levetiracetam (Keppra) 750 mg PO Q12 [facility] Last Admin: 12/15/16 10:40 Dose: 750 mg Metoprolol Tartrate (Lopressor) 12.5 mg PO Q12H [facility] Last Admin: 12/15/16 10:40 Dose: 12.5 mg Prednisone (Prednisone Tab) 20 mg PO DAILY [facility] Last Admin: 12/15/16 10:40 Dose: 20 mg Thiamine HCl (Vitamin B1 Tab) 100 mg PO DAILY [facility] Last Admin: 12/15/16 10:40 Dose: 100 mg - Labs Labs: 12/15/16 07:11 12/15/16 07:11 PT 11.4 SECONDS (9.7-12.2) 11/26/16 07:41 INR 1.0 11/26/16 07:41 APTT 30 SECONDS (21-34) 11/27/16 01:58 - Constitutional Appears: No Acute Distress, Chronically Ill - Head Exam Head Exam: ATRAUMATIC, NORMAL INSPECTION - Eye Exam Eye Exam: EOMI, Normal appearance - Neck Exam Neck Exam: Normal Inspection. absent: Tenderness - Respiratory Exam Respiratory Exam: Clear to Ausculation Bilateral, NORMAL BREATHING PATTERN - Cardiovascular Exam Cardiovascular Exam: REGULAR RHYTHM, +S1 - GI/Abdominal Exam GI & Abdominal Exam: Soft. absent: Tenderness - Extremities Exam Extremities Exam: Normal Inspection. absent: Tenderness - Neurological Exam Neurological Exam: Awake, CN II-XII Intact - Skin Skin Exam: Dry, Warm Assessment and Plan (1) Alcohol withdrawal seizure with complication Status: Acute (2) Hepatitis C Status: Acute (3) Status epilepticus Status: Acute (4) Alcohol abuse Status: Chronic (5) ESRD (end stage renal disease) on dialysis Status: Chronic (6) Liver transplant recipient Status: Chronic - Assessment and Plan (Free Text) Plan: Reschedule dialysis
--- NOTE | 2016-12-15 13:32 | CP.PCM.PN ---
<Pato Guzmán - Last Filed: 12/15/16 13:32> Subjective - Date & Time of Evaluation Date of Evaluation: 12/15/16 Time of Evaluation: 13:30 - Subjective Subjective: Progress note. Attending: Dr. Ly Pt seen and examined at bedside. No acute distress. Pt says he feels fine and wants to go home. No fevers, chills, vomiting, diarrhea, cp, sob, seizures. Waiting on placement. Objective - Vital Signs/Intake and Output Vital Signs (last 24 hours): Temp Pulse Resp BP Pulse Ox 98.2 F 73 20 142/88 99 12/15/16 12:41 12/15/16 12:41 12/15/16 12:41 12/15/16 12:41 12/15/16 12:41 Intake and Output: 12/15/16 12/15/16 06:59 18:59 Intake Total 250 Balance 250 - Medications Medications: Current Medications Amlodipine Besylate (Norvasc) 10 mg PO DAILY [facility] Last Admin: 12/15/16 10:40 Dose: 10 mg Epoetin Denis (Procrit) 10,000 unit IV [facility] Last Admin: 12/12/16 09:00 Dose: Not Given Famotidine (Pepcid) 20 mg IVP DAILY [facility] Last Admin: 12/15/16 10:43 Dose: Not Given Heparin Sodium (Porcine) (Heparin) 5,000 units SC Q12 [facility] Last Admin: 12/08/16 21:11 Dose: 5,000 units Vancomycin HCl 1 gm/ Sodium (Chloride) 250 mls @ 166.7 mls/hr IVPB [facility] Last Admin: 12/15/16 11:31 Dose: Not Given Cefazolin Sodium/Dextrose (Ancef Iv 2 Gm Duplex) 2 gm in 100 mls @ 100 mls/hr IVPB [facility] Last Admin: 12/15/16 11:31 Dose: Not Given Levetiracetam (Keppra) 750 mg PO Q12 [facility] Last Admin: 12/15/16 10:40 Dose: 750 mg Metoprolol Tartrate (Lopressor) 12.5 mg PO Q12H [facility] Last Admin: 12/15/16 10:40 Dose: 12.5 mg Prednisone (Prednisone Tab) 20 mg PO DAILY [facility] Last Admin: 12/15/16 10:40 Dose: 20 mg Thiamine HCl (Vitamin B1 Tab) 100 mg PO DAILY [facility] Last Admin: 12/15/16 10:40 Dose: 100 mg - Labs Labs: 12/15/16 07:11 12/15/16 07:11 PT 11.4 SECONDS (9.7-12.2) 11/26/16 07:41 INR 1.0 11/26/16 07:41 APTT 30 SECONDS (21-34) 11/27/16 01:58 - Constitutional Appears: Non-toxic, No Acute Distress - Head Exam Head Exam: ATRAUMATIC, NORMAL INSPECTION, NORMOCEPHALIC - Eye Exam Eye Exam: EOMI - ENT Exam ENT Exam: Mucous Membranes Moist - Neck Exam Neck Exam: Full ROM, Normal Inspection - Respiratory Exam Respiratory Exam: NORMAL BREATHING PATTERN. absent: Respiratory Distress - Cardiovascular Exam Cardiovascular Exam: +S1, +S2 - GI/Abdominal Exam GI & Abdominal Exam: Soft, Normal Bowel Sounds. 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 Per surgery - plan for AVF on Thursday >> cancelled due to pt refusal. Patient states that he will have the procedure when he is ready. Surgery consult, Dr. Cardenas, f/u recs -cefazolin 2 g mwf -vanco 1 g mwf with HD -prednisone 20 daily ESRD on HD Pt refusing dialysis Alcohol use disorder thiamine 100 daily evaluated by psychiatry long standing hx of alcoholism Despite patient's aggression, cessation stressed and encouraged HTN Norvasc 10 mg PO daily Lopressor 12.5 q 12h GI/DVT ppx Pepcid 20 mg IV daily Heparin SC Q12 [facility] Disposition Per case management, patient's is unable to care for at home anymore due to his aggressive behavior and other chronic medical conditions. She would like for him to be placed at a facility where he can receive health care services . At this point, awaiting a facility as well as authorization to proceed. Case discussed with attending. All medical management as per Dr. Kary Ly <An Ly - Last Filed: 12/15/16 23:44> Objective - Vital Signs/Intake and Output Vital Signs (last 24 hours): Temp Pulse Resp BP Pulse Ox 98.4 F 76 20 119/85 99 12/15/16 23:25 12/15/16 23:25 12/15/16 23:25 12/15/16 23:25 12/15/16 23:25 Intake and Output: 12/15/16 12/16/16 18:59 06:59 Intake Total 300 Balance 300 - Medications Medications: Current Medications Acetaminophen (Tylenol 325mg Tab) 650 mg PO Q6 PRN PRN Reason: Pain, moderate (4-7) Amlodipine Besylate (Norvasc) 10 mg PO DAILY [facility] Last Admin: 12/15/16 10:40 Dose: 10 mg Epoetin Denis (Procrit) 10,000 unit IV [facility] Last Admin: 12/15/16 15:34 Dose: 10,000 unit Famotidine (Pepcid) 20 mg IVP DAILY [facility] Last Admin: 12/15/16 10:43 Dose: Not Given Heparin Sodium (Porcine) (Heparin) 5,000 units SC Q12 [facility] Last Admin: 12/08/16 21:11 Dose: 5,000 units Vancomycin HCl 1 gm/ Sodium (Chloride) 250 mls @ 166.7 mls/hr IVPB [facility] Last Admin: 12/15/16 14:30 Dose: 166.7 mls/hr Cefazolin Sodium/Dextrose (Ancef Iv 2 Gm Duplex) 2 gm in 100 mls @ 100 mls/hr IVPB [facility] Last Admin: 12/15/16 14:32 Dose: 100 mls/hr Levetiracetam (Keppra) 500 mg PO Q12 [facility] Last Admin: 12/15/16 21:49 Dose: 500 mg Prednisone (Prednisone Tab) 20 mg PO DAILY [facility] Last Admin: 12/15/16 10:40 Dose: 20 mg Thiamine HCl (Vitamin B1 Tab) 100 mg PO DAILY [facility] Last Admin: 12/15/16 10:40 Dose: 100 mg - Labs Labs: 12/15/16 07:11 12/15/16 07:11 PT 11.4 SECONDS (9.7-12.2) 11/26/16 07:41 INR 1.0 11/26/16 07:41 APTT 30 SECONDS (21-34) 11/27/16 01:58 Assessment and Plan (1) Alcohol withdrawal seizure with complication Status: Acute (2) Drug abuse Status: Acute (3) Hepatitis C Status: Acute (4) Seizure Status: Acute (5) Status epilepticus Status: Acute (6) Alcohol abuse Status: Chronic (7) ESRD (end stage renal disease) on dialysis Status: Chronic (8) Liver transplant recipient Status: Chronic (9) Alcohol abuse Status: Acute (10) Alcohol abuse following liver transplant Status: Acute (11) Alcohol intoxication Status: Acute (12) Anemia Status: Acute (13) CHF (congestive heart failure) Status: Acute (14) CKD (chronic kidney disease) stage 5, GFR less than 15 ml/min Status: Acute (15) Encephalopathy Status: Acute (16) Gastritis Status: Acute (17) Hypotension Status: Acute (18) Hypotension Status: Acute (19) Leukopenia Status: Acute (20) Liver transplant disorder Status: Acute (21) Pancytopenia, acquired Status: Acute (22) Polysubstance (including opioids) dependence with physiol dependence Status: Acute (23) Renal failure, acute on chronic Status: Acute (24) Vomiting Status: Acute (25) ESRD (end stage renal disease) Status: Chronic Attending/Attestation - Attestation I have personally seen and examined this patient.: Yes I have fully participated in the care of the patient.: Yes I have reviewed all pertinent clinical information, including history, physical exam and plan: Yes Notes (Text): 12/15/16 23:44 Case seen and discussed with the staff and the resident patient is on cefazolin vancomycin Status post hemodialysis today continue same
[2016-12-15] MEDS: Epoetin Alfa 10,000 unit/ml Dialysis IV SCH (15:34)
[2016-12-15] MEDS: EPOETIN ALFA 10,000 UNIT/ML ML IV SCH (15:36)
--- NOTE | 2016-12-15 21:18 | CP.PCM.PN ---
Subjective - Date & Time of Evaluation Date of Evaluation: 12/15/16 Time of Evaluation: 07:20 - Subjective Subjective: clinically same Objective - Vital Signs/Intake and Output Vital Signs (last 24 hours): Temp Pulse Resp BP Pulse Ox 97.8 F 72 18 98/71 L 99 12/15/16 17:10 12/15/16 17:10 12/15/16 17:10 12/15/16 17:10 12/15/16 17:10 - Medications Medications: Current Medications Acetaminophen (Tylenol 325mg Tab) 650 mg PO Q6 PRN PRN Reason: Pain, moderate (4-7) Amlodipine Besylate (Norvasc) 10 mg PO DAILY [facility] Last Admin: 12/15/16 10:40 Dose: 10 mg Epoetin Denis (Procrit) 10,000 unit IV [facility] [place] Last Admin: 12/15/16 15:34 Dose: 10,000 unit Famotidine (Pepcid) 20 mg IVP DAILY [facility] Last Admin: 12/15/16 10:43 Dose: Not Given Heparin Sodium (Porcine) (Heparin) 5,000 units SC Q12 [facility] Last Admin: 12/08/16 21:11 Dose: 5,000 units Vancomycin HCl 1 gm/ Sodium (Chloride) 250 mls @ 166.7 mls/hr IVPB [facility] [place] Last Admin: 12/15/16 14:30 Dose: 166.7 mls/hr Cefazolin Sodium/Dextrose (Ancef Iv 2 Gm Duplex) 2 gm in 100 mls @ 100 mls/hr IVPB [facility] [place] Last Admin: 12/15/16 14:32 Dose: 100 mls/hr Levetiracetam (Keppra) 500 mg PO Q12 [facility] Metoprolol Tartrate (Lopressor) 12.5 mg PO Q12H [facility] Last Admin: 12/15/16 10:40 Dose: 12.5 mg Prednisone (Prednisone Tab) 20 mg PO DAILY [facility] Last Admin: 12/15/16 10:40 Dose: 20 mg Thiamine HCl (Vitamin B1 Tab) 100 mg PO DAILY [facility] Last Admin: 12/15/16 10:40 Dose: 100 mg - Labs Labs: 12/15/16 07:11 12/15/16 07:11 PT 11.4 SECONDS (9.7-12.2) 11/26/16 07:41 INR 1.0 11/26/16 07:41 APTT 30 SECONDS (21-34) 11/27/16 01:58 - Constitutional Appears: Well - Head Exam Head Exam: ATRAUMATIC, NORMAL INSPECTION, NORMOCEPHALIC - Eye Exam Eye Exam: EOMI, Normal appearance, PERRL Pupil Exam: NORMAL ACCOMODATION, PERRL - ENT Exam ENT Exam: Mucous Membranes Moist, Normal Exam - Neck Exam Neck Exam: Full ROM, Normal Inspection. absent: Lymphadenopathy - Respiratory Exam Respiratory Exam: Decreased Breath Sounds - Cardiovascular Exam Cardiovascular Exam: REGULAR RHYTHM, +S1, +S2 - GI/Abdominal Exam GI & Abdominal Exam: Soft, Diminished Bowel Sounds - Rectal Exam Rectal Exam: Deferred Assessment and Plan (1) Alcohol withdrawal seizure with complication Status: Acute (2) Drug abuse Status: Acute (3) Hepatitis C Status: Acute (4) Seizure Status: Acute (5) Status epilepticus Status: Acute (6) Alcohol abuse Status: Chronic (7) ESRD (end stage renal disease) on dialysis Status: Chronic (8) Liver transplant recipient Status: Chronic (9) Alcohol abuse Status: Acute (10) Alcohol abuse following liver transplant Status: Acute (11) Alcohol intoxication Status: Acute (12) Anemia Status: Acute (13) CHF (congestive heart failure) Status: Acute (14) CKD (chronic kidney disease) stage 5, GFR less than 15 ml/min Status: Acute (15) Encephalopathy Status: Acute (16) Gastritis Status: Acute (17) Hypotension Status: Acute (18) Hypotension Status: Acute (19) Leukopenia Status: Acute (20) Liver transplant disorder Status: Acute (21) Pancytopenia, acquired Status: Acute (22) Polysubstance (including opioids) dependence with physiol dependence Status: Acute (23) Renal failure, acute on chronic Status: Acute (24) Vomiting Status: Acute (25) ESRD (end stage renal disease) Status: Chronic - Assessment and Plan (Free Text) Plan: Case seen and discussed with the staff patient was refusing further dialysis eventually spoke to the for who agreed to come and diamond picker the patient's and will discharge the patient if the comes diamond picker Hemodialysis For rehab placement versus home discharge if family picks it up Continue same Patient eventually went for the dialysis status post dialysis today
[2016-12-16 08:11] LABS: BASO % 0.4 % (0.0-2.0); EOS # 0.1 K/uL (0.0-0.7); EOS % 2.3 % (0.0-4.0); HEMATOCRIT 26.1 % (35.0-51.0); MEAN CELL VOLUME 96.8 fL (80.0-94.0); MEAN CORPUSCULAR HEMOGLOBIN 34.1 pg (27.0-31.0); MEAN CORPUSCULAR HGB CONC 35.2 g/dL (33.0-37.0); MEAN PLATELET VOLUME 8.2 fL (7.2-11.7); MONO # 0.3 K/uL (0.0-0.8); MONO % 8.3 % (0.0-10.0); WHITE BLOOD COUNT 3.2 K/uL (4.8-10.8)
[2016-12-16 08:21] LABS: POTASSIUM 3.7 mmol/L (3.6-5.2)
[2016-12-16 08:24] LABS: ALB/GLOB RATIO 1.4 (1.0-2.1); BILIRUBIN,TOTAL 0.6 mg/dL (0.2-1.3)
[2016-12-16 08:25] LABS: CALCIUM 8.8 mg/dl (8.6-10.4); PHOSPHOROUS 4.2 mg/dL (2.5-4.5)
[2016-12-16] MEDS: levETIRAcetam 100 mg/ml (5ml) Oral Syringe PO SCH ×2 (09:24→21:23)
--- NOTE | 2016-12-16 10:47 | CP.PCM.PN ---
Subjective - Date & Time of Evaluation Date of Evaluation: 12/16/16 Time of Evaluation: 08:05 - Subjective Subjective: PGY2 Resident - Medicine Progress Note Pt seen and examined at bedside. No acute distress. Pt says he feels fine and is again asking when he can go home. He has refused dialysis and repair of his AVF. No fevers, chills, vomiting, diarrhea, cp, sob, seizures. Patient calm and not overly aggressive at this time. Awaiting authorization for placement. Objective - Vital Signs/Intake and Output Vital Signs (last 24 hours): Temp Pulse Resp BP Pulse Ox 98.1 F 82 20 110/75 98 12/16/16 07:21 12/16/16 07:21 12/16/16 07:21 12/16/16 07:21 12/16/16 07:21 Intake and Output: 12/16/16 12/16/16 06:59 18:59 Intake Total 500 Balance 500 - Medications Medications: Current Medications Acetaminophen (Tylenol 325mg Tab) 650 mg PO Q6 PRN PRN Reason: Pain, moderate (4-7) Amlodipine Besylate (Norvasc) 10 mg PO DAILY [facility] Last Admin: 12/16/16 09:25 Dose: 10 mg Epoetin Denis (Procrit) 10,000 unit [facility] [place] Last Admin: 12/15/16 15:34 Dose: 10,000 unit Famotidine (Pepcid) 20 mg IVP DAILY [facility] Last Admin: 12/16/16 09:24 Dose: Not Given Heparin Sodium (Porcine) (Heparin) 5,000 units SC Q12 [facility] Last Admin: 12/08/16 21:11 Dose: 5,000 units Vancomycin HCl 1 gm/ Sodium (Chloride) 250 mls @ 166.7 mls/hr IVPB [facility] [place] Last Admin: 12/15/16 14:30 Dose: 166.7 mls/hr Cefazolin Sodium/Dextrose (Ancef Iv 2 Gm Duplex) 2 gm in 100 mls @ 100 mls/hr IVPB [facility] [place] Last Admin: 12/15/16 14:32 Dose: 100 mls/hr Levetiracetam (Keppra) 500 mg PO Q12 [facility] Last Admin: 12/16/16 09:24 Dose: 500 mg Prednisone (Prednisone Tab) 20 mg PO DAILY [facility] Last Admin: 12/16/16 09:25 Dose: 20 mg Thiamine HCl (Vitamin B1 Tab) 100 mg PO DAILY [facility] Last Admin: 12/16/16 09:25 Dose: 100 mg - Labs Labs: 12/16/16 08:01 12/16/16 08:01 PT 11.4 SECONDS (9.7-12.2) 11/26/16 07:41 INR 1.0 11/26/16 07:41 APTT 30 SECONDS (21-34) 11/27/16 01:58 - Additional Findings Additional findings: - Constitutional Appears: Non-toxic, No Acute Distress - Head Exam Head Exam: ATRAUMATIC, NORMAL INSPECTION, NORMOCEPHALIC - Eye Exam Eye Exam: EOMI - ENT Exam ENT Exam: Mucous Membranes Moist - Neck Exam Neck Exam: Full ROM, Normal Inspection - Respiratory Exam Respiratory Exam: NORMAL BREATHING PATTERN. absent: Respiratory Distress - Cardiovascular Exam Cardiovascular Exam: Regular Rate, +S1, +S2 - GI/Abdominal Exam GI & Abdominal Exam: Soft, Normal Bowel Sounds. absent: Tenderness - Extremities Exam Extremities Exam: Full ROM, Normal Inspection - Neurological Exam Neurological Exam: Alert, Awake, Oriented x3 - Psychiatric Exam Psychiatric exam: Normal Affect, Normal Mood - Skin Skin Exam: Dry, Intact, Normal Color, Warm Assessment and Plan - Assessment and Plan (Free Text) Assessment: History of recurrent seizures 12/16: No seizure activity for several days. Stable. Less aggressive today. EEG showed signs of what may be possible epileptiform activity F/U Neuro recommendations -asa 81mg daily -keppra 750mg q 12 Occluded/infected av fistula 12/16: patient continues to refuse AVF repair although recommended. 12/05: patient will require AVF Repair. Per surgery - plan for AVF on Thursday >> cancelled due to pt refusal. Patient states that he will have the procedure when he is ready. Surgery consult, Dr. Cardenas, f/u recs -cefazolin 2 g mwf -vanco 1 g mwf with HD -prednisone 20 daily ESRD on HD 12/16: last HD 12/15. Pt refusing dialysis at times. Alcohol use disorder thiamine 100 daily evaluated by psychiatry long standing hx of alcoholism Despite patient's aggression, cessation stressed and encouraged HTN 12/16: BP WNL. continue to monitor. Norvasc 10 mg PO daily Lopressor 12.5 q 12h GI/DVT ppx Pepcid 20 mg IV daily Heparin SC Q12 [facility] Disposition Per case management, patient's is unable to care for at home anymore due to his aggressive behavior and other chronic medical conditions. She would like for him to be placed at a facility where he can receive health care services . At this point, awaiting a facility as well as authorization to proceed. Case discussed with attending. All medical management as per Dr. Kary Ly
--- NOTE | 2016-12-16 11:06 | CP.PCM.PN ---
Subjective - Date & Time of Evaluation Date of Evaluation: 12/16/16 Time of Evaluation: 11:04 - Subjective Subjective: seen and examined s/p hd yesterday on antibiotics for infected avf, refused surgery Objective - Vital Signs/Intake and Output Vital Signs (last 24 hours): Temp Pulse Resp BP Pulse Ox 98.1 F 82 20 110/75 98 12/16/16 07:21 12/16/16 07:21 12/16/16 07:21 12/16/16 07:21 12/16/16 07:21 Intake and Output: 12/16/16 12/16/16 06:59 18:59 Intake Total 500 Balance 500 - Medications Medications: Current Medications Acetaminophen (Tylenol 325mg Tab) 650 mg PO Q6 PRN PRN Reason: Pain, moderate (4-7) Amlodipine Besylate (Norvasc) 10 mg PO DAILY [facility] Last Admin: 12/16/16 09:25 Dose: 10 mg Epoetin Denis (Procrit) 10,000 unit IV [facility] [place] Last Admin: 12/15/16 15:34 Dose: 10,000 unit Famotidine (Pepcid) 20 mg IVP DAILY [facility] Last Admin: 12/16/16 09:24 Dose: Not Given Heparin Sodium (Porcine) (Heparin) 5,000 units SC Q12 [facility] Last Admin: 12/08/16 21:11 Dose: 5,000 units Vancomycin HCl 1 gm/ Sodium (Chloride) 250 mls @ 166.7 mls/hr IVPB [facility] [place] Last Admin: 12/15/16 14:30 Dose: 166.7 mls/hr Cefazolin Sodium/Dextrose (Ancef Iv 2 Gm Duplex) 2 gm in 100 mls @ 100 mls/hr IVPB [facility] [place] Last Admin: 12/15/16 14:32 Dose: 100 mls/hr Levetiracetam (Keppra) 500 mg PO Q12 [facility] Last Admin: 12/16/16 09:24 Dose: 500 mg Prednisone (Prednisone Tab) 20 mg PO DAILY [facility] Last Admin: 12/16/16 09:25 Dose: 20 mg Thiamine HCl (Vitamin B1 Tab) 100 mg PO DAILY [facility] Last Admin: 12/16/16 09:25 Dose: 100 mg - Labs Labs: 12/16/16 08:01 12/16/16 08:01 PT 11.4 SECONDS (9.7-12.2) 11/26/16 07:41 INR 1.0 11/26/16 07:41 APTT 30 SECONDS (21-34) 11/27/16 01:58 - Constitutional Appears: No Acute Distress, Unkempt, Cachectic, Chronically Ill - Head Exam Head Exam: NORMAL INSPECTION - Eye Exam Eye Exam: Normal appearance - ENT Exam ENT Exam: Mucous Membranes Moist, Normal Exam - Neck Exam Neck Exam: Normal Inspection - Respiratory Exam Respiratory Exam: Clear to Ausculation Bilateral, NORMAL BREATHING PATTERN - Cardiovascular Exam Cardiovascular Exam: REGULAR RHYTHM, RRR - GI/Abdominal Exam GI & Abdominal Exam: Distended, Soft, Normal Bowel Sounds - Extremities Exam Extremities Exam: Normal Inspection Assessment and Plan (1) Alcohol abuse Status: Chronic (2) Alcohol withdrawal seizure with complication Status: Acute (3) Hepatitis C Status: Acute (4) Status epilepticus Status: Acute (5) ESRD (end stage renal disease) on dialysis Status: Chronic (6) Liver transplant recipient Status: Chronic - Assessment and Plan (Free Text) Assessment: hd tomorrow, mwf rehab placement
--- NOTE | 2016-12-16 20:02 | CP.PCM.PN ---
Subjective - Date & Time of Evaluation Date of Evaluation: 12/16/16 Time of Evaluation: 07:20 - Subjective Subjective: clinically same Objective - Vital Signs/Intake and Output Vital Signs (last 24 hours): Temp Pulse Resp BP Pulse Ox 98.8 F 80 18 120/78 99 12/16/16 17:27 12/16/16 17:27 12/16/16 17:27 12/16/16 17:27 12/16/16 17:27 - Medications Medications: Current Medications Acetaminophen (Tylenol 325mg Tab) 650 mg PO Q6 PRN PRN Reason: Pain, moderate (4-7) Amlodipine Besylate (Norvasc) 10 mg PO DAILY [facility] Last Admin: 12/16/16 09:25 Dose: 10 mg Epoetin Denis (Procrit) 10,000 unit IV [facility] [place] Last Admin: 12/15/16 15:34 Dose: 10,000 unit Famotidine (Pepcid) 20 mg IVP DAILY [facility] Last Admin: 12/16/16 09:24 Dose: Not Given Heparin Sodium (Porcine) (Heparin) 5,000 units SC Q12 [facility] Last Admin: 12/08/16 21:11 Dose: 5,000 units Vancomycin HCl 1 gm/ Sodium (Chloride) 250 mls @ 166.7 mls/hr IVPB [facility] [place] Last Admin: 12/15/16 14:30 Dose: 166.7 mls/hr Cefazolin Sodium/Dextrose (Ancef Iv 2 Gm Duplex) 2 gm in 100 mls @ 100 mls/hr IVPB [facility] [place] Last Admin: 12/15/16 14:32 Dose: 100 mls/hr Levetiracetam (Keppra) 500 mg PO Q12 [facility] Last Admin: 12/16/16 09:24 Dose: 500 mg Prednisone (Prednisone Tab) 20 mg PO DAILY [facility] Last Admin: 12/16/16 09:25 Dose: 20 mg Thiamine HCl (Vitamin B1 Tab) 100 mg PO DAILY [facility] Last Admin: 12/16/16 09:25 Dose: 100 mg - Labs Labs: 12/16/16 08:01 12/16/16 08:01 PT 11.4 SECONDS (9.7-12.2) 11/26/16 07:41 INR 1.0 11/26/16 07:41 APTT 30 SECONDS (21-34) 11/27/16 01:58 - Constitutional Appears: Well - Head Exam Head Exam: ATRAUMATIC, NORMAL INSPECTION, NORMOCEPHALIC - Eye Exam Eye Exam: EOMI, Normal appearance, PERRL Pupil Exam: NORMAL ACCOMODATION, PERRL - ENT Exam ENT Exam: Mucous Membranes Moist, Normal Exam - Neck Exam Neck Exam: Full ROM, Normal Inspection. absent: Lymphadenopathy - Respiratory Exam Respiratory Exam: Decreased Breath Sounds - Cardiovascular Exam Cardiovascular Exam: REGULAR RHYTHM, +S1, +S2 - GI/Abdominal Exam GI & Abdominal Exam: Soft, Diminished Bowel Sounds - Rectal Exam Rectal Exam: Deferred Assessment and Plan (1) Alcohol withdrawal seizure with complication Status: Acute (2) Drug abuse Status: Acute (3) Hepatitis C Status: Acute (4) Seizure Status: Acute (5) Status epilepticus Status: Acute (6) Alcohol abuse Status: Chronic (7) ESRD (end stage renal disease) on dialysis Status: Chronic (8) Liver transplant recipient Status: Chronic (9) Alcohol abuse Status: Acute (10) Alcohol abuse following liver transplant Status: Acute (11) Alcohol intoxication Status: Acute (12) Anemia Status: Acute (13) CHF (congestive heart failure) Status: Acute (14) CKD (chronic kidney disease) stage 5, GFR less than 15 ml/min Status: Acute (15) Encephalopathy Status: Acute (16) Gastritis Status: Acute (17) Hypotension Status: Acute (18) Hypotension Status: Acute (19) Leukopenia Status: Acute (20) Liver transplant disorder Status: Acute (21) Pancytopenia, acquired Status: Acute (22) Polysubstance (including opioids) dependence with physiol dependence Status: Acute (23) Renal failure, acute on chronic Status: Acute (24) Vomiting Status: Acute (25) ESRD (end stage renal disease) Status: Chronic
[2016-12-17] MEDS: ceFAZolin IV 2 gm in Dextrose 2 GM/100 ML BAG IVPB SCH (08:50)
[2016-12-17] MEDS: levETIRAcetam 100 mg/ml (5ml) Oral Syringe PO SCH ×2 (09:47→21:19)
[2016-12-17] MEDS: Epoetin Alfa 10,000 unit/ml Dialysis IV SCH (09:52)
--- NOTE | 2016-12-17 14:56 | CP.PCM.PN ---
Subjective - Date & Time of Evaluation Date of Evaluation: 12/17/16 Time of Evaluation: 14:55 - Subjective Subjective: Progress note. SERVICE FOR DR. Brandon ROMAN Pt seen and examined at bedside. NO acute distress. No events overnight. Pt wants to go home. No current complaints. No fevers, chills, vomiting, diarrhea. Objective - Vital Signs/Intake and Output Vital Signs (last 24 hours): Temp Pulse Resp BP Pulse Ox 98.7 F 68 20 120/71 99 12/17/16 08:16 12/17/16 08:16 12/17/16 08:16 12/17/16 08:16 12/17/16 08:16 - Medications Medications: Current Medications Acetaminophen (Tylenol 325mg Tab) 650 mg PO Q6 PRN PRN Reason: Pain, moderate (4-7) Last Admin: 12/17/16 09:47 Dose: 650 mg Amlodipine Besylate (Norvasc) 10 mg PO DAILY [facility] Last Admin: 12/17/16 09:47 Dose: 10 mg Epoetin Denis (Procrit) 10,000 unit IV [facility] [place] Last Admin: 12/17/16 09:52 Dose: Not Given Famotidine (Pepcid) 20 mg IVP DAILY [facility] Last Admin: 12/16/16 09:24 Dose: Not Given Heparin Sodium (Porcine) (Heparin) 5,000 units SC Q12 [facility] Last Admin: 12/08/16 21:11 Dose: 5,000 units Vancomycin HCl 1 gm/ Sodium (Chloride) 250 mls @ 166.7 mls/hr IVPB [facility] [place] Last Admin: 12/17/16 08:53 Dose: Not Given Cefazolin Sodium/Dextrose (Ancef Iv 2 Gm Duplex) 2 gm in 100 mls @ 100 mls/hr IVPB [facility] [place] Last Admin: 12/17/16 08:50 Dose: Not Given Levetiracetam (Keppra) 500 mg PO Q12 [facility] Last Admin: 12/17/16 09:47 Dose: 500 mg - Labs Labs: 12/16/16 08:01 12/16/16 08:01 PT 11.4 SECONDS (9.7-12.2) 11/26/16 07:41 INR 1.0 11/26/16 07:41 APTT 30 SECONDS (21-34) 11/27/16 01:58 - Constitutional Appears: Non-toxic, No Acute Distress, Unkempt, Older Than Stated Age - Head Exam Head Exam: ATRAUMATIC, NORMAL INSPECTION, NORMOCEPHALIC - Eye Exam Eye Exam: EOMI - ENT Exam ENT Exam: Mucous Membranes Moist - Neck Exam Neck Exam: Full ROM, Normal Inspection - Respiratory Exam Respiratory Exam: Clear to Ausculation Bilateral, NORMAL BREATHING PATTERN - Cardiovascular Exam Cardiovascular Exam: REGULAR RHYTHM, +S1, +S2 - GI/Abdominal Exam GI & Abdominal Exam: Soft, Normal Bowel Sounds. absent: Tenderness - Extremities Exam Extremities Exam: Full ROM, Normal Inspection - Neurological Exam Neurological Exam: Alert, Awake - Psychiatric Exam Psychiatric exam: Flat Affect - Skin Skin Exam: Dry, Intact, Normal Color, Warm Assessment and Plan - Assessment and Plan (Free Text) Assessment: History of recurrent seizures No seizure activity for several days. Stable. Less aggressive today. EEG showed signs of what may be possible epileptiform activity F/U Neuro recommendations -asa 81mg daily -keppra 750mg q 12 Occluded/infected av fistula 12/16: patient continues to refuse AVF repair although recommended. 12/05: patient will require AVF Repair. Per surgery - plan for AVF on Thursday >> cancelled due to pt refusal. Patient states that he will have the procedure when he is ready. Surgery consult, Dr. Cardenas, f/u recs -cefazolin 2 g mwf -vanco 1 g mwf with HD -prednisone 20 daily ESRD on HD 12/16: last HD 12/15. Pt refusing dialysis at times. Alcohol use disorder thiamine 100 daily evaluated by psychiatry long standing hx of alcoholism Despite patient's aggression, cessation stressed and encouraged HTN 12/16: BP WNL. continue to monitor. Norvasc 10 mg PO daily Lopressor 12.5 q 12h GI/DVT ppx Pepcid 20 mg IV daily Heparin SC Q12 [facility] Disposition Awaiting pt's so patient can go home. PT recommends home. Case discussed with attending. All medical management as per Dr. Kary Roman
--- NOTE | 2016-12-17 16:12 | CP.PCM.PN ---
Subjective - Date & Time of Evaluation Date of Evaluation: 12/17/16 Time of Evaluation: 16:10 - Subjective Subjective: refused HD unable to give history offers no acute complaints wants to go home Objective - Vital Signs/Intake and Output Vital Signs (last 24 hours): Temp Pulse Resp BP Pulse Ox 98.7 F 68 20 120/71 99 12/17/16 08:16 12/17/16 08:16 12/17/16 08:16 12/17/16 08:16 12/17/16 08:16 Intake and Output: 12/17/16 12/17/16 06:59 18:59 Intake Total 600 Balance 600 - Medications Medications: Current Medications Acetaminophen (Tylenol 325mg Tab) 650 mg PO Q6 PRN PRN Reason: Pain, moderate (4-7) Last Admin: 12/17/16 09:47 Dose: 650 mg Amlodipine Besylate (Norvasc) 10 mg PO DAILY [facility] Last Admin: 12/17/16 09:47 Dose: 10 mg Epoetin Denis (Procrit) 10,000 unit IV [facility] [place] Last Admin: 12/17/16 09:52 Dose: Not Given Famotidine (Pepcid) 20 mg IVP DAILY [facility] Last Admin: 12/16/16 09:24 Dose: Not Given Heparin Sodium (Porcine) (Heparin) 5,000 units SC Q12 [facility] Last Admin: 12/08/16 21:11 Dose: 5,000 units Vancomycin HCl 1 gm/ Sodium (Chloride) 250 mls @ [facility] Last Admin: 12/17/16 08:53 Dose: Not Given Cefazolin Sodium/Dextrose (Ancef Iv 2 Gm Duplex) 2 gm in 100 mls @ 100 mls/hr IVPB [facility] [place] Last Admin: 12/17/16 08:50 Dose: Not Given Levetiracetam (Keppra) 500 mg PO Q12 [facility] Last Admin: 12/17/16 09:47 Dose: 500 mg - Labs Labs: 12/16/16 08:01 12/16/16 08:01 PT 11.4 SECONDS (9.7-12.2) 11/26/16 07:41 INR 1.0 11/26/16 07:41 APTT 30 SECONDS (21-34) 11/27/16 01:58 - Constitutional Appears: Confused, Chronically Ill - ENT Exam ENT Exam: Mucous Membranes Moist - Neck Exam Neck Exam: Full ROM. absent: Lymphadenopathy - Respiratory Exam Respiratory Exam: Clear to Ausculation Bilateral - Cardiovascular Exam Cardiovascular Exam: REGULAR RHYTHM. absent: Rubs - Extremities Exam Extremities Exam: absent: Pedal Edema - Neurological Exam Neurological Exam: Alert. absent: Oriented x3 Assessment and Plan - Assessment and Plan (Free Text) Assessment: esrd refusing HD kristy infection/thrombosis, refusing revision liver transplant recepient assess competence and capacit
--- NOTE | 2016-12-17 16:49 | CP.PCM.PN ---
Subjective - Date & Time of Evaluation Date of Evaluation: 12/17/16 Time of Evaluation: 07:00 - Subjective Subjective: REFUSING IV REINSERTION WILL FOLLOW Objective - Vital Signs/Intake and Output Vital Signs (last 24 hours): Temp Pulse Resp BP Pulse Ox 98.3 F 96 H 20 117/71 98 12/17/16 16:00 12/17/16 16:00 12/17/16 16:00 12/17/16 16:00 12/17/16 16:00 Intake and Output: 12/17/16 12/17/16 06:59 18:59 Intake Total 600 Balance 600 - Medications Medications: Current Medications Acetaminophen (Tylenol 325mg Tab) 650 mg PO Q6 PRN PRN Reason: Pain, moderate (4-7) Last Admin: 12/17/16 16:17 Dose: 650 mg Amlodipine Besylate (Norvasc) 10 mg PO DAILY [facility] Last Admin: 12/17/16 09:47 Dose: 10 mg Epoetin Denis (Procrit) 10,000 [place] [facility] [place] Last Admin: 12/17/16 09:52 Dose: Not Given Famotidine (Pepcid) 20 mg IVP DAILY [facility] Last Admin: 12/16/16 09:24 Dose: Not Given Heparin Sodium (Porcine) (Heparin) 5,000 units SC Q12 [facility] Last Admin: 12/08/16 21:11 Dose: 5,000 units Vancomycin HCl 1 gm/ Sodium (Chloride) 250 mls [facility] Last Admin: 12/17/16 08:53 Dose: Not Given Cefazolin Sodium/Dextrose (Ancef Iv 2 Gm Duplex) 2 gm in 100 mls @ 100 mls/hr [place] [facility] [place] Last Admin: 12/17/16 08:50 Dose: Not Given Levetiracetam (Keppra) 500 mg PO Q12 [facility] Last Admin: 12/17/16 09:47 Dose: 500 mg - Labs Labs: 12/16/16 08:01 12/16/16 08:01 PT 11.4 SECONDS (9.7-12.2) 11/26/16 07:41 INR 1.0 11/26/16 07:41 APTT 30 SECONDS (21-34) 11/27/16 01:58 Assessment and Plan (1) Alcohol abuse Status: Chronic (2) Alcohol withdrawal seizure with complication Status: Acute (3) Drug abuse Status: Acute (4) Hepatitis C Status: Acute (5) Seizure Status: Acute (6) Status epilepticus Status: Acute (7) ESRD (end stage renal disease) on dialysis Status: Chronic (8) Liver transplant recipient Status: Chronic (9) Encephalopathy Status: Acute (10) Hypotension Status: Acute (11) Liver transplant disorder Status: Acute (12) Polysubstance (including opioids) dependence with physiol dependence Status: Acute (13) Renal failure, acute on chronic Status: Acute (14) ESRD (end stage renal disease) Status: Chronic
--- NOTE | 2016-12-17 18:47 | CP.PCM.PN ---
Subjective - Date & Time of Evaluation Date of Evaluation: 12/17/16 Time of Evaluation: 07:20 - Subjective Subjective: clinically same Objective - Vital Signs/Intake and Output Vital Signs (last 24 hours): Temp Pulse Resp BP Pulse Ox 98.3 F 96 H 20 117/71 98 12/17/16 16:00 12/17/16 16:00 12/17/16 16:00 12/17/16 16:00 12/17/16 16:00 Intake and Output: 12/17/16 12/17/16 06:59 18:59 Intake Total 600 Balance 600 - Medications Medications: Current Medications Acetaminophen (Tylenol 325mg Tab) 650 mg PO Q6 PRN PRN Reason: Pain, moderate (4-7) Last Admin: 12/17/16 16:17 Dose: 650 mg Amlodipine Besylate (Norvasc) 10 mg PO DAILY [facility] Last Admin: 12/17/16 09:47 Dose: 10 mg Epoetin Denis (Procrit) 10,000 unit IV [facility] [place] Last Admin: 12/17/16 09:52 Dose: Not Given Famotidine (Pepcid) 20 mg IVP DAILY [facility] Last Admin: 12/16/16 09:24 Dose: Not Given Heparin Sodium (Porcine) (Heparin) 5,000 units SC Q12 [facility] Last Admin: 12/08/16 21:11 Dose: 5,000 units Vancomycin HCl 1 gm/ Sodium (Chloride) 250 mls @ 166.7 mls/hr IVPB [facility] [place] Last Admin: 12/17/16 08:53 Dose: Not Given Cefazolin Sodium/Dextrose (Ancef Iv 2 Gm Duplex) 2 gm in 100 mls @ 100 mls/hr IVPB [facility] [place] Last Admin: 12/17/16 08:50 Dose: Not Given Levetiracetam (Keppra) 500 mg PO Q12 [facility] Last Admin: 12/17/16 09:47 Dose: 500 mg - Labs Labs: 12/16/16 08:01 12/16/16 08:01 PT 11.4 SECONDS (9.7-12.2) 11/26/16 07:41 INR 1.0 11/26/16 07:41 APTT 30 SECONDS (21-34) 11/27/16 01:58 - Constitutional Appears: Well - Head Exam Head Exam: ATRAUMATIC, NORMAL INSPECTION, NORMOCEPHALIC - Eye Exam Eye Exam: EOMI, Normal appearance, PERRL Pupil Exam: NORMAL ACCOMODATION, PERRL - ENT Exam ENT Exam: Mucous Membranes Moist, Normal Exam - Neck Exam Neck Exam: Full ROM, Normal Inspection. absent: Lymphadenopathy - Respiratory Exam Respiratory Exam: Decreased Breath Sounds - Cardiovascular Exam Cardiovascular Exam: REGULAR RHYTHM, +S1, +S2 - GI/Abdominal Exam GI & Abdominal Exam: Soft, Diminished Bowel Sounds - Rectal Exam Rectal Exam: Deferred Assessment and Plan (1) Alcohol withdrawal seizure with complication Status: Acute (2) Drug abuse Status: Acute (3) Hepatitis C Status: Acute (4) Seizure Status: Acute (5) Status epilepticus Status: Acute (6) Alcohol abuse Status: Chronic (7) ESRD (end stage renal disease) on dialysis Status: Chronic (8) Liver transplant recipient Status: Chronic (9) Alcohol abuse Status: Acute (10) Alcohol abuse following liver transplant Status: Acute (11) Alcohol intoxication Status: Acute (12) Anemia Status: Acute (13) CHF (congestive heart failure) Status: Acute (14) CKD (chronic kidney disease) stage 5, GFR less than 15 ml/min Status: Acute (15) Encephalopathy Status: Acute (16) Gastritis Status: Acute (17) Hypotension Status: Acute (18) Hypotension Status: Acute (19) Leukopenia Status: Acute (20) Liver transplant disorder Status: Acute (21) Pancytopenia, acquired Status: Acute (22) Polysubstance (including opioids) dependence with physiol dependence Status: Acute (23) Renal failure, acute on chronic Status: Acute (24) Vomiting Status: Acute (25) ESRD (end stage renal disease) Status: Chronic
[2016-12-18] MEDS: levETIRAcetam 100 mg/ml (5ml) Oral Syringe PO SCH ×2 (09:29→21:19)
--- NOTE | 2016-12-18 14:11 | CP.PCM.PN ---
Subjective - Date & Time of Evaluation Date of Evaluation: 12/18/16 Time of Evaluation: 14:10 - Subjective Subjective: Progress note. Attending: Dr. Ly Pt seen and examined at bedside. No acute distress. No events overnight. Pt has no complaints. No fevers, chills, vomiting, diarrhea. Refusing dialysis. Objective - Vital Signs/Intake and Output Vital Signs (last 24 hours): Temp Pulse Resp BP Pulse Ox 98 F 75 20 114/70 100 12/18/16 07:33 12/18/16 07:33 12/18/16 07:33 12/18/16 07:33 12/18/16 07:33 Intake and Output: 12/18/16 12/18/16 06:59 18:59 Intake Total 480 Balance 480 - Medications Medications: Current Medications Acetaminophen (Tylenol 325mg Tab) 650 mg PO Q6 PRN PRN Reason: Pain, moderate (4-7) Last Admin: 12/18/16 09:32 Dose: 650 mg Amlodipine Besylate (Norvasc) 10 mg PO DAILY [facility] Last Admin: 12/18/16 09:29 Dose: 10 mg Epoetin Denis (Procrit) 10,000 unit IV [facility] [place] Last Admin: 12/17/16 09:52 Dose: Not Given Famotidine (Pepcid) 20 mg IVP DAILY [facility] Last Admin: 12/17/16 10:00 Dose: Not Given Heparin Sodium (Porcine) (Heparin) 5,000 units SC Q12 [facility] Last Admin: 12/08/16 21:11 Dose: 5,000 units Vancomycin HCl 1 gm/ Sodium (Chloride) 250 mls @ 166.7 mls/hr IVPB [facility] [place] Last Admin: 12/17/16 08:53 Dose: Not Given Cefazolin Sodium/Dextrose (Ancef Iv 2 Gm Duplex) 2 gm in 100 mls @ 100 mls/hr IVPB [facility] [place] Last Admin: 12/17/16 08:50 Dose: Not Given Levetiracetam (Keppra) 500 mg PO Q12 [facility] Last Admin: 12/18/16 09:29 Dose: 500 mg - Labs Labs: 12/16/16 08:01 12/16/16 08:01 PT 11.4 SECONDS (9.7-12.2) 11/26/16 07:41 INR 1.0 11/26/16 07:41 APTT 30 SECONDS (21-34) 11/27/16 01:58 - Constitutional Appears: Non-toxic, No Acute Distress - Head Exam Head Exam: ATRAUMATIC, NORMAL INSPECTION, NORMOCEPHALIC - Eye Exam Eye Exam: EOMI - ENT Exam ENT Exam: Mucous Membranes Moist - Neck Exam Neck Exam: Full ROM, Normal Inspection - Respiratory Exam Respiratory Exam: NORMAL BREATHING PATTERN. absent: Respiratory Distress - Cardiovascular Exam Cardiovascular Exam: +S1, +S2 - GI/Abdominal Exam GI & Abdominal Exam: Soft, Normal Bowel Sounds. absent: Tenderness - Extremities Exam Extremities Exam: Full ROM, Normal Inspection - Neurological Exam Neurological Exam: Alert, Awake, Oriented x3 - Psychiatric Exam Psychiatric exam: Normal Affect, Normal Mood - Skin Skin Exam: Dry, Intact, Normal Color, Warm Assessment and Plan - Assessment and Plan (Free Text) Assessment: History of recurrent seizures No seizure activity for several days. Stable. Less aggressive today. EEG showed signs of what may be possible epileptiform activity F/U Neuro recommendations -asa 81mg daily -keppra 750mg q 12 Occluded/infected av fistula 12/16: patient continues to refuse AVF repair although recommended. 12/05: patient will require AVF Repair. Per surgery - plan for AVF on Thursday >> cancelled due to pt refusal. Patient states that he will have the procedure when he is ready. Surgery consult, Dr. Cardenas, f/u recs -cefazolin 2 g mwf -vanco 1 g mwf with HD -prednisone 20 daily ESRD on HD 12/16: last HD 12/15. Pt refusing dialysis at times. Alcohol use disorder thiamine 100 daily evaluated by psychiatry long standing hx of alcoholism Despite patient's aggression, cessation stressed and encouraged HTN 12/16: BP WNL. continue to monitor. Norvasc 10 mg PO daily Lopressor 12.5 q 12h GI/DVT ppx Pepcid 20 mg IV daily Heparin SC Q12 [facility] Disposition Awaiting pt's so patient can go home. PT recommends home. Case discussed with attending. All medical management as per Dr. Kary Ly
--- NOTE | 2016-12-18 18:20 | CP.PCM.PN ---
Subjective - Date & Time of Evaluation Date of Evaluation: 12/18/16 Time of Evaluation: 07:00 - Subjective Subjective: iv rx reordered awake aler consider removal left arm av device Objective - Vital Signs/Intake and Output Vital Signs (last 24 hours): Temp Pulse Resp BP Pulse Ox 98.6 F 73 20 115/72 99 12/18/16 16:00 12/18/16 16:00 12/18/16 16:00 12/18/16 16:00 12/18/16 16:00 Intake and Output: 12/18/16 12/18/16 06:59 18:59 Intake Total 480 680 Balance 480 680 - Medications Medications: Current Medications Acetaminophen (Tylenol 325mg Tab) 650 mg PO Q6 PRN PRN Reason: Pain, moderate (4-7) Last Admin: 12/18/16 09:32 Dose: 650 mg Amlodipine Besylate (Norvasc) 10 mg PO DAILY [facility] Last Admin: 12/18/16 09:29 Dose: 10 mg Epoetin Denis (Procrit) 10,000 unit IV [facility] [place] Last Admin: 12/17/16 09:52 Dose: Not Given Famotidine (Pepcid) 20 mg IVP DAILY [facility] Last Admin: 12/17/16 10:00 Dose: Not Given Heparin Sodium (Porcine) (Heparin) 5,000 units SC Q12 [facility] Last Admin: 12/08/16 21:11 Dose: 5,000 units Vancomycin HCl 1 gm/ Sodium (Chloride) 250 mls @ [facility]7 [facility] Last Admin: 12/17/16 08:53 Dose: Not Given Cefazolin Sodium/Dextrose (Ancef Iv 2 Gm Duplex) 2 gm in 100 mls @ 100 mls/hr IVPB [facility] [place] Last Admin: 12/17/16 08:50 Dose: Not Given Levetiracetam (Keppra) 500 mg PO Q12 [facility] Last Admin: 12/18/16 09:29 Dose: 500 mg - Labs Labs: 12/16/16 08:01 12/16/16 08:01 PT 11.4 SECONDS (9.7-12.2) 11/26/16 07:41 INR 1.0 11/26/16 07:41 APTT 30 SECONDS (21-34) 11/27/16 01:58 Assessment and Plan (1) Alcohol abuse Status: Chronic (2) Alcohol withdrawal seizure with complication Status: Acute (3) Drug abuse Status: Acute (4) Hepatitis C Status: Acute (5) Seizure Status: Acute (6) Status epilepticus Status: Acute (7) ESRD (end stage renal disease) on dialysis Status: Chronic (8) Liver transplant recipient Status: Chronic (9) Encephalopathy Status: Acute (10) Hypotension Status: Acute (11) Liver transplant disorder Status: Acute (12) Polysubstance (including opioids) dependence with physiol dependence Status: Acute (13) Renal failure, acute on chronic Status: Acute (14) ESRD (end stage renal disease) Status: Chronic
--- NOTE | 2016-12-18 20:05 | CP.PCM.PN ---
Subjective - Date & Time of Evaluation Date of Evaluation: 12/18/16 Time of Evaluation: 07:20 - Subjective Subjective: clincally same Objective - Vital Signs/Intake and Output Vital Signs (last 24 hours): Temp Pulse Resp BP Pulse Ox 98.6 F 73 20 115/72 99 12/18/16 16:00 12/18/16 16:00 12/18/16 16:00 12/18/16 16:00 12/18/16 16:00 Intake and Output: 12/18/16 12/19/16 18:59 06:59 Intake Total 680 Balance 680 - Medications Medications: Current Medications Acetaminophen (Tylenol 325mg Tab) 650 mg PO Q6 PRN PRN Reason: Pain, moderate (4-7) Last Admin: 12/18/16 09:32 Dose: 650 mg Amlodipine Besylate (Norvasc) 10 mg PO DAILY [facility] Last Admin: 12/18/16 09:29 Dose: 10 mg Epoetin Denis (Procrit) 10,000 unit IV [facility] [place] Last Admin: 12/17/16 09:52 Dose: Not Given Famotidine (Pepcid) 20 mg IVP DAILY [facility] Last Admin: 12/17/16 10:00 Dose: Not Given Heparin Sodium (Porcine) (Heparin) 5,000 units SC Q12 [facility] Last Admin: 12/08/16 21:11 Dose: 5,000 units Vancomycin HCl 1 gm/ Sodium (Chloride) 250 mls @ 166.7 mls/hr IVPB [facility] Last Admin: 12/17/16 08:53 Dose: Not Given Cefazolin Sodium/Dextrose (Ancef Iv 2 Gm Duplex) 2 gm in 100 mls @ 100 mls/hr IVPB [facility] [place] Last Admin: 12/17/16 08:50 Dose: Not Given Levetiracetam (Keppra) 500 mg PO Q12 [facility] Last Admin: 12/18/16 09:29 Dose: 500 mg - Labs Labs: 12/16/16 08:01 12/16/16 08:01 PT 11.4 SECONDS (9.7-12.2) 11/26/16 07:41 INR 1.0 11/26/16 07:41 APTT 30 SECONDS (21-34) 11/27/16 01:58 - Constitutional Appears: Well - Head Exam Head Exam: ATRAUMATIC, NORMAL INSPECTION, NORMOCEPHALIC - Eye Exam Eye Exam: EOMI, Normal appearance, PERRL Pupil Exam: NORMAL ACCOMODATION, PERRL - ENT Exam ENT Exam: Mucous Membranes Moist, Normal Exam - Neck Exam Neck Exam: Full ROM, Normal Inspection. absent: Lymphadenopathy - Respiratory Exam Respiratory Exam: Decreased Breath Sounds - Cardiovascular Exam Cardiovascular Exam: REGULAR RHYTHM, +S1, +S2 - GI/Abdominal Exam GI & Abdominal Exam: Soft, Diminished Bowel Sounds - Rectal Exam Rectal Exam: Deferred Assessment and Plan (1) Alcohol withdrawal seizure with complication Status: Acute (2) Drug abuse Status: Acute (3) Hepatitis C Status: Acute (4) Seizure Status: Acute (5) Status epilepticus Status: Acute (6) Alcohol abuse Status: Chronic (7) ESRD (end stage renal disease) on dialysis Status: Chronic (8) Liver transplant recipient Status: Chronic (9) Alcohol abuse Status: Acute (10) Alcohol abuse following liver transplant Status: Acute (11) Alcohol intoxication Status: Acute (12) Anemia Status: Acute (13) CHF (congestive heart failure) Status: Acute (14) CKD (chronic kidney disease) stage 5, GFR less than 15 ml/min Status: Acute (15) Encephalopathy Status: Acute (16) Gastritis Status: Acute (17) Hypotension Status: Acute (18) Hypotension Status: Acute (19) Leukopenia Status: Acute (20) Liver transplant disorder Status: Acute (21) Pancytopenia, acquired Status: Acute (22) Polysubstance (including opioids) dependence with physiol dependence Status: Acute (23) Renal failure, acute on chronic Status: Acute (24) Vomiting Status: Acute (25) ESRD (end stage renal disease) Status: Chronic
[2016-12-19] MEDS: ceFAZolin IV 2 gm in Dextrose 2 GM/100 ML BAG IVPB SCH (09:33)
[2016-12-19] MEDS: levETIRAcetam 100 mg/ml (5ml) Oral Syringe PO SCH ×2 (09:33→21:48)
[2016-12-19] MEDS: Epoetin Alfa 10,000 unit/ml Dialysis IV SCH (09:44)
--- NOTE | 2016-12-19 11:51 | CP.PCM.PN ---
Subjective - Date & Time of Evaluation Date of Evaluation: 12/19/16 Time of Evaluation: 08:00 - Subjective Subjective: Attending: Dr. Ly Pt seen and examined at bedside. No acute distress. No events overnight. Pt has no complaints. No fevers, chills, vomiting, diarrhea. Later in the day patient is asking to leave the hospital. He has refused HD treatment today and Thursday. He states that he is refusing HD because he does not want to be here. According to the patient, he will attend his outpatient HD center upon discharge. Psychiatry has evaluated patient and he is competent. After further discussion with case management and the patient, it was determined that his outpatient dialysis center will not accept the patient unless he first receives dialysis in the hospital. He has agreed to stay one more night, to receive dialysis in the morning, after which he will be able to attend outpatient dialysis. Objective - Vital Signs/Intake and Output Vital Signs (last 24 hours): Temp Pulse Resp BP Pulse Ox 97.9 F 68 20 130/79 99 12/19/16 07:00 12/19/16 07:00 12/19/16 07:00 12/19/16 07:00 12/19/16 07:00 - Medications Medications: Current Medications Acetaminophen (Tylenol 325mg Tab) 650 mg PO Q6 PRN PRN Reason: Pain, moderate (4-7) Last Admin: 12/19/16 09:42 Dose: 650 mg Epoetin Denis (Procrit) 10,000 unit IV [facility] [place] Last Admin: 12/19/16 09:44 Dose: Not Given Famotidine (Pepcid) 20 mg IVP DAILY [facility] Last Admin: 12/19/16 09:33 Dose: Not Given Heparin Sodium (Porcine) (Heparin) 5,000 units SC Q12 [facility] Last Admin: 12/08/16 21:11 Dose: 5,000 units Vancomycin HCl 1 gm/ Sodium (Chloride) 250 mls @ 166.7 mls/hr IVPB [facility] [place] Last Admin: 12/19/16 09:34 Dose: Not Given Cefazolin Sodium/Dextrose (Ancef Iv 2 Gm Duplex) 2 gm in 100 mls @ 100 mls/hr IVPB [facility] [place] Last Admin: 12/19/16 09:33 Dose: Not Given Levetiracetam (Keppra) 500 mg PO Q12 [facility] Last Admin: 12/19/16 09:33 Dose: 500 mg - Labs Labs: 12/16/16 08:01 12/16/16 08:01 PT 11.4 SECONDS (9.7-12.2) 11/26/16 07:41 INR 1.0 11/26/16 07:41 APTT 30 SECONDS (21-34) 11/27/16 01:58 - Additional Findings Additional findings: - Constitutional Appears: Non-toxic, No Acute Distress - Head Exam Head Exam: ATRAUMATIC, NORMAL INSPECTION, NORMOCEPHALIC - Eye Exam Eye Exam: EOMI - ENT Exam ENT Exam: Mucous Membranes Moist - Neck Exam Neck Exam: Full ROM, Normal Inspection - Respiratory Exam Respiratory Exam: NORMAL BREATHING PATTERN. absent: Respiratory Distress - Cardiovascular Exam Cardiovascular Exam: +S1, +S2 - GI/Abdominal Exam GI & Abdominal Exam: Soft, Normal Bowel Sounds. absent: Tenderness - Extremities Exam Extremities Exam: Full ROM, Normal Inspection - Neurological Exam Neurological Exam: Alert, Awake, Oriented x3 - Psychiatric Exam Psychiatric exam: Normal Affect, Normal Mood - Skin Skin Exam: Dry, Intact, Normal Color, Warm Assessment and Plan - Assessment and Plan (Free Text) Assessment: History of recurrent seizures 12/19: No seizure activity for several days. Stable. Less aggressive today. EEG showed signs of what may be possible epileptiform activity F/U Neuro recommendations -asa 81mg daily -keppra 750mg q 12 Occluded/infected av fistula 12/19: patient still refuses AVF repair, although continually recommended. 12/05: patient will require AVF Repair. Per surgery - plan for AVF on Thursday >> cancelled due to pt refusal. Patient states that he will have the procedure when he is ready. Surgery consult, Dr. Cardenas, f/u recs -cefazolin 2 g mwf -vanco 1 g mwf with HD -prednisone 20 daily ESRD on HD 12/19: last HD 12/15 - patient has refused dialysis Thursday and Today, stating that he is refusing because he doesn't want to be here. Outpatient dialysis was contacted, and will not serve the patient unless he receives at least 1 additional session of dialysis before he is discharged. Pt refusing dialysis at times. Alcohol use disorder 12/19: Psychiatry on the case. Psychiatry has verified the patients competence and thiamine 100 daily evaluated by psychiatry long standing hx of alcoholism Despite patient's aggression, cessation stressed and encouraged HTN 12/19: BP WNL. continue to monitor. Norvasc 10 mg PO daily Lopressor 12.5 q 12h GI/DVT ppx Pepcid 20 mg IV daily Heparin SC Q12 [facility] Disposition Patient agrees to stay one more night, to receive dialysis in the morning, after which outpatient dialysis agrees to re-accept him. Patient understands and will comply with this plan. Patient has been seen by psychiatry and is competent. He is psychiatrically stable to be discharged after dialysis. Case discussed with attending. All medical management as per Dr. Kary Ly
[2016-12-19] MEDS ORDERED: Pneumococcal 23-Valent Vaccine IM ONE (15:00)
--- NOTE | 2016-12-19 15:10 | CP.PCM.PN ---
Subjective - Date & Time of Evaluation Date of Evaluation: 12/19/16 Time of Evaluation: 09:00 - Subjective Subjective: iv rx reordered awake alert consider removal left arm av device Objective - Vital Signs/Intake and Output Vital Signs (last 24 hours): Temp Pulse Resp BP Pulse Ox 97.9 F 68 20 130/79 99 12/19/16 07:00 12/19/16 07:00 12/19/16 07:00 12/19/16 07:00 12/19/16 07:00 Intake and Output: 12/19/16 12/19/16 06:59 18:59 Intake Total 300 Output Total 700 Balance -400 - Medications Medications: Current Medications Acetaminophen (Tylenol 325mg Tab) 650 mg PO Q6 PRN PRN Reason: Pain, moderate (4-7) Last Admin: 12/19/16 09:42 Dose: 650 mg Epoetin Denis (Procrit) 10,000 unit IV [facility] [place] Last Admin: 12/19/16 09:44 Dose: Not Given Famotidine (Pepcid) 20 mg IVP DAILY [facility] Last Admin: 12/19/16 09:33 Dose: Not Given Heparin Sodium (Porcine) (Heparin) 5,000 units SC Q12 [facility] Last Admin: 12/08/16 21:11 Dose: 5,000 units Vancomycin HCl 1 gm/ Sodium (Chloride) 250 mls @ 166.7 mls/hr IVPB [facility] [place] Last Admin: 12/19/16 09:34 Dose: Not Given Cefazolin Sodium/Dextrose (Ancef Iv 2 Gm Duplex) 2 gm in 100 mls @ 100 mls/hr IVPB [facility] [place] Last Admin: 12/19/16 09:33 Dose: Not Given Levetiracetam (Keppra) 500 mg PO Q12 [facility] Last Admin: 12/19/16 09:33 Dose: 500 mg - Labs Labs: 12/16/16 08:01 12/16/16 08:01 PT 11.4 SECONDS (9.7-12.2) 11/26/16 07:41 INR 1.0 11/26/16 07:41 APTT 30 SECONDS (21-34) 11/27/16 01:58 - Constitutional Appears: Non-toxic, Confused, Cachectic, Chronically Ill - Head Exam Head Exam: NORMOCEPHALIC - Eye Exam Eye Exam: PERRL. absent: Scleral icterus - ENT Exam ENT Exam: Mucous Membranes Dry - Neck Exam Neck Exam: absent: Lymphadenopathy - Respiratory Exam Respiratory Exam: Decreased Breath Sounds - Cardiovascular Exam Cardiovascular Exam: REGULAR RHYTHM - GI/Abdominal Exam GI & Abdominal Exam: Distended, Soft - Rectal Exam Rectal Exam: Deferred - Exam Exam: NORMAL INSPECTION - Extremities Exam Extremities Exam: absent: Pedal Edema - Back Exam Back Exam: absent: CVA tenderness (L), CVA tenderness (R) Assessment and Plan (1) Alcohol abuse Status: Chronic (2) Alcohol withdrawal seizure with complication Status: Acute (3) Drug abuse Status: Acute (4) Hepatitis C Status: Acute (5) Seizure Status: Acute (6) Status epilepticus Status: Acute (7) ESRD (end stage renal disease) on dialysis Status: Chronic (8) Liver transplant recipient Status: Chronic (9) Encephalopathy Status: Acute (10) Hypotension Status: Acute (11) Liver transplant disorder Status: Acute (12) Polysubstance (including opioids) dependence with physiol dependence Status: Acute (13) Renal failure, acute on chronic Status: Acute (14) ESRD (end stage renal disease) Status: Chronic
--- NOTE | 2016-12-19 15:41 | PCM.PYCHPN ---
Psychiatric Progress Note - Psychiatric Progress Note Patient seen today, length of contact: 16 min Patient Chief Complaint: I want to leave.' Problems Identified/Issues Discussed: Patient seen and evaluated, chart reviewed and discussed with the staff. As per staff patient is becoming irritable and refusing dialysis and demanding to get discharged. As per the patient he staying here for more than 3 weeks and he is not suicidal and is not homicidal and so he wants to leave. Supportive therapy was given. Patient agreed to go for dialysis and to get discharged later on. Medication Change: No Medical Record Reviewed: Yes Mental Status Examination - Cognitive Function Orientation: Person, Place, Situation, Time Memory: Intact Attention: WNL Concentration: WNL Association: WNL Fund of Knowledge: WNL - Mood Mood: Neutral - Affect Affect: Constricted - Speech Speech: Soft - Formal Thought Process Formal Thought Process: No Impairment - Suicidal Ideation Suicidal Ideation: No - Homicidal Ideation Homicidal Ideation: No Goal/Treatment Plan - Goal/Treatment Plan Need for Continued Stay: Discharge may exacerbated symptoms, Severe functional impairment Progress Toward Problem(s) and Goals/Treatment Plan: Alcohol use disorder Alcohol use withdrawal Support and psychoeducation given NH for abstinence and CBT for relapse prevention Refer to after care Patient psychiatrically stable to be discharged - Smoking Cessation Smoking Cessation Initiated: No
--- NOTE | 2016-12-19 18:22 | CP.PCM.PN ---
Subjective - Date & Time of Evaluation Date of Evaluation: 12/19/16 Time of Evaluation: 07:20 - Subjective Subjective: clinically same Objective - Vital Signs/Intake and Output Vital Signs (last 24 hours): Temp Pulse Resp BP Pulse Ox 98.0 F 83 20 119/85 98 12/19/16 15:00 12/19/16 15:00 12/19/16 15:00 12/19/16 15:00 12/19/16 15:00 Intake and Output: 12/19/16 12/19/16 06:59 18:59 Intake Total 300 Output Total 700 Balance -400 - Medications Medications: Current Medications Acetaminophen (Tylenol 325mg Tab) 650 mg PO Q6 PRN PRN Reason: Pain, moderate (4-7) Last Admin: 12/19/16 09:42 Dose: 650 mg Epoetin Denis (Procrit) 10,000 unit IV [facility] Last Admin: 12/19/16 09:44 Dose: Not Given Famotidine (Pepcid) 20 mg IVP DAILY [facility] Last Admin: 12/19/16 09:33 Dose: Not Given Heparin Sodium (Porcine) (Heparin) 5,000 units SC Q12 [facility] Last Admin: 12/08/16 21:11 Dose: 5,000 units Vancomycin HCl 1 gm/ Sodium (Chloride) 250 mls @ 166.7 mls/hr IVPB [facility] [place] [place] Last Admin: 12/19/16 09:34 Dose: Not Given Cefazolin Sodium/Dextrose (Ancef Iv 2 Gm Duplex) 2 gm in 100 mls @ 100 mls/hr IVPB [facility] [place] Last Admin: 12/19/16 09:33 Dose: Not Given Levetiracetam (Keppra) 500 mg PO Q12 [facility] Last Admin: 12/19/16 09:33 Dose: 500 mg - Labs Labs: 12/16/16 08:01 12/16/16 08:01 PT 11.4 SECONDS (9.7-12.2) 11/26/16 07:41 INR 1.0 11/26/16 07:41 APTT 30 SECONDS (21-34) 11/27/16 01:58 - Constitutional Appears: Well - Head Exam Head Exam: ATRAUMATIC, NORMAL INSPECTION, NORMOCEPHALIC - Eye Exam Eye Exam: EOMI, Normal appearance, PERRL Pupil Exam: NORMAL ACCOMODATION, PERRL - ENT Exam ENT Exam: Mucous Membranes Moist, Normal Exam - Neck Exam Neck Exam: Full ROM, Normal Inspection. absent: Lymphadenopathy - Respiratory Exam Respiratory Exam: Decreased Breath Sounds - Cardiovascular Exam Cardiovascular Exam: REGULAR RHYTHM, +S1, +S2 - GI/Abdominal Exam GI & Abdominal Exam: Soft, Diminished Bowel Sounds - Rectal Exam Rectal Exam: Deferred Assessment and Plan (1) Alcohol withdrawal seizure with complication Status: Acute (2) Drug abuse Status: Acute (3) Hepatitis C Status: Acute (4) Seizure Status: Acute (5) Status epilepticus Status: Acute (6) Alcohol abuse Status: Chronic (7) ESRD (end stage renal disease) on dialysis Status: Chronic (8) Liver transplant recipient Status: Chronic (9) Alcohol abuse Status: Acute (10) Alcohol abuse following liver transplant Status: Acute (11) Alcohol intoxication Status: Acute (12) Anemia Status: Acute (13) CHF (congestive heart failure) Status: Acute (14) CKD (chronic kidney disease) stage 5, GFR less than 15 ml/min Status: Acute (15) Encephalopathy Status: Acute (16) Gastritis Status: Acute (17) Hypotension Status: Acute (18) Hypotension Status: Acute (19) Leukopenia Status: Acute (20) Liver transplant disorder Status: Acute (21) Pancytopenia, acquired Status: Acute (22) Polysubstance (including opioids) dependence with physiol dependence Status: Acute (23) Renal failure, acute on chronic Status: Acute (24) Vomiting Status: Acute (25) ESRD (end stage renal disease) Status: Chronic
[2016-12-20 07:30] VITALS: O2SAT 100
[2016-12-20] MEDS ORDERED: Epoetin Alfa 10,000 unit/ml Dialysis SC ONE (10:12)
[2016-12-20] MEDS ORDERED: Epoetin Alfa 10,000 unit/ml Dialysis IV ONE (10:30)
[2016-12-20] MEDS: levETIRAcetam 100 mg/ml (5ml) Oral Syringe PO SCH (10:36)
[2016-12-20 10:43] VITALS: PULSE 73; RESP 17
[2016-12-20 11:01] VITALS: BP 133/79
--- NOTE | 2016-12-20 11:32 | CP.PCM.PN ---
Subjective - Date & Time of Evaluation Date of Evaluation: 12/20/16 Time of Evaluation: 11:30 - Subjective Subjective: seen in dialysis , feels fine wants to go home no complaints Objective - Vital Signs/Intake and Output Vital Signs (last 24 hours): Temp Pulse Resp BP Pulse Ox 97.3 F L 73 17 133/79 100 12/20/16 08:30 12/20/16 08:30 12/20/16 08:30 12/20/16 11:00 12/20/16 08:30 - Medications Medications: Current Medications Acetaminophen (Tylenol 325mg Tab) 650 mg PO Q6 PRN PRN Reason: Pain, moderate (4-7) Last Admin: 12/19/16 09:42 Dose: 650 mg Famotidine (Pepcid) 20 mg IVP DAILY [facility] Last Admin: 12/20/16 10:37 Dose: Not Given Heparin Sodium (Porcine) (Heparin) 5,000 units SC Q12 [facility] Last Admin: 12/08/16 21:11 Dose: 5,000 units Vancomycin HCl 1 gm/ Sodium (Chloride) 250 mls @ 166.7 mls/hr IVPB [facility] Last Admin: 12/19/16 09:34 Dose: Not Given Cefazolin Sodium/Dextrose (Ancef Iv 2 Gm Duplex) 2 gm in 100 mls @ 100 mls/hr IVPB [facility] Last Admin: 12/19/16 09:33 Dose: Not Given Levetiracetam (Keppra) 500 mg PO Q12 [facility] Last Admin: 12/20/16 10:36 Dose: Not Given - Labs Labs: 12/16/16 08:01 12/16/16 08:01 PT 11.4 SECONDS (9.7-12.2) 11/26/16 07:41 INR 1.0 11/26/16 07:41 APTT 30 SECONDS (21-34) 11/27/16 01:58 - Constitutional Appears: Well, Non-toxic - Head Exam Head Exam: ATRAUMATIC, NORMOCEPHALIC - Eye Exam Eye Exam: EOMI, Normal appearance - ENT Exam ENT Exam: Mucous Membranes Moist - Neck Exam Neck Exam: Full ROM - Respiratory Exam Respiratory Exam: Clear to Ausculation Bilateral. absent: Rhonchi, Wheezes - Cardiovascular Exam Cardiovascular Exam: REGULAR RHYTHM, +S1, +S2 - GI/Abdominal Exam GI & Abdominal Exam: Soft. absent: Tenderness - Extremities Exam Extremities Exam: absent: Pedal Edema - Neurological Exam Neurological Exam: Alert, Awake, Oriented x3 - Psychiatric Exam Psychiatric exam: Normal Affect, Normal Mood Assessment and Plan (1) Hepatitis C Status: Acute (2) Alcohol abuse Status: Chronic (3) ESRD (end stage renal disease) on dialysis Status: Chronic (4) Alcohol abuse following liver transplant Status: Acute (5) Liver transplant disorder Status: Acute - Assessment and Plan (Free Text) Plan: dialysis today
[2016-12-20 11:47] VITALS: TEMP 97
== END 2016-12-20 11:55 | disposition left against medical advice (07) | DRG 100 ==
LOC: C.ER 07:24 → C.9I 09:00 → C.6T 11-30 12:57 → C.3T 12-15 12:14
PROVIDERS: ADMIT Internal Medicine Nephrology; ATTEND Internal Medicine Nephrology
PROC: 5A1D60Z (ICD-10-PCS; principal; 2016-11-26)
PROC: B246ZZ4 Ultrasonography of Right and Left Heart, Transesophageal (ICD-10-PCS; 2016-11-27)
DX: G40.501 Epileptic seizures related to external causes, not intractable, with status epilepticus (principal); N18.6 End stage renal disease; G93.40 Encephalopathy, unspecified; F10.231 Alcohol dependence with withdrawal delirium; D61.818 Other pancytopenia; Z94.4 Liver transplant status; I12.0 Hypertensive chronic kidney disease with stage 5 chronic kidney disease or end stage renal disease; F11.20 Opioid dependence, uncomplicated; I69.351 Hemiplegia and hemiparesis following cerebral infarction affecting right dominant side; T82.898A Other specified complication of vascular prosthetic devices, implants and grafts, initial encounter; T82.7XXA Infection and inflammatory reaction due to other cardiac and vascular devices, implants and grafts, initial encounter; W06.XXXA Fall from bed, initial encounter; I50.9 Heart failure, unspecified; E11.22 Type 2 diabetes mellitus with diabetic chronic kidney disease; B18.2 Chronic viral hepatitis C; K70.30 Alcoholic cirrhosis of liver without ascites; D72.829 Elevated white blood cell count, unspecified; E87.6 Hypokalemia; G62.1 Alcoholic polyneuropathy; I48.0 Paroxysmal atrial fibrillation; K21.9 Gastro-esophageal reflux disease without esophagitis; K29.70 Gastritis, unspecified, without bleeding; D64.9 Anemia, unspecified; Y83.2 Surgical operation with anastomosis, bypass or graft as the cause of abnormal reaction of the patient, or of later complication, without mention of misadventure at the time of the procedure; F17.210 Nicotine dependence, cigarettes, uncomplicated; Z79.899 Other long term (current) drug therapy; Z85.840 Personal history of malignant neoplasm of eye; Z86.73 Personal history of transient ischemic attack (TIA), and cerebral infarction without residual deficits; Z99.2 Dependence on renal dialysis; Z87.01 Personal history of pneumonia (recurrent); Z79.82 Long term (current) use of aspirin

== ENCOUNTER 2017-01-03 12:23 | Inpatient (IN) | payer OTHER ==
--- NOTE | 2017-01-03 13:30 | C.PDOC ---
History Of Present Illness 51 yr old male brought in by to the ER for "placement in hospice care". History was obtained by nurse, as the is not present at bedside when I examined patient. Patient has PMHx of ESRD and liver disease, s/p transplant. According to , patient was admitted at [facility] but eloped earlier today. She states he has been refusinf treatment, including dialysis. also states the patient drank alcohol once he got home from [facility]. Time Seen by Provider: 01/03/17 12:44 Chief Complaint (Nursing): Medical Clearance History Per: Family (), Other (Nurse) Current Symptoms Are (Timing): Still Present Past Medical History Reviewed: Historical Data, Nursing Documentation, Vital Signs Vital Signs: Last Vital Signs Temp 97.9 F 01/05/17 07:35 Pulse 66 01/05/17 07:35 Resp 20 01/05/17 07:35 BP 130/82 01/05/17 09:15 Pulse Ox 100 01/05/17 07:35 - Medical History PMH: HTN, Pneumonia, End Stage Renal Disease, Chronic Kidney Disease, Seizures Other Surgeries: liver transplant - [facility] Procedures DETOXIFICATION SERVICES FOR SUBSTANCE ABUSE TREATMENT (05/24/15) EXCISION OF DESCENDING COLON, ENDO, DIAGN (05/24/15) EXCISION OF STOMACH, ENDO, DIAGN (05/24/15) PERFORMANCE OF URINARY FILTRATION, MULTIPLE (11/26/16) PERFORMANCE OF URINARY FILTRATION, SINGLE (04/07/16) ULTRASONOGRAPHY OF RIGHT AND LEFT HEART, TRANSESOPHAGEAL (11/26/16) Family History: States: No Known Family Hx - Social History Hx Tobacco Use: Yes Hx Alcohol Use: Yes Hx Substance Use: Yes - Immunization History Hx Tetanus Toxoid Vaccination: No Hx Influenza Vaccination: No Hx Pneumococcal Vaccination: No Review Of Systems Review Of Systems: ROS cannot be obtained secondary to pt's inabilty to answer questions. Physical Exam - Physical Exam Appears: Chronically Ill, Other (drowsy appearing, arousable to sternal rub) Skin: Warm, Dry Head: Atraumatic, Normacephalic Eye(s): bilateral: Other (pupils dilated B/L and reactive but sluggish, (+) occasional horizontal nystagmus) Oral Mucosa: Moist Chest: Other (right upper chest portacath) Cardiovascular: Rhythm Regular Respiratory: Normal Breath Sounds, No Rales, No Rhonchi, No Wheezing Gastrointestinal/Abdominal: Bowel Sounds, Soft, No Tenderness, Other (RUQ/ midline surgical scar, ventral hernia ) Back: Normal Inspection Extremity: Other (LUE AV fistula) Extremity: Bilateral: Atraumatic, Normal Color And Temperature Neurological/Psych: Other (GCS 10 - eyes open spontaneously, nonverbal, localizes to pain) ED Course And Treatment - Laboratory Results Result Diagrams: 01/03/17 13:35 01/03/17 13:35 ECG: Interpreted By Me, Viewed By Me (NSR 64 bpm, normal axis, no acute ST/T wave changes) ECG Interpretation: Normal O2 Sat by Pulse Oximetry: 99 (RA) Pulse Ox Interpretation: Normal - Radiology CXR: Interpreted by Me, Viewed By Me CXR Interpretation: Yes: No Acute Disease. No: Infiltrates Progress Note: PLAN: Blood work, CXR, EKG, UA, UDS ordered and reviewed. Patient placed in ED observation pending 's return to ED so I could discuss , however never returned to ED. - Physician Consult Information Physician Contacted: An Ly Outcome Of Conversation: Discussed patient with PMD, who knows patient well. He does not think CT head is necessary at this time, patient had recent CT head and he states typically presents like this. Dr. Ly agrees with admission to his service. Disposition - Disposition Disposition: HOSPITALIZED Disposition Time: 17:45 Condition: FAIR - Clinical Impression Clinical Impression: Altered mental status, ESRD on hemodialysis, Increased ammonia level, Alcohol abuse - Scribe Statement The provider has reviewed the documentation as recorded by the Paola Flor Provider Attestation: All medical record entries made by the Paola were at my direction and personally dictated by me. I have reviewed the chart and agree that the record accurately reflects my personal performance of the history, physical exam, medical decision making, and the department course for this patient. I have also personally directed, reviewed, and agree with the discharge instructions and disposition. Decision To Admit - Pt Status Changed To: Hospital Disposition Of: Inpatient - Admit Certification Admit to Inpatient:: After my assessment, the patient will require hospitalization for at least two midnights. This is because of the severity of symptoms shown, intensity of services needed, and/or the medical risk in this patient being treated as an outpatient. - InPatient: Physician Admission Certification: I certify that this patient requires 2 or more midnights of care for the following reason:: see notes - . Bed Request Type: Telemetry Admitting Physician: An Ly Patient Diagnosis: ESRD on hemodialysis, Increased ammonia level, Alcohol abuse, Altered mental status
[2017-01-03 13:39] LABS: BASO % 0.3 % (0.0-2.0); EOS # 0.1 K/uL (0.0-0.7); MONO # 0.6 K/uL (0.0-0.8); WHITE BLOOD COUNT 5.5 K/uL (4.8-10.8)
[2017-01-03 13:43] LABS: EOS % 1.8 % (0.0-4.0); HEMATOCRIT 29.7 % (35.0-51.0); LYMPH # 2.6 K/uL (1.0-4.3); LYMPH % 46.7 % (20.0-40.0); MEAN CELL VOLUME 96.8 fL (80.0-94.0); MEAN CORPUSCULAR HEMOGLOBIN 34.3 pg (27.0-31.0); MEAN CORPUSCULAR HGB CONC 35.4 g/dL (33.0-37.0); MEAN PLATELET VOLUME 8.2 fL (7.2-11.7); MONO % 11.3 % (0.0-10.0); NRBC % 0.3 % (0.0-2.0); RED CELL DISTRIBUTION WIDTH 17.3 % (11.5-14.5)
[2017-01-03 13:49] LABS: POTASSIUM 4.1 mmol/L (3.6-5.2)
[2017-01-03 13:51] LABS: ALB/GLOB RATIO 1.4 (1.0-2.1); BILIRUBIN,TOTAL 0.6 mg/dL (0.2-1.3); TOTAL PROTEIN 6.8 g/dL (6.3-8.3)
[2017-01-03 13:52] LABS: CALCIUM 9.2 mg/dl (8.6-10.4)
[2017-01-03 14:04] LABS: URINE BILIRUBIN NEGATIVE (NEGATIVE); URINE BLOOD 1+ (NEGATIVE); URINE COLOR Straw (YELLOW); URINE GLUCOSE (UA) NORMAL (Normal); URINE KETONE NEGATIVE (NEGATIVE); URINE LEUKOCYTE ESTERASE NEG Leu/uL (Negative); URINE PROTEIN 1+ mg/dL (NEGATIVE); URINE UROBILINOGEN NORMAL mg/dL (0.2-1.0)
[2017-01-03 14:05] LABS: TROPONIN I 0.079 ng/mL (0.00-0.120); URINE BACTERIA RARE (<OCC); WBC URINE < 1 /hpf (0-5)
[2017-01-03 14:06] LABS: RBC URINE 5 /hpf (0-3)
--- NOTE | 2017-01-03 14:35 | RAD ---
PROCEDURE: CHEST RADIOGRAPH, 1 VIEW HISTORY: ams COMPARISON: Comparison chest 11/26/2016 FINDINGS: No change right IJ dialysis catheter with tip in the region of the RA. LUNGS: Mild bibasilar atelectasis and or scarring changes left greater than right PLEURA: No pneumothorax or pleural fluid seen. CARDIOVASCULAR: Heart is borderline/mildly enlarged. No change vascular stent graft seen overlying the left upper extremity/ axillary region OSSEOUS STRUCTURES: No significant abnormalities. VISUALIZED UPPER ABDOMEN: Multiple metallic surgical clips in the in the upper abdomen again noted. OTHER FINDINGS: None. IMPRESSION: Mild bibasilar atelectasis and or scarring changes left greater than right. See above discussion for additional details and findings
[2017-01-03 23:08] VITALS: RESP 20
[2017-01-03] MEDS ORDERED: Dextrose 50% SYRINGE Inj (50 ml) IV STA ×2 (23:36→23:57)
[2017-01-04] MEDS: Sucralfate 1 gm/10 ml Oral Susp UD PO SCH ×2 (06:49→17:49)
[2017-01-04] MEDS ORDERED: Metoprolol Succinate 25 mg XL Tab PO SCH (10:00)
[2017-01-04] MEDS: Pantoprazole 40 mg EC Tab PO SCH (11:41)
[2017-01-04] MEDS: metOLazone 2.5 MG TAB PO SCH (11:42)
[2017-01-04] MEDS: CYCLOSPORINE, MODIFIED 25 MG CAP PO SCH ×2 (11:43→18:33)
[2017-01-04] MEDS: NIFEdipine 60 mg ER Tab PO SCH (13:03)
--- NOTE | 2017-01-04 20:33 | CP.PCM.HP ---
Past Patient History - Infectious Disease Hx of Infectious Diseases: None - Past Medical History & Family History Past Medical History?: Yes - Past Social History Smoking Status: Heavy Smoker > 10 Cigarettes Daily - CARDIAC Hx Hypertension: Yes - PULMONARY Hx Respiratory Disorders: No Hx Pneumonia: Yes - NEUROLOGICAL Hx Neurological Disorder: No Hx Seizures: Yes - HEENT Hx HEENT Problems: No - RENAL Hx Chronic Kidney Disease: Yes - ENDOCRINE/METABOLIC Hx Endocrine Disorders: Yes Hx Diabetes Mellitus Type 2: Yes - HEMATOLOGICAL/ONCOLOGICAL Hx Blood Disorders: Yes Hx Cancer: Yes (EYE CANCER) Hx Hepatitis C: Yes Other/Comment: Liver transplant. 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 - ANESTHESIA Hx Anesthesia: Yes Hx Anesthesia Reactions: No Meds Allergies/Adverse Reactions: Allergies Allergy/AdvReac Type Severity Reaction Status Date / Time No Known Allergies Allergy Verified 01/03/17 12:33 Results - Vital Signs Recent Vital Signs: Last Vital Signs Temp 97.8 F 01/04/17 15:00 Pulse 82 01/04/17 15:00 Resp 20 01/04/17 15:00 BP 133/83 01/04/17 15:00 Pulse Ox 96 01/04/17 15:00 - Labs Result Diagrams: 01/03/17 13:35 01/03/17 13:35 Labs: Laboratory Results - last 24 hr 01/03/17 01/04/17 01/04/17 23:34 04:08 08:46 POC Glucose (mg/dL) 76 83 76 01/04/17 01/04/17 11:31 16:46 POC Glucose (mg/dL) 76 92
[2017-01-05] MEDS: Sucralfate 1 gm/10 ml Oral Susp UD PO SCH (06:38)
[2017-01-05] MEDS ORDERED: Sucralfate 1 gm/10 ml Oral Susp UD PO SCH (07:30)
[2017-01-05 08:26] VITALS: BP 130/82; PULSE 66; TEMP 97.9
[2017-01-05] MEDS: CYCLOSPORINE, MODIFIED 25 MG CAP PO SCH (09:14)
[2017-01-05] MEDS: Pantoprazole 40 mg EC Tab PO SCH (09:17)
[2017-01-05] MEDS: NIFEdipine 60 mg ER Tab PO SCH (09:17)
[2017-01-05] MEDS: metOLazone 2.5 MG TAB PO SCH (09:18)
--- NOTE | 2017-01-05 09:59 | CP.PCM.PN ---
Subjective - Date & Time of Evaluation Date of Evaluation: 01/05/17 Time of Evaluation: 09:58 - Subjective Subjective: THe patient signed out against medical advise. It was explained that he needed further treatment here at the hospital to receive dialysis and monitor his liver functioning and that he should not drink alcohol when he went home. The patient stated that he does not drink. He was ANOx3 at time of examination, and told me that he was going to eat burMUBI nafisa because he just needed to get out of the hospital. I urged the patient to stay, but he still wishes to leave against medical advise. Form was signed, and is put in the chart. Patient understands all risks of signing out against medical advise including . Objective - Vital Signs/Intake and Output Vital Signs (last 24 hours): Temp Pulse Resp BP Pulse Ox 97.9 F 66 20 130/82 100 01/05/17 07:35 01/05/17 07:35 01/05/17 07:35 01/05/17 09:15 01/05/17 07:35 Intake and Output: 01/05/17 01/05/17 06:59 18:59 Intake Total 500 Output Total 800 Balance -300 - Medications Medications: Current Medications Amlodipine Besylate (Norvasc) 10 mg PO DAILY [facility] Last Admin: 01/05/17 09:17 Dose: 10 mg Calcitriol (Rocaltrol) 0.25 mcg PO DAILY [facility] Last Admin: 01/05/17 09:17 Dose: 0.25 mcg Chlordiazepoxide (Librium) 25 mg PO BID [facility] Last Admin: 01/05/17 09:15 Dose: 25 mg Cyclosporine (Cyclosporine) 75 mg PO BID [facility] Last Admin: 01/05/17 09:14 Dose: 75 mg Docusate Sodium (Colace) 100 mg PO DAILY [facility] Last Admin: 01/05/17 09:14 Dose: 100 mg Ferrous Sulfate (Feosol) 325 mg PO DAILY [facility] Last Admin: 01/05/17 09:14 Dose: 325 mg Folic Acid (Folic Acid) 1 mg PO DAILY [facility] Last Admin: 01/05/17 09:14 Dose: 1 mg Furosemide (Lasix) 80 mg PO DAILY [facility] Last Admin: 01/05/17 09:15 Dose: 80 mg Levetiracetam (Keppra) 500 mg PO QID [facility] Levetiracetam (Keppra) 500 mg PO DAILY [facility] Metoclopramide HCl (Reglan) 10 mg IVP BID [facility] Last Admin: 01/05/17 09:17 Dose: 10 mg Metolazone (Zaroxolyn) 2.5 mg PO DAILY [facility] Last Admin: 01/05/17 09:18 Dose: 2.5 mg Metoprolol Succinate (Toprol Xl) 25 mg PO DAILY [facility] Last Admin: 01/04/17 11:41 Dose: 25 mg Morphine Sulfate (Morphine) 1 mg IVP BID [facility] Last Admin: 01/05/17 09:15 Dose: 1 mg Nifedipine (Procardia Xl) 60 mg PO DAILY [facility] Last Admin: 01/05/17 09:17 Dose: 60 mg Pantoprazole Sodium (Protonix Ec Tab) 40 mg PO DAILY [facility] Last Admin: 01/05/17 09:17 Dose: 40 mg Pneumococcal Polyvalent Vaccine (Pneumovax 23 Vaccine) 0.5 ml IM .ONCE ONE Stop: 01/06/17 10:01 Prednisone (Prednisone Tab) 20 mg PO DAILY [facility] Stop: 02/03/17 20:16 Last Admin: 01/05/17 09:17 Dose: 20 mg Sucralfate (Carafate Oral Susp) 1 gm PO ACBD [facility] Last Admin: 01/05/17 09:13 Dose: 1 gm Thiamine HCl (Vitamin B1 Tab) 100 mg PO DAILY [facility] Last Admin: 01/05/17 09:18 Dose: 100 mg - Labs Labs: 01/03/17 13:35 01/03/17 13:35 PT 11.4 SECONDS (9.7-12.2) 01/03/17 13:35 INR 1.0 01/03/17 13:35 APTT 30 SECONDS (21-34) 01/03/17 13:35
[2017-01-06] MEDS ORDERED: Pneumococcal 23-Valent Vaccine IM ONE (10:00)
[2017-01-06] MEDS ORDERED: Influenza Vaccine 60 mcg/0.5 mL SYR (4YR UP) IM ONE (10:00)
[2017-01-06] MEDS ORDERED: Influenza Virus Vaccine 45 mcg/0.5 ml Syr (36 months - 7 yrs) IM ONE (10:00)
--- NOTE | 2017-01-06 14:03 | CARD ---
APPROVED REPORT EKG Measurement Heart [id number] MT [id number] <Conclusion> Normal sinus rhythm Normal ECG
[2017-01-07 09:19] VITALS: O2SAT 99
== END 2017-01-05 10:04 | disposition left against medical advice (07) | DRG 682 ==
LOC: C.ER 12:23 → C.9OBSV 14:22 → OBSVTOIN 17:45 → C.9E 18:04 → C.6T 19:55
PROVIDERS: ADMIT Emergency Medicine; ATTEND Internal Medicine Nephrology
DX: I12.0 Hypertensive chronic kidney disease with stage 5 chronic kidney disease or end stage renal disease (principal); N18.6 End stage renal disease; E11.22 Type 2 diabetes mellitus with diabetic chronic kidney disease; Z94.4 Liver transplant status; F10.10 Alcohol abuse, uncomplicated; Z99.2 Dependence on renal dialysis; Z85.840 Personal history of malignant neoplasm of eye; Z87.01 Personal history of pneumonia (recurrent); Z87.891 Personal history of nicotine dependence

== ENCOUNTER 2017-01-05 20:07 | Inpatient (IN) | payer OTHER ==
--- NOTE | 2017-01-05 20:33 | C.PDOC ---
History Of Present Illness Patient presents to the ER after he tripped and fell while walking [employer]. Patient is a Thursday, , and Thursday dialysis patient with a Hx of liver transplant; however, patient still drinks daily and smokes a pack a day. Patient remember the event and denies LOC, weakness, or numbness. - HPI Time Seen by Provider: 01/05/17 20:26 Chief Complaint (Nursing): Trauma History Per: Patient History/Exam Limitations: no limitations Onset/Duration Of Symptoms: Hrs Injury Occurred (Timing): Just Before Arrival Location Of Injury: Right: Face (eyelid) Severity: Mild Pain Scale Rating Of: 4 Recent travel outside of the [place]: No Past Medical History Reviewed: Historical Data, Nursing Documentation, Vital Signs Vital Signs: Last Vital Signs Temp 97.5 F L 01/05/17 20:16 Pulse 91 H 01/05/17 20:16 Resp 17 01/05/17 20:16 BP 91/51 L 01/05/17 20:16 Pulse Ox 98 01/05/17 22:12 - Medical History PMH: HTN, Pneumonia, End Stage Renal Disease, Chronic Kidney Disease, Seizures - [employer] Procedures DETOXIFICATION SERVICES FOR SUBSTANCE ABUSE TREATMENT (05/24/15) EXCISION OF DESCENDING COLON, ENDO, DIAGN (05/24/15) EXCISION OF STOMACH, ENDO, DIAGN (05/24/15) PERFORMANCE OF URINARY FILTRATION, MULTIPLE (11/26/16) PERFORMANCE OF URINARY FILTRATION, SINGLE (04/07/16) ULTRASONOGRAPHY OF RIGHT AND LEFT HEART, TRANSESOPHAGEAL (11/26/16) Family History: States: No Known Family Hx - Social History Hx Tobacco Use: Yes Hx Alcohol Use: Yes Hx Substance Use: Yes - Immunization History Hx Tetanus Toxoid Vaccination: No Hx Influenza Vaccination: No Hx Pneumococcal Vaccination: No Review Of Systems Eyes: Positive for: Other (Right eyelid hematoma) Neurological: Negative for: Weakness, Numbness, Other (LOC) Physical Exam - Physical Exam Appears: Non-toxic Skin: Warm, Dry Head: Normacephalic Eye(s): bilateral: Normal Inspection (Conjunctiva clear), PERRL, EOMI, right: Other (Large hematoma on eyelid) Ear(s): Bilateral: Normal Nose: Normal, No Septal Hematoma Oral Mucosa: Moist Tongue: Normal Appearing Lips: Normal Appearing Neck: Trachea Midline, No Midline Cervical Tenderness, No Paracervical Tenderness, Supple Chest: Symmetrical, Other (Right dialysis shunt) Cardiovascular: Rhythm Regular Respiratory: No Rales, Rhonchi (Scattered), No Wheezing Gastrointestinal/Abdominal: Soft, No Tenderness, Other (Small reducible umbilical hernia. Liver transplant scar.) Back: No CVA Tenderness Extremity: No Tenderness, No Deformity, Other (Scrapes to bilateral knees, shunt left arm) Extremity: Bilateral: No Pedal Edema, Normal Color And Temperature, Other ( abrasion knee) Pulses: Left Dorsalis Pedis: Normal, Right Dorsalis Pedis: Normal Neurological/Psych: Oriented x3, Normal Speech, Normal Cognition Gait: Unsteady ED Course And Treatment - Laboratory Results Result Diagrams: 01/05/17 21:04 01/05/17 21:04 ECG: Interpreted By Me, Viewed By Me ECG Rhythm: Sinus Rhythm (82), Nonspecific Changes O2 Sat by Pulse Oximetry: 98 (Room air) Pulse Ox Interpretation: Normal - Radiology CXR: Interpreted by Me, Viewed By Me CXR Interpretation: Yes: Other (hd cath r chest). No: Infiltrates, Fracture, Pnemothorax Progress Note: Blood work, EKG, urinalysis, CXR, CT head, CT cervical spine, and CT orbits/facials ordered. Disposition Discussed With : An Ly Comment: accepted the pt on his service and took over the care at 10:21 PM Doctor Will See Patient In The: Hospital Counseled Patient/Family Regarding: Studies Performed, Diagnosis - Disposition Disposition: HOSPITALIZED Disposition Time: 20:33 Condition: FAIR Forms: [facility] (Serbian) - POA Present On Arrival: Falls Or Trauma - Clinical Impression Clinical Impression: Alcohol intoxication, ESRD (end stage renal disease) on dialysis, Alcohol abuse , Alcohol abuse following liver transplant, Traumatic hematoma of right eyelid - Scribe Statement The provider has reviewed the documentation as recorded by the Scribe Nirmal Hardwick All medical record entries made by the Scribe were at my direction and personally dictated by me. I have reviewed the chart and agree that the record accurately reflects my personal performance of the history, physical exam, medical decision making, and the department course for this patient. I have also personally directed, reviewed, and agree with the discharge instructions and disposition. Decision To Admit - Pt Status Changed To: Hospital Disposition Of: Observation - . Bed Request Type: Regular Admitting Physician: An Ly Patient Diagnosis: Alcohol intoxication, ESRD (end stage renal disease) on dialysis, Alcohol abuse , Alcohol abuse following liver transplant, Traumatic hematoma of right eyelid
[2017-01-05 21:10] LABS: BASO % 0.3 % (0.0-2.0); EOS % 0.1 % (0.0-4.0); HEMATOCRIT 34.8 % (35.0-51.0); LYMPH # 0.6 K/uL (1.0-4.3); LYMPH % 11.5 % (20.0-40.0); MEAN CELL VOLUME 97.8 fL (80.0-94.0); MEAN CORPUSCULAR HEMOGLOBIN 34.3 pg (27.0-31.0); MEAN PLATELET VOLUME 8.1 fL (7.2-11.7); MONO # 0.3 K/uL (0.0-0.8); MONO % 5.9 % (0.0-10.0); RED CELL DISTRIBUTION WIDTH 17.3 % (11.5-14.5); WHITE BLOOD COUNT 5.2 K/uL (4.8-10.8)
[2017-01-05 21:16] LABS: POTASSIUM 4.8 mmol/L (3.6-5.2)
[2017-01-05 21:19] LABS: ALB/GLOB RATIO 1.5 (1.0-2.1); BILIRUBIN,TOTAL 0.7 mg/dL (0.2-1.3); CALCIUM 9.4 mg/dl (8.6-10.4); TOTAL PROTEIN 8.1 g/dL (6.3-8.3)
[2017-01-05 23:02] LABS: RBC URINE 1 /hpf (0-3); URINE BILIRUBIN NEGATIVE (NEGATIVE); URINE BLOOD 1+ (NEGATIVE); URINE COLOR Straw (YELLOW); URINE GLUCOSE (UA) NORMAL (Normal); URINE KETONE NEGATIVE (NEGATIVE); URINE LEUKOCYTE ESTERASE NEG Leu/uL (Negative); URINE PROTEIN 2+ mg/dL (NEGATIVE); URINE UROBILINOGEN NORMAL mg/dL (0.2-1.0); WBC URINE < 1 /hpf (0-5)
[2017-01-06] MEDS ORDERED: HYDROmorphone 1 mg/ml ISec IVP PRN (00:06)
[2017-01-06] MEDS: LURASIDONE HCL 20 MG PO SCH ×2 (01:00→06:41)
[2017-01-06] MEDS: HYDROmorphone 0.5 mg/0.5 ml ISec IVP PRN ×5 (04:31→23:50)
--- NOTE | 2017-01-06 07:17 | RAD ---
HISTORY: fall COMPARISON: Chest x-ray 01/03/2017 TECHNIQUE: Chest one view . FINDINGS: LUNGS: No focal consolidation is seen. Small areas of left basilar linear atelectasis and right basilar atelectasis. PLEURA: No pleural effusion is identified. CARDIOVASCULAR: Heart size is within normal limits. Right-sided dialysis catheter with tips overlying the right atrium. Left axillary/upper are vascular stent noted. Atherosclerotic calcifications noted of the aorta. OSSEOUS STRUCTURES: Visualized osseous structures are unremarkable. VISUALIZED UPPER ABDOMEN: Multiple surgical clips noted of the upper abdomen. OTHER FINDINGS: None. IMPRESSION: No focal consolidation is seen. Small areas of bilateral lower lung field atelectasis.
--- NOTE | 2017-01-06 08:35 | CT ---
PROCEDURE: CT HEAD WITHOUT CONTRAST. HISTORY: fall, right eye hematoma COMPARISON: CT head dated 11/27/2016. TECHNIQUE: Axial computed tomography images were obtained through the head/brain without intravenous contrast. Radiation dose: Total exam DLP = 1128 mGy-cm. This CT exam was performed using one or more of the following dose reduction techniques: Automated exposure control, adjustment of the mA and/or kV according to patient size, and/or use of iterative reconstruction technique. FINDINGS: HEMORRHAGE: No intracranial hemorrhage. BRAIN: No mass effect or edema. Scattered focal lucencies in the subcortical and periventricular white matter suggestive for chronic microvascular ischemic change. Multiple small hypodensities in the basal ganglia consistent with remote lacunar infarctions. VENTRICLES: Unremarkable. No hydrocephalus. CALVARIUM: Unremarkable. PARANASAL SINUSES: Unremarkable as visualized. No significant inflammatory changes. MASTOID AIR CELLS: Unremarkable as visualized. No inflammatory changes. OTHER FINDINGS: Severe soft tissue edema consistent with posttraumatic contusion and hematoma associated with the right frontal scalp. Soft tissue swelling also encases the right supraorbital region. Punctate radiopaque density seen adjacent to the left nasal bone on series 2, image 18, nonspecific. Clinical correlation to exclude possible small foreign body. Question mild right nasal bone deformity. IMPRESSION: Severe soft tissue edema consistent with posttraumatic contusion and hematoma associated with the right frontal scalp. Soft tissue swelling also encases the right supraorbital region. Punctate radiopaque density seen adjacent to the left nasal bone on series 2, image 18, nonspecific. Clinical correlation to exclude possible small foreign body. Question mild right nasal bone deformity. Chronic microvascular ischemic change. Bilateral basal ganglia lacunar infarcts. Additional findings as above. If focal neurologic deficit persists, consider MRI. These findings were preliminarily reported at 9:58 p.m. on 01/05/[address] Fred Franklin from [facility].
--- NOTE | 2017-01-06 08:43 | CT ---
CT orbits History: Fall. Right eye hematoma. Comparison: CT head dated 11/27/2016 Technique: Multiple contiguous axial images were performed through the orbits without the use of intravenous contrast. Subsequently, sagittal and coronal reformatted images were obtained. This CT exam was performed using one or more of the following dose reduction techniques: Automated exposure control, adjustment of the mA and/or kV according to patient size, and/or use of iterative reconstruction technique. Findings: Marked swelling and contusion of the right periorbital region and upper face. Visualized orbital globes appear preserved. Visualized paranasal sinuses appear preserved. Punctate radiopaque density seen at the level of the left nasal bone on series 2, image 102. Clinical correlation to exclude possible small foreign body. Severe soft tissue edema consistent with posttraumatic contusion and hematoma associated with the right frontal scalp. Impression: Extensive soft tissue injury to the right face and right periorbital/supraorbital region. Severe soft tissue edema consistent with posttraumatic contusion and hematoma associated with the right frontal scalp. Punctate radiopaque density seen at the level of the left nasal bone on series 2, image 102. Clinical correlation to exclude possible small foreign body. These findings were preliminarily reported at 10:01 p.m. on 01/05/[address] Fred Franklin from [facility].
--- NOTE | 2017-01-06 08:53 | CT ---
CT cervical spine History: Fall. Comparison: None available. Technique: Multiple contiguous axial images were performed through the cervical spine without the use of intravenous contrast. Subsequently, sagittal and coronal reformatted images were obtained. This CT exam was performed using one or more of the following dose reduction techniques: Automated exposure control, adjustment of the mA and/or kV according to patient size, and/or use of iterative reconstruction technique. Findings: Compression fracture with sclerosis and remodeling noted involvingthe T4 vertebral body which is only partially imaged. This may be better evaluated with MRI if clinically indicated. Patient is rotated in the scanner, markedly limiting evaluation. Multilevel intervertebral disc height loss and adjacent sclerosis at multiple levels. Facet joints demonstrate mild degenerative hypertrophy and sclerosis. Prominent posterior disc osteophyte complexes at the C3-4, C5-6 and C6-7 levels. Prominent disc space narrowing with endplate sclerosis noted at the C5-6 and C6-7 levels. Sinuses are clear without air-fluid levels or mucoperiosteal thickening. Normal variant azygous lobe in the right lung apex. 3 millimeter calcified granuloma at the left lung apex. Impression: 1. Compression fracture with sclerosis and remodeling noted involving the T4 vertebral body which is only partially imaged. This may be better evaluated with MRI if clinically indicated. 2. Degenerative changes in the spine. If pain persists, consider MRI. These findings were preliminarily reported at 9:54 p.m. on 01/05/[address] Fred Franklin from [facility].
[2017-01-06] MEDS: Pantoprazole 40 mg EC Tab PO SCH (09:41)
[2017-01-06] MEDS: Metoprolol Succinate 25 mg XL Tab PO SCH (09:43)
[2017-01-06] MEDS ORDERED: FERROUS SULFATE PO SCH (10:00)
[2017-01-06] MEDS ORDERED: CYCLOSPORINE MODIFIED PO SCH (10:00)
[2017-01-06] MEDS: metOLazone 2.5 MG TAB PO SCH (10:00)
[2017-01-06] MEDS ORDERED: LURASIDONE HCL 20 MG PO SCH (11:30)
--- NOTE | 2017-01-06 17:41 | CP.PCM.HP ---
Past Patient History - Infectious Disease Hx of Infectious Diseases: None - Past Medical History & Family History Past Medical History?: Yes - Past Social History Smoking Status: Heavy Smoker > 10 Cigarettes Daily - CARDIAC Hx Cardiac Disorders: Yes Hx Hypertension: Yes - PULMONARY Hx Respiratory Disorders: Yes Hx Pneumonia: Yes - NEUROLOGICAL Hx Neurological Disorder: Yes Hx Seizures: Yes - HEENT Hx HEENT Problems: No - RENAL Hx Renal Failure: Yes (ESRD, HD) - ENDOCRINE/METABOLIC Hx Diabetes Mellitus Type 2: Yes - HEMATOLOGICAL/ONCOLOGICAL Hx Blood Disorders: Yes Hx Cancer: Yes (EYE CANCER) Hx Hepatitis C: Yes Other/Comment: Liver transplant. 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 - ANESTHESIA Hx Anesthesia: Yes Hx Anesthesia Reactions: No Meds Allergies/Adverse Reactions: Allergies Allergy/AdvReac Type Severity Reaction Status Date / Time No Known Allergies Allergy Verified 01/05/17 20:23 Physical Exam - Constitutional Appears: Well - Head Exam Head Exam: ATRAUMATIC, NORMAL INSPECTION, NORMOCEPHALIC - Eye Exam Eye Exam: EOMI, Normal appearance, PERRL Pupil Exam: NORMAL ACCOMODATION, PERRL - ENT Exam ENT Exam: Mucous Membranes Moist, Normal Exam - Neck Exam Neck exam: Positive for: Normal Inspection - Respiratory Exam Respiratory Exam: Decreased Breath Sounds - Cardiovascular Exam Cardiovascular Exam: REGULAR RHYTHM, +S1, +S2 - GI/Abdominal Exam GI & Abdominal Exam: Diminished Bowel Sounds, Soft - Rectal Exam Rectal Exam: Deferred Results - Vital Signs Recent Vital Signs: Last Vital Signs Temp 99.0 F 01/06/17 08:30 Pulse 91 H 01/06/17 11:33 Resp 20 01/06/17 08:30 BP 127/78 01/06/17 10:00 Pulse Ox 97 01/06/17 11:33 - Labs Result Diagrams: 01/05/17 21:04 01/05/17 21:04 Labs: Laboratory Results - last 24 hr 01/05/17 01/05/17 01/05/17 20:33 20:34 21:04 WBC 5.2 RBC 3.56 L Hgb 12.2 Hct 34.8 L MCV 97.8 H MCH 34.3 H MCHC 35.0 RDW 17.3 H Plt Count 161 MPV 8.1 Neut % (Auto) 82.2 H Lymph % (Auto) 11.5 L [place] % (Auto) 5.9 Eos % (Auto) 0.1 Baso % (Auto) 0.3 Neut # 4.3 Lymph # 0.6 L [place] # 0.3 Eos # 0.0 Baso # 0.0 PT INR APTT Sodium Potassium Chloride Carbon Dioxide Anion Gap BUN Creatinine Est GFR ( Amer) Est GFR (Non-Af Amer) POC Glucose (mg/dL) 116 H Random Glucose Calcium Total Bilirubin AST ALT Alkaline Phosphatase Ammonia Total Creatine Kinase CK-MB (Mass) Troponin I, Quant Total Protein Albumin Globulin Albumin/Globulin Ratio Urine Color Straw Urine Clarity Clear Urine pH 5.0 Ur Specific [place] 1.008 Urine Protein 2+ H Urine Glucose (UA) Normal Urine Ketones Negative Urine Blood 1+ H Urine Nitrate Negative Urine Bilirubin Negative Urine Urobilinogen Normal Ur Leukocyte Esterase Neg Urine WBC (Auto) < 1 Urine RBC (Auto) 1 Ur Squamous Epith Cells 1 Alcohol, Quantitative Blood Type Antibody Screen 01/05/17 01/05/17 01/05/17 21:04 21:04 21:16 WBC RBC Hgb Hct MCV MCH MCHC RDW Plt Count MPV Neut % (Auto) Lymph % (Auto) [place] % (Auto) Eos % (Auto) Baso % (Auto) Neut # Lymph # [place] # Eos # Baso # PT 10.8 INR 1.0 APTT 32 Sodium 133 Potassium 4.8 Chloride 91 L Carbon Dioxide 14 L Anion Gap 33 H BUN 89 H Creatinine 6.2 H Est GFR ( Amer) 12 Est GFR (Non-Af Amer) 10 POC Glucose (mg/dL) Random Glucose 103 Calcium 9.4 Total Bilirubin 0.7 AST 75 H ALT 167 H D Alkaline Phosphatase 77 Ammonia Total Creatine Kinase CK-MB (Mass) Troponin I, Quant Total Protein 8.1 Albumin 4.8 Globulin 3.3 Albumin/Globulin Ratio 1.5 Urine Color Urine Clarity Urine pH Ur Specific [place] Urine Protein Urine Glucose (UA) Urine Ketones Urine Blood Urine Nitrate Urine Bilirubin Urine Urobilinogen Ur Leukocyte Esterase Urine WBC (Auto) Urine RBC (Auto) Ur Squamous Epith Cells Alcohol, Quantitative 188 H Blood Type O POSITIVE Antibody Screen Negative 01/05/17 01/06/17 01/06/17 23:26 00:29 07:26 WBC RBC Hgb Hct MCV MCH MCHC RDW Plt Count MPV Neut % (Auto) Lymph % (Auto) [place] % (Auto) Eos % (Auto) Baso % (Auto) Neut # Lymph # [place] # Eos # Baso # PT INR APTT Sodium Potassium Chloride Carbon Dioxide Anion Gap BUN Creatinine Est GFR ( Amer) Est GFR (Non-Af Amer) POC Glucose (mg/dL) 85 Random Glucose Calcium Total Bilirubin AST ALT Alkaline Phosphatase Ammonia 36 H Total Creatine Kinase 77 CK-MB (Mass) 8.00 H Troponin I, Quant 0.1030 Total Protein Albumin Globulin Albumin/Globulin Ratio Urine Color Urine Clarity Urine pH Ur Specific [place] Urine Protein Urine Glucose (UA) Urine Ketones Urine Blood Urine Nitrate Urine Bilirubin Urine Urobilinogen Ur Leukocyte Esterase Urine WBC (Auto) Urine RBC (Auto) Ur Squamous Epith Cells Alcohol, Quantitative Blood Type Antibody Screen 01/06/17 01/06/17 11:46 16:37 WBC RBC Hgb Hct MCV MCH MCHC RDW Plt Count MPV Neut % (Auto) Lymph % (Auto) [place] % (Auto) Eos % (Auto) Baso % (Auto) Neut # Lymph # [place] # Eos # Baso # PT INR APTT Sodium Potassium Chloride Carbon Dioxide Anion Gap BUN Creatinine Est GFR ( Amer) Est GFR (Non-Af Amer) POC Glucose (mg/dL) Random Glucose Calcium Total Bilirubin AST ALT Alkaline Phosphatase Ammonia Total Creatine Kinase 50 L 42 L CK-MB (Mass) 6.46 H 5.39 H Troponin I, Quant 0.1360 H* 0.1350 H* Total Protein Albumin Globulin Albumin/Globulin Ratio Urine Color Urine Clarity Urine pH Ur Specific [place] Urine Protein Urine Glucose (UA) Urine Ketones Urine Blood Urine Nitrate Urine Bilirubin Urine Urobilinogen Ur Leukocyte Esterase Urine WBC (Auto) Urine RBC (Auto) Ur Squamous Epith Cells Alcohol, Quantitative Blood Type Antibody Screen
[2017-01-06] MEDS: CYCLOSPORINE, MODIFIED 25 MG CAP PO SCH (18:00)
--- NOTE | 2017-01-06 23:56 | CP.PCM.CON ---
History of Present Illness - History of Present Illness History of Present Illness: Patient presents to the after he tripped and fell while walking [employer]. Patient is a Thursday, , and Thursday dialysis patient with a Hx of liver transplant; however, patient still drinks daily and smokes a pack a day. Patient remember the event and denies LOC, weakness, or numbness. - HPI Chief Complaint (Nursing): Trauma History Per: Patient History/Exam Limitations: no limitations Onset/Duration Of Symptoms: Hrs Injury Occurred (Timing): Just Before Arrival Location Of Injury: Right: Face (eyelid) Severity: Mild Pain Scale Rating Of: 4 Recent travel outside of the [place]: No - Medical History PMH: HTN, Pneumonia, End Stage Renal Disease, Chronic Kidney Disease, Seizures - [facility] Procedures DETOXIFICATION SERVICES FOR SUBSTANCE ABUSE TREATMENT (05/24/15) EXCISION OF DESCENDING COLON, ENDO, DIAGN (05/24/15) EXCISION OF STOMACH, ENDO, DIAGN (05/24/15) PERFORMANCE OF URINARY FILTRATION, MULTIPLE (11/26/16) PERFORMANCE OF URINARY FILTRATION, SINGLE (04/07/16) ULTRASONOGRAPHY OF RIGHT AND LEFT HEART, TRANSESOPHAGEAL (11/26/16) Family History: States: No Known Family Hx - Social History Hx Tobacco Use: Yes Hx Alcohol Use: Yes Hx Substance Use: Yes - Immunization History Hx Tetanus Toxoid Vaccination: No Hx Influenza Vaccination: No Hx Pneumococcal Vaccination: No Review Of Systems Eyes: Positive for: Other (Right eyelid hematoma) Neurological: Negative for: Weakness, Numbness, Other (LOC) Physical Exam - Physical Exam Appears: Non-toxic Skin: Warm, Dry Head: Normacephalic Eye(s): bilateral: Normal Inspection (Conjunctiva clear), PERRL, EOMI, right: Other (Large hematoma on eyelid) Ear(s): Bilateral: Normal Nose: Normal, No Septal Hematoma Oral Mucosa: Moist Tongue: Normal Appearing Lips: Normal Appearing Neck: Trachea Midline, No Midline Cervical Tenderness, No Paracervical Tenderness, Supple Chest: Symmetrical, Other (Right dialysis shunt) Cardiovascular: Rhythm Regular Respiratory: No Rales, Rhonchi (Scattered), No Wheezing Gastrointestinal/Abdominal: Soft, No Tenderness, Other (Small reducible umbilical hernia. Liver transplant scar.) Back: No CVA Tenderness Extremity: No Tenderness, No Deformity, Other (Scrapes to bilateral knees, shunt left arm) Extremity: Bilateral: No Pedal Edema, Normal Color And Temperature, Other ( abrasion knee) Pulses: Left Dorsalis Pedis: Normal, Right Dorsalis Pedis: Normal Neurological/Psych: Oriented x3, Normal Speech, Normal Cognition Gait: Unsteady Past Patient History - Infectious Disease Hx of Infectious Diseases: None - Past Medical History & Family History Past Medical History?: Yes - Past Social History Smoking Status: Heavy Smoker > 10 Cigarettes Daily - CARDIAC Hx Cardiac Disorders: Yes Hx Hypertension: Yes - PULMONARY Hx Respiratory Disorders: Yes Hx Pneumonia: Yes - NEUROLOGICAL Hx Neurological Disorder: Yes Hx Seizures: Yes - HEENT Hx HEENT Problems: No - RENAL Hx Renal Failure: Yes (ESRD, HD) - ENDOCRINE/METABOLIC Hx Diabetes Mellitus Type 2: Yes - HEMATOLOGICAL/ONCOLOGICAL Hx Blood Disorders: Yes Hx Cancer: Yes (EYE CANCER) Hx Hepatitis C: Yes Other/Comment: Liver transplant. 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 - ANESTHESIA Hx Anesthesia: Yes Hx Anesthesia Reactions: No Meds Allergies/Adverse Reactions: Allergies Allergy/AdvReac Type Severity Reaction Status Date / Time No Known Allergies Allergy Verified 01/05/17 20:23 - Medications Medications: Current Medications Amlodipine Besylate (Norvasc) 10 mg PO DAILY [facility] Last Admin: 01/06/17 09:41 Dose: 10 mg Aspirin (Aspirin) 325 mg PO DAILY [facility] Last Admin: 01/06/17 16:13 Dose: 325 mg Calcitriol (Rocaltrol) 0.25 mcg PO DAILY [facility] Last Admin: 01/06/17 10:00 Dose: 0.25 mcg Cyclosporine (Cyclosporine) 75 mg PO BID [facility] Last Admin: 01/06/17 18:00 Dose: 75 mg Docusate Sodium (Colace) 100 mg PO DAILY [facility] Last Admin: 01/06/17 09:43 Dose: 100 mg Ferrous Sulfate (Feosol) 325 mg PO DAILY [facility] Folic Acid (Folic Acid) 1 mg PO DAILY [facility] Last Admin: 01/06/17 09:41 Dose: 1 mg Furosemide (Lasix) 80 mg PO DAILY [facility] Last Admin: 01/06/17 10:00 Dose: 80 mg Heparin Sodium (Porcine) (Heparin) 5,000 units SC Q12 [facility] Last Admin: 01/06/17 21:24 Dose: 5,000 units Hydromorphone HCl (Dilaudid) 0.5 mg IVP Q4H PRN PRN Reason: Pain, moderate (4-7) Last Admin: 01/06/17 23:50 Dose: 0.5 mg Levetiracetam (Keppra) 500 mg PO DAILY [facility] Last Admin: 01/06/17 09:40 Dose: 500 mg Lorazepam (Ativan) 1 mg PO QID PRN PRN Reason: DT's Last Admin: 01/06/17 14:38 Dose: 1 mg Metolazone (Zaroxolyn) 2.5 mg PO DAILY [facility] Last Admin: 01/06/17 10:00 Dose: 2.5 mg Metoprolol Succinate (Toprol Xl) 25 mg PO DAILY [facility] Last Admin: 01/06/17 09:43 Dose: 25 mg Nicotine (Nicoderm Cq) 1 patch TD DAILY [facility] Last Admin: 01/06/17 16:30 Dose: 1 patch Pantoprazole Sodium (Protonix Ec Tab) 40 mg PO DAILY [facility] Last Admin: 01/06/17 09:41 Dose: 40 mg Results - Vital Signs Recent Vital Signs: Last Vital Signs Temp 99.0 F 01/06/17 08:30 Pulse 91 H 01/06/17 11:33 Resp 20 01/06/17 08:30 BP 127/78 01/06/17 10:00 Pulse Ox 97 01/06/17 11:33 - Labs Result Diagrams: 01/07/17 07:34 01/05/17 21:04 Labs: Laboratory Results - last 24 hr 01/06/17 01/06/17 01/06/17 00:29 07:26 11:46 POC Glucose (mg/dL) 85 Total Creatine Kinase 77 50 L CK-MB (Mass) 8.00 H 6.46 H Troponin I, Quant 0.1030 0.1360 H* 01/06/17 16:37 POC Glucose (mg/dL) Total Creatine Kinase 42 L CK-MB (Mass) 5.39 H Troponin I, Quant 0.1350 H* Assessment & Plan - Assessment and Plan (Free Text) Assessment: (1) Abnormal Troponin Status: Unlikely SD. Mild Trop likley secondary to alc CMP and CKD Normal Normal CK (2) Alcohol withdrawal seizure with complication Status: Acute (3) Hepatitis C Status: Acute (4) Status epilepticus Status: Acute (5) ESRD (end stage renal disease) on dialysis Status: Chronic (6) Liver transplant recipient Status: Chronic
[2017-01-07] MEDS: HYDROmorphone 0.5 mg/0.5 ml ISec IVP PRN ×5 (04:10→20:35)
[2017-01-07 07:45] LABS: EOS % 1.3 % (0.0-4.0); LYMPH # 0.8 K/uL (1.0-4.3); MONO # 0.3 K/uL (0.0-0.8); NRBC % 0.1 % (0.0-2.0)
[2017-01-07 07:54] LABS: BASO % 0.6 % (0.0-2.0); HEMATOCRIT 25.9 % (35.0-51.0); LYMPH % 27.3 % (20.0-40.0); MEAN CELL VOLUME 97.6 fL (80.0-94.0); MEAN CORPUSCULAR HEMOGLOBIN 34.3 pg (27.0-31.0); MEAN CORPUSCULAR HGB CONC 35.1 g/dL (33.0-37.0); MEAN PLATELET VOLUME 7.7 fL (7.2-11.7); MONO % 9.9 % (0.0-10.0); RED CELL DISTRIBUTION WIDTH 17.7 % (11.5-14.5); WHITE BLOOD COUNT 2.9 K/uL (4.8-10.8)
[2017-01-07] MEDS: Metoprolol Succinate 25 mg XL Tab PO SCH ×2 (08:41→10:32)
[2017-01-07] MEDS: Pantoprazole 40 mg EC Tab PO SCH ×2 (08:41→10:31)
[2017-01-07] MEDS: metOLazone 2.5 MG TAB PO SCH ×2 (08:44→10:32)
[2017-01-07] MEDS: CYCLOSPORINE, MODIFIED 25 MG CAP PO SCH ×2 (10:33→18:05)
[2017-01-07] MEDS ORDERED: Influenza Vaccine 60 mcg/0.5 mL SYR (4YR UP) IM ONE (11:00)
--- NOTE | 2017-01-07 12:00 | CARD ---
APPROVED REPORT EKG Measurement Heart [id number] VT [id number] [id number] <Conclusion> Normal sinus rhythm Normal ECG
[2017-01-07] MEDS: Bacitracin Ointment 30 GM TUBE TOP SCH ×2 (12:38→17:57)
--- NOTE | 2017-01-07 14:03 | CP.PCM.CON ---
History of Present Illness - History of Present Illness History of Present Illness: Patient presents to the ER after he tripped and fell while walking [employer]. Patient is a Thursday, , and Thursday dialysis patient with a Hx of liver transplant; however, patient still drinks daily and smokes a pack a day. Patient remember the event and denies LOC, weakness, or numbness Patient often refuses dialysis ; no set dialysis unit now very acidemic Has been imbibing ETOH again Liver transplant has failed Review of Systems - Constitutional Constitutional: As Per HPI, Fatigue, Weakness - EENT Eyes: Blurred Vision Ears: absent: As Per HPI, Decreased Hearing, Ear Discharge, Ear Pain, Tinnitus, Abnormal Hearing, Disequilibrium, Dizziness, Other Nose/Mouth/Throat: absent: As Per HPI, Epistaxis, Nasal Congestion, Nasal Discharge, Nasal Obstruction, Nasal Trauma, Nose Pain, Post Nasal Drip, Sinus Pain, Sinus Pressure, Bleeding Gums, Change in Voice, Dental Pain, Dry Mouth, Dysphagia, Halitosis, Hoarsness, Lip Swelling, Mouth Lesions, Mouth Pain, Odynophagia, Sore Throat, Throat Swelling, Tongue Swelling, Facial Pain, Neck Pain, Neck Mass, Other - Cardiovascular Cardiovascular: Dyspnea on Exertion, Pedal Edema - Respiratory Respiratory: Cough, Dyspnea - Gastrointestinal Gastrointestinal: Abdominal Pain, Bloating - Genitourinary Genitourinary: As Per HPI - Musculoskeletal Musculoskeletal: Muscle Weakness, Myalgias - Neurological Neurological: Weakness Past Patient History - Infectious Disease Hx of Infectious Diseases: None - Past Medical History & Family History Past Medical History?: Yes Past Family History: Reviewed and not pertinent - Past Social History Smoking Status: Heavy Smoker > 10 Cigarettes Daily Chewing Tobacco Use: No Cigar Use: No Alcohol: > 2 Drinks/Day - CARDIAC Hx Cardiac Disorders: Yes Hx Hypertension: Yes - PULMONARY Hx Respiratory Disorders: Yes Hx Pneumonia: Yes - NEUROLOGICAL Hx Neurological Disorder: Yes Hx Seizures: Yes - HEENT Hx HEENT Problems: No - RENAL Hx Renal Failure: Yes (ESRD, HD) - ENDOCRINE/METABOLIC Hx Diabetes Mellitus Type 2: Yes - HEMATOLOGICAL/ONCOLOGICAL Hx Blood Disorders: Yes Hx Cancer: Yes (EYE CANCER) Hx Hepatitis C: Yes Other/Comment: Liver transplant. 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 - ANESTHESIA Hx Anesthesia: Yes Hx Anesthesia Reactions: No Meds Allergies/Adverse Reactions: Allergies Allergy/AdvReac Type Severity Reaction Status Date / Time No Known Allergies Allergy Verified 01/05/17 20:23 - Medications Medications: Current Medications Acetaminophen (Tylenol 325mg Tab) 650 mg PO BID PRN PRN Reason: Pain, Mild (1-3) Last Admin: 01/07/17 12:06 Dose: 650 mg Amlodipine Besylate (Norvasc) 10 mg PO DAILY [facility] Last Admin: 01/07/17 10:31 Dose: Not Given Aspirin (Aspirin) 325 mg PO DAILY [facility] Last Admin: 01/07/17 10:33 Dose: Not Given Bacitracin (Bacitracin) 0 gm TOP BID [facility] Last Admin: 01/07/17 12:38 Dose: 1 applic Calcitriol (Rocaltrol) 0.25 mcg PO DAILY [facility] Last Admin: 01/07/17 10:32 Dose: Not Given Cyclosporine (Cyclosporine) 75 mg PO BID [facility] Last Admin: 01/07/17 10:33 Dose: Not Given Docusate Sodium (Colace) 100 mg PO DAILY [facility] Last Admin: 01/07/17 10:33 Dose: Not Given Ferrous Sulfate (Feosol) 325 mg PO DAILY [facility] Folic Acid (Folic Acid) 1 mg PO DAILY [facility] Last Admin: 01/07/17 10:33 Dose: Not Given Furosemide (Lasix) 80 mg PO DAILY [facility] Last Admin: 01/07/17 10:32 Dose: Not Given Heparin Sodium (Porcine) (Heparin) 5,000 units SC Q12 [facility] Last Admin: 01/07/17 09:06 Dose: 5,000 units Hydromorphone HCl (Dilaudid) 0.5 mg IVP Q4H PRN PRN Reason: Pain, moderate (4-7) Last Admin: 01/07/17 12:35 Dose: 0.5 mg Levetiracetam (Keppra) 500 mg PO DAILY [facility] Last Admin: 01/07/17 10:32 Dose: Not Given Lorazepam (Ativan) 1 mg PO QID PRN PRN Reason: DT's Last Admin: 01/07/17 13:19 Dose: 1 mg Metolazone (Zaroxolyn) 2.5 mg PO DAILY [facility] Last Admin: 01/07/17 10:32 Dose: Not Given Metoprolol Succinate (Toprol Xl) 25 mg PO DAILY [facility] Last Admin: 01/07/17 10:32 Dose: Not Given Nicotine (Nicoderm Cq) 1 patch TD DAILY [facility] Last Admin: 01/07/17 10:31 Dose: Not Given Pantoprazole Sodium (Protonix Ec Tab) 40 mg PO DAILY [facility] Last Admin: 01/07/17 10:31 Dose: Not Given Physical Exam - Constitutional Appears: Non-toxic, Chronically Ill - Head Exam Head Exam: ATRAUMATIC, NORMAL INSPECTION - Eye Exam Eye Exam: Conjunctival injection, EOMI - Neck Exam Neck exam: Positive for: Normal Inspection. Negative for: Tenderness - Respiratory Exam Respiratory Exam: Clear to Auscultation Bilateral, NORMAL BREATHING PATTERN - Cardiovascular Exam Cardiovascular Exam: REGULAR RHYTHM, +S1 - GI/Abdominal Exam GI & Abdominal Exam: Soft, Tenderness - Extremities Exam Extremities exam: Positive for: normal inspection, tenderness - Neurological Exam Neurological exam: Alert, CN II-XII Intact - Skin Skin Exam: Erythema, Warm Results - Vital Signs Recent Vital Signs: Last Vital Signs Temp 98.4 F 01/07/17 08:21 Pulse 84 01/07/17 08:21 Resp 20 01/07/17 08:21 BP 149/89 01/07/17 08:46 Pulse Ox 99 01/07/17 08:21 - Labs Result Diagrams: 01/07/17 07:34 01/05/17 21:04 Labs: Laboratory Results - last 24 hr 01/06/17 01/07/17 01/07/17 16:37 07:26 07:34 WBC RBC Hgb Hct MCV MCH MCHC RDW Plt Count MPV Neut % (Auto) Lymph % (Auto) [place] % (Auto) Eos % (Auto) Baso % (Auto) Neut # Lymph # [place] # Eos # Baso # Differential Comment POC Glucose (mg/dL) 124 H Total Creatine Kinase 42 L 33 L CK-MB (Mass) 5.39 H 4.86 H Troponin I, Quant 0.1350 H* 0.1090 01/07/17 01/07/17 07:34 11:21 WBC 2.9 L RBC 2.65 L Hgb 9.1 L D Hct 25.9 L MCV 97.6 H MCH 34.3 H MCHC 35.1 RDW 17.7 H Plt Count 102 L D MPV 7.7 Neut % (Auto) 60.9 Lymph % (Auto) 27.3 Blanco % (Auto) 9.9 Eos % (Auto) 1.3 Baso % (Auto) 0.6 Neut # 1.7 L Lymph # 0.8 L Blanco # 0.3 Eos # 0.0 Baso # 0.0 Differential Comment POC Glucose (mg/dL) 111 H Total Creatine Kinase CK-MB (Mass) Troponin I, Quant Assessment & Plan (1) ETOH abuse Status: Acute (2) Alcohol abuse Status: Chronic (3) ESRD (end stage renal disease) Status: Chronic - Assessment and Plan (Free Text) Plan: will schedule dialysis resume other meds as per medicine
--- NOTE | 2017-01-07 19:40 | CP.PCM.PN ---
Subjective - Date & Time of Evaluation Date of Evaluation: 01/07/17 Time of Evaluation: 08:00 - Subjective Subjective: clinically same Objective - Vital Signs/Intake and Output Vital Signs (last 24 hours): Temp Pulse Resp BP Pulse Ox 98.2 F 72 20 137/86 98 01/07/17 18:07 01/07/17 18:07 01/07/17 18:07 01/07/17 18:07 01/07/17 18:07 Intake and Output: 01/07/17 01/08/17 18:59 06:59 Intake Total 460 Output Total 500 Balance -40 - Medications Medications: Current Medications Acetaminophen (Tylenol 325mg Tab) 650 mg PO BID PRN PRN Reason: Pain, Mild (1-3) Last Admin: 01/07/17 12:06 Dose: 650 mg Amlodipine Besylate (Norvasc) 10 mg PO DAILY [facility] Last Admin: 01/07/17 10:31 Dose: Not Given Aspirin (Aspirin) 325 mg PO DAILY [facility] Last Admin: 01/07/17 10:33 Dose: Not Given Bacitracin (Bacitracin) 0 gm TOP BID [facility] Last Admin: 01/07/17 17:57 Dose: 1 applic Calcitriol (Rocaltrol) 0.25 mcg PO DAILY [facility] Last Admin: 01/07/17 10:32 Dose: Not Given Cyclosporine (Cyclosporine) 75 mg PO BID [facility] Last Admin: 01/07/17 18:05 Dose: 75 mg Docusate Sodium (Colace) 100 mg PO DAILY [facility] Last Admin: 01/07/17 10:33 Dose: Not Given Ferrous Sulfate (Feosol) 325 mg PO DAILY [facility] Folic Acid (Folic Acid) 1 mg PO DAILY [facility] Last Admin: 01/07/17 10:33 Dose: Not Given Furosemide (Lasix) 80 mg PO DAILY [facility] Last Admin: 01/07/17 10:32 Dose: Not Given Heparin Sodium (Porcine) (Heparin) 5,000 units SC Q12 [facility] Last Admin: 01/07/17 09:06 Dose: 5,000 units Hydromorphone HCl (Dilaudid) 0.5 mg IVP Q4H PRN PRN Reason: Pain, moderate (4-7) Last Admin: 01/07/17 16:36 Dose: 0.5 mg Levetiracetam (Keppra) 500 mg PO DAILY [facility] Last Admin: 01/07/17 10:32 Dose: Not Given Lorazepam (Ativan) 1 mg PO QID PRN PRN Reason: DT's Last Admin: 01/07/17 13:19 Dose: 1 mg Metolazone (Zaroxolyn) 2.5 mg PO DAILY [facility] Last Admin: 01/07/17 10:32 Dose: Not Given Metoprolol Succinate (Toprol Xl) 25 mg PO DAILY [facility] Last Admin: 01/07/17 10:32 Dose: Not Given Nicotine (Nicoderm Cq) 1 patch TD DAILY [facility] Last Admin: 01/07/17 10:31 Dose: Not Given Pantoprazole Sodium (Protonix Ec Tab) 40 mg PO DAILY [facility] Last Admin: 01/07/17 10:31 Dose: Not Given - Labs Labs: 01/07/17 07:34 01/05/17 21:04 PT 10.8 SECONDS (9.7-12.2) 01/05/17 21:04 INR 1.0 01/05/17 21:04 APTT 32 SECONDS (21-34) 01/05/17 21:04 - Constitutional Appears: Well - Head Exam Head Exam: ATRAUMATIC, NORMAL INSPECTION, NORMOCEPHALIC - Eye Exam Eye Exam: EOMI, Normal appearance, PERRL Pupil Exam: NORMAL ACCOMODATION, PERRL - ENT Exam ENT Exam: Mucous Membranes Moist, Normal Exam - Neck Exam Neck Exam: Full ROM, Normal Inspection. absent: Lymphadenopathy - Respiratory Exam Respiratory Exam: Decreased Breath Sounds - Cardiovascular Exam Cardiovascular Exam: REGULAR RHYTHM, +S1, +S2 - GI/Abdominal Exam GI & Abdominal Exam: Soft, Diminished Bowel Sounds - Rectal Exam Rectal Exam: Deferred
--- NOTE | 2017-01-07 22:27 | CP.PCM.PN ---
Subjective - Date & Time of Evaluation Date of Evaluation: 01/07/17 Time of Evaluation: 12:05 - Subjective Subjective: Patient seen and evaluated No cardiac complaints Physical Examination - Head Exam Head Exam: ATRAUMATIC, NORMAL INSPECTION - Eye Exam Eye Exam: EOMI, PERRL - ENT Exam ENT Exam: Mucous Membranes Moist - Neck Exam Neck Exam: Full ROM - Respiratory Exam Respiratory Exam: Clear to Ausculation Bilateral, NORMAL BREATHING PATTERN - Cardiovascular Exam Cardiovascular Exam: REGULAR RHYTHM, +S1, +S2 - GI/Abdominal Exam GI & Abdominal Exam: Soft, Normal Bowel Sounds - Extremities Exam Extremities Exam: Full ROM - Neurological Exam Neurological Exam: Alert, CN II-XII Intact, Oriented x3 - Skin Skin Exam: Warm Objective - Vital Signs/Intake and Output Vital Signs (last 24 hours): Temp Pulse Resp BP Pulse Ox 98.2 F 72 20 137/86 98 01/07/17 18:07 01/07/17 18:07 01/07/17 18:07 01/07/17 18:07 01/07/17 18:07 Intake and Output: 01/07/17 01/08/17 18:59 06:59 Intake Total 460 Output Total 500 Balance -40 - Medications Medications: Current Medications Acetaminophen (Tylenol 325mg Tab) 650 mg PO BID PRN PRN Reason: Pain, Mild (1-3) Last Admin: 01/07/17 12:06 Dose: 650 mg Amlodipine Besylate (Norvasc) 10 mg PO DAILY [facility] Last Admin: 01/07/17 10:31 Dose: Not Given Aspirin (Aspirin) 325 mg PO DAILY [facility] Last Admin: 01/07/17 10:33 Dose: Not Given Bacitracin (Bacitracin) 0 gm TOP BID [facility] Last Admin: 01/07/17 17:57 Dose: 1 applic Calcitriol (Rocaltrol) 0.25 mcg PO DAILY [facility] Last Admin: 01/07/17 10:32 Dose: Not Given Cyclosporine (Cyclosporine) 75 mg PO BID [facility] Last Admin: 01/07/17 18:05 Dose: 75 mg Docusate Sodium (Colace) 100 mg PO DAILY [facility] Last Admin: 01/07/17 10:33 Dose: Not Given Ferrous Sulfate (Feosol) 325 mg PO DAILY [facility] Folic Acid (Folic Acid) 1 mg PO DAILY [facility] Last Admin: 01/07/17 10:33 Dose: Not Given Furosemide (Lasix) 80 mg PO DAILY [facility] Last Admin: 01/07/17 10:32 Dose: Not Given Heparin Sodium (Porcine) (Heparin) 5,000 units SC Q12 [facility] Last Admin: 01/07/17 21:29 Dose: 5,000 units Hydromorphone HCl (Dilaudid) 0.5 mg IVP Q4H PRN PRN Reason: Pain, moderate (4-7) Last Admin: 01/07/17 20:35 Dose: 0.5 mg Levetiracetam (Keppra) 500 mg PO DAILY [facility] Last Admin: 01/07/17 10:32 Dose: Not Given Lorazepam (Ativan) 1 mg PO QID PRN PRN Reason: DT's Last Admin: 01/07/17 19:44 Dose: 1 mg Metolazone (Zaroxolyn) 2.5 mg PO DAILY [facility] Last Admin: 01/07/17 10:32 Dose: Not Given Metoprolol Succinate (Toprol Xl) 25 mg PO DAILY [facility] Last Admin: 01/07/17 10:32 Dose: Not Given Nicotine (Nicoderm Cq) 1 patch TD DAILY [facility] Last Admin: 01/07/17 10:31 Dose: Not Given Pantoprazole Sodium (Protonix Ec Tab) 40 mg PO DAILY [facility] Last Admin: 01/07/17 10:31 Dose: Not Given - Labs Labs: 01/07/17 07:34 01/05/17 21:04 PT 10.8 SECONDS (9.7-12.2) 01/05/17 21:04 INR 1.0 01/05/17 21:04 APTT 32 SECONDS (21-34) 01/05/17 21:04 Assessment and Plan - Assessment and Plan (Free Text) Assessment: (1) Abnormal Troponin Status: Unlikely [place]. Mild Trop likley secondary to alc CMP and CKD Normal Normal CK (2) Alcohol withdrawal seizure with complication Status: Acute (3) Hepatitis C Status: Acute (4) Status epilepticus Status: Acute (5) ESRD (end stage renal disease) on dialysis Status: Chronic (6) Liver transplant recipient Status: Chronic
[2017-01-08] MEDS: HYDROmorphone 0.5 mg/0.5 ml ISec IVP PRN ×5 (00:35→21:18)
[2017-01-08] MEDS: Metoprolol Succinate 25 mg XL Tab PO SCH (09:08)
[2017-01-08] MEDS: Pantoprazole 40 mg EC Tab PO SCH (09:08)
[2017-01-08] MEDS: metOLazone 2.5 MG TAB PO SCH (09:08)
[2017-01-08] MEDS: Bacitracin Ointment 30 GM TUBE TOP SCH ×2 (09:09→17:24)
--- NOTE | 2017-01-08 09:29 | CP.PCM.PN ---
Subjective - Date & Time of Evaluation Date of Evaluation: 01/08/17 Time of Evaluation: 08:00 - Subjective Subjective: clinically same Objective - Vital Signs/Intake and Output Vital Signs (last 24 hours): Temp Pulse Resp BP Pulse Ox 98.1 F 77 20 125/83 98 01/08/17 08:24 01/08/17 08:24 01/08/17 08:24 01/08/17 09:10 01/08/17 08:24 Intake and Output: 01/08/17 01/08/17 06:59 18:59 Intake Total 415 Balance 415 - Medications Medications: Current Medications Acetaminophen (Tylenol 325mg Tab) 650 mg PO BID PRN PRN Reason: Pain, Mild (1-3) Last Admin: 01/08/17 09:17 Dose: 650 mg Amlodipine Besylate (Norvasc) 10 mg PO DAILY [facility] Last Admin: 01/08/17 09:08 Dose: 10 mg Aspirin (Aspirin) 325 mg PO DAILY [facility] Last Admin: 01/08/17 09:08 Dose: 325 mg Bacitracin (Bacitracin) 0 gm TOP BID [facility] Last Admin: 01/08/17 09:09 Dose: 1 applic Calcitriol (Rocaltrol) 0.25 mcg PO DAILY [facility] Last Admin: 01/08/17 09:08 Dose: 0.25 mcg Cyclosporine (Cyclosporine) 75 mg PO BID [facility] Last Admin: 01/07/17 18:05 Dose: 75 mg Docusate Sodium (Colace) 100 mg PO DAILY [facility] Last Admin: 01/08/17 09:08 Dose: 100 mg Ferrous Sulfate (Feosol) 325 mg PO DAILY [facility] Last Admin: 01/08/17 09:17 Dose: 325 mg Folic Acid (Folic Acid) 1 mg PO DAILY [facility] Last Admin: 01/08/17 09:08 Dose: 1 mg Furosemide (Lasix) 80 mg PO DAILY [facility] Last Admin: 01/08/17 09:10 Dose: 80 mg Heparin Sodium (Porcine) (Heparin) 5,000 units SC Q12 [facility] Last Admin: 01/08/17 09:08 Dose: 5,000 units Hydromorphone HCl (Dilaudid) 0.5 mg IVP Q4H PRN PRN Reason: Pain, moderate (4-7) Last Admin: 01/08/17 09:01 Dose: 0.5 mg Levetiracetam (Keppra) 500 mg PO DAILY [facility] Last Admin: 01/08/17 09:08 Dose: 500 mg Lorazepam (Ativan) 1 mg PO QID PRN PRN Reason: DT's Last Admin: 01/08/17 09:02 Dose: 1 mg Metolazone (Zaroxolyn) 2.5 mg PO DAILY [facility] Last Admin: 01/08/17 09:08 Dose: 2.5 mg Metoprolol Succinate (Toprol Xl) 25 mg PO DAILY [facility] Last Admin: 01/08/17 09:08 Dose: 25 mg Nicotine (Nicoderm Cq) 1 patch TD DAILY [facility] Last Admin: 01/08/17 09:10 Dose: 1 patch Pantoprazole Sodium (Protonix Ec Tab) 40 mg PO DAILY [facility] Last Admin: 01/08/17 09:08 Dose: 40 mg - Labs Labs: 01/07/17 07:34 01/05/17 21:04 PT 10.8 SECONDS (9.7-12.2) 01/05/17 21:04 INR 1.0 01/05/17 21:04 APTT 32 SECONDS (21-34) 01/05/17 21:04 - Constitutional Appears: Well - Head Exam Head Exam: ATRAUMATIC, NORMAL INSPECTION, NORMOCEPHALIC - Eye Exam Eye Exam: EOMI, Normal appearance, PERRL Pupil Exam: NORMAL ACCOMODATION, PERRL - ENT Exam ENT Exam: Mucous Membranes Moist, Normal Exam - Neck Exam Neck Exam: Full ROM, Normal Inspection. absent: Lymphadenopathy - Respiratory Exam Respiratory Exam: Decreased Breath Sounds - Cardiovascular Exam Cardiovascular Exam: REGULAR RHYTHM, +S1, +S2 - GI/Abdominal Exam GI & Abdominal Exam: Soft, Diminished Bowel Sounds - Rectal Exam Rectal Exam: Deferred
[2017-01-08] MEDS: CYCLOSPORINE, MODIFIED 25 MG CAP PO SCH ×2 (10:00→17:14)
--- NOTE | 2017-01-08 10:50 | CP.PCM.PN ---
Subjective - Date & Time of Evaluation Date of Evaluation: 01/08/17 Time of Evaluation: 10:48 - Subjective Subjective: Stayed only 2 hrs at dialysis 01/07- UF 1000ml Refused further labs Advised full dialysis treatments Objective - Vital Signs/Intake and Output Vital Signs (last 24 hours): Temp Pulse Resp BP Pulse Ox 98.1 F 77 20 125/83 98 01/08/17 08:24 01/08/17 08:24 01/08/17 08:24 01/08/17 09:10 01/08/17 08:24 Intake and Output: 01/08/17 01/08/17 06:59 18:59 Intake Total 415 Balance 415 - Medications Medications: Current Medications Acetaminophen (Tylenol 325mg Tab) 650 mg PO BID PRN PRN Reason: Pain, Mild (1-3) Last Admin: 01/08/17 09:17 Dose: 650 mg Amlodipine Besylate (Norvasc) 10 mg PO DAILY [facility] Last Admin: 01/08/17 09:08 Dose: 10 mg Aspirin (Aspirin) 325 mg PO DAILY [facility] Last Admin: 01/08/17 09:08 Dose: 325 mg Bacitracin (Bacitracin) 0 gm TOP BID [facility] Last Admin: 01/08/17 09:09 Dose: 1 applic Calcitriol (Rocaltrol) 0.25 mcg PO DAILY [facility] Last Admin: 01/08/17 09:08 Dose: 0.25 mcg Cyclosporine (Cyclosporine) 75 mg PO BID [facility] Last Admin: 01/07/17 18:05 Dose: 75 mg Docusate Sodium (Colace) 100 mg PO DAILY [facility] Last Admin: 01/08/17 09:08 Dose: 100 mg Ferrous Sulfate (Feosol) 325 mg PO DAILY [facility] Last Admin: 01/08/17 09:17 Dose: 325 mg Folic Acid (Folic Acid) 1 mg PO DAILY [facility] Last Admin: 01/08/17 09:08 Dose: 1 mg Furosemide (Lasix) 80 mg PO DAILY [facility] Last Admin: 01/08/17 09:10 Dose: 80 mg Heparin Sodium (Porcine) (Heparin) 5,000 units SC Q12 [facility] Last Admin: 01/08/17 09:08 Dose: 5,000 units Hydromorphone HCl (Dilaudid) 0.5 mg IVP Q4H PRN PRN Reason: Pain, moderate (4-7) Last Admin: 01/08/17 09:01 Dose: 0.5 mg Levetiracetam (Keppra) 500 mg PO DAILY [facility] Last Admin: 01/08/17 09:08 Dose: 500 mg Lorazepam (Ativan) 1 mg PO QID PRN PRN Reason: DT's Last Admin: 01/08/17 09:02 Dose: 1 mg Metolazone (Zaroxolyn) 2.5 mg PO DAILY [facility] Last Admin: 01/08/17 09:08 Dose: 2.5 mg Metoprolol Succinate (Toprol Xl) 25 mg PO DAILY [facility] Last Admin: 01/08/17 09:08 Dose: 25 mg Nicotine (Nicoderm Cq) 1 patch TD DAILY [facility] Last Admin: 01/08/17 09:10 Dose: 1 patch Pantoprazole Sodium (Protonix Ec Tab) 40 mg PO DAILY [facility] Last Admin: 01/08/17 09:08 Dose: 40 mg - Labs Labs: 01/07/17 07:34 01/05/17 21:04 PT 10.8 SECONDS (9.7-12.2) 01/05/17 21:04 INR 1.0 01/05/17 21:04 APTT 32 SECONDS (21-34) 01/05/17 21:04 - Constitutional Appears: No Acute Distress, Chronically Ill - Head Exam Head Exam: ATRAUMATIC, NORMAL INSPECTION - Eye Exam Eye Exam: EOMI, Normal appearance - Neck Exam Neck Exam: Normal Inspection. absent: Tenderness - Respiratory Exam Respiratory Exam: Clear to Ausculation Bilateral, NORMAL BREATHING PATTERN - Cardiovascular Exam Cardiovascular Exam: REGULAR RHYTHM, +S1 - GI/Abdominal Exam GI & Abdominal Exam: Soft. absent: Tenderness - Extremities Exam Extremities Exam: Normal Inspection. absent: Tenderness - Neurological Exam Neurological Exam: Awake, CN II-XII Intact - Skin Skin Exam: Dry, Warm Assessment and Plan (1) ETOH abuse Status: Acute (2) Alcohol abuse Status: Chronic (3) ESRD (end stage renal disease) Status: Chronic - Assessment and Plan (Free Text) Plan: dialysis MWF as pt permits
--- NOTE | 2017-01-08 22:50 | CP.PCM.PN ---
Subjective - Date & Time of Evaluation Date of Evaluation: 01/08/17 Time of Evaluation: 09:00 - Subjective Subjective: Patient seen and evaluated No cardiac events noted Physical Examination - Head Exam Head Exam: ATRAUMATIC, NORMAL INSPECTION - Eye Exam Eye Exam: EOMI, PERRL - ENT Exam ENT Exam: Mucous Membranes Moist - Neck Exam Neck Exam: Full ROM - Respiratory Exam Respiratory Exam: Clear to Ausculation Bilateral, NORMAL BREATHING PATTERN - Cardiovascular Exam Cardiovascular Exam: REGULAR RHYTHM, +S1, +S2 - GI/Abdominal Exam GI & Abdominal Exam: Soft, Normal Bowel Sounds - Extremities Exam Extremities Exam: Full ROM - Neurological Exam Neurological Exam: Alert, CN II-XII Intact, Oriented x3 - Skin Skin Exam: Warm Objective - Vital Signs/Intake and Output Vital Signs (last 24 hours): Temp Pulse Resp BP Pulse Ox 98.7 F 64 20 112/75 97 01/08/17 16:00 01/08/17 16:00 01/08/17 16:00 01/08/17 16:00 01/08/17 16:00 Intake and Output: 01/08/17 01/09/17 18:59 06:59 Intake Total 1000 Balance 1000 - Medications Medications: Current Medications Acetaminophen (Tylenol 325mg Tab) 650 mg PO BID PRN PRN Reason: Pain, Mild (1-3) Last Admin: 01/08/17 09:17 Dose: 650 mg Amlodipine Besylate (Norvasc) 10 mg PO DAILY [facility] Last Admin: 01/08/17 09:08 Dose: 10 mg Aspirin (Aspirin) 325 mg PO DAILY [facility] Last Admin: 01/08/17 09:08 Dose: 325 mg Bacitracin (Bacitracin) 0 gm TOP BID [facility] Last Admin: 01/08/17 17:24 Dose: 1 applic Calcitriol (Rocaltrol) 0.25 mcg PO DAILY [facility] Last Admin: 01/08/17 09:08 Dose: 0.25 mcg Cyclosporine (Cyclosporine) 75 mg PO BID [facility] Last Admin: 01/08/17 17:14 Dose: 75 mg Docusate Sodium (Colace) 100 mg PO DAILY [facility] Last Admin: 01/08/17 09:08 Dose: 100 mg Ferrous Sulfate (Feosol) 325 mg PO DAILY [facility] Last Admin: 01/08/17 09:17 Dose: 325 mg Folic Acid (Folic Acid) 1 mg PO DAILY [facility] Last Admin: 01/08/17 09:08 Dose: 1 mg Furosemide (Lasix) 80 mg PO DAILY [facility] Last Admin: 01/08/17 09:10 Dose: 80 mg Heparin Sodium (Porcine) (Heparin) 5,000 units SC Q12 [facility] Last Admin: 01/08/17 21:39 Dose: 5,000 units Hydromorphone HCl (Dilaudid) 0.5 mg IVP Q4H PRN PRN Reason: Pain, moderate (4-7) Last Admin: 01/08/17 21:18 Dose: 0.5 mg Levetiracetam (Keppra) 500 mg PO DAILY [facility] Last Admin: 01/08/17 09:08 Dose: 500 mg Lorazepam (Ativan) 1 mg PO QID PRN PRN Reason: DT's Last Admin: 01/08/17 17:18 Dose: 1 mg Metolazone (Zaroxolyn) 2.5 mg PO DAILY [facility] Last Admin: 01/08/17 09:08 Dose: 2.5 mg Metoprolol Succinate (Toprol Xl) 25 mg PO DAILY [facility] Last Admin: 01/08/17 09:08 Dose: 25 mg Nicotine (Nicoderm Cq) 1 patch TD DAILY [facility] Last Admin: 01/08/17 09:10 Dose: 1 patch Pantoprazole Sodium (Protonix Ec Tab) 40 mg PO DAILY [facility] Last Admin: 01/08/17 09:08 Dose: 40 mg - Labs Labs: 01/07/17 07:34 01/05/17 21:04 PT 10.8 SECONDS (9.7-12.2) 01/05/17 21:04 INR 1.0 01/05/17 21:04 APTT 32 SECONDS (21-34) 01/05/17 21:04 Assessment and Plan - Assessment and Plan (Free Text) Assessment: (1) Abnormal Troponin Status: Unlikely [place]. Mild Trop likley secondary to alc CMP and CKD Normal Normal CK (2) Alcohol withdrawal seizure with complication Status: Acute (3) Hepatitis C Status: Acute (4) Status epilepticus Status: Acute (5) ESRD (end stage renal disease) on dialysis Status: Chronic (6) Liver transplant recipient Status: Chronic
[2017-01-09] MEDS: HYDROmorphone 0.5 mg/0.5 ml ISec IVP PRN ×6 (01:40→23:11)
[2017-01-09 07:16] LABS: BASO % 0.7 % (0.0-2.0); EOS # 0.1 K/uL (0.0-0.7); EOS % 3.6 % (0.0-4.0); HEMATOCRIT 25.6 % (35.0-51.0); LYMPH # 0.8 K/uL (1.0-4.3); LYMPH % 33.8 % (20.0-40.0); MEAN CELL VOLUME 98.3 fL (80.0-94.0); MEAN CORPUSCULAR HEMOGLOBIN 34.1 pg (27.0-31.0); MEAN CORPUSCULAR HGB CONC 34.7 g/dL (33.0-37.0); MEAN PLATELET VOLUME 7.7 fL (7.2-11.7); MONO # 0.2 K/uL (0.0-0.8); MONO % 9.4 % (0.0-10.0); RED CELL DISTRIBUTION WIDTH 16.8 % (11.5-14.5); WHITE BLOOD COUNT 2.2 K/uL (4.8-10.8)
[2017-01-09 07:24] LABS: POTASSIUM 4.7 mmol/L (3.6-5.2)
[2017-01-09 07:26] LABS: ALB/GLOB RATIO 1.1 (1.0-2.1); BILIRUBIN,TOTAL 0.6 mg/dL (0.2-1.3); TOTAL PROTEIN 6.6 g/dL (6.3-8.3)
[2017-01-09 07:27] LABS: CALCIUM 8.8 mg/dl (8.6-10.4)
[2017-01-09] MEDS: Bacitracin Ointment 30 GM TUBE TOP SCH ×2 (10:07→17:41)
[2017-01-09] MEDS: Pantoprazole 40 mg EC Tab PO SCH (10:10)
[2017-01-09] MEDS: Metoprolol Succinate 25 mg XL Tab PO SCH (10:11)
[2017-01-09] MEDS: metOLazone 2.5 MG TAB PO SCH (10:11)
[2017-01-09] MEDS: CYCLOSPORINE, MODIFIED 25 MG CAP PO SCH ×2 (10:12→18:20)
[2017-01-09] MEDS ORDERED: Epoetin Alfa 10,000 unit/ml Dialysis IV SCH (11:48)
--- NOTE | 2017-01-09 13:21 | CP.PCM.PN ---
Subjective - Date & Time of Evaluation Date of Evaluation: 01/09/17 Time of Evaluation: 13:18 - Subjective Subjective: stable dialysis today patient not cooperative- no ROS obtained seeks pain meds on cyclosporine- consider stopping it Objective - Vital Signs/Intake and Output Vital Signs (last 24 hours): Temp Pulse Resp BP Pulse Ox 98 F 61 16 105/73 99 01/09/17 11:55 01/09/17 11:55 01/09/17 11:55 01/09/17 11:55 01/09/17 11:55 Intake and Output: 01/09/17 01/09/17 06:59 18:59 Intake Total 630 Balance 630 - Medications Medications: Current Medications Acetaminophen (Tylenol 325mg Tab) 650 mg PO BID PRN PRN Reason: Pain, Mild (1-3) Last Admin: 01/08/17 09:17 Dose: 650 mg Amlodipine Besylate (Norvasc) 10 mg PO DAILY [facility] Last Admin: 01/09/17 10:10 Dose: Not Given Aspirin (Aspirin) 325 mg PO DAILY [facility] Last Admin: 01/09/17 10:29 Dose: Not Given Bacitracin (Bacitracin) 0 gm TOP BID [facility] Last Admin: 01/09/17 10:07 Dose: 1 applic Calcitriol (Rocaltrol) 0.25 mcg PO DAILY [facility] Last Admin: 01/09/17 10:10 Dose: 0.25 mcg Cyclosporine (Cyclosporine) 75 mg PO BID [facility] Last Admin: 01/09/17 10:12 Dose: 75 mg Docusate Sodium (Colace) 100 mg PO DAILY [facility] Last Admin: 01/09/17 10:07 Dose: 100 mg Epoetin Denis (Procrit) 10,000 unit IV MWF [facility] Stop: 01/14/17 09:01 Last Admin: 01/09/17 11:59 Dose: 10,000 unit Ferrous Sulfate (Feosol) 325 mg PO DAILY [facility] Last Admin: 01/09/17 10:09 Dose: 325 mg Folic Acid (Folic Acid) 1 mg PO DAILY [facility] Last Admin: 01/09/17 10:08 Dose: 1 mg Furosemide (Lasix) 80 mg PO DAILY [facility] Last Admin: 01/09/17 10:09 Dose: Not Given Hydromorphone HCl (Dilaudid) 0.5 mg IVP Q4H PRN PRN Reason: Pain, moderate (4-7) Last Admin: 01/09/17 10:17 Dose: 0.5 mg Levetiracetam (Keppra) 500 mg PO DAILY [facility] Last Admin: 01/09/17 10:10 Dose: 500 mg Lorazepam (Ativan) 1 mg PO QID PRN PRN Reason: DT's Last Admin: 01/09/17 13:08 Dose: 1 mg Metolazone (Zaroxolyn) 2.5 mg PO DAILY [facility] Last Admin: 01/09/17 10:11 Dose: 2.5 mg Metoprolol Succinate (Toprol Xl) 25 mg PO DAILY [facility] Last Admin: 01/09/17 10:11 Dose: Not Given Nicotine (Nicoderm Cq) 1 patch TD DAILY [facility] Last Admin: 01/09/17 10:09 Dose: 1 patch Pantoprazole Sodium (Protonix Ec Tab) 40 mg PO DAILY [facility] Last Admin: 01/09/17 10:10 Dose: 40 mg - Labs Labs: 01/09/17 07:01 01/09/17 07:01 PT 10.8 SECONDS (9.7-12.2) 01/05/17 21:04 INR 1.0 01/05/17 21:04 APTT 32 SECONDS (21-34) 01/05/17 21:04 - Constitutional Appears: No Acute Distress, Chronically Ill - Head Exam Head Exam: ATRAUMATIC, NORMAL INSPECTION - Eye Exam Eye Exam: EOMI, Normal appearance - Neck Exam Neck Exam: Normal Inspection. absent: Tenderness - Respiratory Exam Respiratory Exam: Clear to Ausculation Bilateral, NORMAL BREATHING PATTERN - Cardiovascular Exam Cardiovascular Exam: REGULAR RHYTHM, +S1 - GI/Abdominal Exam GI & Abdominal Exam: Soft. absent: Tenderness - Extremities Exam Extremities Exam: Normal Inspection. absent: Tenderness - Neurological Exam Neurological Exam: Alert, CN II-XII Intact - Skin Skin Exam: Dry, Warm Assessment and Plan (1) ETOH abuse Status: Acute (2) Alcohol abuse Status: Chronic (3) ESRD (end stage renal disease) Status: Chronic - Assessment and Plan (Free Text) Plan: Dialysis MWF Would stop CSA
--- NOTE | 2017-01-09 18:50 | CP.PCM.PN ---
Subjective - Date & Time of Evaluation Date of Evaluation: 01/09/17 Time of Evaluation: 08:00 - Subjective Subjective: clinically same Objective - Vital Signs/Intake and Output Vital Signs (last 24 hours): Temp Pulse Resp BP Pulse Ox 98.3 F 73 20 113/79 96 01/09/17 15:28 01/09/17 15:28 01/09/17 15:28 01/09/17 15:28 01/09/17 15:28 Intake and Output: 01/09/17 01/09/17 06:59 18:59 Intake Total 630 4500 Balance 630 4500 - Medications Medications: Current Medications Acetaminophen (Tylenol 325mg Tab) 650 mg PO BID PRN PRN Reason: Pain, Mild (1-3) Last Admin: 01/08/17 09:17 Dose: 650 mg Amlodipine Besylate (Norvasc) 10 mg PO DAILY [facility] Last Admin: 01/09/17 10:10 Dose: Not Given Aspirin (Aspirin) 325 mg PO DAILY [facility] Last Admin: 01/09/17 10:29 Dose: Not Given Bacitracin (Bacitracin) 0 gm TOP BID [facility] Last Admin: 01/09/17 17:41 Dose: 1 applic Calcitriol (Rocaltrol) 0.25 mcg PO DAILY [facility] Last Admin: 01/09/17 10:10 Dose: 0.25 mcg Cyclosporine (Cyclosporine) 75 mg PO BID [facility] Last Admin: 01/09/17 18:20 Dose: 75 mg Docusate Sodium (Colace) 100 mg PO DAILY [facility] Last Admin: 01/09/17 10:07 Dose: 100 mg Epoetin Denis (Procrit) 10,000 unit IV MWF [facility] Stop: 01/14/17 09:01 Last Admin: 01/09/17 11:59 Dose: 10,000 unit Ferrous Sulfate (Feosol) 325 mg PO DAILY [facility] Last Admin: 01/09/17 10:09 Dose: 325 mg Folic Acid (Folic Acid) 1 mg PO DAILY [facility] Last Admin: 01/09/17 10:08 Dose: 1 mg Furosemide (Lasix) 80 mg PO DAILY [facility] Last Admin: 01/09/17 10:09 Dose: Not Given Hydromorphone HCl (Dilaudid) 0.5 mg IVP Q4H PRN PRN Reason: Pain, moderate (4-7) Last Admin: 01/09/17 18:20 Dose: 0.5 mg Levetiracetam (Keppra) 500 mg PO DAILY [facility] Last Admin: 01/09/17 10:10 Dose: 500 mg Lorazepam (Ativan) 1 mg PO QID PRN PRN Reason: DT's Last Admin: 01/09/17 17:40 Dose: 1 mg Metolazone (Zaroxolyn) 2.5 mg PO DAILY [facility] Last Admin: 01/09/17 10:11 Dose: 2.5 mg Metoprolol Succinate (Toprol Xl) 25 mg PO DAILY [facility] Last Admin: 01/09/17 10:11 Dose: Not Given Nicotine (Nicoderm Cq) 1 patch TD DAILY [facility] Last Admin: 01/09/17 10:09 Dose: 1 patch Pantoprazole Sodium (Protonix Ec Tab) 40 mg PO DAILY [facility] Last Admin: 01/09/17 10:10 Dose: 40 mg - Labs Labs: 01/09/17 07:01 01/09/17 07:01 PT 10.8 SECONDS (9.7-12.2) 01/05/17 21:04 INR 1.0 01/05/17 21:04 APTT 32 SECONDS (21-34) 01/05/17 21:04 - Constitutional Appears: Well - Head Exam Head Exam: ATRAUMATIC, NORMAL INSPECTION, NORMOCEPHALIC - Eye Exam Eye Exam: EOMI, Normal appearance, PERRL Pupil Exam: NORMAL ACCOMODATION, PERRL - ENT Exam ENT Exam: Mucous Membranes Moist, Normal Exam - Neck Exam Neck Exam: Full ROM, Normal Inspection. absent: Lymphadenopathy - Respiratory Exam Respiratory Exam: Decreased Breath Sounds - Cardiovascular Exam Cardiovascular Exam: REGULAR RHYTHM, +S1, +S2 - GI/Abdominal Exam GI & Abdominal Exam: Soft, Diminished Bowel Sounds - Rectal Exam Rectal Exam: Deferred
[2017-01-10] MEDS: HYDROmorphone 0.5 mg/0.5 ml ISec IVP PRN ×5 (03:27→19:40)
[2017-01-10] MEDS: Pantoprazole 40 mg EC Tab PO SCH (09:49)
[2017-01-10] MEDS: Metoprolol Succinate 25 mg XL Tab PO SCH (09:50)
[2017-01-10] MEDS: metOLazone 2.5 MG TAB PO SCH (09:50)
[2017-01-10] MEDS: CYCLOSPORINE, MODIFIED 25 MG CAP PO SCH ×2 (09:51→17:24)
[2017-01-10] MEDS: Bacitracin Ointment 30 GM TUBE TOP SCH ×2 (09:57→17:23)
[2017-01-10] MEDS ORDERED: Influenza Vaccine 60 mcg/0.5 mL SYR (4YR UP) IM ONE (10:00)
--- NOTE | 2017-01-10 12:57 | CP.PCM.PN ---
Subjective - Date & Time of Evaluation Date of Evaluation: 01/10/17 Time of Evaluation: 12:40 - Subjective Subjective: no acute events tolerated HD yesterday ambulating in [place]oyer not cooperative with ROS Objective - Vital Signs/Intake and Output Vital Signs (last 24 hours): Temp Pulse Resp BP Pulse Ox 97.1 F L 64 29 H 124/75 99 01/10/17 07:45 01/10/17 07:45 01/10/17 07:45 01/10/17 09:49 01/10/17 07:45 Intake and Output: 01/10/17 01/10/17 06:59 18:59 Intake Total 500 Balance 500 - Medications Medications: Current Medications Acetaminophen (Tylenol 325mg Tab) 650 mg PO BID PRN PRN Reason: Pain, Mild (1-3) Last Admin: 01/08/17 09:17 Dose: 650 mg Amlodipine Besylate (Norvasc) 10 mg PO DAILY [facility] Last Admin: 01/10/17 09:49 Dose: 10 mg Aspirin (Aspirin) 325 mg PO DAILY [facility] Last Admin: 01/10/17 09:50 Dose: 325 mg Bacitracin (Bacitracin) 0 gm TOP BID [facility] Last Admin: 01/10/17 09:57 Dose: 1 applic Calcitriol (Rocaltrol) 0.25 mcg PO DAILY [facility] Last Admin: 01/10/17 09:49 Dose: 0.25 mcg Cyclosporine (Cyclosporine) 75 mg PO BID [facility] Last Admin: 01/10/17 09:51 Dose: 75 mg Docusate Sodium (Colace) 100 mg PO DAILY [facility] Last Admin: 01/10/17 09:50 Dose: 100 mg Epoetin Denis (Procrit) 10,000 unit IV MWF [facility] Stop: 01/14/17 09:01 Last Admin: 01/09/17 11:59 Dose: 10,000 unit Ferrous Sulfate (Feosol) 325 mg PO DAILY [facility] Last Admin: 01/10/17 09:50 Dose: 325 mg Folic Acid (Folic Acid) 1 mg PO DAILY [facility] Last Admin: 01/10/17 09:50 Dose: 1 mg Furosemide (Lasix) 80 mg PO DAILY [facility] Last Admin: 01/10/17 09:49 Dose: 80 mg Hydromorphone HCl (Dilaudid) 0.5 mg IVP Q4H PRN PRN Reason: Pain, moderate (4-7) Last Admin: 01/10/17 11:27 Dose: 0.5 mg Levetiracetam (Keppra) 500 mg PO DAILY [facility] Last Admin: 01/10/17 09:49 Dose: 500 mg Lorazepam (Ativan) 1 mg PO QID PRN PRN Reason: DT's Last Admin: 01/10/17 11:30 Dose: 1 mg Metolazone (Zaroxolyn) 2.5 mg PO DAILY [facility] Last Admin: 01/10/17 09:50 Dose: 2.5 mg Metoprolol Succinate (Toprol Xl) 25 mg PO DAILY [facility] Last Admin: 01/10/17 09:50 Dose: 25 mg Nicotine (Nicoderm Cq) 1 patch TD DAILY [facility] Last Admin: 01/10/17 09:57 Dose: 1 patch Pantoprazole Sodium (Protonix Ec Tab) 40 mg PO DAILY [facility] Last Admin: 01/10/17 09:49 Dose: 40 mg - Labs Labs: 01/09/17 07:01 01/09/17 07:01 PT 10.8 SECONDS (9.7-12.2) 01/05/17 21:04 INR 1.0 01/05/17 21:04 APTT 32 SECONDS (21-34) 01/05/17 21:04 - Constitutional Appears: Chronically Ill - Head Exam Head Exam: ATRAUMATIC - Eye Exam Eye Exam: EOMI - Neck Exam Neck Exam: Full ROM. absent: Lymphadenopathy - Respiratory Exam Respiratory Exam: Decreased Breath Sounds. absent: Accessory Muscle Use - Cardiovascular Exam Cardiovascular Exam: REGULAR RHYTHM - Extremities Exam Extremities Exam: absent: Pedal Edema Assessment and Plan - Assessment and Plan (Free Text) Assessment: esrd, maint HD poor insight into medical issues poor social support liver transplant history fluid restrict given low Na watch wbc (low)
[2017-01-10 14:16] LABS: POTASSIUM 4.4 mmol/L (3.6-5.2)
[2017-01-10 14:18] LABS: BILIRUBIN,TOTAL 0.5 mg/dL (0.2-1.3)
[2017-01-10 14:19] LABS: CALCIUM 9.2 mg/dl (8.6-10.4)
--- NOTE | 2017-01-10 15:19 | CP.PCM.PN ---
Subjective - Date & Time of Evaluation Date of Evaluation: 01/10/17 Time of Evaluation: 08:00 - Subjective Subjective: clinically same Objective - Vital Signs/Intake and Output Vital Signs (last 24 hours): Temp Pulse Resp BP Pulse Ox 97.1 F L 64 29 H 124/75 99 01/10/17 07:45 01/10/17 07:45 01/10/17 07:45 01/10/17 09:49 01/10/17 07:45 Intake and Output: 01/10/17 01/10/17 06:59 18:59 Intake Total 500 Balance 500 - Medications Medications: Current Medications Acetaminophen (Tylenol 325mg Tab) 650 mg PO BID PRN PRN Reason: Pain, Mild (1-3) Last Admin: 01/08/17 09:17 Dose: 650 mg Amlodipine Besylate (Norvasc) 10 mg PO DAILY [facility] Last Admin: 01/10/17 09:49 Dose: 10 mg Aspirin (Aspirin) 325 mg PO DAILY [facility] Last Admin: 01/10/17 09:50 Dose: 325 mg Bacitracin (Bacitracin) 0 gm TOP BID [facility] Last Admin: 01/10/17 09:57 Dose: 1 applic Calcitriol (Rocaltrol) 0.25 mcg PO DAILY [facility] Last Admin: 01/10/17 09:49 Dose: 0.25 mcg Cyclosporine (Cyclosporine) 75 mg PO BID [facility] Last Admin: 01/10/17 09:51 Dose: 75 mg Docusate Sodium (Colace) 100 mg PO DAILY [facility] Last Admin: 01/10/17 09:50 Dose: 100 mg Epoetin Denis (Procrit) 10,000 unit IV MWF [facility] Stop: 01/14/17 09:01 Last Admin: 01/09/17 11:59 Dose: 10,000 unit Ferrous Sulfate (Feosol) 325 mg PO DAILY [facility] Last Admin: 01/10/17 09:50 Dose: 325 mg Folic Acid (Folic Acid) 1 mg PO DAILY [facility] Last Admin: 01/10/17 09:50 Dose: 1 mg Furosemide (Lasix) 80 mg PO DAILY [facility] Last Admin: 01/10/17 09:49 Dose: 80 mg Levetiracetam (Keppra) 500 mg PO DAILY [facility] Last Admin: 01/10/17 09:49 Dose: 500 mg Lorazepam (Ativan) 1 mg PO QID PRN PRN Reason: DT's Last Admin: 01/10/17 11:30 Dose: 1 mg Metolazone (Zaroxolyn) 2.5 mg PO DAILY [facility] Last Admin: 01/10/17 09:50 Dose: 2.5 mg Metoprolol Succinate (Toprol Xl) 25 mg PO DAILY [facility] Last Admin: 01/10/17 09:50 Dose: 25 mg Nicotine (Nicoderm Cq) 1 patch TD DAILY [facility] Last Admin: 01/10/17 09:57 Dose: 1 patch Pantoprazole Sodium (Protonix Ec Tab) 40 mg PO DAILY [facility] Last Admin: 01/10/17 09:49 Dose: 40 mg - Labs Labs: 01/09/17 07:01 01/10/17 13:59 PT 10.8 SECONDS (9.7-12.2) 01/05/17 21:04 INR 1.0 01/05/17 21:04 APTT 32 SECONDS (21-34) 01/05/17 21:04 - Constitutional Appears: Well - Head Exam Head Exam: ATRAUMATIC, NORMAL INSPECTION, NORMOCEPHALIC - Eye Exam Eye Exam: EOMI, Normal appearance, PERRL Pupil Exam: NORMAL ACCOMODATION, PERRL - ENT Exam ENT Exam: Mucous Membranes Moist, Normal Exam - Neck Exam Neck Exam: Full ROM, Normal Inspection. absent: Lymphadenopathy - Respiratory Exam Respiratory Exam: Decreased Breath Sounds - Cardiovascular Exam Cardiovascular Exam: REGULAR RHYTHM, +S1, +S2 - GI/Abdominal Exam GI & Abdominal Exam: Soft, Diminished Bowel Sounds - Rectal Exam Rectal Exam: Deferred
[2017-01-11] MEDS: HYDROmorphone 0.5 mg/0.5 ml ISec IVP PRN ×4 (08:32→20:55)
[2017-01-11] MEDS: Pantoprazole 40 mg EC Tab PO SCH (09:13)
[2017-01-11] MEDS: Metoprolol Succinate 25 mg XL Tab PO SCH (09:13)
[2017-01-11] MEDS: Bacitracin Ointment 30 GM TUBE TOP SCH ×2 (09:13→17:56)
[2017-01-11] MEDS: metOLazone 2.5 MG TAB PO SCH (09:15)
--- NOTE | 2017-01-11 11:14 | CP.PCM.PN ---
Subjective - Date & Time of Evaluation Date of Evaluation: 01/11/17 Time of Evaluation: 07:40 - Subjective Subjective: clinically same Objective - Vital Signs/Intake and Output Vital Signs (last 24 hours): Temp Pulse Resp BP Pulse Ox 98.5 F 86 20 113/80 98 01/11/17 08:20 01/11/17 08:20 01/11/17 08:20 01/11/17 09:14 01/11/17 08:20 Intake and Output: 01/11/17 01/11/17 06:59 18:59 Intake Total 120 Balance 120 - Medications Medications: Current Medications Acetaminophen (Tylenol 325mg Tab) 650 mg PO BID PRN PRN Reason: Pain, Mild (1-3) Last Admin: 01/08/17 09:17 Dose: 650 mg Amlodipine Besylate (Norvasc) 10 mg PO DAILY [facility] Last Admin: 01/11/17 09:13 Dose: 10 mg Aspirin (Aspirin) 325 mg PO DAILY [facility] Last Admin: 01/11/17 09:13 Dose: 325 mg Bacitracin (Bacitracin) 0 gm TOP BID [facility] Last Admin: 01/11/17 09:13 Dose: 1 applic Calcitriol (Rocaltrol) 0.25 mcg PO DAILY [facility] Last Admin: 01/11/17 09:15 Dose: 0.25 mcg Cyclosporine (Cyclosporine) 75 mg PO BID [facility] Last Admin: 01/10/17 17:24 Dose: 75 mg Docusate Sodium (Colace) 100 mg PO DAILY [facility] Last Admin: 01/11/17 09:13 Dose: 100 mg Epoetin Denis (Procrit) 10,000 unit IV MWF [facility] Stop: 01/14/17 09:01 Last Admin: 01/09/17 11:59 Dose: 10,000 unit Ferrous Sulfate (Feosol) 325 mg PO DAILY [facility] Last Admin: 01/10/17 09:50 Dose: 325 mg Folic Acid (Folic Acid) 1 mg PO DAILY [facility] Last Admin: 01/11/17 09:13 Dose: 1 mg Furosemide (Lasix) 80 mg PO DAILY [facility] Last Admin: 01/11/17 09:14 Dose: 80 mg Hydromorphone HCl (Dilaudid) 0.5 mg IVP Q4H PRN PRN Reason: Pain, moderate (4-7) Last Admin: 01/11/17 08:32 Dose: 0.5 mg Levetiracetam (Keppra) 500 mg PO DAILY [facility] Last Admin: 01/11/17 09:13 Dose: 500 mg Lorazepam (Ativan) 1 mg PO QID PRN PRN Reason: DT's Last Admin: 01/11/17 09:13 Dose: 1 mg Metolazone (Zaroxolyn) 2.5 mg PO DAILY [facility] Last Admin: 01/11/17 09:15 Dose: 2.5 mg Metoprolol Succinate (Toprol Xl) 25 mg PO DAILY [facility] Last Admin: 01/11/17 09:13 Dose: 25 mg Nicotine (Nicoderm Cq) 1 patch TD DAILY [facility] Last Admin: 01/11/17 09:14 Dose: 1 patch Pantoprazole Sodium (Protonix Ec Tab) 40 mg PO DAILY [facility] Last Admin: 01/11/17 09:13 Dose: 40 mg - Labs Labs: 01/09/17 07:01 01/10/17 13:59 PT 10.8 SECONDS (9.7-12.2) 01/05/17 21:04 INR 1.0 01/05/17 21:04 APTT 32 SECONDS (21-34) 01/05/17 21:04 - Constitutional Appears: Well - Head Exam Head Exam: ATRAUMATIC, NORMAL INSPECTION, NORMOCEPHALIC - Eye Exam Eye Exam: EOMI, Normal appearance, PERRL Pupil Exam: NORMAL ACCOMODATION, PERRL - ENT Exam ENT Exam: Mucous Membranes Moist, Normal Exam - Neck Exam Neck Exam: Full ROM, Normal Inspection. absent: Lymphadenopathy - Respiratory Exam Respiratory Exam: Decreased Breath Sounds - Cardiovascular Exam Cardiovascular Exam: REGULAR RHYTHM, +S1, +S2 - GI/Abdominal Exam GI & Abdominal Exam: Soft, Diminished Bowel Sounds - Rectal Exam Rectal Exam: Deferred
[2017-01-11] MEDS: CYCLOSPORINE, MODIFIED 25 MG CAP PO SCH ×2 (11:18→17:55)
[2017-01-12] MEDS: HYDROmorphone 0.5 mg/0.5 ml ISec IVP PRN ×6 (01:30→22:19)
[2017-01-12] MEDS: metOLazone 2.5 MG TAB PO SCH (09:59)
[2017-01-12] MEDS: Metoprolol Succinate 25 mg XL Tab PO SCH (09:59)
[2017-01-12] MEDS: Pantoprazole 40 mg EC Tab PO SCH (10:11)
[2017-01-12] MEDS: CYCLOSPORINE, MODIFIED 25 MG CAP PO SCH ×2 (10:27→17:17)
[2017-01-12] MEDS: Bacitracin Ointment 30 GM TUBE TOP SCH ×2 (10:30→17:14)
--- NOTE | 2017-01-12 12:09 | CP.PCM.PN ---
Subjective - Date & Time of Evaluation Date of Evaluation: 01/12/17 Time of Evaluation: 12:08 - Subjective Subjective: Alert; wants pain meds BP controlled For dialysis today- scheduled but not clear if pt will go Objective - Vital Signs/Intake and Output Vital Signs (last 24 hours): Temp Pulse Resp BP Pulse Ox 97.9 F 63 20 117/79 99 01/12/17 07:57 01/12/17 07:57 01/12/17 07:57 01/12/17 07:57 01/12/17 07:57 Intake and Output: 01/12/17 01/12/17 06:59 18:59 Intake Total 250 Balance 250 - Medications Medications: Current Medications Acetaminophen (Tylenol 325mg Tab) 650 mg PO BID PRN PRN Reason: Pain, Mild (1-3) Last Admin: 01/12/17 10:26 Dose: 650 mg Amlodipine Besylate (Norvasc) 10 mg PO DAILY [facility] Last Admin: 01/12/17 09:59 Dose: Not Given Aspirin (Aspirin) 325 mg PO DAILY [facility] Last Admin: 01/12/17 09:58 Dose: Not Given Bacitracin (Bacitracin) 0 gm TOP BID [facility] Last Admin: 01/12/17 10:30 Dose: 1 applic Calcitriol (Rocaltrol) 0.25 mcg PO DAILY [facility] Last Admin: 01/12/17 10:11 Dose: 0.25 mcg Cyclosporine (Cyclosporine) 75 mg PO BID [facility] Last Admin: 01/12/17 10:27 Dose: 75 mg Docusate Sodium (Colace) 100 mg PO DAILY [facility] Last Admin: 01/12/17 10:11 Dose: 100 mg Epoetin Denis (Procrit) 10,000 unit IV MWF [facility] Stop: 01/14/17 09:01 Last Admin: 01/09/17 11:59 Dose: 10,000 unit Ferrous Sulfate (Feosol) 325 mg PO DAILY [facility] Last Admin: 01/12/17 10:27 Dose: 325 mg Folic Acid (Folic Acid) 1 mg PO DAILY [facility] Last Admin: 01/12/17 10:11 Dose: 1 mg Furosemide (Lasix) 80 mg PO DAILY [facility] Last Admin: 01/12/17 09:58 Dose: Not Given Hydromorphone HCl (Dilaudid) 0.5 mg IVP Q4H PRN PRN Reason: Pain, moderate (4-7) Last Admin: 01/12/17 10:10 Dose: 0.5 mg Levetiracetam (Keppra) 500 mg PO DAILY [facility] Last Admin: 01/12/17 10:11 Dose: 500 mg Lorazepam (Ativan) 1 mg PO QID PRN PRN Reason: DT's Last Admin: 01/12/17 06:07 Dose: 1 mg Metolazone (Zaroxolyn) 2.5 mg PO DAILY [facility] Last Admin: 01/12/17 09:59 Dose: Not Given Metoprolol Succinate (Toprol Xl) 25 mg PO DAILY [facility] Last Admin: 01/12/17 09:59 Dose: Not Given Nicotine (Nicoderm Cq) 1 patch TD DAILY [facility] Last Admin: 01/12/17 10:12 Dose: 1 patch Pantoprazole Sodium (Protonix Ec Tab) 40 mg PO DAILY [facility] Last Admin: 01/12/17 10:11 Dose: 40 mg - Labs Labs: 01/09/17 07:01 01/10/17 13:59 PT 10.8 SECONDS (9.7-12.2) 01/05/17 21:04 INR 1.0 01/05/17 21:04 APTT 32 SECONDS (21-34) 01/05/17 21:04 - Constitutional Appears: No Acute Distress, Chronically Ill - Head Exam Head Exam: ATRAUMATIC, NORMAL INSPECTION - Eye Exam Eye Exam: EOMI, Periorbital tenderness - Neck Exam Neck Exam: Normal Inspection. absent: Tenderness - Respiratory Exam Respiratory Exam: Clear to Ausculation Bilateral, NORMAL BREATHING PATTERN - Cardiovascular Exam Cardiovascular Exam: REGULAR RHYTHM, +S1 - GI/Abdominal Exam GI & Abdominal Exam: Soft. absent: Tenderness - Extremities Exam Extremities Exam: Normal Inspection. absent: Tenderness - Neurological Exam Neurological Exam: Awake, CN II-XII Intact - Skin Skin Exam: Dry, Warm Assessment and Plan (1) ETOH abuse Status: Acute (2) Alcohol abuse Status: Chronic (3) ESRD (end stage renal disease) Status: Chronic - Assessment and Plan (Free Text) Plan: Continue dialysis MW
--- NOTE | 2017-01-12 15:29 | CP.PCM.PN ---
Subjective - Date & Time of Evaluation Date of Evaluation: 01/12/17 Time of Evaluation: 07:40 - Subjective Subjective: clinically same Objective - Vital Signs/Intake and Output Vital Signs (last 24 hours): Temp Pulse Resp BP Pulse Ox 97.9 F 63 20 117/79 99 01/12/17 07:57 01/12/17 07:57 01/12/17 07:57 01/12/17 07:57 01/12/17 07:57 Intake and Output: 01/12/17 01/12/17 06:59 18:59 Intake Total 700 Balance 700 - Medications Medications: Current Medications Acetaminophen (Tylenol 325mg Tab) 650 mg PO BID PRN PRN Reason: Pain, Mild (1-3) Last Admin: 01/12/17 10:26 Dose: 650 mg Amlodipine Besylate (Norvasc) 10 mg PO DAILY [facility] Last Admin: 01/12/17 09:59 Dose: Not Given Aspirin (Aspirin) 325 mg PO DAILY [facility] Last Admin: 01/12/17 09:58 Dose: Not Given Bacitracin (Bacitracin) 0 gm TOP BID [facility] Last Admin: 01/12/17 10:30 Dose: 1 applic Calcitriol (Rocaltrol) 0.25 mcg PO DAILY [facility] Last Admin: 01/12/17 10:11 Dose: 0.25 mcg Cyclosporine (Cyclosporine) 75 mg PO BID [facility] Last Admin: 01/12/17 10:27 Dose: 75 mg Docusate Sodium (Colace) 100 mg PO DAILY [facility] Last Admin: 01/12/17 10:11 Dose: 100 mg Epoetin Denis (Procrit) 10,000 unit IV MWF [facility] Stop: 01/14/17 09:01 Last Admin: 01/09/17 11:59 Dose: 10,000 unit Ferrous Sulfate (Feosol) 325 mg PO DAILY [facility] Last Admin: 01/12/17 10:27 Dose: 325 mg Folic Acid (Folic Acid) 1 mg PO DAILY [facility] Last Admin: 01/12/17 10:11 Dose: 1 mg Furosemide (Lasix) 80 mg PO DAILY [facility] Last Admin: 01/12/17 09:58 Dose: Not Given Hydromorphone HCl (Dilaudid) 0.5 mg IVP Q4H PRN PRN Reason: Pain, moderate (4-7) Last Admin: 01/12/17 14:05 Dose: 0.5 mg Levetiracetam (Keppra) 500 mg PO DAILY [facility] Last Admin: 01/12/17 10:11 Dose: 500 mg Lorazepam (Ativan) 1 mg PO QID PRN PRN Reason: DT's Last Admin: 01/12/17 12:38 Dose: 1 mg Metolazone (Zaroxolyn) 2.5 mg PO DAILY [facility] Last Admin: 01/12/17 09:59 Dose: Not Given Metoprolol Succinate (Toprol Xl) 25 mg PO DAILY [facility] Last Admin: 01/12/17 09:59 Dose: Not Given Nicotine (Nicoderm Cq) 1 patch TD DAILY [facility] Last Admin: 01/12/17 10:12 Dose: 1 patch Pantoprazole Sodium (Protonix Ec Tab) 40 mg PO DAILY [facility] Last Admin: 01/12/17 10:11 Dose: 40 mg - Labs Labs: 01/09/17 07:01 01/10/17 13:59 PT 10.8 SECONDS (9.7-12.2) 01/05/17 21:04 INR 1.0 01/05/17 21:04 APTT 32 SECONDS (21-34) 01/05/17 21:04 - Constitutional Appears: Well - Head Exam Head Exam: ATRAUMATIC, NORMAL INSPECTION, NORMOCEPHALIC - Eye Exam Eye Exam: EOMI, Normal appearance, PERRL Pupil Exam: NORMAL ACCOMODATION, PERRL - ENT Exam ENT Exam: Mucous Membranes Moist, Normal Exam - Neck Exam Neck Exam: Full ROM, Normal Inspection. absent: Lymphadenopathy - Respiratory Exam Respiratory Exam: Decreased Breath Sounds - Cardiovascular Exam Cardiovascular Exam: REGULAR RHYTHM, +S1, +S2 - GI/Abdominal Exam GI & Abdominal Exam: Soft, Diminished Bowel Sounds - Rectal Exam Rectal Exam: Deferred
[2017-01-13] MEDS: HYDROmorphone 0.5 mg/0.5 ml ISec IVP PRN ×4 (08:32→20:48)
[2017-01-13] MEDS: Pantoprazole 40 mg EC Tab PO SCH (10:00)
[2017-01-13] MEDS: Metoprolol Succinate 25 mg XL Tab PO SCH (10:00)
[2017-01-13] MEDS: metOLazone 2.5 MG TAB PO SCH (10:01)
[2017-01-13] MEDS: CYCLOSPORINE, MODIFIED 25 MG CAP PO SCH ×2 (10:07→18:28)
[2017-01-13] MEDS: Bacitracin Ointment 30 GM TUBE TOP SCH ×2 (11:31→18:21)
--- NOTE | 2017-01-13 12:25 | CP.PCM.PN ---
Subjective - Date & Time of Evaluation Date of Evaluation: 01/13/17 Time of Evaluation: 12:23 - Subjective Subjective: refused hd yesterday no recent labs ate lunch. denies any nausea vomiting diarrhea sob chest pain headache dizziness rash Objective - Vital Signs/Intake and Output Vital Signs (last 24 hours): Temp Pulse Resp BP Pulse Ox 98 F 77 20 121/67 98 01/13/17 07:12 01/13/17 07:12 01/13/17 07:12 01/13/17 10:00 01/13/17 07:12 Intake and Output: 01/13/17 01/13/17 06:59 18:59 Intake Total 650 Balance 650 - Medications Medications: Current Medications Acetaminophen (Tylenol 325mg Tab) 650 mg PO BID PRN PRN Reason: Pain, Mild (1-3) Last Admin: 01/13/17 11:44 Dose: 650 mg Amlodipine Besylate (Norvasc) 10 mg PO DAILY [facility] [place] Last Admin: 01/13/17 10:01 Dose: 10 mg Aspirin (Aspirin) 325 mg PO DAILY [facility] [place] Last Admin: 01/13/17 10:00 Dose: 325 mg Bacitracin (Bacitracin) 0 gm TOP BID [facility] [place] Last Admin: 01/13/17 11:31 Dose: 1 applic Calcitriol (Rocaltrol) 0.25 mcg PO DAILY [facility] [place] Last Admin: 01/13/17 10:00 Dose: 0.25 mcg Cyclosporine (Cyclosporine) 75 mg PO BID [facility] [place] Last Admin: 01/13/17 10:07 Dose: 75 mg Docusate Sodium (Colace) 100 mg PO DAILY [facility] [place] Last Admin: 01/13/17 10:00 Dose: 100 mg Epoetin Denis (Procrit) 10,000 unit IV MWF [facility] [place] Stop: 01/14/17 09:01 Last Admin: 01/09/17 11:59 Dose: 10,000 unit Ferrous Sulfate (Feosol) 325 mg PO DAILY [facility] [place] Last Admin: 01/13/17 10:01 Dose: 325 mg Folic Acid (Folic Acid) 1 mg PO DAILY [facility] [place] Last Admin: 01/13/17 10:00 Dose: 1 mg Furosemide (Lasix) 80 mg PO DAILY [facility] [place] Last Admin: 01/13/17 10:00 Dose: 80 mg Hydromorphone HCl (Dilaudid) 0.5 mg IVP Q4H PRN PRN Reason: Pain, moderate (4-7) Last Admin: 01/13/17 08:32 Dose: 0.5 mg Levetiracetam (Keppra) 500 mg PO DAILY [facility] [place] Last Admin: 01/13/17 10:01 Dose: 500 mg Metolazone (Zaroxolyn) 2.5 mg PO DAILY [facility] [place] Last Admin: 01/13/17 10:01 Dose: 2.5 mg Metoprolol Succinate (Toprol Xl) 25 mg PO DAILY [facility] [place] Last Admin: 01/13/17 10:00 Dose: 25 mg Nicotine (Nicoderm Cq) 1 patch TD DAILY [facility] [place] Last Admin: 01/13/17 10:06 Dose: 1 patch Pantoprazole Sodium (Protonix Ec Tab) 40 mg PO DAILY [facility] [place] Last Admin: 01/13/17 10:00 Dose: 40 mg - Labs Labs: 01/09/17 07:01 01/10/17 13:59 PT 10.8 SECONDS (9.7-12.2) 01/05/17 21:04 INR 1.0 01/05/17 21:04 APTT 32 SECONDS (21-34) 01/05/17 21:04 - Constitutional Appears: No Acute Distress, Older Than Stated Age, Chronically Ill - Head Exam Head Exam: NORMAL INSPECTION Additional comments: bruise over rt eye - Eye Exam Eye Exam: Normal appearance Additional comments: red rt eye - ENT Exam ENT Exam: Mucous Membranes Moist - Neck Exam Neck Exam: Normal Inspection - Respiratory Exam Respiratory Exam: Clear to Ausculation Bilateral, NORMAL BREATHING PATTERN - Cardiovascular Exam Cardiovascular Exam: REGULAR RHYTHM, RRR - GI/Abdominal Exam GI & Abdominal Exam: Distended, Soft - Extremities Exam Extremities Exam: Normal Inspection Assessment and Plan (1) ETOH abuse Status: Acute (2) ESRD (end stage renal disease) on dialysis Status: Chronic (3) Anemia Status: Acute (4) Liver transplant disorder Status: Acute - Assessment and Plan (Free Text) Assessment: agreeable to hd today draw blood w/ hd
--- NOTE | 2017-01-13 14:04 | CP.PCM.CON ---
History of Present Illness - History of Present Illness History of Present Illness: Palliative consult Requested by Kary Ly MD Reason: Goals of care Patient is a 51 yo male admitted from home, S/P fall. Patient hit his head but denied LOC. Patient admits to drinking, what caused the fall. The CT left orbit was positive for extensive soft tissue injury. The CT lumbar spine was significant for T4 compression Fx. Patient is treated empirically for the symptoms and kept on safety watch. PMH: liver transplant 2010, ESRD with HD ( patient refuses), HTN, Pneumonia, seizures Soc. Hx: , lives at home, still drinks and smokes Fam . Hx: patient denies Review of Systems - Constitutional Constitutional: absent: As Per HPI, Anorexia, Chills, Daytime Sleepiness, Excessive Sweating, Fatigue, Fever, Frequent Falls, Headache, Increased Appetite , Lethargy, Malaise, Night Sweats, Snoring, Sleep Apnea, Weight Gain, Weight Loss, Weakness, Other - EENT Additional comments: Right periorbital area with large echymosis - Cardiovascular Cardiovascular: absent: As Per HPI, Acrocyanosis, Chest Pain, Chest Pain at Rest , Chest Pain with Activity, Claudication, Diaphoresis, Dyspnea, Dyspnea on Exertion, Edema, Irregular Heart Rhythm, Pain Radiating to Arm/Neck/Jaw, Leg Edema, Leg Ulcers, Lightheadedness, Orthopnea, Palpitations, Paroxysmal Nocturnal Dyspnea, Pedal Edema, Radiating Pain, Rapid Heart Rate, Slow Heart Rate, Syncope, Other - Respiratory Respiratory: absent: As Per HPI, Cough, Dyspnea, Hemoptysis, Dyspnea on Exertion , Wheezing, Snoring, Stridor, Pain on Inspiration, Chest Congestion, Excessive Mucous Production, Change in Mucous Color, Pain with Coughing, Other - Gastrointestinal Gastrointestinal: absent: As Per HPI, Abdominal Pain, Belching, Bloating, Change in Bowel Habits, Change in Stool Character, Coffee Ground Emesis, Constipation, Cramping, Diarrhea, Dyspepsia, Dysphagia, Early Satiety, Excessive Flatus, Fecal Incontinence, Heartburn, Hematemesis, Hematochezia, Loose Stools, Melena, Nausea, Odynophagia, Temesmus, Vomiting, Other - Genitourinary Genitourinary: absent: As Per HPI, Change in Urinary Stream, Difficulty Urinating, Dysuria, Flank Pain, Hematuria, Pyuria, Nocturia, Urinary Incontinence, Urinary Frequency, Urinary Hesitance, Urinary Urgency, Voiding Freq/Small Amts, Freq UTI, Hx Renal/Bladder Calculi, Hx /Renal Surgery, Bladder Distension, Other - Musculoskeletal Musculoskeletal: absent: As Per HPI, Abnormal Gait, Arthralgias, Atrophy, Back Pain, Deformity, Joint Swelling, Limited Range of Motion, Loss of Height, Muscle Cramps, Muscle Weakness, Myalgias, Neck Pain, Numbness, Radiating Pain into Limb, Stiffness, Tingling, Other - Integumentary Integumentary: absent: As Per HPI, Acne, Alopecia, Bleeding Lesions, Change in Hair, Change in Nails, Change in Pigmentation, Changing Lesions, Dry Skin, Erythema, Furuncle, Hirsutism, Lesions, New Lesions, Non-Healing Lesions, Photosensitivity, Pruritus, Rash, Skin Pain, Skin Ulcer, Sores, Striae, Swelling , Unusual Bruising, Wounds, Jaundice, Other - Neurological Neurological: absent: As Per HPI, Abnormal Gait, Abnormal Hearing, Abnormal Movements, Abnormal Speech, Behavioral Changes, Burning Sensations, Confusion, Convulsions, Disequilibrium, Dizziness, Numbness, Focal Weakness, Frequent Falls , Headaches, Lack of Coordination, Loss of Vision, Memory Loss, Paresthesias, Radicular Pain, Restless Legs, Sensory Deficit, Syncope, Tingling, Tremor, Vertigo, Weakness, Other Visual Disturbances, Other - Psychiatric Psychiatric: Anxiety - Endocrine Endocrine: absent: As Per HPI, Change in Body Appearance, Change in Libido, Cold Intolorance, Deepening of Voice, Excessive Sweating, Fatigue, Flushing, Heat Intolorance, Increase in Ring/Shoe/Hat Size, Palpitations, Polydipsia, Polyphagia, Polyuria, Other - Hematologic/Lymphatic Hematologic: absent: As Per HPI, Easy Bleeding, Easy Bruising, Lymphadenopathy, Other Past Patient History - Infectious Disease Hx of Infectious Diseases: None - Past Medical History & Family History Past Medical History?: Yes - Past Social History Smoking Status: Heavy Smoker > 10 Cigarettes Daily - CARDIAC Hx Cardiac Disorders: Yes Hx Hypertension: Yes - PULMONARY Hx Respiratory Disorders: Yes Hx Pneumonia: Yes - NEUROLOGICAL Hx Neurological Disorder: Yes Hx Seizures: Yes - HEENT Hx HEENT Problems: No - RENAL Hx Renal Failure: Yes (ESRD, HD) - ENDOCRINE/METABOLIC Hx Diabetes Mellitus Type 2: Yes - HEMATOLOGICAL/ONCOLOGICAL Hx Blood Disorders: Yes Hx Cancer: Yes (EYE CANCER) Hx Hepatitis C: Yes Other/Comment: Liver transplant. 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 - ANESTHESIA Hx Anesthesia: Yes Hx Anesthesia Reactions: No Meds Allergies/Adverse Reactions: Allergies Allergy/AdvReac Type Severity Reaction Status Date / Time No Known Allergies Allergy Verified 01/05/17 20:23 - Medications Medications: Current Medications Acetaminophen (Tylenol 325mg Tab) 650 mg PO BID PRN PRN Reason: Pain, Mild (1-3) Last Admin: 01/13/17 11:44 Dose: 650 mg Amlodipine Besylate (Norvasc) 10 mg PO DAILY [facility] Last Admin: 01/13/17 10:01 Dose: 10 mg Aspirin (Aspirin) 325 mg PO DAILY [facility] Last Admin: 01/13/17 10:00 Dose: 325 mg Bacitracin (Bacitracin) 0 gm TOP BID [facility] Last Admin: 01/13/17 11:31 Dose: 1 applic Calcitriol (Rocaltrol) 0.25 mcg PO DAILY [facility] Last Admin: 01/13/17 10:00 Dose: 0.25 mcg Cyclosporine (Cyclosporine) 75 mg PO BID [facility] Last Admin: 01/13/17 10:07 Dose: 75 mg Docusate Sodium (Colace) 100 mg PO DAILY [facility] Last Admin: 01/13/17 10:00 Dose: 100 mg Epoetin Denis (Procrit) 10,000 unit IV MWF [facility] Stop: 01/14/17 09:01 Last Admin: 01/09/17 11:59 Dose: 10,000 unit Ferrous Sulfate (Feosol) 325 mg PO DAILY [facility] Last Admin: 01/13/17 10:01 Dose: 325 mg Folic Acid (Folic Acid) 1 mg PO DAILY [facility] Last Admin: 01/13/17 10:00 Dose: 1 mg Furosemide (Lasix) 80 mg PO DAILY [facility] Last Admin: 01/13/17 10:00 Dose: 80 mg Hydromorphone HCl (Dilaudid) 0.5 mg IVP Q4H PRN PRN Reason: Pain, moderate (4-7) Last Admin: 01/13/17 12:49 Dose: 0.5 mg Levetiracetam (Keppra) 500 mg PO DAILY [facility] Last Admin: 01/13/17 10:01 Dose: 500 mg Metolazone (Zaroxolyn) 2.5 mg PO DAILY [facility] Last Admin: 01/13/17 10:01 Dose: 2.5 mg Metoprolol Succinate (Toprol Xl) 25 mg PO DAILY [facility] Last Admin: 01/13/17 10:00 Dose: 25 mg Nicotine (Nicoderm Cq) 1 patch TD DAILY [facility] Last Admin: 01/13/17 10:06 Dose: 1 patch Pantoprazole Sodium (Protonix Ec Tab) 40 mg PO DAILY [facility] Last Admin: 01/13/17 10:00 Dose: 40 mg Physical Exam - Constitutional Appears: No Acute Distress - Head Exam Head Exam: ATRAUMATIC, NORMAL INSPECTION, NORMOCEPHALIC - Eye Exam Eye Exam: EOMI, Normal appearance, PERRL Pupil Exam: NORMAL ACCOMODATION, PERRL Additional comments: Right eye with large bruise - ENT Exam ENT Exam: Mucous Membranes Moist, Normal Exam - Neck Exam Neck exam: Positive for: Normal Inspection - Respiratory Exam Respiratory Exam: Clear to Auscultation Bilateral, NORMAL BREATHING PATTERN - Cardiovascular Exam Cardiovascular Exam: REGULAR RHYTHM - GI/Abdominal Exam GI & Abdominal Exam: Normal Bowel Sounds, Soft - Exam Exam: NORMAL INSPECTION External exam: NORMAL EXTERNAL EXAM - Extremities Exam Extremities exam: Positive for: normal inspection - Back Exam Back exam: NORMAL INSPECTION - Neurological Exam Neurological exam: Alert, Oriented x3 - Psychiatric Exam Psychiatric exam: Normal Affect, Normal Mood - Skin Skin Exam: Dry, Intact, Normal Color, Warm Results - Vital Signs Recent Vital Signs: Last Vital Signs Temp 98 F 01/13/17 07:12 Pulse 77 01/13/17 07:12 Resp 20 01/13/17 07:12 BP 121/67 01/13/17 10:00 Pulse Ox 98 01/13/17 07:12 - Labs Result Diagrams: 01/09/17 07:01 01/10/17 13:59 Labs: Laboratory Results - last 24 hr 01/12/17 01/12/17 01/13/17 16:35 21:35 01:50 POC Glucose (mg/dL) 107 105 82 01/13/17 01/13/17 07:24 11:30 POC Glucose (mg/dL) 85 94 Assessment & Plan - Assessment and Plan (Free Text) Assessment: Palliative consult Code status FULL code prior to consult, no Advance Directive/ Living Will on chart I reviewed medical records, all diagnostic studies, examined and interviewed patient in the bed. Patient is alert, oriented X3 in no acute distress. There is a large bruise to right periorbital area. Right eye is bloody. Patient complains of moderate pain to area. He admits to occasional headache. Patient denies frequent falls at home and attributes his drinking to the cause of this one. The rest of organ systems reviewed and were negative acute findings. I discussed with patient the risks he puts him self in with alcohol abuse in regards of liver transplant. I jacky ethical concerns going along with it. We discussed thr possibility of going to a rehab, what patient declines. He stated being in the rehab before and would like to go home straight home this time. Patient does not want to consider the [facility] as an option. Code status discussed. I reviewed with patient the benefices of having the POLST completed . Patient was very clear that if his condition should ever become terminal where meaningful recovery was not expected, he would not want to have his life unnecessary prolonged on the life support. Patient choose no to assign any surrogate decision maker. Impression * Patient does not appear to be in any acute distress * There is mild pain to right eye area relieved by Tylenol * Patient has a poor insight of his condition * Patient admits to drinking despite having a donated liver and believes he would be able to control his urge to drink with out any help from rehab program * Patient choose DNR/DNI Suggestion * Supportive care * Discharge home when stable, patient does not want to go to [facility] * Reinforce the need for detox rehab or any other group therapy, upon discharge
--- NOTE | 2017-01-13 15:15 | CARD ---
APPROVED REPORT EKG Measurement Heart [id number] <Conclusion> Normal sinus rhythm Nonspecific T wave abnormality Abnormal ECG
[2017-01-13 16:03] LABS: BASO % 0.3 % (0.0-2.0); EOS # 0.1 K/uL (0.0-0.7); EOS % 3.3 % (0.0-4.0); HEMATOCRIT 26.9 % (35.0-51.0); LYMPH # 0.8 K/uL (1.0-4.3); LYMPH % 32.8 % (20.0-40.0); MEAN CORPUSCULAR HEMOGLOBIN 33.6 pg (27.0-31.0); MEAN CORPUSCULAR HGB CONC 34.3 g/dL (33.0-37.0); MONO # 0.3 K/uL (0.0-0.8); MONO % 10.6 % (0.0-10.0); NRBC % 0.1 % (0.0-2.0); RED CELL DISTRIBUTION WIDTH 16.3 % (11.5-14.5); WHITE BLOOD COUNT 2.5 K/uL (4.8-10.8)
[2017-01-13 16:14] LABS: POTASSIUM 4.8 mmol/L (3.6-5.2)
[2017-01-13 16:16] LABS: BILIRUBIN,TOTAL 0.5 mg/dL (0.2-1.3)
[2017-01-13 16:17] LABS: ALB/GLOB RATIO 1.2 (1.0-2.1); CALCIUM 8.7 mg/dl (8.6-10.4); TOTAL PROTEIN 6.7 g/dL (6.3-8.3)
[2017-01-13] MEDS ORDERED: EPOETIN ALFA 10,000 UNIT/ML ML IV ONE (17:00)
--- NOTE | 2017-01-13 20:06 | CP.PCM.PN ---
Subjective - Date & Time of Evaluation Date of Evaluation: 01/13/17 Time of Evaluation: 07:40 - Subjective Subjective: clinically same Objective - Vital Signs/Intake and Output Vital Signs (last 24 hours): Temp Pulse Resp BP Pulse Ox 98 F 65 16 108/80 98 01/13/17 16:00 01/13/17 18:00 01/13/17 18:00 01/13/17 18:00 01/13/17 17:06 Intake and Output: 01/13/17 01/14/17 18:59 06:59 Intake Total 400 Balance 400 - Medications Medications: Current Medications Acetaminophen (Tylenol 325mg Tab) 650 mg PO BID PRN PRN Reason: Pain, Mild (1-3) Last Admin: 01/13/17 11:44 Dose: 650 mg Amlodipine Besylate (Norvasc) 10 mg PO DAILY [facility] Last Admin: 01/13/17 10:01 Dose: 10 mg Aspirin (Aspirin) 325 mg PO DAILY [facility] Last Admin: 01/13/17 10:00 Dose: 325 mg Bacitracin (Bacitracin) 0 gm TOP BID [facility] Last Admin: 01/13/17 18:21 Dose: 1 applic Calcitriol (Rocaltrol) 0.25 mcg PO DAILY [facility] Last Admin: 01/13/17 10:00 Dose: 0.25 mcg Cyclosporine (Cyclosporine) 75 mg PO BID [facility] Last Admin: 01/13/17 18:28 Dose: 75 mg Docusate Sodium (Colace) 100 mg PO DAILY [facility] Last Admin: 01/13/17 10:00 Dose: 100 mg Epoetin Denis (Procrit) 10,000 unit IV MWF [facility] Stop: 01/14/17 09:01 Last Admin: 01/09/17 11:59 Dose: 10,000 unit Ferrous Sulfate (Feosol) 325 mg PO DAILY [facility] Last Admin: 01/13/17 10:01 Dose: 325 mg Folic Acid (Folic Acid) 1 mg PO DAILY [facility] Last Admin: 01/13/17 10:00 Dose: 1 mg Furosemide (Lasix) 80 mg PO DAILY [facility] Last Admin: 01/13/17 10:00 Dose: 80 mg Hydromorphone HCl (Dilaudid) 0.5 mg IVP Q4H PRN PRN Reason: Pain, moderate (4-7) Last Admin: 01/13/17 17:27 Dose: 0.5 mg Levetiracetam (Keppra) 500 mg PO DAILY [facility] Last Admin: 01/13/17 10:01 Dose: 500 mg Metolazone (Zaroxolyn) 2.5 mg PO DAILY [facility] Last Admin: 01/13/17 10:01 Dose: 2.5 mg Metoprolol Succinate (Toprol Xl) 25 mg PO DAILY [facility] Last Admin: 01/13/17 10:00 Dose: 25 mg Nicotine (Nicoderm Cq) 1 patch TD DAILY [facility] Last Admin: 01/13/17 10:06 Dose: 1 patch Pantoprazole Sodium (Protonix Ec Tab) 40 mg PO DAILY [facility] Last Admin: 01/13/17 10:00 Dose: 40 mg - Labs Labs: 01/13/17 15:54 01/13/17 15:54 PT 10.8 SECONDS (9.7-12.2) 01/05/17 21:04 INR 1.0 01/05/17 21:04 APTT 32 SECONDS (21-34) 01/05/17 21:04
[2017-01-13 23:55] VITALS: RESP 20
[2017-01-14] MEDS: HYDROmorphone 0.5 mg/0.5 ml ISec IVP PRN ×4 (01:05→13:41)
[2017-01-14 08:51] VITALS: TEMP 97.4
[2017-01-14] MEDS: Bacitracin Ointment 30 GM TUBE TOP SCH (09:39)
[2017-01-14] MEDS: CYCLOSPORINE, MODIFIED 25 MG CAP PO SCH (09:39)
[2017-01-14] MEDS: Pantoprazole 40 mg EC Tab PO SCH (09:44)
[2017-01-14] MEDS: Metoprolol Succinate 25 mg XL Tab PO SCH (09:44)
[2017-01-14] MEDS: metOLazone 2.5 MG TAB PO SCH (09:44)
[2017-01-14 09:58] VITALS: BP 110/73
[2017-01-14 16:12] VITALS: PULSE 65; O2SAT 95
--- NOTE | 2017-01-14 16:47 | CP.PCM.PN ---
Subjective - Date & Time of Evaluation Date of Evaluation: 01/14/17 Time of Evaluation: 11:00 - Subjective Subjective: Alert, orientedx3, ambulating well. No acute distress. Objective - Vital Signs/Intake and Output Vital Signs (last 24 hours): Temp Pulse Resp BP Pulse Ox 97.4 F L 65 20 110/73 95 01/14/17 08:48 01/14/17 15:53 01/14/17 08:48 01/14/17 15:53 01/14/17 15:53 Intake and Output: 01/14/17 01/14/17 06:59 18:59 Intake Total 830 Balance 830 - Labs Labs: 01/13/17 15:54 01/13/17 15:54 PT 10.8 SECONDS (9.7-12.2) 01/05/17 21:04 INR 1.0 01/05/17 21:04 APTT 32 SECONDS (21-34) 01/05/17 21:04 Assessment and Plan - Assessment and Plan (Free Text) Assessment: Patient is awake, ambulating, steady. Denies pain, dressing changed on the right eyebrow wound. Healing slowly. Verbalized understanding of the HD that is arranged as outpatient for him. D/W DR Kary Ly, plan to discharge home today with all the prescriptions. Addvised to follow up with PMD in 1 week.
== END 2017-01-14 16:10 | disposition home or self-care (01) | DRG 896 ==
LOC: C.ER 20:07 → C.9E 22:19 → C.3T 23:44 → OBSVTOIN 01-07 10:46
PROVIDERS: ADMIT Internal Medicine Nephrology; ATTEND Internal Medicine Nephrology
PROC: 5A1D70Z Performance of Urinary Filtration, Intermittent, Less than 6 Hours Per Day (ICD-10-PCS; principal; 2017-01-07)
DX: F10.230 Alcohol dependence with withdrawal, uncomplicated (principal); N18.6 End stage renal disease; E11.22 Type 2 diabetes mellitus with diabetic chronic kidney disease; Z94.4 Liver transplant status; I12.0 Hypertensive chronic kidney disease with stage 5 chronic kidney disease or end stage renal disease; S00.11XA Contusion of right eyelid and periocular area, initial encounter; Z68.1 Body mass index [BMI] 19.9 or less, adult; D64.9 Anemia, unspecified; B19.20 Unspecified viral hepatitis C without hepatic coma; W18.30XA Fall on same level, unspecified, initial encounter; F10.229 Alcohol dependence with intoxication, unspecified; Y90.6 Blood alcohol level of 120-199 mg/100 ml; G40.901 Epilepsy, unspecified, not intractable, with status epilepticus; Y93.01 Activity, walking, marching and hiking; Z66 Do not resuscitate; Z87.01 Personal history of pneumonia (recurrent); Z99.2 Dependence on renal dialysis